=== PATIENT | male | born 1955 | race Caucasian/White ===

== ENCOUNTER 2020-10-24 11:14 | Inpatient (IN) | payer MEDICARE, SELFPAY ==
[2020-10-24] VITALS (8 sets, daily range): BP systolic 104–134; BP diastolic 47–85; PULSE 62–84; RESP 18–22; TEMP 36.2–36.9; O2SAT 88–94; BMI 31.7; BMI 42.0
--- NOTE | 2020-10-24 11:31 | EKG12_ITS ---
Test Reason : WEAKNESS Blood Pressure : / mmHG Vent. Rate : 084 BPM Atrial Rate : 084 BPM P-R Int : 182 ms QRS Dur : 156 ms QT Int : 392 ms P-R-T Axes : 052 -44 036 degrees QTc Int : 463 ms Normal sinus rhythm Left axis deviation Right bundle branch block Abnormal ECG Confirmed by LIMA MILAN, ANDRZEJ ([id number]), material expeditor GADIEL PITTMAN ([id number]) on 10/26/2020 8:38:58 AM Referred By: SKYE Confirmed By:ANDRZEJ AMATO MD
--- NOTE | 2020-10-24 11:33 | NURSING ---
NO OLD EKGS
--- NOTE | 2020-10-24 11:36 | ED.DCSUM_ITS ---
History of Present Illness Chief Complaint: Weakness Informant: Patient Narrative: Patient is a 65-year-old male with a past medical history of hypertension, CAD, gout who presents to the ED for generalized weakness. Has been going on for the past week. He says that he has had some black, runny stools over the past 2 weeks. Denies ever having this happen before. He is not on any blood thinning medications. He denies any significant abdominal pain or fever/chills. He has had a mild cough over the past couple of weeks with production of a white sputum. No known sick contacts. He denies any bright red blood in the stool. No vomiting but he has not been eating over the past week because he has not been hungry and been mildly nauseous. He denies any chest pain or shortness of breath. He does have chronic back pain. He denies a drinking history. Past Medical History - Allergies and Home Meds Allergies/Adverse Reactions: Allergies Penicillins Allergy (Verified 10/24/20 11:19) Angioedema Primary Care Physician: Arnoldo Menjivar MD [Primary Care Provider] - Prior records reviewed: Yes Past Medical History: - - Per HPI Surgical History: - - Cardiac stent placed. Smoking Status: Never smoker Alcohol: Rare - Family History Maternal Family History: Reports: - - no heart dz Review of Systems All systems negative except as indicated General: Reports: Malaise. Denies: Chills, Fever, Sweats Eyes: Denies: Visual changes - bilaterally, Diplopia ENT: Denies: Rhinorrhea, Sore throat Cardiovascular: Denies: Chest pain, Palpitations Respiratory: Reports: Cough. Denies: Dyspnea, Dyspnea on exertion Gastrointestinal: Reports: Nausea, Diarrhea, Melena. Denies: Abdominal pain, Vomiting, Hematochezia Genitourinary: Denies: Dysuria, Hematuria, Frequency Musculoskeletal: Denies: Back pain, Extremity Pain Skin: Denies: Rash, Wounds Neurological: Reports: Weakness - Generalized. Denies: Headache, Numbness Physical Exam Vital Signs/Narrative: Vital Signs Temp Pulse Resp BP Pulse Ox 10/24/20 11:16 97.9 F 84 18 122/58 H 91 Inital Vital Signs reviewed: Yes General: Well nourished, Well developed, No Acute Distress Head: Normocephalic, Atraumatic Eyes: Perrl, EOMI ENT: Moist mucous membranes, No rhinorrhea Neck: Supple, Nontender Cardiovascular: Regular rate, Regular rhythm, No murmurs Respiratory: No distress, CTA bilaterally, Chest nontender, - - Mildly tachypneic after moving from chair to bed Abdomen: Soft, Nondistended, Normal bowel sounds, Tender - Diffuse, mild to deep palpation Back: Nontender, Normal Inspection Extremities: Nontender, No edema Skin: Normal color, No rash Neurological: Alert, Oriented x3, Cranial nerves II-XII grossly intact, Normal Strength, Normal Sensation Psychological: Normal affect, Normal Mood Diagnostic/Tx/Re-eval Chest X-Ray - ED: 1 View, - - Single view portable x-ray interpreted by myself. He does have bilateral patchy infiltrates worse on the right side. Normal cardiac silhouette. Normal mediastinum. Agree with radiologist interpretation. - EKG Initial EKG Interpretation: - - Rate of 84 bpm normal sinus rhythm. Prolonged QRS of 156 with right bundle branch block. Left axis deviation. Has some T wave inversions in the anterior leads. No significant ST elevations or depressions. - Medical Decision Making Patient presents to the emergency department for generalized weakness. He has been having black stools. Upon arrival to the ED he does seem very weak as it takes him a long time to get from the wheelchair to the bed with assistance. Otherwise stable exam is benign except for some mild abdominal tenderness with deep palpation. Will check basic lab work and obtain a type and screen as I do have high concern for upper GI bleed. He is started on IV fluids as he is not been eating or drinking over the past week. Patient's lab work-up did not reveal him to be significantly anemic. He does have mild elevation of BUN and creatinine although I do not have anything to compare this to to know if it is chronic. His x-ray did show bilateral patchy infiltrates and his coronavirus test did come back positive. Ambulating he desaturated to 88% and remained there even while sitting. He does have increased work of breathing after exerting himself. He is given a dose of Decadron. He is given a dose of Protonix for the potential GI bleed. He otherwise has no active bleeding here in the emergency department. He will require hospitalization given the hypoxia. He is agreeable with this plan. He otherwise has been stable throughout ED stay. ED Disposition - Plan for ED Patient: Disposition: Acute Care Hospital [facility] Diagnosis: Pneumonia due to Coronavirus disease 2019, Hypoxia, Generalized weakness, Jose G na Referrals: Arnoldo Menjivar MD [Primary Care Provider] -
[2020-10-24 12:25] LABS: ALB/GLOB Ratio 0.7 RATIO (0.9-2.4); AST(SGOT) 64 U/L (15-37); Alanine Aminotransfer ALT/SGPT 40 U/L (16-61); Alkaline Phosphatase 66 U/L (45-117); Anion Gap 8 (5-15); BUN 52 mg/dL (7-18); Calcium,Total 9.2 mg/dL (8.5-10.1); Chloride 102 mmol/L (98-107); Creatinine, Serum 1.86 mg/dL (0.70-1.30); EST Glomerular Filtration Rate 39 mL/min (>60); Est Glom Filt Rate - Afr Amer 47 mL/min (>60); Estimated Creatinine Clearance 39.07 ml/min; Globulin 4.3 g/dL (2.2-4.2); Glucose 110 mg/dL (74-106); Lipase 204 U/L (73-393); Potassium 3.7 mmol/L (3.5-5.1); Protein, Total 7.3 g/dL (6.4-8.2); Sodium Level 136 mmol/L (136-145)
[2020-10-24 12:46] LABS: Absolute Lymphocyte Count 0.94 X10^3/uL (0.83-4.51); Absolute Neutrophil Count 4.4 X10^3/uL (2.0-7.7); Basophil# 0.01 X10^3/uL; Basophil% 0.2 % (0-1); Hematocrit 38.2 % (40-54); Hemoglobin 12.3 g/dL (13.0-16.5); Lymphocyte # 0.94 X10^3/ul (4.0); Lymphocyte % 15.7 % (19-41); Mean Corp Hgb Conc 32.2 g/dL (32-36); Mean Corpuscular Hgb 27.2 pg (27.0-32.0); Mean Corpuscular Volume 84.3 fL (80-94); Mean Platelet Vol. 10.9 fl (6.2-12.0); Monocyte# 0.61 X10^3/uL; Monocyte% 10.2 % (0-10); NRBC Flagged by Analyzer 0 % (0-5); Neutrophil % 73.4 % (47-70); Platelet Count 206 K/mm3 (150-450); RBC Distribution Width CV 16.4 % (11.6-14.6); RBC Distribution Width SD 50.2 fl (35.1-43.9); Red Blood Count 4.53 M/mm3 (4.6-6.2)
--- NOTE | 2020-10-24 12:49 | ED.RN ---
PT REPORTS NO MEDICAL HISTORY OTHER THAN A STENT, ASKED IF HE TAKES ANY MEDICATIONS PT STATES YOU GUYS SURE ASK A HELL OF A LOT OF QUESTIONS. PT UNABLE TO PROVIDE A FULL MEDICATION LIST.
[2020-10-24] MEDS: 0.9% Normal Saline 1,000 ML 1000 ML IV (13:02)
[2020-10-24 13:35] LABS: Bacteria 0 SEEN /hpf (None Seen); Mucous, Urine 0 SEEN /hpf (<or=2+); Red Blood Cells-Urine 0 SEEN /hpf (0-5)
[2020-10-24 13:39] LABS: Color, Urine Yellow (Yellow); Glucose, Dipstick Normal (Normal); Ketone-Dipstick 5 mg/dl (Negative); Leukocyte Esterase-Dipstick Negative /ul (Negative); Nitrite-Dipstick Negative (Negative); Occult Blood-Urine 10 /ul (Negative); Protein-Dipstick 30 mg/dl (Negative); Urine Bilirubin Dipstick Negative (Negative); Urine Clarity Sl. Cloudy (Clear); Urine Urobilinogen Normal (Normal)
--- NOTE | 2020-10-24 14:10 | RAD_ITS ---
STUDY: X-RAY CHEST REASON FOR EXAM: Male, 65 years old. COUGH, HYPOXIA, WEAKNESS AND RECTAL BLEEDING AND COUGHED UP BLOOD WELL. HAS NOT EATEN IN A WEEK. TECHNIQUE: Single AP portable view of the chest. COMPARISON: None. FINDINGS: There is evidence of infiltrate in the right perihilar region as well as in the right lower lobe. Patchy infiltrates also seen at the left lung base. Radiographic follow-up is recommended. There is no demonstrated pleural abnormality. Normal size heart. Normal mediastinum and gaby. Normal visualized pulmonary arteries. There is atherosclerotic calcification of the aortic arch with tortuosity. Normal visualized thoracic spine. Normal visualized ribs, clavicles, and shoulders. There is no demonstrated abnormality of the visualized soft tissue structures of the upper abdomen. RAD/Chest 1 View (Portable) IMPRESSION: Bilateral pulmonary infiltrates worse in the right hemithorax. Electronically Signed: Jr Moya, at 14:27 EST , Service support ,
[2020-10-24 14:31] LABS: Squamous Epithelial Cells - UA 0-5 SEEN /hpf (0-5); White Blood Cells 0-5 SEEN /hpf (0-5)
--- NOTE | 2020-10-24 15:02 | NURSING ---
MS2 COVID HYPOXIA, COVID JOPPERI
--- NOTE | 2020-10-24 15:18 | HP.PCM_ITS ---
Problem List (1) COVID-19 Status: Acute History of Present Illness Date of Admission: 10/24/20 Chief Complaint: fatigue The patient is a 65 year old M who over the past couple weeks has been feeling ill. He is just fatigued and been having diarrhea. Stool has been noted to be black. He denies seeing any blood in his stool. He presented to the emergency room and initial concern was for GI bleed but he did test positive for COVID-19. His hemoglobin was noted to be 12.3. He is unaware of how he may have contracted COVID-19 as he has been sheltering in place at home. He denies any sick contacts. States that the only contact he has had is with his daughter today who took him to the hospital. In the emergency room, patient received IV pantoprazole and 10 mg of IV dexamethasone. He was noted by the ER physician to have a pulse ox of 88% on room air. However when I saw him, his pulse ox was around 91% on room air. [] Past Medical History Medical History: Medical History (Last Updated 10/24/20 @ 15:[address] Nish Dee, DO) CAD (coronary artery disease) I25.10 h/o coronary stent Allergies Penicillins Allergy (Verified 10/24/20 11:19) Angioedema Home Medications: Ambulatory Orders Medication Instructions Recorded Allopurinol 300 mg PO DAILY 10/24/20 Hydrochlorothiazide [Hctz] 25 mg PO DAILY 10/24/20 Losartan Potassium 50 mg PO DAILY 10/24/20 Metoprolol Tartrate 12.5 mg PO BID 10/24/20 Simvastatin 40 mg PO DAILY 10/24/20 Sodium Bicarbonate 650 mg PO 4X/DAY 10/24/20 Surgical History: - - Cardiac stent placed. Smoking Status: Never smoker Tobacco Use: Non-smoker Alcohol: Rare Drugs: None - *Family History Maternal History Items: - - no heart dz Review of Systems Constitutional: Reports: Malaise, Weakness. Denies: Anorexia, Chills, Fever Eyes: Denies: Blurred vision, Double vision HEENT: Denies: Head Aches, Sinus Congestion, Sinus Drainage Cardiovascular: Denies: Chest Pain, Palpitations Respiratory: Denies: Cough, Shortness of breath at rest, Sputum production Gastrointestinal: Denies: Abdominal Pain, Nausea, Vomiting Genitourinary: Denies: Dysuria Musculoskeletal: Denies: Joint Pain, Joint Tenderness Skin: Denies: Rash, Wounds Neurological: Denies: Numbness, Tingling, Focal weakness Psychiatric: Denies: Anxiety, Depression Hematologic/ Lymphatic: Denies: Easy Bruising, Easy Bleeding, Hx of blood clot Comment: All review of systems were negative except as mentioned above in the history of present illness and the other review of systems. VTE Information - Inpt Only VTE Present on Admission: No VTE Mechan Device Prophylaxis: SCD's VTE Pharm Prophylaxis ordered?: No Reason prophylaxis not ordered:: Medical Contraindication - Physical Exam Vitals/I&O's: Vital Signs Temp Pulse Resp BP Pulse Ox 36.6 C 78 19 H 104/85 H 94 10/24/20 12:56 10/24/20 12:56 10/24/20 12:56 10/24/20 12:56 10/24/20 12:56 Oxygen Delivery Method Room Air Weight: 97.522 kg Body Mass Index (BMI) 31.7 Intake and Output for Last 24 Hours 10/22/20 10/23/20 10/24/20 23:59 23:59 23:59 Intake Total 110 / 110 Balance 110 / 110 General: Alert, Cooperative, No apparent distress HEENT: Atraumatic, Normocephalic Oral: Moist Mucosa, No Gingival or Mucosal Lesions/ Ulcerations Neck: No Nodes, Thyroid Normal Size and Texture Lungs: Normal air movement, - - Bibasilar crackles Cardiovascular: Regular rate, Regular Rhythm, Normal S1, Normal S2, No murmurs Abdomen: Bowel Sounds Present, Soft, Non Tender, Non-Distended, No Hepato- splenomegaly Extremities: No edema, No Calf Tenderness Skin: No rashes, No breakdown Musculoskeletal: No Tenderness to Palpation of Joints or Extremities, No Muscle Wasting Psych/Mental Status: Normal Affect, Appropriate Microbiology Past 72 Hours 10/24/20 13:55 Mucosa - Nose SARS-CoV-2 Antigen (Rapid) - Final SARS-CoV-2 (COVID 19) Laboratory Results 10/24/20 11:55: WBC 6.0, RBC 4.53 L, Hgb 12.3 L, Hct 38.2 L, MCV 84.3, MCH 27.2, MCHC 32.2, RDW Std Deviation 50.2 H, RDW Coeff of Abhilash 16.4 H, Plt Count 206, MPV 10.9, Immature Gran % (Auto) 0.500, Neut % (Auto) 73.4 H, Lymph % (Auto) 15.7 L, [place] % (Auto) 10.2 H, Eos % (Auto) 0.0, Baso % (Auto) 0.2, Absolute Neuts (auto) 4.4, Absolute Lymphs (auto) 0.94, Nucleated RBC % 0 10/24/20 11:55: Sodium 136, Potassium 3.7, Chloride 102, Carbon Dioxide 26.0, Anion Gap 8, BUN 52 H, Creatinine 1.86 H, Estim Creat Clear Calc 39.07, Est GFR (MDRD) Af Amer 47 L, Est GFR (MDRD) Non-Af 39 L, BUN/Creatinine Ratio 28.0 H, Glucose 110 H, Calcium 9.2, Total Bilirubin 0.60, AST 64 H, ALT 40, Alkaline Phosphatase 66, Troponin I < 0.015, Total Protein 7.3, Albumin 3.0 L, Globulin 4.3 H, Albumin/Globulin Ratio 0.7 L, Lipase 204 10/24/20 11:55: Blood Type A POSITIVE, Antibody Screen NEGATIVE 10/24/20 13:30: Urine Color Yellow, Urine Clarity Sl. Cloudy, Urine pH 5.0, Ur Specific [place] 1.020, Urine Protein 30 H, Urine Glucose (UA) Normal, Urine Ketones 5 H, Urine Occult Blood 10 H, Urine Nitrite Negative, Urine Bilirubin Negative, Urine Urobilinogen Normal, Ur Leukocyte Esterase Negative, Urine RBC 0 SEEN, Urine WBC 0-5 SEEN, Ur Squamous Epith Cells 0-5 SEEN, Urine Bacteria 0 SEEN, Urine Mucus 0 SEEN EKG reviewed and showed right bundle branch block. No prior EKGs to compare to. Chest x-ray reviewed and showed pulmonary infiltrate bilaterally. Assessment/Plan All Active Problems COVID-19 (Acute) 1. Acute COVID-19 pneumonia: Patient received a dexamethasone in the emergency room and will continue for a total of 10days. Start patient on remdesivir and treat for a total of 5 days. Will check additional lab work such as D-dimer, procalcitonin. If D-dimer is significantly elevated, patient would not be a candidate for a CT angiogram because of his creatinine and would not be a candidate for VQ scan because of the pneumonia. May consider doing a duplex of the lower extremities. Given the black stools, holding off on any kind of chemical prophylaxis until that can be further elucidated. 2. Black stools: Concern is for melena. Will check Hemoccult but also cycle his hemoglobin. Patient received IV pantoprazole in the emergency room. We will continue with oral. As long as patient is hemodynamically stable, will hold off on consultation to general surgery. 3. Chronic kidney disease stage III: Presumed. Hold off on IV fluids given the patient's COVID-19 at this time. Hold HCTZ. Patient is on sodium bicarbonate is baseline. 4. Coronary artery disease: Patient has had a history of a stent before. No active issues at this time. Continue with losartan, metoprolol tartrate and simvastatin. 5. VTE prophylaxis: At this time patient will be on SCDs. It is noted that the patient is more likely to have coagulopathy having COVID-19 but will need to further elucidate the etiology of his black stools and if this is indeed active melena. If Hemoccult is negative and hemoglobin is stable, then would recommend chemical prophylaxis with enoxaparin. 6. Advanced care planning: Discussed with the patient. Patient state that he would not want to go on the ventilator but on further clarification stated that he did not need to go onto a ventilator. I told him this is a hypothetical question in case if he were to get worse. He is unsure at this time. I told him that we would leave him at full CODE STATUS at this time until he tells us otherwise. Inpatient E&M: 78286 Init Hosp L3
[2020-10-24] MEDS: dexAMETHasone 10 MG/ML Vial IV (16:02)
--- NOTE | 2020-10-24 16:20 | PCS.PANDOC ---
PANDEMIC DOCUMENTATION INITIATED: Date:10-24-2020 Time: 8534
[2020-10-24 18:06] LABS: Hemoglobin 11.6 g/dL (13.0-16.5)
[2020-10-24 18:14] LABS: Prothrombin Time (Protime)PT. 12.9 SECONDS (11.7-14.9)
[2020-10-24 18:15] LABS: Fibrinogen 739 mg/dl (203-444)
[2020-10-24 18:21] LABS: D-Dimer Quantitative (DVT/PE) 1.29 FEU/ug/m (0.27-0.49)
[2020-10-24 18:54] LABS: Alkaline Phosphatase 63 U/L (45-117)
[2020-10-24 18:59] LABS: Procalcitonin 0.46 ng/mL (0.00-0.09)
[2020-10-24] MEDS: 0.9% Saline Lock 10 ML Syringe IV (19:21)
[2020-10-24] MEDS: Metoprolol Tartrate 25 MG Tablet 12.5 MG PO (20:34)
[2020-10-24] MEDS: Sodium Bicarbonate 650 MG Tablet PO (20:34)
[2020-10-24] MEDS: Pantoprazole Sodium 40 MG Tablet PO (20:34)
[2020-10-24 23:38] LABS: Hematocrit 37.6 % (40-54); Hemoglobin 12.1 g/dL (13.0-16.5)
[2020-10-25] VITALS (7 sets, daily range): BP systolic 121–145; BP diastolic 64–72; PULSE 72–82; RESP 18; TEMP 36.2–36.3; O2SAT 92–94
--- NOTE | 2020-10-25 01:10 | PCM.PN.BLA ---
Progress Note Called about patient's elevated D-dimer. Noted that patient has elevated Cr; unclear if this is CELIA or CKD. Hb remained stable at 11-12. Patient is just on 2L oxygen with no tachypnea Will start on therapeutic lovenox pending evaluation for possible PE; can be stopped in am if primary physician feels Lovenox is not warranted STROKE Vital Signs/Narrative: Vital Signs Temp Pulse Resp BP Pulse Ox 10/24/20 23:10 97.8 F 62 18 118/61 94
[2020-10-25] MEDS: Sodium Bicarbonate 650 MG Tablet PO ×4 (04:33→22:28)
[2020-10-25] MEDS: Enoxaparin 150 MG/ML Syringe 130 MG SC (04:34)
[2020-10-25 07:24] LABS: Absolute Lymphocyte Count 0.82 X10^3/uL (0.83-4.51); Absolute Neutrophil Count 3.3 X10^3/uL (2.0-7.7); Basophil# 0.01 X10^3/uL; Basophil% 0.2 % (0-1); Hematocrit 40.3 % (40-54); Lymphocyte # 0.82 X10^3/ul (4.0); Lymphocyte % 17.7 % (19-41); Mean Corp Hgb Conc 32.3 g/dL (32-36); Mean Corpuscular Hgb 27.3 pg (27.0-32.0); Mean Corpuscular Volume 84.5 fL (80-94); Mean Platelet Vol. 10.1 fl (6.2-12.0); Monocyte# 0.51 X10^3/uL; NRBC Flagged by Analyzer 0 % (0-5); Neutrophil # 3.28 X10^3/uL (2.7-7.7); Neutrophil % 70.9 % (47-70); Platelet Count 204 K/mm3 (150-450); RBC Distribution Width CV 16.2 % (11.6-14.6); RBC Distribution Width SD 50.3 fl (35.1-43.9); Red Blood Count 4.77 M/mm3 (4.6-6.2); White Blood Count 4.6 K/mm3 (4.4-11.0)
[2020-10-25 07:48] LABS: ALB/GLOB Ratio 0.8 RATIO (0.9-2.4); AST(SGOT) 63 U/L (15-37); Alanine Aminotransfer ALT/SGPT 40 U/L (16-61); Albumin, Serum 2.9 g/dL (3.2-5.0); Alkaline Phosphatase 67 U/L (45-117); Anion Gap 8 (5-15); BUN 43 mg/dL (7-18); BUN/Creat Ratio 32.8 RATIO (10-20); Chloride 106 mmol/L (98-107); Creatinine, Serum 1.31 mg/dL (0.70-1.30); EST Glomerular Filtration Rate 58 mL/min (>60); Est Glom Filt Rate - Afr Amer 70 mL/min (>60); Estimated Creatinine Clearance 55.47 ml/min; Globulin 3.6 g/dL (2.2-4.2); Glucose 140 mg/dL (74-106); Potassium 3.9 mmol/L (3.5-5.1); Protein, Total 6.5 g/dL (6.4-8.2); Sodium Level 140 mmol/L (136-145)
--- NOTE | 2020-10-25 09:44 | PCM.PROGNOTE ---
Patient Problems: Active and Suspected Problems (Last Updated 10/24/20 @ 15:[address] Nish Dee, DO) Pneumonia due to Coronavirus disease 2019 (Acute) Hypoxia (Acute) Melena (Acute) Subjective: Chief complaint: Follow-up after admission for acute bilateral COVID-19 pneumonia, hypoxia, renal insufficiency and melena. Patient seen and examined. No acute events overnight. He is still complaining of shortness of breath with activity, no improvement compared to yesterday. Reported cough without sputum production. He is afebrile, blood pressure and heart rate are maintained, pulse ox is 94% on 2 L. - Physical Exam Vitals/I&O's: Vital Signs Temp Pulse Resp BP Pulse Ox 97.1 F L 82 18 121/72 H 94 10/25/20 04:16 10/25/20 04:16 10/25/20 04:16 10/25/20 04:16 10/25/20 07:36 Oxygen Flow Rate (L/min) 2 Oxygen Delivery Method Nasal Cannula Weight: 285 lb Body Mass Index (BMI) 42.0 Intake and Output for Last 24 Hours 10/23/20 10/24/20 10/25/20 23:59 23:59 23:59 Intake Total 1800 / 1800 Output Total 400 / 400 Balance 1400 / 1400 General: Alert, Oriented x3, Cooperative, No apparent distress HEENT: Atraumatic, PERRLA, EOMI, Normocephalic Oral: Moist Mucosa, No Gingival or Mucosal Lesions/ Ulcerations Neck: Supple, No JVD, Negative Carotid Bruits, Trachea Midline, Thyroid Normal Size and Texture Lungs: No rhonchi, No wheeze, No rales, Diminished, Short of Breath, - - Decreased breath sounds bilateral, otherwise clear. Cardiovascular: Regular rate, Regular Rhythm, Normal S1, Normal S2, PMI Normal Abdomen: Bowel Sounds Present, Soft, Non Tender, Non-Distended, No Hepato-splenomegaly, Obese Extremities: No clubbing, No cyanosis, No edema Skin: No rashes, No breakdown Lymphatic: No Cervical, Supraclavicular, or Inguinal Adenopathy Neurological: Cranial nerves II-XII grossly intact, Motor Exam 5/5 strength throughout Psych/Mental Status: Normal Affect, Appropriate, Alert and oriented to time, place, person, mood and affect Microbiology Past 72 Hours 10/24/20 13:55 Mucosa - Nose SARS-CoV-2 Antigen (Rapid) - Final SARS-CoV-2 (COVID 19) Laboratory Results 10/24/20 11:55: WBC 6.0, RBC 4.53 L, Hgb 12.3 L, Hct 38.2 L, MCV 84.3, MCH 27.2, MCHC 32.2, RDW Std Deviation 50.2 H, RDW Coeff of Abhilash 16.4 H, Plt Count 206, MPV 10.9, Immature Gran % (Auto) 0.500, Neut % (Auto) 73.4 H, Lymph % (Auto) 15.7 L, [place] % (Auto) 10.2 H, Eos % (Auto) 0.0, Baso % (Auto) 0.2, Absolute Neuts (auto) 4.4, Absolute Lymphs (auto) 0.94, Nucleated RBC % 0 10/24/20 11:55: Sodium 136, Potassium 3.7, Chloride 102, Carbon Dioxide 26.0, Anion Gap 8, BUN 52 H, Creatinine 1.86 H, Estim Creat Clear Calc 39.07, Est GFR (MDRD) Af Amer 47 L, Est GFR (MDRD) Non-Af 39 L, BUN/Creatinine Ratio 28.0 H, Glucose 110 H, Calcium 9.2, Total Bilirubin 0.60, AST 64 H, ALT 40, Alkaline Phosphatase 66, Troponin I < 0.015, Total Protein 7.3, Albumin 3.0 L, Globulin 4.3 H, Albumin/Globulin Ratio 0.7 L, Lipase 204 10/24/20 11:55: Blood Type A POSITIVE, Antibody Screen NEGATIVE 10/24/20 13:30: Urine Color Yellow, Urine Clarity Sl. Cloudy, Urine pH 5.0, Ur Specific [place] 1.020, Urine Protein 30 H, Urine Glucose (UA) Normal, Urine Ketones 5 H, Urine Occult Blood 10 H, Urine Nitrite Negative, Urine Bilirubin Negative, Urine Urobilinogen Normal, Ur Leukocyte Esterase Negative, Urine RBC 0 SEEN, Urine WBC 0-5 SEEN, Ur Squamous Epith Cells 0-5 SEEN, Urine Bacteria 0 SEEN, Urine Mucus 0 SEEN 10/24/20 17:50: PT 12.9, INR 1.0, Fibrinogen 739 H, D-Dimer Quant (PE/DVT) 1.29 H* 10/24/20 17:50: Alkaline Phosphatase 63, Troponin I < 0.015 10/24/20 17:50: Procalcitonin 0.46 H 10/24/20 17:50: Hgb 11.6 L, Hct 36.0 L 10/24/20 23:29: Hgb 12.1 L, Hct 37.6 L 10/25/20 06:45: WBC 4.6, RBC 4.77, Hgb 13.0, Hct 40.3, MCV 84.5, MCH 27.3, MCHC 32.3, RDW Std Deviation 50.3 H, RDW Coeff of Abhilash 16.2 H, Plt Count 204, MPV 10.1, Immature Gran % (Auto) 0.200, Neut % (Auto) 70.9 H, Lymph % (Auto) 17.7 L, [place] % (Auto) 11.0 H, Eos % (Auto) 0.0, Baso % (Auto) 0.2, Absolute Neuts (auto) 3.3, Absolute Lymphs (auto) 0.82 L, Nucleated RBC % 0 10/25/20 06:45: Sodium 140, Potassium 3.9, Chloride 106, Carbon Dioxide 26.0, Anion Gap 8, BUN 43 H, Creatinine 1.31 H, Estim Creat Clear Calc 55.47, Est GFR (MDRD) Af Amer 70, Est GFR (MDRD) Non-Af 58 L, BUN/Creatinine Ratio 32.8 H, Glucose 140 H, Calcium 9.0, Total Bilirubin 0.60, AST 63 H, ALT 40, Alkaline Phosphatase 67, Total Protein 6.5, Albumin 2.9 L, Globulin 3.6, Albumin/Globulin Ratio 0.8 L Current Medications Acetaminophen (Acetaminophen 325 Mg Tablet) 650 mg PO Q6H PRN PRN PRN Reason: Pain Score 1-10/Temp > 100.7 F Allopurinol (Allopurinol 300 Mg Tablet) 300 mg PO DAILY [facility] Atorvastatin Calcium (Atorvastatin Calcium 20 Mg Tablet) 20 mg PO DAILY [facility] Dexamethasone (Dexamethasone 4 Mg Tablet) 6 mg PO DAILY [facility] Enoxaparin Sodium (Enoxaparin 150 Mg/Ml Syringe) 130 mg SC DAILY VERONICA Last Admin: 10/25/20 04:34 Dose: 130 mg Documented by: Remdesivir 100 mg/ Sodium (Chloride) 250 mls @ 125 mls/hr IV DAILY [facility] Stop: 10/28/20 11:59 Losartan Potassium (Losartan Potassium 50 Mg Tablet) 50 mg PO DAILY [facility] Metoprolol Tartrate (Metoprolol Tartrate 25 Mg Tablet) 12.5 mg PO BID [facility] Last Admin: 10/24/20 20:34 Dose: 12.5 mg Documented by: Ondansetron HCl (Ondansetron 4 Mg/2 Ml Vial) 4 mg IV Q8H PRN PRN PRN Reason: NAUSEA/VOMITING Pantoprazole Sodium (Pantoprazole Sodium 40 Mg Tablet) 40 mg PO BID [facility] Last Admin: 10/24/20 20:34 Dose: 40 mg Documented by: Sodium Bicarbonate (Sodium Bicarbonate 650 Mg Tablet) 650 mg PO 0400,1000,1600,2200 [facility] Last Admin: 10/25/20 04:33 Dose: 650 mg Documented by: Sodium Chloride (0.9% Saline Lock 10 Ml Syringe) 10 - 40 ml IV UD PRN PRN Reason: SALINE FLUSH Last Admin: 10/24/20 19:21 Dose: 10 ml Documented by: Medical Necessity - Tobacco Use Smoking Status: Never smoker Tobacco Use: Non-smoker Assessment/Plan All Active Problems (Last Updated 10/24/20 @ 15:[address] Nish Dee, DO) Pneumonia due to Coronavirus disease 2019 (Acute) Hypoxia (Acute) Melena (Acute) This is a 65 years old male patient presented to the emergency room because of weakness, fatigue and diarrhea, found to have bilateral pulmonary infiltrate and tested positive for COVID-19 and he was found to have acute bilateral COVID-19 pneumonia, renal insufficiency and hypoxia. #1 acute bilateral COVID-19 pneumonia/hypoxia: He is on p.o. dexamethasone and IV remdesivir. Chest x-ray reviewed. Currently, he is on 2 L of oxygen, other vital signs are stable. D-dimer was elevated. Troponin was negative. Plan: Infectious disease consult, CTA chest, IV fluids, albuterol inhaler as needed, repeat CBC and CMP tomorrow morning. #2 renal insufficiency: Unknown if it is acute or chronic. Admission creatinine was 1.86, received IV fluids and creatinine came down to 1.31 today, improving. Plan to continue gentle IV fluids for hydration, Mucomyst for kidney protection as patient went for CTA chest, repeat CMP tomorrow morning. #3 melena: Stool for occult blood tested positive. Today's hemoglobin is 13 g/dL. Currently, no active bleeding, no tachycardia, blood pressure stable. Pro time and INR were normal, platelet count is normal. Plan to start PPI. May need to go for work-up as outpatient. #4 CAD status post stents: Stable, no acute issues. Continue statins, losartan metoprolol. #5 hypertension: Blood pressure stable, continue losartan and metoprolol. #6 hyperlipidemia: Continue statins. #7 DVT prophylaxis: Subcu Lovenox. This note was generated with [email or web address] dictation software. It may contain incorrect words, spelling, and punctuation that were not noted in checking the note before signing. Inpatient E&M: 86722 Subs Hosp L2
--- NOTE | 2020-10-25 09:50 | CASEMGMT ---
Addendum entered by Rani Hardy 10/25/20 10:22: Pt states one of his daughters can get groceries/medications/supplies for him if needed. Original Note: SCARLETT VARGAS ASSESSMENT COVID-19 + SCARLETT VARGAS placed call to pt's room for initial transition planning/care coordination assessment. SCARLETT VARGAS introduced self and role at [facility]. Pt voices understanding and consents to assessment at this time. Pt is A/O at this time and answers all questions appropriately. Care providers, pharmacy, and demographics verified/updated at this time. PCP: Dr Menjivar Specialists: Dr Gutierrez--cardiology @ [facility] Preferred Pharmacy: [facility] Retail Insurance: [employer] Prescription Benefit: Yes Living Will/HPOA: Has both LW and Healthcare POA, which is his daughter, Martina Mclaughlin LNOK: 3 daughters. Dtr, Martina, is POA Living Arrangements: Lives alone in one-story home. 2 steps to enter thru the garage. Independent w/ADL's and IADL's Transportation: Pt states drives self and states no transportation concerns at this time. DME: Denies using any DME and denies needs. No Home O2. If qualifies for O2 @ d/c, states no preference of DME company HHC/SNF: No history of either Pt wishes to return home and states has no concerns with going home at time of discharge. CM to follow for home oxygen needs and any further discharge planning/needs. Pt voices no further concerns/needs at this time. Advised pt to ask for CM if any further questions/concerns/needs arise. Voices understanding. PLAN: Home. CM to follow for any Home O2 needs @ discharge Kristen MILES RN, CM
--- NOTE | 2020-10-25 10:17 | NURSING ---
stool for occult blood sent to lab
[2020-10-25] MEDS: dexAMETHasone 4 MG Tablet 6 MG PO (10:19)
[2020-10-25] MEDS: Allopurinol 300 MG Tablet PO (10:20)
[2020-10-25] MEDS: Metoprolol Tartrate 25 MG Tablet 12.5 MG PO ×2 (10:20→22:28)
[2020-10-25] MEDS: Atorvastatin Calcium 20 MG Tablet PO (10:20)
[2020-10-25] MEDS: Pantoprazole Sodium 40 MG Tablet PO ×2 (10:20→22:28)
[2020-10-25] MEDS: Losartan Potassium 50 MG Tablet PO (10:20)
--- NOTE | 2020-10-25 10:45 | CT_ITS ---
STUDY: CTA CHEST REASON FOR EXAM: Male, 65 years old. 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 WEAKNESS + COVID. RADIATION DOSAGE (If Supplied By Facility): CTDIvol = ( 13.85 ) mGy, DLP = ( 1211.89 ) mGycm TECHNIQUE: The examination was performed with the intravenous administration of IV 100mL Isovue-370. Post-processing of the angiographic images was performed, with multiplanar reformation and 3D reconstruction. Individualized dose optimization techniques were used for this CT. COMPARISON: None. FINDINGS: Limited examination due to poor opacification of the pulmonary arteries despite 2 attempts. Small intraluminal filling defects are seen in branches of the upper lobe pulmonary arteries bilaterally. Normal thoracic aorta and visualized great vessels. There is no demonstrated aortic dissection. There are calcifications of the coronary arteries. There are visualized mediastinal lymph nodes, which are within normal size limits, and with normal morphology. Normal hilar regions. Normal visualized trachea and bronchi. The lungs are well expanded. Multiple areas of groundglass appearance are seen in both upper lobes as well as in the lower lobes worse in the right hemithorax. Findings are in keeping with Covid pneumonitis. Normal pleura. Normal chest wall structures. There are degenerative changes of thoracic spine. Fatty infiltration of the liver. Hepatomegaly. CT/CTA Chest W/WO Contrast IMPRESSION: Limited evaluation of the pulmonary arteries due to poor contrast-enhancement although I suspect multiple small pulmonary emboli in the upper lobe pulmonary arterial branches. Multiple areas of bilateral groundglass appearance was in the right hemithorax suggestive of a pneumonitis associated with Covid 19. Electronically Signed: Jr Moya, at 11:20 EST , Service support ,
[2020-10-25] MEDS: 0.9% Normal Saline 1,000 ML 75 ML IV (11:38)
[2020-10-25] MEDS: Acetylcysteine (Mucomyst Oral) 20% SOLN 1200 MG PO ×2 (12:08→22:29)
[2020-10-25] MEDS: Enoxaparin 40 MG/0.4 ML Syringe SC (22:29)
[2020-10-26] VITALS (8 sets, daily range): BP systolic 124–131; BP diastolic 56–71; PULSE 67–75; RESP 18; TEMP 36.1–36.6; O2SAT 92–93
[2020-10-26] MEDS: Sodium Bicarbonate 650 MG Tablet PO ×4 (05:14→20:43)
[2020-10-26 05:24] LABS: Absolute Lymphocyte Count 1.12 X10^3/uL (0.83-4.51); Absolute Neutrophil Count 5.6 X10^3/uL (2.0-7.7); Basophil# 0.02 X10^3/uL; Basophil% 0.3 % (0-1); Hematocrit 42.2 % (40-54); Hemoglobin 13.2 g/dL (13.0-16.5); Lymphocyte # 1.12 X10^3/ul (4.0); Lymphocyte % 14.2 % (19-41); Mean Corp Hgb Conc 31.3 g/dL (32-36); Mean Corpuscular Hgb 26.8 pg (27.0-32.0); Mean Corpuscular Volume 85.8 fL (80-94); Mean Platelet Vol. 9.8 fl (6.2-12.0); Monocyte# 1.03 X10^3/uL; Monocyte% 13.1 % (0-10); NRBC Flagged by Analyzer 0 % (0-5); Neutrophil # 5.64 X10^3/uL (2.7-7.7); Neutrophil % 71.6 % (47-70); Platelet Count 241 K/mm3 (150-450); RBC Distribution Width CV 16.2 % (11.6-14.6); RBC Distribution Width SD 50.9 fl (35.1-43.9); Red Blood Count 4.92 M/mm3 (4.6-6.2); White Blood Count 7.9 K/mm3 (4.4-11.0)
[2020-10-26 05:49] LABS: ALB/GLOB Ratio 0.8 RATIO (0.9-2.4); AST(SGOT) 55 U/L (15-37); Alanine Aminotransfer ALT/SGPT 39 U/L (16-61); Albumin, Serum 2.9 g/dL (3.2-5.0); Alkaline Phosphatase 67 U/L (45-117); Anion Gap 7 (5-15); BUN 33 mg/dL (7-18); BUN/Creat Ratio 26.6 RATIO (10-20); Chloride 113 mmol/L (98-107); Creatinine, Serum 1.24 mg/dL (0.70-1.30); EST Glomerular Filtration Rate 62 mL/min (>60); Est Glom Filt Rate - Afr Amer 75 mL/min (>60); Globulin 3.5 g/dL (2.2-4.2); Glucose 130 mg/dL (74-106); Potassium 3.8 mmol/L (3.5-5.1); Protein, Total 6.4 g/dL (6.4-8.2); Sodium Level 144 mmol/L (136-145)
[2020-10-26] MEDS: dexAMETHasone 4 MG Tablet 6 MG PO (10:14)
[2020-10-26] MEDS: Metoprolol Tartrate 25 MG Tablet 12.5 MG PO ×2 (10:15→20:42)
[2020-10-26] MEDS: Atorvastatin Calcium 20 MG Tablet PO (10:16)
[2020-10-26] MEDS: Losartan Potassium 50 MG Tablet PO (10:16)
[2020-10-26] MEDS: Pantoprazole Sodium 40 MG Tablet PO ×2 (10:16→20:43)
[2020-10-26] MEDS: Allopurinol 300 MG Tablet PO (10:16)
[2020-10-26] MEDS: APIXABAN 5 MG TABLET PO (10:16)
[2020-10-26] MEDS: Acetylcysteine (Mucomyst Oral) 20% SOLN 1200 MG PO ×2 (10:26→20:43)
--- NOTE | 2020-10-26 10:47 | PCM.PROGNOTE ---
Patient Problems: Active and Suspected Problems (Last Updated 10/24/20 @ 15:[address] Nish Dee, DO) Pneumonia due to Coronavirus disease 2019 (Acute) Hypoxia (Acute) Melena (Acute) Subjective: Chief complaint: Follow-up after admission for acute bilateral COVID-19 pneumonia, hypoxia, renal insufficiency and melena. Patient seen and examined. No acute events overnight. Today, he is feeling better, shortness of breath with minimal improvement. He still having melena. Denied epigastric pain, abdominal pain, nausea or vomiting. He is afebrile, blood pressure and heart rate are stable, pulse ox is 92% on 2 L. - Physical Exam Vitals/I&O's: Vital Signs Temp Pulse Resp BP Pulse Ox 97.6 F L 75 18 124/56 H 92 10/26/20 10:00 10/26/20 10:15 10/26/20 10:00 10/26/20 10:15 10/26/20 10:00 Oxygen Flow Rate (L/min) 2 Oxygen Delivery Method Nasal Cannula Weight: 285 lb 0.006 oz Body Mass Index (BMI) 42.0 Intake and Output for Last 24 Hours 10/24/20 10/25/20 10/26/20 23:59 23:59 23:59 Intake Total 1800 / 1800 610 / 610 1240 / 1240 Output Total 400 / 400 1250 / 1250 300 / 300 Balance 1400 / 1400 -640 / -640 940 / 940 General: Alert, Oriented x3, Cooperative, - - Minimally short of breath. HEENT: Atraumatic, PERRLA, EOMI, Normocephalic Oral: Moist Mucosa, No Gingival or Mucosal Lesions/ Ulcerations Neck: Supple, No JVD, Negative Carotid Bruits, Trachea Midline, Thyroid Normal Size and Texture Lungs: Clear to auscultation, No rhonchi, No wheeze, No rales, Diminished Cardiovascular: Regular rate, Regular Rhythm, Normal S1, Normal S2, PMI Normal Abdomen: Bowel Sounds Present, Soft, Non Tender, Non-Distended, No Hepato-splenomegaly, Obese Extremities: No clubbing, No cyanosis, No edema Skin: No rashes, No breakdown Lymphatic: No Cervical, Supraclavicular, or Inguinal Adenopathy Neurological: Cranial nerves II-XII grossly intact, Motor Exam 5/5 strength throughout Psych/Mental Status: Normal Affect, Appropriate, Alert and oriented to time, place, person, mood and affect Microbiology Past 72 Hours 10/25/20 10:12 Stool Stool Occult Blood (ALFIE) - Final Occult Blood Positive 10/24/20 13:55 Mucosa - Nose SARS-CoV-2 Antigen (Rapid) - Final SARS-CoV-2 (COVID 19) Laboratory Results 10/26/20 05:16: WBC 7.9, RBC 4.92, Hgb 13.2, Hct 42.2, MCV 85.8, MCH 26.8 L, MCHC 31.3 L, RDW Std Deviation 50.9 H, RDW Coeff of Abhilash 16.2 H, Plt Count 241, MPV 9.8, Immature Gran % (Auto) 0.800, Neut % (Auto) 71.6 H, Lymph % (Auto) 14.2 L, [place] % (Auto) 13.1 H, Eos % (Auto) 0.0, Baso % (Auto) 0.3, Absolute Neuts (auto) 5.6, Absolute Lymphs (auto) 1.12, Nucleated RBC % 0 10/26/20 05:16: Sodium 144, Potassium 3.8, Chloride 113 H, Carbon Dioxide 24.0, Anion Gap 7, BUN 33 H, Creatinine 1.24, Estim Creat Clear Calc 58.60, Est GFR (MDRD) Af Amer 75, Est GFR (MDRD) Non-Af 62, BUN/Creatinine Ratio 26.6 H, Glucose 130 H, Calcium 9.0, Total Bilirubin 0.50, AST 55 H, ALT 39, Alkaline Phosphatase 67, Total Protein 6.4, Albumin 2.9 L, Globulin 3.5, Albumin/Globulin Ratio 0.8 L Current Medications Acetaminophen (Acetaminophen 325 Mg Tablet) 650 mg PO Q6H PRN PRN PRN Reason: Pain Score 1-10/Temp > 100.7 F Acetylcysteine (Acetylcysteine (Mucomyst Oral) 20% Soln) 1,200 mg PO BID [facility] Stop: 10/27/20 22:01 Last Admin: 10/26/20 10:26 Dose: 1,200 mg Documented by: Allopurinol (Allopurinol 300 Mg Tablet) 300 mg PO DAILY [facility] Last Admin: 10/26/20 10:16 Dose: 300 mg Documented by: Apixaban (Apixaban 5 Mg Tablet) 5 mg PO BID [facility] Last Admin: 10/26/20 10:16 Dose: 5 mg Documented by: Atorvastatin Calcium (Atorvastatin Calcium 20 Mg Tablet) 20 mg PO DAILY [facility] Last Admin: 10/26/20 10:16 Dose: 20 mg Documented by: Dexamethasone (Dexamethasone 4 Mg Tablet) 6 mg PO DAILY [facility] Last Admin: 10/26/20 10:14 Dose: 6 mg Documented by: Remdesivir 100 mg/ Sodium (Chloride) 250 mls @ 125 mls/hr IV DAILY [facility] Stop: 10/28/20 11:59 Last Admin: 10/26/20 10:16 Dose: 125 mls/hr Documented by: Losartan Potassium (Losartan Potassium 50 Mg Tablet) 50 mg PO DAILY [facility] Last Admin: 10/26/20 10:16 Dose: 50 mg Documented by: Metoprolol Tartrate (Metoprolol Tartrate 25 Mg Tablet) 12.5 mg PO BID [facility] Last Admin: 10/26/20 10:15 Dose: 12.5 mg Documented by: Ondansetron HCl (Ondansetron 4 Mg/2 Ml Vial) 4 mg IV Q8H PRN PRN PRN Reason: NAUSEA/VOMITING Pantoprazole Sodium (Pantoprazole Sodium 40 Mg Tablet) 40 mg PO BID [facility] Last Admin: 10/26/20 10:16 Dose: 40 mg Documented by: Sodium Bicarbonate (Sodium Bicarbonate 650 Mg Tablet) 650 mg PO 0400,1000,1600,2200 [facility] Last Admin: 10/26/20 10:16 Dose: 650 mg Documented by: Sodium Chloride (0.9% Saline Lock 10 Ml Syringe) 10 - 40 ml IV UD PRN PRN Reason: SALINE FLUSH Last Admin: 10/24/20 19:21 Dose: 10 ml Documented by: Medical Necessity - Tobacco Use Smoking Status: Never smoker Tobacco Use: Non-smoker Assessment/Plan All Active Problems (Last Updated 10/24/20 @ 15:[address] Nish Dee, DO) Pneumonia due to Coronavirus disease 2019 (Acute) Hypoxia (Acute) Melena (Acute) This is a 65 years old male patient presented to the emergency room because of weakness, fatigue and diarrhea, found to have bilateral pulmonary infiltrate and tested positive for COVID-19 and he was found to have acute bilateral COVID-19 pneumonia, renal insufficiency and hypoxia. #1 acute bilateral COVID-19 pneumonia/hypoxia: Currently on p.o. dexamethasone and IV remdesivir. Chest x-ray reviewed. He remains on 2 L of oxygen, other vital signs are stable. D-dimer was elevated. Troponin was negative. CTA chest showed suspicious multiple small PEs on upper lobes. Infectious disease on the case. Plan to continue same treatment. #2 suspected acute bilateral upper small pulmonary emboli: CTA chest reviewed, revealed suspicious multiple small pulmonary emboli in the upper lobe arterial branches. Plan to start patient on Eliquis 5 mg p.o. twice daily. #2 renal insufficiency: Unknown if it is acute or chronic. Admission creatinine was 1.86, received IV fluids and creatinine came down to 1.24 today, improving. Plan to monitor. #3 melena/probable GI bleed: Stool for occult blood tested positive. He is on PPI. Today's hemoglobin is 13.2 g/dL. Currently, no active bleeding, no tachycardia, blood pressure stable. Pro time and INR were normal, platelet count is normal. Hemoglobin and hematocrit are stable. If hemoglobin start to drop, will consult surgery as patient may need to go for upper endoscopy or colonoscopy. For now, will monitor. #4 CAD status post stents: Stable, no acute issues. Continue statins, losartan metoprolol. #5 hypertension: Blood pressure stable, continue losartan and metoprolol. #6 hyperlipidemia: Continue statins. #7 DVT prophylaxis: Start Eliquis twice daily. This note was generated with [employer] dictation software. It may contain incorrect words, spelling, and punctuation that were not noted in checking the note before signing. Inpatient E&M: [id number] [facility] Hosp L2
--- NOTE | 2020-10-26 12:15 | CASEMGMT ---
Addendum entered by Cong Todd 10/26/20 12:15: [facility] providers for [place] [employer] preferred HMO are: [employer], [facility], [place]. Pt did not have a preference of [facility] providers. Original Note: RN CM Note: Green sheet on front of chart for [facility] if home oxygen is needed. Larisa WILLN RN ACM
--- NOTE | 2020-10-26 14:59 | CON.PCM_ITS ---
Problem List (1) Pneumonia due to Coronavirus disease 2019 Status: Acute Reason for Consult: covid Consulted by: Dr. La History of Present Illness: The patient is a 65 year old M presented with 2 weeks of fatigue, not feeling well, black stool. No fever, no change in taste/smell, no cough or SOB, no chest pain, no n/v, no aches. Lives alone with his dog, no known covid exposure. Came to ED, CT showed PEs, covid (+), admitted on dex, remdesivir, feeling ok. Full ROS performed and neg except as noted above. - Medical History Past Medical History (Chronic Problems): Chronic Problems (Last Updated 10/24/20 @ 15:[address] Nish Dee, DO) CAD (coronary artery disease) (Chronic) Status post stents Hyperlipidemia (Chronic) Hypertension (Chronic) Allergies/Adverse Reactions: Allergies Penicillins Allergy (Verified 10/24/20 11:19) Angioedema Home Medications: Ambulatory Orders Medication Instructions Recorded Allopurinol 300 mg PO DAILY 10/24/20 Hydrochlorothiazide [Hctz] 25 mg PO DAILY 10/24/20 Losartan Potassium 50 mg PO DAILY 10/24/20 Metoprolol Tartrate 12.5 mg PO BID 10/24/20 Simvastatin 40 mg PO DAILY 10/24/20 Sodium Bicarbonate 650 mg PO 4X/DAY 10/24/20 - Social History Tobacco Use: non-smoker Vital Signs Temp Pulse Resp BP Pulse Ox 97.6 F L 75 18 124/56 H 92 10/26/20 10:00 10/26/20 10:15 10/26/20 10:00 10/26/20 10:15 10/26/20 10:00 Oxygen Flow Rate (L/min) 2 Oxygen Delivery Method Nasal Cannula Weight: 129.274 kg Body Mass Index (BMI) 42.0 Microbiology Past 72 Hours 10/25/20 10:12 Stool Occult Blood (ALFIE) - Final Stool Occult Blood Positive 10/24/20 13:55 SARS-CoV-2 Antigen (Rapid) - Final Mucosa - Nose SARS-CoV-2 (COVID 19) Laboratory Tests Past 24 Hrs 10/26/20 10/26/20 05:16 05:16 WBC 7.9 RBC 4.92 Hgb 13.2 Hct 42.2 MCV 85.8 MCH 26.8 L MCHC 31.3 L RDW Std Deviation 50.9 H RDW Coeff of Abhilash 16.2 H Plt Count 241 MPV 9.8 Immature Gran % (Auto) 0.800 Neut % (Auto) 71.6 H Lymph % (Auto) 14.2 L [place] % (Auto) 13.1 H Eos % (Auto) 0.0 Baso % (Auto) 0.3 Absolute Neuts (auto) 5.6 Absolute Lymphs (auto) 1.12 Nucleated RBC % 0 Sodium 144 Potassium 3.8 Chloride 113 H Carbon Dioxide 24.0 Anion Gap 7 BUN 33 H Creatinine 1.24 Estim Creat Clear Calc 58.60 Est GFR (MDRD) Af Amer 75 Est GFR (MDRD) Non-Af 62 BUN/Creatinine Ratio 26.6 H Glucose 130 H Calcium 9.0 Total Bilirubin 0.50 AST 55 H ALT 39 Alkaline Phosphatase 67 Total Protein 6.4 Albumin 2.9 L Globulin 3.5 Albumin/Globulin Ratio 0.8 L - Other Studies Radiology: [] reviewed Other Studies: [] Route of nutrition/ use of supplements: [] Nutritional Intake: [] IV Site: [] [place]ess Catheter: [] - Physical Exam General: Alert, Oriented x3, Cooperative, No apparent distress HEENT: Atraumatic, PERRLA, EOMI Neck: Supple, No Nodes Lungs: Clear to auscultation, Diminished Cardiovascular: Regular rate, Regular Rhythm Abdomen: Soft, Non Tender, Non-Distended Extremities: No edema Skin: No rashes IV Site: Peripheral, without redness Musculoskeletal: No Tenderness to Palpation of Joints or Extremities Neurological: Cranial nerves II-XII grossly intact - Assessment/Plan Antibiotics: [] Assessment/Plan: [] Active and Suspected Problems (Last Updated 10/24/20 @ 15:[address] Nish Dee, DO) Pneumonia due to Coronavirus disease 2019 (Acute) Hypoxia (Acute) Melena (Acute) covid with hypoxia and PE - sx started about 2 weeks prior to admit. On dex and remdesivir. Will order monitoring labs. On therapeutic lovenox. Plan will be 10 days total of dex and 5 more days of quarantine at discharge. Will follow, thank you.
[2020-10-26] MEDS: Enoxaparin 120 MG/0.8 ML Syringe SC (16:29)
[2020-10-27] VITALS (8 sets, daily range): BP systolic 127–134; BP diastolic 54–86; PULSE 64–79; RESP 16–18; TEMP 36.4–36.9; O2SAT 88–92
[2020-10-27 05:06] LABS: Hematocrit 39.9 % (40-54); Hemoglobin 12.7 g/dL (13.0-16.5); Mean Corp Hgb Conc 31.8 g/dL (32-36); Mean Corpuscular Volume 84.7 fL (80-94); Mean Platelet Vol. 9.8 fl (6.2-12.0); Platelet Count 242 K/mm3 (150-450); RBC Distribution Width CV 16.2 % (11.6-14.6); RBC Distribution Width SD 50.7 fl (35.1-43.9); Red Blood Count 4.71 M/mm3 (4.6-6.2); White Blood Count 7.9 K/mm3 (4.4-11.0)
[2020-10-27 05:27] LABS: ALB/GLOB Ratio 0.7 RATIO (0.9-2.4); AST(SGOT) 41 U/L (15-37); Alanine Aminotransfer ALT/SGPT 36 U/L (16-61); Albumin, Serum 2.6 g/dL (3.2-5.0); Alkaline Phosphatase 62 U/L (45-117); Anion Gap 7 (5-15); BUN 31 mg/dL (7-18); BUN/Creat Ratio 25.8 RATIO (10-20); Calcium,Total 9.3 mg/dL (8.5-10.1); Chloride 111 mmol/L (98-107); EST Glomerular Filtration Rate 64 mL/min (>60); Est Glom Filt Rate - Afr Amer 78 mL/min (>60); Estimated Creatinine Clearance 60.55 ml/min; Globulin 3.8 g/dL (2.2-4.2); Glucose 140 mg/dL (74-106); Potassium 3.5 mmol/L (3.5-5.1); Protein, Total 6.4 g/dL (6.4-8.2); Sodium Level 142 mmol/L (136-145)
[2020-10-27] MEDS: Enoxaparin 120 MG/0.8 ML Syringe SC ×2 (05:29→16:55)
[2020-10-27] MEDS: Sodium Bicarbonate 650 MG Tablet PO ×4 (05:29→23:30)
--- NOTE | 2020-10-27 10:07 | PCM.PROGNOTE ---
Patient Problems: Active and Suspected Problems (Last Updated 10/24/20 @ 15:[address] Nish Dee, DO) Pneumonia due to Coronavirus disease 2019 (Acute) Hypoxia (Acute) Melena (Acute) Subjective: Chief complaint: Follow-up after admission for acute bilateral COVID-19 pneumonia, hypoxia, renal insufficiency and melena. Patient seen and examined. No acute events overnight. He still gets short of breath upon ambulation. Today, he has bowel movement with brown stool, normal dark stool. Denied abdominal pain, nausea or vomiting. He remained afebrile, pulse ox is 92% on 2 L, other vital signs are stable. - Physical Exam Vitals/I&O's: Vital Signs Temp Pulse Resp BP Pulse Ox 98.5 F 64 18 134/72 H 92 10/27/20 03:07 10/27/20 03:07 10/27/20 03:07 10/27/20 03:07 10/27/20 03:07 Oxygen Flow Rate (L/min) 2 Oxygen Delivery Method Nasal Cannula Weight: 285 lb 0.006 oz Body Mass Index (BMI) 42.0 Intake and Output for Last 24 Hours 10/25/20 10/26/20 10/27/20 23:59 23:59 23:59 Intake Total 610 / 610 1490 / 1490 Output Total 1250 / 1250 500 / 500 Balance -640 / -640 990 / 990 General: Alert, Oriented x3, Cooperative, No apparent distress HEENT: Atraumatic, PERRLA, EOMI, Normocephalic Oral: Moist Mucosa, No Gingival or Mucosal Lesions/ Ulcerations Neck: Supple, No JVD, Negative Carotid Bruits, Trachea Midline, Thyroid Normal Size and Texture Lungs: Clear to auscultation, No rhonchi, No wheeze, No rales, Diminished, Short of Breath Cardiovascular: Regular rate, Regular Rhythm, Normal S1, Normal S2, PMI Normal Abdomen: Bowel Sounds Present, Soft, Non Tender, Non-Distended, No Hepato-splenomegaly, Obese Extremities: No clubbing, No cyanosis, No edema Skin: No rashes, No breakdown Lymphatic: No Cervical, Supraclavicular, or Inguinal Adenopathy Neurological: Cranial nerves II-XII grossly intact, Neuro grossly intact Psych/Mental Status: Normal Affect, Appropriate, Alert and oriented to time, place, person, mood and affect Microbiology Past 72 Hours 10/25/20 10:12 Stool Stool Occult Blood (ALFIE) - Final Occult Blood Positive 10/24/20 13:55 Mucosa - Nose SARS-CoV-2 Antigen (Rapid) - Final SARS-CoV-2 (COVID 19) Laboratory Results 10/27/20 04:45: WBC 7.9, RBC 4.71, Hgb 12.7 L, Hct 39.9 L, MCV 84.7, MCH 27.0, MCHC 31.8 L, RDW Std Deviation 50.7 H, RDW Coeff of Abhilash 16.2 H, Plt Count 242, MPV 9.8 10/27/20 04:45: Sodium 142, Potassium 3.5, Chloride 111 H, Carbon Dioxide 24.0, Anion Gap 7, BUN 31 H, Creatinine 1.20, Estim Creat Clear Calc 60.55, Est GFR (MDRD) Af Amer 78, Est GFR (MDRD) Non-Af 64, BUN/Creatinine Ratio 25.8 H, Glucose 140 H, Calcium 9.3, Total Bilirubin 0.40, AST 41 H, ALT 36, Alkaline Phosphatase 62, Total Protein 6.4, Albumin 2.6 L, Globulin 3.8, Albumin/Globulin Ratio 0.7 L Current Medications Acetaminophen (Acetaminophen 325 Mg Tablet) 650 mg PO Q6H PRN PRN PRN Reason: Pain Score 1-10/Temp > 100.7 F Acetylcysteine (Acetylcysteine (Mucomyst Oral) 20% Soln) 1,200 mg PO BID [facility] Stop: 10/27/20 22:01 Last Admin: 10/26/20 20:43 Dose: 1,200 mg Documented by: Allopurinol (Allopurinol 300 Mg Tablet) 300 mg PO DAILY [facility] Last Admin: 10/26/20 10:16 Dose: 300 mg Documented by: Atorvastatin Calcium (Atorvastatin Calcium 20 Mg Tablet) 20 mg PO DAILY [facility] Last Admin: 10/26/20 10:16 Dose: 20 mg Documented by: Dexamethasone (Dexamethasone 4 Mg Tablet) 6 mg PO DAILY [facility] Stop: 11/02/20 10:01 Last Admin: 10/26/20 10:14 Dose: 6 mg Documented by: Enoxaparin Sodium (Enoxaparin 120 Mg/0.8 Ml Syringe) 120 mg SC Q12@0600,1800 [facility] Last Admin: 10/27/20 05:29 Dose: 120 mg Documented by: Remdesivir 100 mg/ Sodium (Chloride) 250 mls @ 125 mls/hr IV DAILY [facility] Stop: 10/28/20 11:59 Last Infusion: 10/26/20 12:56 Dose: Infused Documented by: Losartan Potassium (Losartan Potassium 50 Mg Tablet) 50 mg PO DAILY [facility] Last Admin: 10/26/20 10:16 Dose: 50 mg Documented by: Metoprolol Tartrate (Metoprolol Tartrate 25 Mg Tablet) 12.5 mg PO BID [facility] Last Admin: 10/26/20 20:42 Dose: 12.5 mg Documented by: Ondansetron HCl (Ondansetron 4 Mg/2 Ml Vial) 4 mg IV Q8H PRN PRN PRN Reason: NAUSEA/VOMITING Pantoprazole Sodium (Pantoprazole Sodium 40 Mg Tablet) 40 mg PO BID [facility] Last Admin: 10/26/20 20:43 Dose: 40 mg Documented by: Sodium Bicarbonate (Sodium Bicarbonate 650 Mg Tablet) 650 mg PO 0400,1000,1600,2200 [facility] Last Admin: 10/27/20 05:29 Dose: 650 mg Documented by: Sodium Chloride (0.9% Saline Lock 10 Ml Syringe) 10 - 40 ml IV UD PRN PRN Reason: SALINE FLUSH Last Admin: 10/24/20 19:21 Dose: 10 ml Documented by: Medical Necessity - Tobacco Use Smoking Status: Never smoker Tobacco Use: Non-smoker Assessment/Plan All Active Problems (Last Updated 10/24/20 @ 15:[address] Nish Dee, DO) Pneumonia due to Coronavirus disease 2019 (Acute) Hypoxia (Acute) Melena (Acute) This is a 65 years old male patient presented to the emergency room because of weakness, fatigue and diarrhea, found to have bilateral pulmonary infiltrate and tested positive for COVID-19 and he was found to have acute bilateral COVID-19 pneumonia, renal insufficiency and hypoxia. #1 acute bilateral COVID-19 pneumonia/hypoxia: on p.o. dexamethasone and IV remdesivir. Still gets short of breath upon ambulation, remains on 2 L of oxygen. Other vital signs are stable. Troponin was negative. CTA chest showed suspicious multiple small PEs on upper lobes. Infectious disease on the case. Plan to continue same treatment. #2 acute bilateral upper small pulmonary emboli: CTA chest reviewed, revealed suspicious multiple small pulmonary emboli in the upper lobe arterial branches. Currently, he is on Eliquis. #2 renal insufficiency: Unknown if it is acute or chronic. Admission creatinine was 1.86, received IV fluids and creatinine came down to 1.20 today, improving. Plan to monitor. #3 melena/probable GI bleed: Stool for occult blood tested positive. He is on PPI. Today's hemoglobin is 12.7 g/dL. He was started on Eliquis. He reported brown stool, normal black stool. Vital signs are stable. Plan to monitor for now. #4 CAD status post stents: Stable, no acute issues. Continue statins, losartan metoprolol. #5 hypertension: Blood pressure stable, continue losartan and metoprolol. #6 hyperlipidemia: Continue statins. #7 DVT prophylaxis: Continue Eliquis. This note was generated with [employer] dictation software. It may contain incorrect words, spelling, and punctuation that were not noted in checking the note before signing. Inpatient E&M: [id number] Subs Hosp L2
[2020-10-27] MEDS: Acetylcysteine (Mucomyst Oral) 20% SOLN 1200 MG PO ×2 (10:21→23:54)
[2020-10-27] MEDS: dexAMETHasone 4 MG Tablet 6 MG PO (10:25)
[2020-10-27] MEDS: Losartan Potassium 50 MG Tablet PO (10:25)
[2020-10-27] MEDS: Metoprolol Tartrate 25 MG Tablet 12.5 MG PO ×2 (10:26→23:31)
[2020-10-27] MEDS: Atorvastatin Calcium 20 MG Tablet PO (10:26)
[2020-10-27] MEDS: Pantoprazole Sodium 40 MG Tablet PO ×2 (10:27→23:30)
[2020-10-27] MEDS: Allopurinol 300 MG Tablet PO (10:28)
[2020-10-28] VITALS (9 sets, daily range): BP systolic 130–150; BP diastolic 65–80; PULSE 62–81; RESP 18–24; TEMP 36.3–36.6; O2SAT 90–93
--- NOTE | 2020-10-28 00:56 | NURSING ---
pt only wanted to be woken up at 5am, was very gupta about how we better not wake him up for anything.
[2020-10-28] MEDS: Sodium Bicarbonate 650 MG Tablet PO ×4 (06:11→20:29)
[2020-10-28] MEDS: Enoxaparin 120 MG/0.8 ML Syringe SC ×2 (06:11→17:19)
[2020-10-28 06:48] LABS: Hematocrit 39.3 % (40-54); Hemoglobin 12.6 g/dL (13.0-16.5); Mean Corp Hgb Conc 32.1 g/dL (32-36); Mean Corpuscular Hgb 27.1 pg (27.0-32.0); Mean Corpuscular Volume 84.5 fL (80-94); Mean Platelet Vol. 10.1 fl (6.2-12.0); Platelet Count 259 K/mm3 (150-450); RBC Distribution Width SD 49.7 fl (35.1-43.9); Red Blood Count 4.65 M/mm3 (4.6-6.2); White Blood Count 8.5 K/mm3 (4.4-11.0)
[2020-10-28 07:17] LABS: ALB/GLOB Ratio 0.7 RATIO (0.9-2.4); AST(SGOT) 36 U/L (15-37); Alanine Aminotransfer ALT/SGPT 41 U/L (16-61); Albumin, Serum 2.5 g/dL (3.2-5.0); Alkaline Phosphatase 63 U/L (45-117); Anion Gap 4 (5-15); BUN 29 mg/dL (7-18); BUN/Creat Ratio 28.4 RATIO (10-20); Calcium,Total 9.4 mg/dL (8.5-10.1); Chloride 115 mmol/L (98-107); Creatinine, Serum 1.02 mg/dL (0.70-1.30); EST Glomerular Filtration Rate 78 mL/min (>60); Est Glom Filt Rate - Afr Amer 94 mL/min (>60); Estimated Creatinine Clearance 71.24 ml/min; Globulin 3.7 g/dL (2.2-4.2); Glucose 115 mg/dL (74-106); Potassium 3.9 mmol/L (3.5-5.1); Protein, Total 6.2 g/dL (6.4-8.2); Sodium Level 145 mmol/L (136-145)
--- NOTE | 2020-10-28 10:07 | PCM.PROGNOTE ---
Patient Problems: Active and Suspected Problems (Last Updated 10/24/20 @ 15:[address] Nish Dee, DO) Pneumonia due to Coronavirus disease 2019 (Acute) Hypoxia (Acute) Melena (Acute) Subjective: Chief complaint: Follow-up after admission for acute bilateral COVID-19 pneumonia, hypoxia, renal insufficiency and melena. Patient seen and examined. No acute events overnight. Although he mentioned that he is feeling better but he is requiring more oxygen. He still having bowel movements, brown stool, no more black stools or hematochezia. He is afebrile, blood pressure stable, pulse ox is 93% on 5 L. - Physical Exam Vitals/I&O's: Vital Signs Temp Pulse Resp BP Pulse Ox 97.4 F L 62 22 H 136/74 H 93 10/28/20 06:00 10/28/20 06:00 10/28/20 06:00 10/28/20 06:00 10/28/20 06:00 Oxygen Flow Rate (L/min) 5 Oxygen Delivery Method Nasal Cannula Weight: 285 lb 0.006 oz Body Mass Index (BMI) 42.0 Intake and Output for Last 24 Hours 10/26/20 10/27/20 10/28/20 23:59 23:59 23:59 Intake Total 1490 / 1490 250 / 472 444 / 444 Output Total 500 / 500 200 / 200 Balance 990 / 990 250 / 472 244 / 244 General: Alert, Oriented x3, Cooperative, - - Mildly short of breath. HEENT: Atraumatic, PERRLA, EOMI, Normocephalic Oral: Moist Mucosa, No Gingival or Mucosal Lesions/ Ulcerations Neck: Supple, No JVD, Negative Carotid Bruits, Trachea Midline, Thyroid Normal Size and Texture Lungs: Clear to auscultation, No rhonchi, No wheeze, No rales, Diminished Cardiovascular: Regular rate, Regular Rhythm, Normal S1, Normal S2, PMI Normal Abdomen: Bowel Sounds Present, Soft, Non Tender, Non-Distended, No Hepato-splenomegaly, Obese Extremities: No clubbing, No cyanosis, Edema Skin: No rashes, No breakdown Lymphatic: No Cervical, Supraclavicular, or Inguinal Adenopathy Neurological: Cranial nerves II-XII grossly intact, Neuro grossly intact Psych/Mental Status: Normal Affect, Appropriate, Alert and oriented to time, place, person, mood and affect Microbiology Past 72 Hours 10/25/20 10:12 Stool Stool Occult Blood (ALFIE) - Final Occult Blood Positive Laboratory Results 10/28/20 06:10: WBC 8.5, RBC 4.65, Hgb 12.6 L, Hct 39.3 L, MCV 84.5, MCH 27.1, MCHC 32.1, RDW Std Deviation 49.7 H, RDW Coeff of Abhilash 16.0 H, Plt Count 259, MPV 10.1 10/28/20 06:10: Sodium 145, Potassium 3.9, Chloride 115 H, Carbon Dioxide 26.0, Anion Gap 4 L, BUN 29 H, Creatinine 1.02, Estim Creat Clear Calc 71.24, Est GFR (MDRD) Af Amer 94, Est GFR (MDRD) Non-Af 78, BUN/Creatinine Ratio 28.4 H, Glucose 115 H, Calcium 9.4, Total Bilirubin 0.50, AST 36, ALT 41, Alkaline Phosphatase 63, Total Protein 6.2 L, Albumin 2.5 L, Globulin 3.7, Albumin/Globulin Ratio 0.7 L Current Medications Acetaminophen (Acetaminophen 325 Mg Tablet) 650 mg PO Q6H PRN PRN PRN Reason: Pain Score 1-10/Temp > 100.7 F Allopurinol (Allopurinol 300 Mg Tablet) 300 mg PO DAILY [facility] [place] Last Admin: 10/27/20 10:28 Dose: 300 mg Documented by: Atorvastatin Calcium (Atorvastatin Calcium 20 Mg Tablet) 20 mg PO DAILY [facility] [place] Last Admin: 10/27/20 10:26 Dose: 20 mg Documented by: Dexamethasone (Dexamethasone 4 Mg Tablet) 6 mg PO DAILY [facility] Stop: 11/02/20 10:01 Last Admin: 10/27/20 10:25 Dose: 6 mg Documented by: Enoxaparin Sodium (Enoxaparin 120 Mg/0.8 Ml Syringe) 120 mg SC Q12@0600,1800 [facility] [place] Last Admin: 10/28/20 06:11 Dose: 120 mg Documented by: Remdesivir 100 mg/ Sodium (Chloride) 250 mls @ 125 mls/hr IV DAILY [facility] [place] Stop: 10/28/20 11:59 Last Infusion: 10/27/20 12:27 Dose: Infused Documented by: Losartan Potassium (Losartan Potassium 50 Mg Tablet) 50 mg PO DAILY [facility] [place] Last Admin: 10/27/20 10:25 Dose: 50 mg Documented by: Metoprolol Tartrate (Metoprolol Tartrate 25 Mg Tablet) 12.5 mg PO BID [facility] [place] Last Admin: 10/27/20 23:31 Dose: 12.5 mg Documented by: Ondansetron HCl (Ondansetron 4 Mg/2 Ml Vial) 4 mg IV Q8H PRN PRN PRN Reason: NAUSEA/VOMITING Pantoprazole Sodium (Pantoprazole Sodium 40 Mg Tablet) 40 mg PO BID [facility] [place] Last Admin: 10/27/20 23:30 Dose: 40 mg Documented by: Sodium Bicarbonate (Sodium Bicarbonate 650 Mg Tablet) 650 mg PO 0400,1000,1600,2200 [facility] [place] Last Admin: 10/28/20 06:11 Dose: 650 mg Documented by: Sodium Chloride (0.9% Saline Lock 10 Ml Syringe) 10 - 40 ml IV UD PRN PRN Reason: SALINE FLUSH Last Admin: 10/24/20 19:21 Dose: 10 ml Documented by: Medical Necessity - Tobacco Use Smoking Status: Never smoker Tobacco Use: Non-smoker Assessment/Plan All Active Problems (Last Updated 10/24/20 @ 15:[address] Nish Dee, DO) Pneumonia due to Coronavirus disease 2019 (Acute) Hypoxia (Acute) Melena (Acute) This is a 65 years old male patient presented to the emergency room because of weakness, fatigue and diarrhea, found to have bilateral pulmonary infiltrate and tested positive for COVID-19 and he was found to have acute bilateral COVID-19 pneumonia, renal insufficiency and hypoxia. #1 acute bilateral COVID-19 pneumonia/hypoxia: Currently, he is on p.o. dexamethasone and IV remdesivir. Today, he is requiring more oxygen although he mentioned that he is feeling better. He is up to 5 L of oxygen. He is afebrile, other vital signs are stable. Plan to continue same treatment, repeat CBC and CMP tomorrow morning. #2 acute bilateral upper small pulmonary emboli: CTA chest reviewed, revealed suspicious multiple small pulmonary emboli in the upper lobe arterial branches. Currently, he is on Eliquis. #2 renal insufficiency: Unknown if it is acute or chronic. Admission creatinine was 1.86, received IV fluids and creatinine came down to 1.02 mg/dL today, improving. Plan to monitor. #3 melena/probable GI bleed: Patient has been having brown stool, no more melena. Stool for occult blood tested positive. He is on PPI. Today's hemoglobin is 12.6 g/dL. He is on Eliquis. Hemoglobin and hematocrit are stable. Vital signs are stable. Plan to monitor for now. #4 CAD status post stents: Stable, no acute issues. Continue statins, losartan metoprolol. #5 hypertension: Blood pressure stable, continue losartan and metoprolol. #6 hyperlipidemia: Continue statins. #7 DVT prophylaxis: Continue Eliquis. This note was generated with [employer] dictation software. It may contain incorrect words, spelling, and punctuation that were not noted in checking the note before signing. Inpatient E&M: 21935 Subs Hosp L2
[2020-10-28] MEDS: dexAMETHasone 4 MG Tablet 6 MG PO (10:16)
[2020-10-28] MEDS: Losartan Potassium 50 MG Tablet PO (10:16)
[2020-10-28] MEDS: Atorvastatin Calcium 20 MG Tablet PO (10:17)
[2020-10-28] MEDS: Metoprolol Tartrate 25 MG Tablet 12.5 MG PO ×2 (10:17→20:37)
[2020-10-28] MEDS: Pantoprazole Sodium 40 MG Tablet PO ×2 (10:19→20:29)
[2020-10-28] MEDS: Allopurinol 300 MG Tablet PO (10:19)
[2020-10-28] MEDS: Acetaminophen 325 MG Tablet 650 MG PO (20:48)
[2020-10-28] MEDS: Sodium Chloride 0.65% 1 SPRAY SPRAY.BTL 2 SPRAY NASAL (22:53)
[2020-10-29] VITALS (9 sets, daily range): BP systolic 124–144; BP diastolic 67–85; PULSE 60–80; RESP 18–24; TEMP 36–36.6; O2SAT 91–96
[2020-10-29] MEDS: Sodium Bicarbonate 650 MG Tablet PO ×4 (05:26→20:56)
[2020-10-29] MEDS: Acetaminophen 325 MG Tablet 650 MG PO ×4 (05:26→22:17)
[2020-10-29] MEDS: Enoxaparin 120 MG/0.8 ML Syringe SC ×2 (06:04→16:42)
--- NOTE | 2020-10-29 07:36 | PCM.PN.HOSP ---
Patient Problems: Active and Suspected Problems (Last Updated 10/24/20 @ 15:[address] Nish Dee, DO) Pneumonia due to Coronavirus disease 2019 (Acute) Hypoxia (Acute) Melena (Acute) Reason for Visit: Follow-up for acute hypoxic respiratory failure secondary to COVID-19 pneumonia Objective: Patient did not have fever. Tachypneic respiratory 24/min. Patient oxygen requirement is increasing, currently 7 L/min. It was 6 L in the morning. Patient is frustrated to go home. Physical exam General: Alert, Oriented x3, Cooperative HEENT: Bilateral hard of hearing atraumatic, PERRLA, EOMI, Normocephalic Oral: No Gingival or Mucosal Lesions/ Ulcerations Neck: Supple, No JVD, Negative Carotid Bruits Lungs: Air entry diminished in bilateral lung bases. Bilateral fine rales present. Cardiovascular: Regular rate, Regular Rhythm, Normal S1, Normal S2, No murmurs Abdomen: Bowel Sounds Present, Soft, Non Tender, Non-Distended : No renal angle tenderness. No suprapubic tenderness. Extremities: Bilateral lower leg edema, Capillary Refill Less than 3 Seconds Skin: No rashes, No breakdown Musculoskeletal: No Tenderness to Palpation of Joints or Extremities Neurological: Cranial nerves II-XII grossly intact, Deep Tendon Reflexes 2+/4 and Symmetrical, Neuro grossly intact Psych/Mental Status: Frustrated. Irritable Vitals/I&O's: Vital Signs Temp Pulse Resp BP Pulse Ox 97.8 F 60 24 H 138/79 H 92 10/29/20 05:27 10/29/20 05:27 10/29/20 05:27 10/29/20 05:27 10/29/20 07:33 Oxygen Flow Rate (L/min) 6 Oxygen Delivery Method Nasal Cannula Weight: 285 lb 0.006 oz Body Mass Index (BMI) 42.0 Intake and Output for Last 24 Hours 10/27/20 10/28/20 10/29/20 23:59 23:59 23:59 Intake Total 250 / 472 694 / 694 222 / 222 Output Total 300 / 300 Balance 250 / 472 394 / 394 222 / 222 Current Medications Acetaminophen (Acetaminophen 325 Mg Tablet) 650 mg PO Q6H PRN PRN PRN Reason: Pain Score 1-10/Temp > 100.7 F Last Admin: 10/29/20 05:26 Dose: 650 mg Documented by: Allopurinol (Allopurinol 300 Mg Tablet) 300 mg PO DAILY [facility] Last Admin: 10/28/20 10:19 Dose: 300 mg Documented by: Atorvastatin Calcium (Atorvastatin Calcium 20 Mg Tablet) 20 mg PO DAILY [facility] Last Admin: 10/28/20 10:17 Dose: 20 mg Documented by: Dexamethasone (Dexamethasone 4 Mg Tablet) 6 mg PO DAILY [facility] Stop: 11/02/20 10:01 Last Admin: 10/28/20 10:16 Dose: 6 mg Documented by: Enoxaparin Sodium (Enoxaparin 120 Mg/0.8 Ml Syringe) 120 mg SC Q12@0600,1800 [facility] Last Admin: 10/29/20 06:04 Dose: 120 mg Documented by: Losartan Potassium (Losartan Potassium 50 Mg Tablet) 50 mg PO DAILY [facility] Last Admin: 10/28/20 10:16 Dose: 50 mg Documented by: Metoprolol Tartrate (Metoprolol Tartrate 25 Mg Tablet) 12.5 mg PO BID [facility] Last Admin: 10/28/20 20:37 Dose: 12.5 mg Documented by: Ondansetron HCl (Ondansetron 4 Mg/2 Ml Vial) 4 mg IV Q8H PRN PRN PRN Reason: NAUSEA/VOMITING Pantoprazole Sodium (Pantoprazole Sodium 40 Mg Tablet) 40 mg PO BID [facility] Last Admin: 10/28/20 20:29 Dose: 40 mg Documented by: Sodium Bicarbonate (Sodium Bicarbonate 650 Mg Tablet) 650 mg PO 0400,1000,1600,2200 [facility] Last Admin: 10/29/20 05:26 Dose: 650 mg Documented by: Sodium Chloride (0.9% Saline Lock 10 Ml Syringe) 10 - 40 ml IV UD PRN PRN Reason: SALINE FLUSH Last Admin: 10/24/20 19:21 Dose: 10 ml Documented by: Sodium Chloride (Sodium Chloride 0.65% 1 [place] Ripon.Btl) 2 spray NASAL BID PRN PRN PRN Reason: NASAL DRYNESS Last Admin: 10/28/20 22:53 Dose: 2 sprays Documented by: STROKE Vital Signs/Narrative: Vital Signs Temp Pulse Resp BP Pulse Ox 10/29/20 07:33 92 10/29/20 05:27 97.8 F 60 24 H 138/79 H 93 Medical Necessity - Tobacco Use Smoking Status: Never smoker Tobacco Use: Non-smoker Assessment/Plan All Active Problems (Last Updated 10/24/20 @ 15:[address] Nish Dee, DO) Pneumonia due to Coronavirus disease 2019 (Acute) Hypoxia (Acute) Melena (Acute) This is a 65 years old male patient presented to the emergency room because of weakness, fatigue and diarrhea, found to have bilateral pulmonary infiltrate and tested positive for COVID-19 and he was found to have acute bilateral COVID-19 pneumonia, renal insufficiency and hypoxia. #1 Acute hypoxic respiratory failure secondary to acute bilateral COVID-19 pneumonia and bilateral PE: Patient completed remdesivir. On Decadron. Discussed with ID. Patient has bilateral leg edema and was on HCTZ, losartan at home which are discontinued. Started on Lasix 40 mg IV daily. BNP, pro calcitonin and troponin ordered by ID. Repeat chest x-ray tomorrow a.m. #2 acute bilateral upper small pulmonary emboli: CTA chest reviewed, revealed suspicious multiple small pulmonary emboli in the upper lobe arterial branches. Continue Eliquis. #2 Acute renal insufficiency:Admission creatinine was 1.86, received IV fluids and creatinine came down to 1.02 mg/dL but patient has bilateral leg edema and hypoxia worsened. Started on Lasix as mentioned above. #3 melena/probable GI bleed: Patient has been having brown stool, no more melena. Stool for occult blood tested positive. He is on PPI. Today's hemoglobin is 12.6 g/dL. He is on Eliquis. Hemoglobin and hematocrit are stable. Vital signs are stable. H&H is stable. #4 CAD status post stents: Stable, no acute issues. Continue statins, losartan metoprolol. #5 hypertension: Blood pressure stable, continue losartan and metoprolol. #6 hyperlipidemia: Continue statins. Inpatient E&M: 42393 Subs Hosp L2
[2020-10-29] MEDS: Pantoprazole Sodium 40 MG Tablet PO ×2 (09:10→20:55)
[2020-10-29] MEDS: Atorvastatin Calcium 20 MG Tablet PO (09:10)
[2020-10-29] MEDS: dexAMETHasone 4 MG Tablet 6 MG PO (09:10)
[2020-10-29] MEDS: Losartan Potassium 50 MG Tablet PO (09:10)
[2020-10-29] MEDS: Allopurinol 300 MG Tablet PO (09:11)
[2020-10-29] MEDS: Metoprolol Tartrate 25 MG Tablet 12.5 MG PO ×2 (09:11→20:56)
--- NOTE | 2020-10-29 11:30 | NURSING ---
went in room to medicate pt. Pt. had tissue with blood on it and clot wanted to make sure nurse saw it. States came out of nose make note of it that blood.
--- NOTE | 2020-10-29 15:23 | PN.ID_ITS ---
Patient Problems: Active and Suspected Problems (Last Updated 10/24/20 @ 15:[address] Nish Dee, DO) Pneumonia due to Coronavirus disease 2019 (Acute) Hypoxia (Acute) Melena (Acute) Subjective: Feeling ok, no fever - Physical Exam Vitals/I&O's: Vital Signs Temp Pulse Resp BP Pulse Ox 97.9 F 66 24 H 136/77 H 96 10/29/20 11:03 10/29/20 11:03 10/29/20 11:03 10/29/20 11:03 10/29/20 11:03 Oxygen Flow Rate (L/min) 7 Oxygen Delivery Method Nasal Cannula Weight: 129.274 kg Body Mass Index (BMI) 42.0 Intake and Output for Last 24 Hours 10/27/20 10/28/20 10/29/20 23:59 23:59 23:59 Intake Total 250 / 472 694 / 694 222 / 222 Output Total 300 / 300 Balance 250 / 472 394 / 394 222 / 222 General: Alert, Cooperative, No apparent distress Lungs: Diminished Cardiovascular: Regular rate, Regular Rhythm Abdomen: Soft, Non Tender, Non-Distended Skin: No rashes Current Medications Acetaminophen (Acetaminophen 325 Mg Tablet) 650 mg PO Q6H PRN PRN PRN Reason: Pain Score 1-10/Temp > 100.7 F Last Admin: 10/29/20 11:31 Dose: 650 mg Documented by: Allopurinol (Allopurinol 300 Mg Tablet) 300 mg PO DAILY [facility] Last Admin: 10/29/20 09:11 Dose: 300 mg Documented by: Atorvastatin Calcium (Atorvastatin Calcium 20 Mg Tablet) 20 mg PO DAILY [facility] Last Admin: 10/29/20 09:10 Dose: 20 mg Documented by: Dexamethasone (Dexamethasone 4 Mg Tablet) 6 mg PO DAILY [facility] Stop: 11/02/20 10:01 Last Admin: 10/29/20 09:10 Dose: 6 mg Documented by: Enoxaparin Sodium (Enoxaparin 120 Mg/0.8 Ml Syringe) 120 mg SC Q12@0600,1800 [facility] Last Admin: 10/29/20 06:04 Dose: 120 mg Documented by: Losartan Potassium (Losartan Potassium 50 Mg Tablet) 50 mg PO DAILY [facility] Last Admin: 10/29/20 09:10 Dose: 50 mg Documented by: Metoprolol Tartrate (Metoprolol Tartrate 25 Mg Tablet) 12.5 mg PO BID [facility] Last Admin: 10/29/20 09:11 Dose: 12.5 mg Documented by: Ondansetron HCl (Ondansetron 4 Mg/2 Ml Vial) 4 mg IV Q8H PRN PRN PRN Reason: NAUSEA/VOMITING Pantoprazole Sodium (Pantoprazole Sodium 40 Mg Tablet) 40 mg PO BID [facility] Last Admin: 10/29/20 09:10 Dose: 40 mg Documented by: Sodium Bicarbonate (Sodium Bicarbonate 650 Mg Tablet) 650 mg PO 0400,1000,1600,2200 [facility] Last Admin: 10/29/20 09:48 Dose: 650 mg Documented by: Sodium Chloride (0.9% Saline Lock 10 Ml Syringe) 10 - 40 ml IV UD PRN PRN Reason: SALINE FLUSH Last Admin: 10/24/20 19:21 Dose: 10 ml Documented by: Sodium Chloride (Sodium Chloride 0.65% 1 [place] Trinity.Btl) 2 spray NASAL BID PRN PRN PRN Reason: NASAL DRYNESS Last Admin: 10/28/20 22:53 Dose: 2 sprays Documented by: Medical Necessity - Tobacco Use Smoking Status: Never smoker Tobacco Use: Non-smoker Route of nutrition/ use of supplements: [] Nutritional Intake: [] IV Site: [] Burgess Catheter: [] - Assessment/Plan Antibiotics: [] Assessment/Plan: [] Active and Suspected Problems (Last Updated 10/24/20 @ 15:[address] Nish Dee, DO) Pneumonia due to Coronavirus disease 2019 (Acute) Hypoxia (Acute) Melena (Acute) covid with hypoxia and PE - sx started about 2 weeks prior to admit. On dex and completed remdesivir. On therapeutic lovenox. Plan will be 10 days total of dex. O2 worsening. CELIA resolved, home hctz has been held since admit. Checking bnp, PCT, trop. Recommend trial of diuresis. Will follow, d/w Dr. Christian
[2020-10-29 16:03] LABS: BNP,B-Type NATRIURETIC PEPTIDE 25.1 pg/mL (0-100)
[2020-10-29 16:11] LABS: Procalcitonin 0.09 ng/mL (0.00-0.09)
[2020-10-29] MEDS: Furosemide 40 MG/4 ML Vial IV (16:44)
[2020-10-29] MEDS: 0.9% Saline Lock 10 ML Syringe IV (16:44)
[2020-10-30] VITALS (9 sets, daily range): BP systolic 102–135; BP diastolic 53–71; PULSE 65–87; RESP 18–202; TEMP 35.6–36.6; O2SAT 89–91
--- NOTE | 2020-10-30 01:14 | NURSING ---
Pt refuses nurse to perform VSA during hours of 1am to 5am. Pt is stable and independent in room on 7L NC.
[2020-10-30 05:09] LABS: Absolute Lymphocyte Count 1.44 X10^3/uL (0.83-4.51); Basophil# 0.02 X10^3/uL; Basophil% 0.2 % (0-1); Eosinophil# 0.01 X10^3/uL; Eosinophils% 0.1 % (0-5); Hematocrit 40.4 % (40-54); Hemoglobin 12.7 g/dL (13.0-16.5); Lymphocyte # 1.44 X10^3/ul (4.0); Lymphocyte % 12.1 % (19-41); Mean Corp Hgb Conc 31.4 g/dL (32-36); Mean Corpuscular Hgb 26.6 pg (27.0-32.0); Mean Corpuscular Volume 84.5 fL (80-94); Mean Platelet Vol. 9.9 fl (6.2-12.0); Monocyte# 0.93 X10^3/uL; Monocyte% 7.8 % (0-10); NRBC Flagged by Analyzer 0.2 % (0-5); Neutrophil # 9.01 X10^3/uL (2.7-7.7); Neutrophil % 75.9 % (47-70); Platelet Count 335 K/mm3 (150-450); RBC Distribution Width CV 16.1 % (11.6-14.6); RBC Distribution Width SD 49.6 fl (35.1-43.9); Red Blood Count 4.78 M/mm3 (4.6-6.2); White Blood Count 11.9 K/mm3 (4.4-11.0)
[2020-10-30 05:24] LABS: Anion Gap 7 (5-15); BUN 30 mg/dL (7-18); BUN/Creat Ratio 25.4 RATIO (10-20); Chloride 110 mmol/L (98-107); Creatinine, Serum 1.18 mg/dL (0.70-1.30); EST Glomerular Filtration Rate 66 mL/min (>60); Est Glom Filt Rate - Afr Amer 79 mL/min (>60); Estimated Creatinine Clearance 61.58 ml/min; Glucose 124 mg/dL (74-106); Magnesium 1.8 mg/dL (1.6-2.6); Potassium 3.5 mmol/L (3.5-5.1); Sodium Level 143 mmol/L (136-145)
[2020-10-30] MEDS: Sodium Bicarbonate 650 MG Tablet PO ×4 (05:45→20:46)
[2020-10-30] MEDS: Enoxaparin 120 MG/0.8 ML Syringe SC ×2 (05:45→20:46)
[2020-10-30] MEDS: dexAMETHasone 4 MG Tablet 6 MG PO (09:33)
[2020-10-30] MEDS: Acetaminophen 325 MG Tablet 650 MG PO ×3 (09:33→20:47)
[2020-10-30] MEDS: Furosemide 40 MG/4 ML Vial IV (09:34)
[2020-10-30] MEDS: Metoprolol Tartrate 25 MG Tablet 12.5 MG PO ×2 (09:35→20:50)
[2020-10-30] MEDS: Losartan Potassium 25 MG Tablet PO (09:35)
[2020-10-30] MEDS: Allopurinol 300 MG Tablet PO (09:35)
[2020-10-30] MEDS: 0.9% Saline Lock 10 ML Syringe IV (09:39)
[2020-10-30] MEDS: Pantoprazole Sodium 40 MG Tablet PO ×2 (09:47→20:46)
[2020-10-30] MEDS: Atorvastatin Calcium 20 MG Tablet PO (10:26)
--- NOTE | 2020-10-30 10:27 | NURSING ---
notified repository to assess pt. ox was increased from 7 to 10 and contiunes to sat at 87 to 88 %, states he can be increased up tp 15 if needed. increased to 15 L and pox is 89 now.
--- NOTE | 2020-10-30 10:37 | NURSING ---
Instructed pt to use urinal instead of ambulating to bathroom since pox is only 89%, to conserve energy and prevent o2 from to dropping down. Informed him it continues to drop he may need to go on Airvo or Bipap. Yells he can't use the urinal and is very upset and ambulated to bathroom.
--- NOTE | 2020-10-30 11:29 | PN_ITS ---
Patient Problems: Active and Suspected Problems (Last Updated 10/24/20 @ 15:[address] Nish Dee, DO) Pneumonia due to Coronavirus disease 2019 (Acute) Hypoxia (Acute) Melena (Acute) Reason for Visit: Follow-up for acute hypoxic respiratory failure secondary to COVID-19 pneumonia. Objective: Patient looks more short of breath and hypoxia increased, currently on 10 L of oxygen. Patient states he is not better and he feels sinus congestion and plugging. Afebrile. Heart rate and blood pressure controlled. Patient little irritable and grumpy as he has to go bathroom frequently on Lasix. Physical exam General: Alert, Oriented x3, Cooperative HEENT: Atraumatic, PERRLA, EOMI, Normocephalic Oral: No Gingival or Mucosal Lesions/ Ulcerations Neck: Supple, No JVD, Negative Carotid Bruits Lungs: Air entry diminished in bilateral lung bases. Bilateral coarse crepitations and wheezing present. Cardiovascular: Regular rate, Regular Rhythm, Normal S1, Normal S2, No murmurs Abdomen: Bowel Sounds Present, Soft, Non Tender, Non-Distended : No renal angle tenderness. No suprapubic tenderness. Extremities: No significant leg edema, Capillary Refill Less than 3 Seconds Skin: No rashes, No breakdown Musculoskeletal: No Tenderness to Palpation of Joints or Extremities Neurological: Cranial nerves II-XII grossly intact, Deep Tendon Reflexes 2+/4 and Symmetrical, Neuro grossly intact Psych/Mental Status: Normal Affect, Appropriate. Vitals/I&O's: Vital Signs Temp Pulse Resp BP Pulse Ox 97.3 F L 86 202 H 135/59 H 89 10/30/20 09:18 10/30/20 09:35 10/30/20 09:18 10/30/20 09:18 10/30/20 09:18 Oxygen Flow Rate (L/min) 10 Oxygen Delivery Method Nasal Cannula Weight: 285 lb 0.006 oz Body Mass Index (BMI) 42.0 Intake and Output for Last 24 Hours 10/28/20 10/29/20 10/30/20 23:59 23:59 23:59 Intake Total 694 / 694 222 / 222 Output Total 300 / 300 500 / 500 Balance 394 / 394 -278 / -278 Laboratory Results 10/29/20 15:23: Troponin I < 0.015 10/29/20 15:23: B-Natriuretic Peptide 25.1 10/29/20 15:23: Procalcitonin 0.09 10/30/20 05:04: WBC 11.9 H, RBC 4.78, Hgb 12.7 L, Hct 40.4, MCV 84.5, MCH 26.6 L , MCHC 31.4 L, RDW Std Deviation 49.6 H, RDW Coeff of Abhilash 16.1 H, Plt Count 335, MPV 9.9, Immature Gran % (Auto) 3.900 H, Neut % (Auto) 75.9 H, Lymph % (Auto) 12.1 L, [place] % (Auto) 7.8, Eos % (Auto) 0.1, Baso % (Auto) 0.2, Absolute Neuts (auto) 9.0 H, Absolute Lymphs (auto) 1.44, Nucleated RBC % 0.2 10/30/20 05:04: Sodium 143, Potassium 3.5, Chloride 110 H, Carbon Dioxide 26.0, Anion Gap 7, BUN 30 H, Creatinine 1.18, Estim Creat Clear Calc 61.58, Est GFR (MDRD) Af Amer 79, Est GFR (MDRD) Non-Af 66, BUN/Creatinine Ratio 25.4 H, Glucose 124 H, Calcium 9.0, Magnesium 1.8 Current Medications Acetaminophen (Acetaminophen 325 Mg Tablet) 650 mg PO Q6H PRN PRN PRN Reason: Pain Score 1-10/Temp > 100.7 F Last Admin: 10/30/20 09:33 Dose: 650 mg Documented by: Allopurinol (Allopurinol 300 Mg Tablet) 300 mg PO DAILY [facility] Last Admin: 10/30/20 09:35 Dose: 300 mg Documented by: Atorvastatin Calcium (Atorvastatin Calcium 20 Mg Tablet) 20 mg PO DAILY [facility] Last Admin: 10/30/20 10:26 Dose: 20 mg Documented by: Dexamethasone (Dexamethasone 4 Mg Tablet) 6 mg PO DAILY [facility] Stop: 11/02/20 10:01 Last Admin: 10/30/20 09:33 Dose: 6 mg Documented by: Enoxaparin Sodium (Enoxaparin 120 Mg/0.8 Ml Syringe) 120 mg SC BID [facility] Furosemide (Furosemide 40 Mg/4 Ml Vial) 40 mg IV DAILY [facility] Last Admin: 10/30/20 09:34 Dose: 40 mg Documented by: Losartan Potassium (Losartan Potassium 25 Mg Tablet) 25 mg PO DAILY [facility] Last Admin: 10/30/20 09:35 Dose: 25 mg Documented by: Metoprolol Tartrate (Metoprolol Tartrate 25 Mg Tablet) 12.5 mg PO BID [facility] Last Admin: 10/30/20 09:35 Dose: 12.5 mg Documented by: Ondansetron HCl (Ondansetron 4 Mg/2 Ml Vial) 4 mg IV Q8H PRN PRN PRN Reason: NAUSEA/VOMITING Pantoprazole Sodium (Pantoprazole Sodium 40 Mg Tablet) 40 mg PO BID [facility] Last Admin: 10/30/20 09:47 Dose: 40 mg Documented by: Potassium Chloride (Potassium Chloride 20 Meq Tablet) 40 meq PO DAILYCM [facility] Stop: 11/01/20 08:01 Last Admin: 10/30/20 09:47 Dose: 40 meq Documented by: Sodium Bicarbonate (Sodium Bicarbonate 650 Mg Tablet) 650 mg PO 0400,1000,1600,2200 [facility] Last Admin: 10/30/20 09:37 Dose: 650 mg Documented by: Sodium Chloride (0.9% Saline Lock 10 Ml Syringe) 10 - 40 ml IV UD PRN PRN Reason: SALINE FLUSH Last Admin: 10/30/20 09:39 Dose: 10 ml Documented by: Sodium Chloride (Sodium Chloride 0.65% 1 [place].Btl) 2 spray NASAL BID PRN PRN PRN Reason: NASAL DRYNESS Last Admin: 10/28/20 22:53 Dose: 2 sprays Documented by: STROKE Vital Signs/Narrative: Vital Signs Temp Pulse Resp BP Pulse Ox 10/30/20 09:35 86 10/30/20 09:18 97.3 F L 70 202 H 135/59 H 89 Medical Necessity - Tobacco Use Smoking Status: Never smoker Tobacco Use: Non-smoker Assessment/Plan All Active Problems (Last Updated 10/24/20 @ 15:[address] Nish Dee, DO) Pneumonia due to Coronavirus disease 2019 (Acute) Hypoxia (Acute) Melena (Acute) This is a 65 years old male patient presented to the emergency room because of weakness, fatigue and diarrhea, found to have bilateral pulmonary infiltrate and tested positive for COVID-19 and he was found to have acute bilateral COVID-19 pneumonia, renal insufficiency and hypoxia. #1 Acute hypoxic respiratory failure secondary to acute bilateral COVID-19 pneu monia and bilateral PE: Patient completed remdesivir. On Decadron. Discussed with ID. Patient has bilateral leg edema and was on HCTZ, losartan at home which are discontinued. Started on Lasix 40 mg IV daily. BNP, pro calcitonin and troponin ordered by ID. 10/30: Patient is more hypoxic on 10 L of oxygen. Repeat chest x-ray ordered. Troponin, BNP and procalcitonin normal. Mild leukocytosis 12,000 with lymphocyte 12%. Defensive [employer] Control Systems Operator has been consulted. Discussed with ID. #2 acute bilateral upper small pulmonary emboli: CTA chest reviewed, revealed suspicious multiple small pulmonary emboli in the upper lobe arterial branches. Continue Eliquis. #2 Acute renal insufficiency:Admission creatinine was 1.86, received IV fluids and creatinine came down to 1.02 mg/dL but patient has bilateral leg edema and hypoxia worsened. Started on Lasix as mentioned above. #3 melena/probable GI bleed: Patient has been having brown stool, no more melena. Stool for occult blood tested positive. He is on PPI. Today's hemoglobin is 12.6 g/dL. He is on Eliquis. Hemoglobin and hematocrit are stable. Vital signs are stable. H&H is stable. #4 CAD status post stents: Stable, no acute issues. Continue statins, losartan metoprolol. #5 hypertension: Blood pressure stable, continue losartan and metoprolol. #6 hyperlipidemia: Continue statins. Inpatient E&M: 92421 [facility] Hosp L2
--- NOTE | 2020-10-30 12:54 | RAD_ITS ---
STUDY: X-RAY CHEST REASON FOR EXAM: Male, 65 years old. tachypnea and hypoxia, covid 19 TECHNIQUE: Single AP portable view of the chest. COMPARISON: 10/24/2020 FINDINGS: Lungs are expanded with slight progression of previously noted airspace and interstitial opacifications in both lung vann, more advanced in the right lung than the left. There is no demonstrated pleural abnormality. Normal size heart. Normal mediastinum and gaby. Normal visualized pulmonary arteries. Normal visualized aortic arch and descending thoracic aorta. Normal visualized thoracic spine. Normal visualized ribs, clavicles, and shoulders. There is no demonstrated abnormality of the visualized soft tissue structures of the upper abdomen. RAD/Chest 1 View (Portable) IMPRESSION: Worsening interstitial and airspace opacifications in both lung vann compared to the previous study. Follow-up recommended to ensure resolution Electronically Signed: Marcus Vides MD at 14:43 EST , Service support ,
[2020-10-31] VITALS (16 sets, daily range): BP systolic 113–149; BP diastolic 55–85; PULSE 61–90; RESP 16–24; TEMP 36.2–37.2; O2SAT 83–97
[2020-10-31] MEDS: Sodium Bicarbonate 650 MG Tablet PO ×4 (04:47→21:00)
[2020-10-31] MEDS: Acetaminophen 325 MG Tablet 650 MG PO ×3 (04:52→21:00)
[2020-10-31 06:45] LABS: Absolute Lymphocyte Count 1.45 X10^3/uL (0.83-4.51); Absolute Neutrophil Count 10.9 X10^3/uL (2.0-7.7); Basophil# 0.05 X10^3/uL; Basophil% 0.4 % (0-1); Eosinophil# 0.05 X10^3/uL; Eosinophils% 0.4 % (0-5); Hematocrit 41.4 % (40-54); Lymphocyte # 1.45 X10^3/ul (4.0); Lymphocyte % 10.3 % (19-41); Mean Corp Hgb Conc 31.4 g/dL (32-36); Mean Corpuscular Hgb 26.7 pg (27.0-32.0); Mean Corpuscular Volume 85.2 fL (80-94); Mean Platelet Vol. 10.1 fl (6.2-12.0); Monocyte# 1.02 X10^3/uL; Monocyte% 7.3 % (0-10); NRBC Flagged by Analyzer 0 % (0-5); Neutrophil # 10.89 X10^3/uL (2.7-7.7); Neutrophil % 77.4 % (47-70); Platelet Count 380 K/mm3 (150-450); RBC Distribution Width CV 16.3 % (11.6-14.6); RBC Distribution Width SD 49.9 fl (35.1-43.9); Red Blood Count 4.86 M/mm3 (4.6-6.2); White Blood Count 14.1 K/mm3 (4.4-11.0)
--- NOTE | 2020-10-31 06:58 | PCM.CONS.PUL ---
Reason for Consult Date of Consultation: 10/31/20 Reason for Consultation: Acute hypoxemic respiratory failure secondary to COVID-19 pneumonia History of Present Illness: The patient is a 65-year-old male, with a history as outlined below, who presented to the emergency department on October 24 with generalized malaise, fatigue and diarrhea. The patient denied any sick contact exposure. When questioned, the patient did report that he does have access to supplemental oxygen in his home environment but only utilizes it periodically. 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 On presentation to the emergency department, the patient was noted to be afebrile and hemodynamically stable. Laboratory evaluation revealed no evidence of a leukocytosis. D-dimer was elevated at 1.29. Chemistry profile was notable for a creatinine of 1.86. Rapid coronavirus antigen testing was positive. CTA chest completed on October 25 revealed small intraluminal filling defects in the upper lobe pulmonary arteries bilaterally. Multifocal groundglass changes were also noted. The patient was subsequently admitted to the coronavirus cohort unit. The patient's hospital course has been complicated by ever increasing demand for supplemental oxygen. The patient has been followed longitudinally by infectious diseases and has completed a treatment course of remdesivir. He remains on Decadron daily along with scheduled IV Lasix and therapeutic Lovenox. The patient's creatinine has improved over the course of his hospitalization. The patient has apparently been refusing to utilize supplemental oxygen and has therefore been quite hypoxemic overnight. After speaking with the patient this morning and offering reassurance, the patient is agreeable to utilizing Airvo heated high flow. Past Medical History Past Medical History (Chronic Problems): Chronic Problems (Last Updated 10/24/20 @ 15:[address] Nish Dee DO) CAD (coronary artery disease) (Chronic) Status post stents Hyperlipidemia (Chronic) Hypertension (Chronic) Medical History: Medical History (Last Updated 10/24/20 @ 15:[address] Nish Dee DO) CAD (coronary artery disease) I25.10 h/o coronary stent Allergies Penicillins Allergy (Verified 10/24/20 11:19) Angioedema Home Medications: Ambulatory Orders Medication Instructions Recorded Allopurinol 300 mg PO DAILY 10/24/20 Hydrochlorothiazide [Hctz] 25 mg PO DAILY 10/24/20 Losartan Potassium 50 mg PO DAILY 10/24/20 Metoprolol Tartrate 12.5 mg PO BID 10/24/20 Simvastatin 40 mg PO DAILY 10/24/20 Sodium Bicarbonate 650 mg PO 4X/DAY 10/24/20 Surgical History: - - Cardiac stent placed. Smoking Status: Never smoker Tobacco Use: Non-smoker Alcohol: Rare Drugs: None - *Family History Maternal History Items: - - no heart dz Review of Systems Constitutional: Reports: Malaise, Weakness, Fatigue Eyes: Denies: Blurred vision, Double vision HEENT: Denies: Head Aches, Sinus Congestion, Sinus Drainage Cardiovascular: Denies: Chest Pain, Palpitations Respiratory: Reports: Shortness of Breath Gastrointestinal: Reports: Melena Genitourinary: Denies: Dysuria Musculoskeletal: Denies: Joint Pain, Joint Tenderness Skin: Denies: Rash, Wounds Neurological: Denies: Numbness, Tingling, Focal weakness Psychiatric: Denies: Anxiety, Depression, Homicidal Ideations, Suicidal Ideations Hematologic/ Lymphatic: Denies: Easy Bruising, Easy Bleeding Patient Problems: Active and Suspected Problems (Last Updated 10/24/20 @ 15:[address] Nish Dee, DO) Pneumonia due to Coronavirus disease 2019 (Acute) Hypoxia (Acute) Melena (Acute) Objective: The patient's most recent lab work, culture data and imaging studies have all been personally reviewed. Rapid coronavirus antigen testing was positive on October 24. Stool for occult blood was positive on October 25. - Physical Exam Vitals/I&O's: Vital Signs Temp Pulse Resp BP Pulse Ox 97.8 F 75 18 125/70 H 85 10/31/20 04:49 10/31/20 04:49 10/31/20 04:49 10/31/20 04:49 10/31/20 04:49 Oxygen Flow Rate (L/min) 15 Oxygen Delivery Method Nasal Cannula Weight: 285 lb 0.006 oz Body Mass Index (BMI) 42.0 Intake and Output for Last 24 Hours 10/29/20 10/30/20 10/31/20 23:59 23:59 23:59 Intake Total 222 / 222 Output Total 500 / 500 Balance -278 / -278 General: Alert, Cooperative, No apparent distress HEENT: Atraumatic, Normocephalic Oral: No Gingival or Mucosal Lesions/ Ulcerations Neck: Supple, No Nodes, Trachea Midline Lungs: No rhonchi, No wheeze, No rales, Diminished Cardiovascular: Regular rate, Regular Rhythm Abdomen: Bowel Sounds Present, Soft, Non Tender, Obese Extremities: No clubbing, No cyanosis Skin: No breakdown Musculoskeletal: No Tenderness to Palpation of Joints or Extremities Lymphatic: No Cervical, Supraclavicular, or Inguinal Adenopathy Neurological: Neuro grossly intact Psych/Mental Status: Normal Affect, Appropriate Labs (Last 48 Hours) 10/29/20 10/29/20 10/29/20 15:23 15:23 15:23 WBC RBC Hgb Hct MCV MCH MCHC RDW Std Deviation RDW Coeff of Abhilash Plt Count MPV Immature Gran % (Auto) Neut % (Auto) Lymph % (Auto) [place] % (Auto) Eos % (Auto) Baso % (Auto) Absolute Neuts (auto) Absolute Lymphs (auto) Nucleated RBC % Sodium Potassium Chloride Carbon Dioxide Anion Gap BUN Creatinine Estim Creat Clear Calc Est GFR (MDRD) Af Amer Est GFR (MDRD) Non-Af BUN/Creatinine Ratio Glucose Calcium Magnesium Total Bilirubin Direct Bilirubin AST ALT Alkaline Phosphatase Troponin I < 0.015 B-Natriuretic Peptide 25.1 Total Protein Albumin Procalcitonin 0.09 10/30/20 10/30/20 10/31/20 05:04 05:04 06:20 WBC 11.9 H 14.1 H RBC 4.78 4.86 Hgb 12.7 L 13.0 Hct 40.4 41.4 MCV 84.5 85.2 MCH 26.6 L 26.7 L MCHC 31.4 L 31.4 L RDW Std Deviation 49.6 H 49.9 H RDW Coeff of Abhilash 16.1 H 16.3 H Plt Count 335 380 MPV 9.9 10.1 Immature Gran % (Auto) 3.900 H 4.200 H Neut % (Auto) 75.9 H 77.4 H Lymph % (Auto) 12.1 L 10.3 L [place] % (Auto) 7.8 7.3 Eos % (Auto) 0.1 0.4 Baso % (Auto) 0.2 0.4 Absolute Neuts (auto) 9.0 H 10.9 H Absolute Lymphs (auto) 1.44 1.45 Nucleated RBC % 0.2 0 Sodium 143 Potassium 3.5 Chloride 110 H Carbon Dioxide 26.0 Anion Gap 7 BUN 30 H Creatinine 1.18 Estim Creat Clear Calc 61.58 Est GFR (MDRD) Af Amer 79 Est GFR (MDRD) Non-Af 66 BUN/Creatinine Ratio 25.4 H Glucose 124 H Calcium 9.0 Magnesium 1.8 Total Bilirubin Direct Bilirubin AST ALT Alkaline Phosphatase Troponin I B-Natriuretic Peptide Total Protein Albumin Procalcitonin 10/31/20 06:20 WBC RBC Hgb Hct MCV MCH MCHC RDW Std Deviation RDW Coeff of Abhilash Plt Count MPV Immature Gran % (Auto) Neut % (Auto) Lymph % (Auto) [place] % (Auto) Eos % (Auto) Baso % (Auto) Absolute Neuts (auto) Absolute Lymphs (auto) Nucleated RBC % Sodium Pending Potassium Pending Chloride Pending Carbon Dioxide Pending Anion Gap Pending BUN Pending Creatinine Pending Estim Creat Clear Calc Est GFR (MDRD) Af Amer Pending Est GFR (MDRD) Non-Af Pending BUN/Creatinine Ratio Pending Glucose Pending Calcium Pending Magnesium Total Bilirubin Pending Direct Bilirubin Pending AST Pending ALT Pending Alkaline Phosphatase Pending Troponin I B-Natriuretic Peptide Total Protein Pending Albumin Pending Procalcitonin Clinical Impression(s) from Imaging Studies Chest X-Ray 10/24/20 14:10 IMPRESSION: Bilateral pulmonary infiltrates worse in the right hemithorax. Electronically Signed: Jr Moya, at 14:27 EST , Service support , Chest CTA 10/25/20 10:45 IMPRESSION: Limited evaluation of the pulmonary arteries due to poor contrast-enhancement although I suspect multiple small pulmonary emboli in the upper lobe pulmonary arterial branches. Multiple areas of bilateral groundglass appearance was in the right hemithorax suggestive of a pneumonitis associated with Covid 19. Electronically Signed: Jr Moya, at 11:20 EST , Service support , Chest X-Ray 10/30/20 12:54 IMPRESSION: Worsening interstitial and airspace opacifications in both lung vann compared to the previous study. Follow-up recommended to ensure resolution Electronically Signed: Marcus Vides MD at 14:43 EST , Service support , Current Medications Acetaminophen (Acetaminophen 325 Mg Tablet) 650 mg PO Q6H PRN PRN PRN Reason: Pain Score 1-10/Temp > 100.7 F Last Admin: 10/31/20 04:52 Dose: 650 mg Documented by: Allopurinol (Allopurinol 300 Mg Tablet) 300 mg PO DAILY [facility] Last Admin: 10/30/20 09:35 Dose: 300 mg Documented by: Atorvastatin Calcium (Atorvastatin Calcium 20 Mg Tablet) 20 mg PO DAILY [facility] Last Admin: 10/30/20 10:26 Dose: 20 mg Documented by: Dexamethasone (Dexamethasone 4 Mg Tablet) 6 mg PO DAILY [facility] Stop: 11/02/20 10:01 Last Admin: 10/30/20 09:33 Dose: 6 mg Documented by: Enoxaparin Sodium (Enoxaparin 120 Mg/0.8 Ml Syringe) 120 mg SC BID [facility] Last Admin: 10/30/20 20:46 Dose: 120 mg Documented by: Furosemide (Furosemide 40 Mg/4 Ml Vial) 40 mg IV DAILY [facility] Last Admin: 10/30/20 09:34 Dose: 40 mg Documented by: Losartan Potassium (Losartan Potassium 25 Mg Tablet) 25 mg PO DAILY [facility] Last Admin: 10/30/20 09:35 Dose: 25 mg Documented by: Metoprolol Tartrate (Metoprolol Tartrate 25 Mg Tablet) 12.5 mg PO BID [facility] Last Admin: 10/30/20 20:50 Dose: 12.5 mg Documented by: Ondansetron HCl (Ondansetron 4 Mg/2 Ml Vial) 4 mg IV Q8H PRN PRN PRN Reason: NAUSEA/VOMITING Pantoprazole Sodium (Pantoprazole Sodium 40 Mg Tablet) 40 mg PO BID [facility] Last Admin: 10/30/20 20:46 Dose: 40 mg Documented by: Potassium Chloride (Potassium Chloride 20 Meq Tablet) [facility] Stop: 11/01/20 08:01 Last Admin: 10/30/20 09:47 Dose: 40 meq Documented by: Sodium Bicarbonate (Sodium Bicarbonate 650 Mg Tablet) 650 mg PO 0400,1000,1600,2200 [facility] Last Admin: 10/31/20 04:47 Dose: 650 mg Documented by: Sodium Chloride (0.9% Saline Lock 10 Ml Syringe) 10 - 40 ml IV UD PRN PRN Reason: SALINE FLUSH Last Admin: 10/30/20 09:39 Dose: 10 ml Documented by: Sodium Chloride (Sodium Chloride 0.65% 1 [place].Btl) 2 spray NASAL BID PRN PRN PRN Reason: NASAL DRYNESS Last Admin: 10/28/20 22:53 Dose: 2 sprays Documented by: Assessment/Plan All Active Problems (Last Updated 10/24/20 @ 15:[address] Nish Dee, DO) Pneumonia due to Coronavirus disease 2019 (Acute) Hypoxia (Acute) Melena (Acute) RECOMMENDATIONS: 1. Start patient on Airvo heated high flow and wean FiO2 to maintain oxygen saturations at or above 90%. 2. Continue Decadron to complete treatment course. 3. Continue therapeutic Lovenox and scheduled IV Lasix as some renal function. 4. Encourage incentive spirometer use while in bed and mobilize patient as tolerated. 5. Continue PPI therapy. No indication for transfusion of blood products. IMPRESSIONS: 1. Acute hypoxemic respiratory failure Multifactorial in etiology with COVID-19 pneumonia and bilateral pulmonary emboli contributing. Plan to continue current supportive measures with high flow supplemental oxygen to maintain saturations at or above 90%. The patient has already completed a treatment course of remdesivir and remains on Decadron. Continue therapeutic Lovenox as ordered. Continue attempts at gentle diuresis as tolerated by hemodynamics and renal function. Encourage incentive spirometer use and mobilize patient as tolerated. 2. Possible GI bleed No overt signs of GI blood loss at this time. Agree with continuing twice daily PPI therapy as ordered. Monitor H&H and transfuse if hemoglobin drops below 7 g/dL. 3. History of coronary artery disease/hypertension/hyperlipidemia/obesity Complicates care, management, recovery and prognosis. Continue home medications as indicated. This note was generated with [employer] dictation software. It may contain incorrect words, spelling, and punctuation that were not noted in checking the note before signing. Inpatient E&M: 81453 Init Hosp L3
[2020-10-31 07:11] LABS: AST(SGOT) 26 U/L (15-37); Alanine Aminotransfer ALT/SGPT 31 U/L (16-61); Albumin, Serum 2.5 g/dL (3.2-5.0); Alkaline Phosphatase 66 U/L (45-117); Anion Gap 7 (5-15); BUN 29 mg/dL (7-18); BUN/Creat Ratio 24.8 RATIO (10-20); Bilirubin, Direct 0.25 mg/dL (0.00-0.30); Chloride 108 mmol/L (98-107); Creatinine, Serum 1.17 mg/dL (0.70-1.30); EST Glomerular Filtration Rate 66 mL/min (>60); Est Glom Filt Rate - Afr Amer 80 mL/min (>60); Estimated Creatinine Clearance 62.11 ml/min; Globulin 3.2 g/dL (2.2-4.2); Glucose 121 mg/dL (74-106); Potassium 4.1 mmol/L (3.5-5.1); Protein, Total 5.7 g/dL (6.4-8.2); Sodium Level 143 mmol/L (136-145)
--- NOTE | 2020-10-31 07:53 | NURSING ---
Dr. Salmeron requesting Airvo for pt, his spo2 85% on high flow 15L. Hope CPS aware
[2020-10-31] MEDS: Allopurinol 300 MG Tablet PO (08:04)
[2020-10-31] MEDS: Enoxaparin 120 MG/0.8 ML Syringe SC ×2 (08:04→20:59)
[2020-10-31] MEDS: Pantoprazole Sodium 40 MG Tablet PO ×2 (08:04→21:00)
[2020-10-31] MEDS: dexAMETHasone 4 MG Tablet 6 MG PO (08:04)
[2020-10-31] MEDS: Atorvastatin Calcium 20 MG Tablet PO (08:05)
[2020-10-31] MEDS: Metoprolol Tartrate 25 MG Tablet 12.5 MG PO ×2 (08:05→20:58)
[2020-10-31] MEDS: Furosemide 40 MG/4 ML Vial IV (08:06)
[2020-10-31] MEDS: Losartan Potassium 25 MG Tablet PO (08:12)
--- NOTE | 2020-10-31 11:48 | PN_ITS ---
Patient Problems: Active and Suspected Problems (Last Updated 10/24/20 @ 15:[address] Nish Dee, DO) Pneumonia due to Coronavirus disease 2019 (Acute) Hypoxia (Acute) Melena (Acute) Reason for Visit: Follow-up for acute hypoxic respiratory failure secondary to COVID-19 pneumonia Objective: Patient oxygenation is worsening. Patient was put on high oxygen airflow yesterday after he was still hypoxic on nonrebreather. Patient seen by our circular distributor. No fever or chills. Currently pulse ox 97% on 93% FiO2 AIRVO Afebrile. Patient has mild cough. He feels tired and could not help sleep. Physical exam General: Alert, Oriented x3, Cooperative HEENT: Atraumatic, PERRLA, EOMI, Normocephalic Oral: No Gingival or Mucosal Lesions/ Ulcerations Neck: Supple, No JVD, Negative Carotid Bruits Lungs: Air entry diminished in bilateral lung bases. Bilateral expiratory rhonchi and crepitations. Hypoxic. Cardiovascular: Regular rate, Regular Rhythm, Normal S1, Normal S2, No murmurs Abdomen: Bowel Sounds Present, Soft, Non Tender, Non-Distended : No renal angle tenderness. No suprapubic tenderness. Extremities: No edema, Capillary Refill Less than 3 Seconds Skin: No rashes, No breakdown. Mild spider varicose vein in both legs. Since admission Musculoskeletal: No Tenderness to Palpation of Joints or Extremities Neurological: Cranial nerves II-XII grossly intact, Deep Tendon Reflexes 2+/4 and Symmetrical, Neuro grossly intact Psych/Mental Status: Normal Affect, Appropriate. Vitals/I&O's: Vital Signs Temp Pulse Resp BP Pulse Ox 98.3 F 77 18 126/59 H 97 10/31/20 09:16 10/31/20 09:16 10/31/20 09:16 10/31/20 09:16 10/31/20 09:16 Oxygen Flow Rate (L/min) 50 Oxygen Delivery Method Airvo Weight: 285 lb 0.006 oz Body Mass Index (BMI) 42.0 Intake and Output for Last 24 Hours 10/29/20 10/30/20 10/31/20 23:59 23:59 23:59 Intake Total 222 / 222 Output Total 500 / 500 Balance -278 / -278 Laboratory Results 10/31/20 06:20: WBC 14.1 H, RBC 4.86, Hgb 13.0, Hct 41.4, MCV 85.2, MCH 26.7 L, MCHC 31.4 L, RDW Std Deviation 49.9 H, RDW Coeff of Abhilash 16.3 H, Plt Count 380, MPV 10.1, Immature Gran % (Auto) 4.200 H, Neut % (Auto) 77.4 H, Lymph % (Auto) 10.3 L, [place] % (Auto) 7.3, Eos % (Auto) 0.4, Baso % (Auto) 0.4, Absolute Neuts (auto) 10.9 H, Absolute Lymphs (auto) 1.45, Nucleated RBC % 0 10/31/20 06:20: Sodium 143, Potassium 4.1, Chloride 108 H, Carbon Dioxide 28.0, Anion Gap 7, BUN 29 H, Creatinine 1.17, Estim Creat Clear Calc 62.11, Est GFR (MDRD) Af Amer 80, Est GFR (MDRD) Non-Af 66, BUN/Creatinine Ratio 24.8 H, Glucose 121 H, Calcium 9.0, Total Bilirubin 0.70, Direct Bilirubin 0.25, AST 26, ALT 31, Alkaline Phosphatase 66, Total Protein 5.7 L, Albumin 2.5 L, Globulin 3.2 Current Medications Acetaminophen (Acetaminophen 325 Mg Tablet) 650 mg PO Q6H PRN PRN PRN Reason: Pain Score 1-10/Temp > 100.7 F Last Admin: 10/31/20 04:52 Dose: 650 mg Documented by: Allopurinol (Allopurinol 300 Mg Tablet) 300 mg PO DAILY [facility] Last Admin: 10/31/20 08:04 Dose: 300 mg Documented by: Atorvastatin Calcium (Atorvastatin Calcium 20 Mg Tablet) 20 mg PO DAILY [facility] Last Admin: 10/31/20 08:05 Dose: 20 mg Documented by: Dexamethasone (Dexamethasone 4 Mg Tablet) 6 mg PO DAILY [facility] Stop: 11/02/20 10:01 Last Admin: 10/31/20 08:04 Dose: 6 mg Documented by: Enoxaparin Sodium (Enoxaparin 120 Mg/0.8 Ml Syringe) 120 mg SC BID [facility] Last Admin: 10/31/20 08:04 Dose: 120 mg Documented by: Furosemide (Furosemide 40 Mg/4 Ml Vial) 40 mg IV DAILY [facility] Last Admin: 10/31/20 08:06 Dose: 40 mg Documented by: Losartan Potassium (Losartan Potassium 25 Mg Tablet) 25 mg PO DAILY [facility] Last Admin: 10/31/20 08:12 Dose: 25 mg Documented by: Metoprolol Tartrate (Metoprolol Tartrate 25 Mg Tablet) 12.5 mg PO BID [facility] Last Admin: 10/31/20 08:05 Dose: 12.5 mg Documented by: Ondansetron HCl (Ondansetron 4 Mg/2 Ml Vial) 4 mg IV Q8H PRN PRN PRN Reason: NAUSEA/VOMITING Pantoprazole Sodium (Pantoprazole Sodium 40 Mg Tablet) 40 mg PO BID [facility] Last Admin: 10/31/20 08:04 Dose: 40 mg Documented by: Potassium Chloride (Potassium Chloride 20 Meq Tablet) [facility] Stop: 11/01/20 08:01 Last Admin: 10/31/20 08:05 Dose: 40 meq Documented by: Sodium Bicarbonate (Sodium Bicarbonate 650 Mg Tablet) 650 mg PO 0400,1000,1600,2200 [facility] Last Admin: 10/31/20 08:06 Dose: 650 mg Documented by: Sodium Chloride (0.9% Saline Lock 10 Ml Syringe) 10 - 40 ml IV UD PRN PRN Reason: SALINE FLUSH Last Admin: 10/30/20 09:39 Dose: 10 ml Documented by: Sodium Chloride (Sodium Chloride 0.65% 1 [place].Btl) 2 spray NASAL BID PRN PRN PRN Reason: NASAL DRYNESS Last Admin: 10/28/20 22:53 Dose: 2 sprays Documented by: STROKE Vital Signs/Narrative: Vital Signs Temp Pulse Resp BP Pulse Ox 10/31/20 09:16 98.3 F 77 18 126/59 H 97 10/31/20 08:30 90 89 10/31/20 08:05 75 10/31/20 07:57 97.2 F L 75 20 H 133/63 H 83 Medical Necessity - Tobacco Use Smoking Status: Never smoker Tobacco Use: Non-smoker Assessment/Plan All Active Problems (Last Updated 10/24/20 @ 15:[address] Nish Dee, DO) Pneumonia due to Coronavirus disease 2019 (Acute) Hypoxia (Acute) Melena (Acute) This is a 65 years old male patient presented to the emergency room because of weakness, fatigue and diarrhea, found to have bilateral pulmonary infiltrate and tested positive for COVID-19 and he was found to have acute bilateral COVID-19 pneumonia, renal insufficiency and hypoxia. #1 Acute hypoxic respiratory failure secondary to acute bilateral COVID-19 pneumonia and bilateral PE: Patient completed remdesivir. On Decadron. Discussed with ID. Patient has bilateral leg edema and was on HCTZ, losartan at home which are discontinued. Started on Lasix 40 mg IV daily. BNP, pro calcitonin and troponin ordered by ID. 10/30: Patient is more hypoxic on 10 L of oxygen. Repeat chest x-ray ordered. Troponin, BNP and procalcitonin normal. Mild leukocytosis 12,000 with lymphocyte 12%. [facility] has been consulted. Discussed with ID. 10/31: Hypoxia worsening. On high flow oxygen. Leukocytosis 14,000 with relative lymphopenia. Patient seen by circular distributor. Looks mildly depressed, started on trazodone 50 mg daily. #2 acute bilateral upper small pulmonary emboli: CTA chest reviewed, revealed suspicious multiple small pulmonary emboli in the upper lobe arterial branches. Continue Eliquis. Patient completed remdesivir on 28 October.. #2 Acute renal insufficiency:Admission creatinine was 1.86, received IV fluids and creatinine came down to 1.02 mg/dL but patient has bilateral leg edema and hypoxia worsened. Started on Lasix as mentioned above. 10/31: On Lasix. Patient voiding 4 times daily spontaneously. #3 melena/probable GI bleed: Patient has been having brown stool, no more melena. Stool for occult blood tested positive. He is on PPI. Today's hemoglobin is 12.6 g/dL. He is on Eliquis. Hemoglobin and hematocrit are stable. Vital signs are stable. H&H is stable. #4 CAD status post stents: Stable, no acute issues. Continue statins, losartan metoprolol. #5 hypertension: Blood pressure stable, continue losartan and metoprolol. #6 hyperlipidemia: Continue statins. Laboratory Results 10/31/20 06:20: WBC 14.1 H, RBC 4.86, Hgb 13.0, Hct 41.4, MCV 85.2, MCH 26.7 L, MCHC 31.4 L, RDW Std Deviation 49.9 H, RDW Coeff of Abhilash 16.3 H, Plt Count 380, MPV 10.1, Immature Gran % (Auto) 4.200 H, Neut % (Auto) 77.4 H, Lymph % (Auto) 10.3 L, [place] % (Auto) 7.3, Eos % (Auto) 0.4, Baso % (Auto) 0.4, Absolute Neuts (auto) 10.9 H, Absolute Lymphs (auto) 1.45, Nucleated RBC % 0 10/31/20 06:20: Sodium 143, Potassium 4.1, Chloride 108 H, Carbon Dioxide 28.0, Anion Gap 7, BUN 29 H, Creatinine 1.17, Estim Creat Clear Calc 62.11, Est GFR (MDRD) Af Amer 80, Est GFR (MDRD) Non-Af 66, BUN/Creatinine Ratio 24.8 H, Glucose 121 H, Calcium 9.0, Total Bilirubin 0.70, Direct Bilirubin 0.25, AST 26, ALT 31, Alkaline Phosphatase 66, Total Protein 5.7 L, Albumin 2.5 L, Globulin 3.2 Inpatient E&M: 15016 Subs Hosp L2
[2020-10-31] MEDS: traZODone 50 MG Tablet PO ×2 (12:42→21:01)
--- NOTE | 2020-10-31 15:28 | PCM.PN.ID ---
Patient Problems: Active and Suspected Problems (Last Updated 10/24/20 @ 15:[address] Nish Dee, DO) Pneumonia due to Coronavirus disease 2019 (Acute) Hypoxia (Acute) Melena (Acute) Subjective: Feeling better, less SOB, no n/v/d. - Physical Exam Vitals/I&O's: Vital Signs Temp Pulse Resp BP Pulse Ox 97.6 F L 78 18 149/59 H 94 10/31/20 12:44 10/31/20 12:44 10/31/20 12:44 10/31/20 12:44 10/31/20 12:44 Oxygen Flow Rate (L/min) 50 Oxygen Delivery Method Airvo Weight: 129.274 kg Body Mass Index (BMI) 42.0 Intake and Output for Last 24 Hours 10/29/20 10/30/20 10/31/20 23:59 23:59 23:59 Intake Total 222 / 222 850 / 850 Output Total 500 / 500 Balance -278 / -278 850 / 850 General: Alert, Cooperative, No apparent distress Lungs: Clear to auscultation, Diminished Cardiovascular: Regular rate, Regular Rhythm Abdomen: Soft, Non Tender, Non-Distended Skin: No rashes Laboratory Results 10/31/20 06:20: WBC 14.1 H, RBC 4.86, Hgb 13.0, Hct 41.4, MCV 85.2, MCH 26.7 L, MCHC 31.4 L, RDW Std Deviation 49.9 H, RDW Coeff of Abhilash 16.3 H, Plt Count 380, MPV 10.1, Immature Gran % (Auto) 4.200 H, Neut % (Auto) 77.4 H, Lymph % (Auto) 10.3 L, [place] % (Auto) 7.3, Eos % (Auto) 0.4, Baso % (Auto) 0.4, Absolute Neuts (auto) 10.9 H, Absolute Lymphs (auto) 1.45, Nucleated RBC % 0 10/31/20 06:20: Sodium 143, Potassium 4.1, Chloride 108 H, Carbon Dioxide 28.0, Anion Gap 7, BUN 29 H, Creatinine 1.17, Estim Creat Clear Calc 62.11, Est GFR (MDRD) Af Amer 80, Est GFR (MDRD) Non-Af 66, BUN/Creatinine Ratio 24.8 H, Glucose 121 H, Calcium 9.0, Total Bilirubin 0.70, Direct Bilirubin 0.25, AST 26, ALT 31, Alkaline Phosphatase 66, Total Protein 5.7 L, Albumin 2.5 L, Globulin 3.2 Current Medications Acetaminophen (Acetaminophen 325 Mg Tablet) 650 mg PO Q6H PRN PRN PRN Reason: Pain Score 1-10/Temp > 100.7 F Last Admin: 10/31/20 12:42 Dose: 650 mg Documented by: Allopurinol (Allopurinol 300 Mg Tablet) 300 mg PO DAILY [facility] Last Admin: 10/31/20 08:04 Dose: 300 mg Documented by: Atorvastatin Calcium (Atorvastatin Calcium 20 Mg Tablet) 20 mg PO DAILY [facility] Last Admin: 10/31/20 08:05 Dose: 20 mg Documented by: Dexamethasone (Dexamethasone 4 Mg Tablet) 6 mg PO DAILY [facility] Stop: 11/02/20 10:01 Last Admin: 10/31/20 08:04 Dose: 6 mg Documented by: Enoxaparin Sodium (Enoxaparin 120 Mg/0.8 Ml Syringe) 120 mg SC BID [facility] Last Admin: 10/31/20 08:04 Dose: 120 mg Documented by: Furosemide (Furosemide 40 Mg/4 Ml Vial) 40 mg IV DAILY [facility] Last Admin: 10/31/20 08:06 Dose: 40 mg Documented by: Losartan Potassium (Losartan Potassium 25 Mg Tablet) 25 mg PO DAILY [facility] Last Admin: 10/31/20 08:12 Dose: 25 mg Documented by: Metoprolol Tartrate (Metoprolol Tartrate 25 Mg Tablet) 12.5 mg PO BID [facility] Last Admin: 10/31/20 08:05 Dose: 12.5 mg Documented by: Nystatin (Nystatin 500,000 Unit/5 Ml Udc) 500,000 unit PO 4X/DAY [facility] Ondansetron HCl (Ondansetron 4 Mg/2 Ml Vial) 4 mg IV Q8H PRN PRN PRN Reason: NAUSEA/VOMITING Pantoprazole Sodium (Pantoprazole Sodium 40 Mg Tablet) 40 mg PO BID [facility] Last Admin: 10/31/20 08:04 Dose: 40 mg Documented by: Potassium Chloride (Potassium Chlor[facility] 20 Meq Tablet) [facility]: 11/01/20 08:01 Last Admin: 10/31/20 08:05 Dose: 40 meq Documented by: Sodium Bicarbonate (Sodium Bicarbonate 650 Mg Tablet) 650 mg PO 0400,1000,1600,2200 [facility]ONICA Last Admin: 10/31/20 08:06 Dose: 650 mg Documented by: Sodium Chloride (0.9% Saline Lock 10 Ml Syringe) 10 - 40 ml IV UD PRN PRN Reason: SALINE FLUSH Last Admin: 10/30/20 09:39 Dose: 10 ml Documented by: Sodium Chloride (Sodium Chloride 0.65% 1 [place].Btl) 2 spray NASAL BID PRN PRN PRN Reason: NASAL DRYNESS Last Admin: 10/28/20 22:53 Dose: 2 sprays Documented by: Trazodone HCl (Trazodone 50 Mg Tablet) 50 mg PO QHS PRN PRN Reason: insomnia Medical Necessity - Tobacco Use Smoking Status: Never smoker Tobacco Use: Non-smoker Route of nutrition/ use of supplements: [] Nutritional Intake: [] IV Site: [] [place]ess Catheter: [] - Assessment/Plan Antibiotics: [] Assessment/Plan: [] Active and Suspected Problems (Last Updated 10/24/20 @ 15:[address] Nish Dee, DO) Pneumonia due to Coronavirus disease 2019 (Acute) Hypoxia (Acute) Melena (Acute) covid with hypoxia and PE - sx started about 2 weeks prior to admit. On dex and completed remdesivir. On therapeutic lovenox. Plan will be 10 days total of dex. Consulted pulm yesterday. Will follow
[2020-10-31] MEDS: NYSTATIN 500,000 UNIT/5 ML UDC 500000 UNIT PO (17:06)
[2020-11-01] VITALS (41 sets, daily range): BP systolic 69–171; BP diastolic 43–131; PULSE 63–123; RESP 13–30; TEMP 36.1–37.3; O2SAT 59–95
[2020-11-01] MEDS: Sodium Bicarbonate 650 MG Tablet PO (05:12)
[2020-11-01] MEDS: Acetaminophen 325 MG Tablet 650 MG PO (05:13)
[2020-11-01 06:00] LABS: AST(SGOT) 24 U/L (15-37); Alanine Aminotransfer ALT/SGPT 30 U/L (16-61); Albumin, Serum 2.4 g/dL (3.2-5.0); Alkaline Phosphatase 64 U/L (45-117); Bilirubin, Direct 0.18 mg/dL (0.00-0.30); Globulin 4.1 g/dL (2.2-4.2); Protein, Total 6.5 g/dL (6.4-8.2)
--- NOTE | 2020-11-01 06:47 | PCM.PN.PUL ---
Patient Problems: Active and Suspected Problems (Last Updated 10/24/20 @ 15:[address] Nish Dee, DO) Pneumonia due to Coronavirus disease 2019 (Acute) Hypoxia (Acute) Melena (Acute) Subjective: The patient was seen and examined at the bedside this morning. Events from the last 24 hours have been reviewed. The patient is currently afebrile, hemodynamically stable and maintaining appropriate oxygen saturations on Airvo heated high flow oxygen with an FiO2 requirement of 91% and flow rate of 50 L/min. The patient has completed a treatment course of remdesivir and remains on Decadron daily. In addition, the patient remains systemically anticoagulated on Lovenox and is on scheduled IV Lasix 40 mg daily. The patient is currently documented to be overall net positive 3+ liters for the hospital admission. The patient does continue to have periodic oxygen desaturations despite heated high flow oxygen, but refuses to utilize BiPAP. Over the course of the morning, the patient continued to decompensate from a respiratory perspective. He was eventually transitioned to BiPAP but had difficulty tolerating noninvasive positive pressure ventilatory support. In addition, his FiO2 requirement had to be increased to 100% and his oxygen saturations were marginal at best. I did confirm with the patient that he in fact wanted to remain a full code. Following this, the patient was transferred to the medical intensive care unit, where he was intubated. Intubation Indication: Respiratory failure Consent was obtained from: Patient The patient was placed in the appropriate sniffing position. Preoxygenated sedation via [id number] was provided for a minimum of 3 minutes. The patient had continuous cardiac as well as pulse oximetry monitoring during the procedure. Procedure sedation was provided by the administration of 4 mg of Versed and 20 mg of etomidate. Direct laryngoscopy was then performed using a number 4 MAC blade, which revealed a grade 1 view. A 7.5 mm endotracheal tube was visualized advancing between the cords to the level of 23 cm at the lip. The stylette was then removed and discarded. Tube placement was confirmed by fogging in the tube along with equal and bilateral breath sounds. Colorimetric change was visualized on the CO2 meter. The cuff was then inflated and the tube secured using a commercially available device. A good pulse oximetry waveform was seen on the monitor throughout the procedure. A portable chest x-ray has been ordered to confirm appropriate placement. The patient tolerated the procedure well. Objective: The patient's most recent lab work, culture data and imaging studies have all been personally reviewed. Rapid coronavirus antigen testing was positive on October 24. Stool for occult blood was positive on October 25. - Physical Exam Vitals/I&O's: Vital Signs Temp Pulse Resp BP Pulse Ox 99.0 F 84 20 H 123/56 H 91 11/01/20 05:10 11/01/20 05:10 11/01/20 05:14 11/01/20 05:10 11/01/20 05:14 Oxygen Flow Rate (L/min) 50 Oxygen Delivery Method Airvo Weight: 285 lb 0.006 oz Body Mass Index (BMI) 42.0 Intake and Output for Last 24 Hours 10/30/20 10/31/20 11/01/20 23:59 23:59 23:59 Intake Total 1650 / 1770 340 / 340 Output Total 350 / 350 Balance 1300 / 1420 340 / 340 General: Alert, No apparent distress HEENT: Atraumatic, PERRLA, Normocephalic Oral: No Gingival or Mucosal Lesions/ Ulcerations Neck: Supple, No Nodes, Trachea Midline Lungs: No rhonchi, No wheeze, No rales, Diminished, Short of Breath, Tachypneic Cardiovascular: Regular rate, Regular Rhythm, Normal S1, Normal S2, No murmurs Abdomen: Bowel Sounds Present, Soft, Non Tender, Obese Extremities: No clubbing, No cyanosis, No edema Skin: No breakdown Musculoskeletal: No Tenderness to Palpation of Joints or Extremities, No Muscle Wasting Lymphatic: No Cervical, Supraclavicular, or Inguinal Adenopathy Neurological: Cranial nerves II-XII grossly intact, Neuro grossly intact Psych/Mental Status: Normal Affect Labs (Last 48 Hours) 10/31/20 10/31/20 11/01/20 06:20 06:20 05:16 WBC 14.1 H RBC 4.86 Hgb 13.0 Hct 41.4 MCV 85.2 MCH 26.7 L MCHC 31.4 L RDW Std Deviation 49.9 H RDW Coeff of Abhilash 16.3 H Plt Count 380 MPV 10.1 Immature Gran % (Auto) 4.200 H Neut % (Auto) 77.4 H Lymph % (Auto) 10.3 L [place] % (Auto) 7.3 Eos % (Auto) 0.4 Baso % (Auto) 0.4 Absolute Neuts (auto) 10.9 H Absolute Lymphs (auto) 1.45 Nucleated RBC % 0 Sodium 143 Potassium 4.1 Chloride 108 H Carbon Dioxide 28.0 Anion Gap 7 BUN 29 H Creatinine 1.17 Estim Creat Clear Calc 62.11 Est GFR (MDRD) Af Amer 80 Est GFR (MDRD) Non-Af 66 BUN/Creatinine Ratio 24.8 H Glucose 121 H Calcium 9.0 Total Bilirubin 0.70 0.60 Direct Bilirubin 0.25 0.18 AST 26 24 ALT 31 30 Alkaline Phosphatase 66 64 Total Protein 5.7 L 6.5 Albumin 2.5 L 2.4 L Globulin 3.2 4.1 Clinical Impression(s) from Imaging Studies Chest X-Ray 10/24/20 14:10 IMPRESSION: Bilateral pulmonary infiltrates worse in the right hemithorax. Electronically Signed: Jr Moya, at 14:27 EST , Service support , Chest CTA 10/25/20 10:45 IMPRESSION: Limited evaluation of the pulmonary arteries due to poor contrast-enhancement although I suspect multiple small pulmonary emboli in the upper lobe pulmonary arterial branches. Multiple areas of bilateral groundglass appearance was in the right hemithorax suggestive of a pneumonitis associated with Covid 19. Electronically Signed: Jr Moya, at 11:20 EST , Service support , Chest X-Ray 10/30/20 12:54 IMPRESSION: Worsening interstitial and airspace opacifications in both lung vann compared to the previous study. Follow-up recommended to ensure resolution Electronically Signed: Marcus Vides MD at 14:43 EST , Service support , Current Medications Acetaminophen (Acetaminophen 325 Mg Tablet) 650 mg PO Q6H PRN PRN PRN Reason: Pain Score 1-10/Temp > 100.7 F Last Admin: 11/01/20 05:13 Dose: 650 mg Documented by: Allopurinol (Allopurinol 300 Mg Tablet) 300 mg PO DAILY [facility] 234 BEDS AT [facility] Last Admin: 10/31/20 08:04 Dose: 300 mg Documented by: Atorvastatin Calcium (Atorvastatin Calcium 20 Mg Tablet) 20 mg PO DAILY [facility]CLUDE 234 BEDS AT THE [facility] Last Admin: 10/31/20 08:05 Dose: 20 mg Documented by: Dexamethasone (Dexamethasone 4 Mg Tablet) 6 mg PO DAILY [facility]CLUDE 234 BEDS AT THE [facility] Stop: 11/02/20 10:01 Last Admin: 10/31/20 08:04 Dose: 6 mg Documented by: Enoxaparin Sodium (Enoxaparin 120 Mg/0.8 Ml Syringe) 120 mg SC BID [facility]CLUDE 234 BEDS AT THE [facility] Last Admin: 10/31/20 20:59 Dose: 120 mg Documented by: Furosemide (Furosemide 40 Mg/4 Ml Vial) 40 mg IV DAILY [facility]CLUDE 234 BEDS AT THE [facility] Last Admin: 10/31/20 08:06 Dose: 40 mg Documented by: Losartan Potassium (Losartan Potassium 25 Mg Tablet) 25 mg PO DAILY [facility]CLUDE 234 BEDS AT THE [facility] Last Admin: 10/31/20 08:12 Dose: 25 mg Documented by: Metoprolol Tartrate (Metoprolol Tartrate 25 Mg Tablet) 12.5 mg PO BID [facility]S [facility]CLUDE 234 BEDS AT THE [facility] Last Admin: 10/31/20 20:58 Dose: 12.5 mg Documented by: Nystatin (Nystatin 500,000 Unit/5 Ml Udc) 500,000 unit PO 4X/DAY COUNTS INCLUDE 234 BEDS AT THE [facility] Last Admin: 10/31/20 23:55 Dose: Not Given Documented by: Ondansetron HCl (Ondansetron 4 Mg/2 Ml Vial) 4 mg IV Q8H PRN PRN PRN Reason: NAUSEA/VOMITING Pantoprazole Sodium (Pantoprazole Sodium 40 Mg Tablet) 40 mg PO BID [facility]CLUDE 234 BEDS AT THE [facility] Last Admin: 10/31/20 21:00 Dose: 40 mg Documented by: Potassium Chloride (Potassium Chloride 20 Meq Tablet) [facility]: 11/01/20 08:01 Last Admin: 10/31/20 08:05 Dose: 40 meq Documented by: Sodium Bicarbonate (Sodium Bicarbonate 650 Mg Tablet) 650 mg PO 0400,1000,1600,2200 COUNTS INCLUDE 234 BEDS AT THE [facility] Last Admin: 11/01/20 05:12 Dose: 650 mg Documented by: Sodium Chloride (0.9% Saline Lock 10 Ml Syringe) 10 - 40 ml IV UD PRN PRN Reason: SALINE FLUSH Last Admin: 10/30/20 09:39 Dose: 10 ml Documented by: Sodium Chloride (Sodium Chloride 0.65% 1 [place].Btl) 2 spray NASAL BID PRN PRN PRN Reason: NASAL DRYNESS Last Admin: 10/28/20 22:53 Dose: 2 sprays Documented by: Trazodone HCl (Trazodone 50 Mg Tablet) 50 mg PO QHS PRN PRN Reason: insomnia Last Admin: 10/31/20 21:01 Dose: 50 mg Documented by: Medical Necessity - Tobacco Use Smoking Status: Never smoker Tobacco Use: Non-smoker Assessment/Plan All Active Problems (Last Updated 10/24/20 @ 15:[address] Nish Dee, DO) Pneumonia due to Coronavirus disease 2019 (Acute) Hypoxia (Acute) Melena (Acute) RECOMMENDATIONS: 1. Proceed with intubation. 2. Once intubated, obtain arterial blood gas in 1 hour. 3. Start propofol and fentanyl for sedation. 4. Start cis atracurium. 5. Obtain nutrition consult for tube feed recommendations. 6. Obtain sputum culture. 7. Start scheduled bronchodilators. 8. Start Levophed to maintain a mean arterial pressure at or above 65 mmHg. 9. Continue therapeutic Lovenox and appropriate GI prophylaxis. IMPRESSIONS: 1. Acute hypoxemic respiratory failure Multifactorial in etiology with COVID-19 pneumonia and bilateral pulmonary emboli contributing. Although attempts were made to utilize heated high flow oxygen and later BiPAP, the patient continued to decompensate from a respiratory perspective, requiring intubation on November 01. For now, the patient will be continued on assist control mode of mechanical ventilation, with plans to wean FiO2 and PEEP to maintain saturations at or above 90%. He will remain sedated on propofol and fentanyl, with plans to initiate cis atracurium. Diuretics will be placed on hold due to hemodynamic instability. 2. Distributive shock The patient developed hemodynamic instability as a consequence of the sedative medications being employed. Accordingly, Levophed was initiated to maintain hemodynamic stability. Sputum culture will also be collected. Plan to wean vasopressor support to maintain a mean arterial pressure at or above 65 mmHg. 3. Possible GI bleed No overt signs of GI blood loss at this time. Agree with continuing twice daily PPI therapy as ordered. Monitor H&H and transfuse if hemoglobin drops below 7 g/dL. 4. History of coronary artery disease/hypertension/hyperlipidemia/obesity Complicates care, management, recovery and prognosis. Continue home medications as indicated. TIME: 82 minutes of critical care time, inclusive of procedures, was spent addressing the patient's acute hypoxemic respiratory failure, COVID-19 pneumonia, bilateral pulmonary emboli, distributive shock, review of all data and collaboration with the care team. ([id number], [id number]) Procedures: 46598 Critial Care Addl 30 Min 9xxxx: [id number] Critical care first hour
--- NOTE | 2020-11-01 07:48 | PN_ITS ---
Patient Problems: Active and Suspected Problems (Last Updated 10/24/20 @ 15:[address] Nish Dee, DO) Pneumonia due to Coronavirus disease 2019 (Acute) Hypoxia (Acute) Melena (Acute) Reason for Visit: Follow-up for acute hypoxic respiratory failure secondary to COVID-19 pneumonia. Objective: Afebrile. Patient on high flow oxygen, FiO2 91%. The heart rate and blood pressure heart rate and blood pressure are in normal range in the morning but it dropped around 11 AM to 69/43, patient got tachycardic heart rate 112 and required 100% FiO2 on BiPAP. Thereafter immediately patient moved to the ICU and was intubated by electro mechanical solar technician. Right femoral CVC catheter was inserted and patient started on Levophed drip. Currently sedated on propofol and fentanyl drip. Patient completed remdesivir. On Decadron. Being seen by ID. I called patient's daughter, Martina, Arnoldo [phone] and left voicemail to call back. Physical General: Was in respiratory distress prior to intubation. Sedated on propofol and fentanyl. HEENT: Atraumatic, PERRLA, EOMI, Normocephalic Oral: ET and OG tube. Neck: Supple, No JVD, Negative Carotid Bruits Lungs: On vent support. Severely hypoxic. Bilateral coarse crepitation Cardiovascular: Regular rate, Regular Rhythm, Normal S1, Normal S2, No murmurs Abdomen: Bowel Sounds Present, Soft, Non Tender, Non-Distended : No renal angle tenderness. No suprapubic tenderness. Extremities: No edema, Capillary Refill Less than 3 Seconds Skin: No rashes, No breakdown Musculoskeletal: No Tenderness to Palpation of Joints or Extremities Neurological: Cranial nerves II-XII grossly intact, Deep Tendon Reflexes 2+/4 and Symmetrical, Neuro grossly intact Psych/Mental Status: Sedated. Vitals/I&O's: Vital Signs Temp Pulse Resp BP Pulse Ox 99.0 F 84 20 H 123/56 H 91 11/01/20 05:10 11/01/20 05:10 11/01/20 05:14 11/01/20 05:10 11/01/20 05:14 Oxygen Flow Rate (L/min) 50 Oxygen Delivery Method Airvo Weight: 285 lb 0.006 oz Body Mass Index (BMI) 42.0 Intake and Output for Last 24 Hours 10/30/20 10/31/20 11/01/20 23:59 23:59 23:59 Intake Total 1650 / 1770 340 / 340 Output Total 350 / 350 Balance 1300 / 1420 340 / 340 Laboratory Results 11/01/20 05:16: Total Bilirubin 0.60, Direct Bilirubin 0.18, AST 24, ALT 30, Alkaline Phosphatase 64, Total Protein 6.5, Albumin 2.4 L, Globulin 4.1 Current Medications Acetaminophen (Acetaminophen 325 Mg Tablet) 650 mg PO Q6H PRN PRN PRN Reason: Pain Score 1-10/Temp > 100.7 F Last Admin: 11/01/20 05:13 Dose: 650 mg Documented by: Allopurinol (Allopurinol 300 Mg Tablet) 300 mg PO DAILY [facility] Last Admin: 10/31/20 08:04 Dose: 300 mg Documented by: Atorvastatin Calcium (Atorvastatin Calcium 20 Mg Tablet) 20 mg PO DAILY [facility] Last Admin: 10/31/20 08:05 Dose: 20 mg Documented by: Dexamethasone (Dexamethasone 4 Mg Tablet) 6 mg PO DAILY [facility] Stop: 11/02/20 10:01 Last Admin: 10/31/20 08:04 Dose: 6 mg Documented by: Enoxaparin Sodium (Enoxaparin 120 Mg/0.8 Ml Syringe) 120 mg SC BID [facility] Last Admin: 10/31/20 20:59 Dose: 120 mg Documented by: Furosemide (Furosemide 40 Mg/4 Ml Vial) 40 mg IV DAILY [facility] Last Admin: 10/31/20 08:06 Dose: 40 mg Documented by: Losartan Potassium (Losartan Potassium 25 Mg Tablet) 25 mg PO DAILY [facility] Last Admin: 10/31/20 08:12 Dose: 25 mg Documented by: Metoprolol Tartrate (Metoprolol Tartrate 25 Mg Tablet) 12.5 mg PO BID [facility] Last Admin: 10/31/20 20:58 Dose: 12.5 mg Documented by: Nystatin (Nystatin 500,000 Unit/5 Ml Udc) 500,000 unit PO 4X/DAY [facility] Last Admin: 10/31/20 23:55 Dose: Not Given Documented by: Ondansetron HCl (Ondansetron 4 Mg/2 Ml Vial) 4 mg IV Q8H PRN PRN PRN Reason: NAUSEA/VOMITING Pantoprazole Sodium (Pantoprazole Sodium 40 Mg Tablet) 40 mg PO BID [facility] Last Admin: 10/31/20 21:00 Dose: 40 mg Documented by: Potassium Chloride (Potassium Chloride 20 Meq Tablet) 40 meq PO DAILYCM [facility] Stop: 11/01/20 08:01 Last Admin: 10/31/20 08:05 Dose: 40 meq Documented by: Sodium Bicarbonate (Sodium Bicarbonate 650 Mg Tablet) 650 mg PO 0400,1000,1600,2200 [facility] Last Admin: 11/01/20 05:12 Dose: 650 mg Documented by: Sodium Chloride (0.9% Saline Lock 10 Ml Syringe) 10 - 40 ml IV UD PRN PRN Reason: SALINE FLUSH Last Admin: 10/30/20 09:39 Dose: 10 ml Documented by: Sodium Chloride (Sodium Chloride 0.65% 1 Kiana Kiana.Btl) 2 spray NASAL BID PRN PRN PRN Reason: NASAL DRYNESS Last Admin: 10/28/20 22:53 Dose: 2 sprays Documented by: Trazodone HCl (Trazodone 50 Mg Tablet) 50 mg PO QHS PRN PRN Reason: insomnia Last Admin: 10/31/20 21:01 Dose: 50 mg Documented by: STROKE Vital Signs/Narrative: Vital Signs Temp Pulse Resp BP Pulse Ox 11/01/20 05:14 20 H 91 11/01/20 05:10 99.0 F 84 20 H 123/56 H 94 Medical Necessity - Tobacco Use Smoking Status: Never smoker Tobacco Use: Non-smoker Assessment/Plan All Active Problems (Last Updated 10/24/20 @ 15:[address] Nish Dee, DO) Pneumonia due to Coronavirus disease 2019 (Acute) Hypoxia (Acute) Melena (Acute) This is a 65 years old male patient presented to the emergency room because of weakness, fatigue and diarrhea, found to have bilateral pulmonary infiltrate and tested positive for COVID-19 and he was found to have acute bilateral COVID-19 pneumonia, renal insufficiency and hypoxia. #1 Acute hypoxic respiratory failure secondary to acute bilateral COVID-19 pneumonia and bilateral PE possible septic or distributive shock: Patient completed remdesivir. On Decadron. Discussed with ID. Patient has bilateral leg edema and was on HCTZ, losartan at home which are discontinued. Started on Lasix 40 mg IV daily. BNP, pro calcitonin and troponin ordered by ID. 10/30: Patient is more hypoxic on 10 L of oxygen. Repeat chest x-ray ordered. Troponin, BNP and procalcitonin normal. Mild leukocytosis 12,000 with lymphocyte 12%. Consolidator has been consulted. Discussed with ID. 10/31: Hypoxia worsening. On high flow oxygen. Leukocytosis 14,000 with relative lymphopenia. Patient seen by sap pi developer. Looks mildly depressed, started on trazodone 50 mg daily. 11/01: Patient required 100% FiO2 on BiPAP and was intubated. Blood pressure dropped after intubation and sedation probably distributive shock/septic shock. Patient chest x-ray shows worsening of bilateral infiltrates. ET and OG tube positions adequate. Sputum culture ordered. Leukocytosis with lymphopenia. Procalcitonin, CRP and LDH ordered. Patient's daughter Charla was called and recent change in clinical status was given including intubation, ventilator, vasopressor therapy. She wants to continue full code including CPR. #2 acute bilateral upper small pulmonary emboli: CTA chest reviewed, revealed suspicious multiple small pulmonary emboli in the upper lobe arterial branches. Continue Eliquis. Patient completed remdesivir on 28 October.. #2 Acute renal insufficiency:Admission creatinine was 1.86, received IV fluids and creatinine came down to 1.02 mg/dL but patient has bilateral leg edema and hypoxia worsened. Started on Lasix as mentioned above. 10/31: On Lasix. Patient voiding 4 times daily spontaneously. 11/01: Electrolytes are in normal range. BUN/creatinine 29/1.11. #3 melena/probable GI bleed: Patient has been having brown stool, no more melena. Stool for occult blood tested positive. He is on PPI. Today's hemoglobin is 12.6 g/dL. Hemoglobin and hematocrit are stable. Vital signs are stable. H&H is stable. 11/01: On anticoagulant Lovenox 120 mg twice daily. Monitor CBC daily. Patient holding H&H. #4 CAD status post stents: Stable, no acute issues. Continue statins, losartan metoprolol. #5 hypertension: Blood pressure stable, continue losartan and metoprolol. #6 hyperlipidemia: Continue statins. Total time of the visit including total time spent in counseling or coordination of care, (more than 50% of the total time, spent in obtaining medical information from nurses and other ancillary care providers,explaining to the patient about labs, imaging, diagnosis and management), discussion with consultants, exchange of information to the family, his daughter, review of labs and imaging is 30 minutes. Laboratory Results 11/01/20 05:16: Total Bilirubin 0.60, Direct Bilirubin 0.18, AST 24, ALT 30, Alkaline Phosphatase 64, Total Protein 6.5, Albumin 2.4 L, Globulin 4.1 11/01/20 05:16: WBC 16.3 H, RBC 4.73, Hgb 13.2, Hct 41.5, MCV 87.7, MCH 27.9, MCHC 31.8 L, RDW Std Deviation 51.9 H, RDW Coeff of Abhilash 16.6 H, Plt Count 379, MPV 10.8, Immature Gran % (Auto) 2.800 H, Neut % (Auto) 79.3 H, Lymph % (Auto) 8.8 L, Crockett % (Auto) 8.0, Eos % (Auto) 0.9, Baso % (Auto) 0.2, Absolute Neuts (auto) 13.0 H, Absolute Lymphs (auto) 1.43, Nucleated RBC % 0 11/01/20 05:16: Sodium 138, Potassium 4.2, Chloride 106, Carbon Dioxide 26.0, Anion Gap 6, BUN 29 H, Creatinine 1.11, Estim Creat Clear Calc 65.46, Est GFR (MDRD) Af Amer 85, Est GFR (MDRD) Non-Af 70, BUN/Creatinine Ratio 26.1 H, Glucose 107 H, Calcium 9.2 11/01/20 11:26: Specimen Type ART, Sample Site L Radial, pH 7.44, Bicarbonate Actual 28.1 H, Total CO2 29, Base Excess 4 H, O2 Saturation 71 L, O2 % 100, ABG pCO2 41.9, ABG pO2 36 L*, Lonnie Test Positive, Respiration Rate 14, O2 Delivery Device Adult Vent, Vent Mode AC, Tidal Volume 500, POC PEEP 14 Clinical Impression(s) from Imaging Studies Chest CTA 10/25/20 10:45 IMPRESSION: Limited evaluation of the pulmonary arteries due to poor contrast-enhancement although I suspect multiple small pulmonary emboli in the upper lobe pulmonary arterial branches. Multiple areas of bilateral groundglass appearance was in the right hemithorax suggestive of a pneumonitis associated with Covid 19. Chest X-Ray 11/01/20 10:43 IMPRESSION: Progressive bilateral pulmonary infiltrates more prominent in the right hemithorax. The tip of the endotracheal tube is at 4.7 cm proximal to the javier. Inpatient E&M: 75464 Subs Hosp L3
[2020-11-01 07:57] LABS: Absolute Lymphocyte Count 1.43 X10^3/uL (0.83-4.51); Basophil# 0.04 X10^3/uL; Basophil% 0.2 % (0-1); Eosinophil# 0.14 X10^3/uL; Eosinophils% 0.9 % (0-5); Hematocrit 41.5 % (40-54); Hemoglobin 13.2 g/dL (13.0-16.5); Lymphocyte # 1.43 X10^3/ul (4.0); Lymphocyte % 8.8 % (19-41); Mean Corp Hgb Conc 31.8 g/dL (32-36); Mean Corpuscular Hgb 27.9 pg (27.0-32.0); Mean Corpuscular Volume 87.7 fL (80-94); Mean Platelet Vol. 10.8 fl (6.2-12.0); Monocyte# 1.31 X10^3/uL; NRBC Flagged by Analyzer 0 % (0-5); Neutrophil # 12.97 X10^3/uL (2.7-7.7); Neutrophil % 79.3 % (47-70); Platelet Count 379 K/mm3 (150-450); RBC Distribution Width CV 16.6 % (11.6-14.6); RBC Distribution Width SD 51.9 fl (35.1-43.9); Red Blood Count 4.73 M/mm3 (4.6-6.2); White Blood Count 16.3 K/mm3 (4.4-11.0)
[2020-11-01 08:09] LABS: Anion Gap 6 (5-15); BUN 29 mg/dL (7-18); BUN/Creat Ratio 26.1 RATIO (10-20); Calcium,Total 9.2 mg/dL (8.5-10.1); Chloride 106 mmol/L (98-107); Creatinine, Serum 1.11 mg/dL (0.70-1.30); EST Glomerular Filtration Rate 70 mL/min (>60); Est Glom Filt Rate - Afr Amer 85 mL/min (>60); Estimated Creatinine Clearance 65.46 ml/min; Glucose 107 mg/dL (74-106); Potassium 4.2 mmol/L (3.5-5.1); Sodium Level 138 mmol/L (136-145)
[2020-11-01] MEDS: Enoxaparin 120 MG/0.8 ML Syringe SC ×2 (09:03→21:09)
[2020-11-01] MEDS: Metoprolol Tartrate 25 MG Tablet 12.5 MG PO (09:04)
[2020-11-01] MEDS: Allopurinol 300 MG Tablet PO (09:04)
[2020-11-01] MEDS: Pantoprazole Sodium 40 MG Tablet PO ×2 (09:04→21:09)
[2020-11-01] MEDS: dexAMETHasone 4 MG Tablet 6 MG PO (09:05)
[2020-11-01] MEDS: Atorvastatin Calcium 20 MG Tablet PO (09:05)
[2020-11-01] MEDS: Losartan Potassium 25 MG Tablet PO (09:06)
[2020-11-01] MEDS: Furosemide 40 MG/4 ML Vial IV (09:08)
[2020-11-01] MEDS: Midazolam 5 MG/ML Syringe IV (10:34)
[2020-11-01] MEDS: Etomidate 20 MG/10 ML Vial IV (10:36)
[2020-11-01] MEDS: Succinylcholine Chloride 200 MG/10 ML Vial 100 MG IV ×2 (10:40→10:50)
[2020-11-01] MEDS: Propofol 10MG/Ml 1,000 MG/100 ML Bottle 7.8 MG CONT INF (10:40)
--- NOTE | 2020-11-01 10:43 | RAD_ITS ---
STUDY: X-RAY CHEST REASON FOR EXAM: Male, 65 years old. ETT AND OG TUBE PLACEMENT COVID + TECHNIQUE: Single AP portable view of the chest. COMPARISON: Comparison is made with prior study dated 10/30/2020. FINDINGS: An endotracheal tube has been inserted. The tip is at 4.7 cm proximal to the javier. An orogastric tube is seen with the tip below the left hemidiaphragm. Since prior study, there has been progressive pulmonary infiltrates worse in the right hemithorax. There is no demonstrated pleural abnormality. Normal size heart. Normal mediastinum and gaby. Normal visualized pulmonary arteries. Normal visualized aortic arch and descending thoracic aorta. Normal visualized thoracic spine. Normal visualized ribs, clavicles, and shoulders. There is no demonstrated abnormality of the visualized soft tissue structures of the upper abdomen. RAD/Chest 1 View (Portable) IMPRESSION: Progressive bilateral pulmonary infiltrates more prominent in the right hemithorax. The tip of the endotracheal tube is at 4.7 cm proximal to the javier. Electronically Signed: Jr Moya, at 11:21 EST , Service support ,
--- NOTE | 2020-11-01 10:52 | NURSING ---
Pt continues to be in distress oxygen status not rising above 87 %. He is fussing and irritated with instructions. He was notified that his heart rate is elevated and his stats are not maintaining. He is agreeable to be transferred to the unit. Pt states it is ok to let his daughters know what is going on. This nurse spoke to his daughter Charla and she is notified of his transfer to ICU and being intubated.
--- NOTE | 2020-11-01 11:16 | PN.ID_ITS ---
Patient Problems: Active and Suspected Problems (Last Updated 10/24/20 @ 15:[address] Nish Dee, DO) Pneumonia due to Coronavirus disease 2019 (Acute) Hypoxia (Acute) Melena (Acute) Subjective: Intubated this AM, no fever - Physical Exam Vitals/I&O's: Vital Signs Temp Pulse Resp BP Pulse Ox 99.2 F H 106 H 27 H 116/52 L 80 11/01/20 09:12 11/01/20 10:38 11/01/20 10:38 11/01/20 09:12 11/01/20 10:38 Oxygen Flow Rate (L/min) 50 Oxygen Delivery Method Airvo Weight: 129.274 kg Body Mass Index (BMI) 42.0 Intake and Output for Last 24 Hours 10/30/20 10/31/20 11/01/20 23:59 23:59 23:59 Intake Total 1650 / 1770 340 / 340 Output Total 350 / 350 Balance 1300 / 1420 340 / 340 General: Non-Cooperative Lungs: Diminished Cardiovascular: Regular rate, Regular Rhythm Abdomen: Soft, Non Tender, Non-Distended Skin: No rashes Laboratory Results 11/01/20 05:16: Total Bilirubin 0.60, Direct Bilirubin 0.18, AST 24, ALT 30, Alkaline Phosphatase 64, Total Protein 6.5, Albumin 2.4 L, Globulin 4.1 11/01/20 05:16: WBC 16.3 H, RBC 4.73, Hgb 13.2, Hct 41.5, MCV 87.7, MCH 27.9, MCHC 31.8 L, RDW Std Deviation 51.9 H, RDW Coeff of Abhilash 16.6 H, Plt Count 379, MPV 10.8, Immature Gran % (Auto) 2.800 H, Neut % (Auto) 79.3 H, Lymph % (Auto) 8.8 L, Frederick % (Auto) 8.0, Eos % (Auto) 0.9, Baso % (Auto) 0.2, Absolute Neuts (auto) 13.0 H, Absolute Lymphs (auto) 1.43, Nucleated RBC % 0 11/01/20 05:16: Sodium 138, Potassium 4.2, Chloride 106, Carbon Dioxide 26.0, Anion Gap 6, BUN 29 H, Creatinine 1.11, Estim Creat Clear Calc 65.46, Est GFR (MDRD) Af Amer 85, Est GFR (MDRD) Non-Af 70, BUN/Creatinine Ratio 26.1 H, Glucose 107 H, Calcium 9.2 Current Medications Acetaminophen (Acetaminophen 325 Mg Tablet) 650 mg PO Q6H PRN PRN PRN Reason: Pain Score 1-10/Temp > 100.7 F Last Admin: 11/01/20 05:13 Dose: 650 mg Documented by: Allopurinol (Allopurinol 300 Mg Tablet) 300 mg PO DAILY [facility] Last Admin: 11/01/20 09:04 Dose: 300 mg Documented by: Atorvastatin Calcium (Atorvastatin Calcium 20 Mg Tablet) 20 mg PO DAILY [facility] Last Admin: 11/01/20 09:05 Dose: 20 mg Documented by: Dexamethasone (Dexamethasone 4 Mg Tablet) 6 mg PO DAILY [facility] Stop: 11/02/20 10:01 Last Admin: 11/01/20 09:05 Dose: 6 mg Documented by: Enoxaparin Sodium (Enoxaparin 120 Mg/0.8 Ml Syringe) 120 mg SC BID [facility] Last Admin: 11/01/20 09:03 Dose: 120 mg Documented by: Furosemide (Furosemide 40 Mg/4 Ml Vial) 40 mg IV DAILY [facility] Last Admin: 11/01/20 09:08 Dose: 40 mg Documented by: Losartan Potassium (Losartan Potassium 25 Mg Tablet) 25 mg PO DAILY [facility] Last Admin: 11/01/20 09:06 Dose: 25 mg Documented by: Metoprolol Tartrate (Metoprolol Tartrate 25 Mg Tablet) 12.5 mg PO BID [facility] Last Admin: 11/01/20 09:04 Dose: 12.5 mg Documented by: Nystatin (Nystatin 500,000 Unit/5 Ml Udc) 500,000 unit PO 4X/DAY [facility] Last Admin: 10/31/20 23:55 Dose: Not Given Documented by: Ondansetron HCl (Ondansetron 4 Mg/2 Ml Vial) 4 mg IV Q8H PRN PRN PRN Reason: NAUSEA/VOMITING Pantoprazole Sodium (Pantoprazole Sodium 40 Mg Tablet) 40 mg PO BID [facility] Last Admin: 11/01/20 09:04 Dose: 40 mg Documented by: Sodium Bicarbonate (Sodium Bicarbonate 650 Mg Tablet) 650 mg PO 0400,1000,1600,2200 [facility] Last Admin: 11/01/20 05:12 Dose: 650 mg Documented by: Sodium Chloride (0.9% Saline Lock 10 Ml Syringe) 10 - 40 ml IV UD PRN PRN Reason: SALINE FLUSH Last Admin: 10/30/20 09:39 Dose: 10 ml Documented by: Sodium Chloride (Sodium Chloride 0.65% 1 Sandy Sandy.Btl) 2 spray NASAL BID PRN PRN PRN Reason: NASAL DRYNESS Last Admin: 10/28/20 22:53 Dose: 2 sprays Documented by: Trazodone HCl (Trazodone 50 Mg Tablet) 50 mg PO QHS PRN PRN Reason: insomnia Last Admin: 10/31/20 21:01 Dose: 50 mg Documented by: Medical Necessity - Tobacco Use Smoking Status: Never smoker Tobacco Use: Non-smoker Route of nutrition/ use of supplements: [] Nutritional Intake: [] IV Site: [] Burgess Catheter: [] - Assessment/Plan Antibiotics: [] Assessment/Plan: [] Active and Suspected Problems (Last Updated 10/24/20 @ 15:[address] Nish Dee, DO) Pneumonia due to Coronavirus disease 2019 (Acute) Hypoxia (Acute) Melena (Acute) covid with hypoxia and PE - sx started about 2 weeks prior to admit. On dex and completed remdesivir. On therapeutic lovenox. Now on vent. Will order sputum cx. Will follow, d/w Dr. Salmeron
[2020-11-01 11:35] LABS: Allen Test Positive; Base Excess 4 mmol/L (-2 to +2); Bicarbonate 28.1 mmol/L (22-26); Blood Gas Specimen Type ART; FI02 100; Mode AC; O2 Delivery Device Adult Vent; PEEP 14; PO2 36 mmHG (75-100); RR 14; SITE L Radial; SO2 71 % (95-99); Total Carbon Dioxide 29 mmol/L; Vt 500; pCO2 41.9 mmHg (35-45); pH 7.44 (7.35-7.45)
--- NOTE | 2020-11-01 12:02 | NURSING ---
Pt emergently transferred from med/surg on BIPAP- refused to wear it, and emergently intubated. 1034: 4mg versed IVP 1036: 20mg etomidate IVP 1038:7.5 ETT inserted 23 ROSALIA, +color change 1040: 100 succs IVP, propofol gtt started @10mcg/kg/min 1041: fentanyl gtt started 50 mcg/hr 1047: fentanyl gtt increased 75, propofol gtt increased to 15 1050: 100 succs IVP, propofol gtt increased to 40, fentanyl gtt increased to 150-per Dr. Salmeron 1100: propofol gtt increased to 50
[2020-11-01] MEDS: Ipratropium/Albuterol Sulfate 3 ML AMPUL.NEB INHALATION ×2 (12:10→19:30)
[2020-11-01] MEDS: Chlorhexidine 15 ML PO ×2 (13:00→21:10)
[2020-11-01 13:57] LABS: LDH 457 U/L (87-241)
[2020-11-01 14:51] LABS: Base Excess 3 mmol/L (-2 to +2); Bicarbonate 30.2 mmol/L (22-26); Blood Gas Specimen Type ART; FI02 100; Mode AC; O2 Delivery Device Adult Vent; PEEP 18; PO2 61 mmHG (75-100); RR 14; SITE R Radial; SO2 86 % (95-99); Total Carbon Dioxide 32 mmol/L; Vt 500; pCO2 67.7 mmHg (35-45); pH 7.26 (7.35-7.45)
[2020-11-01] MEDS: Propofol 10MG/Ml 1,000 MG/100 ML Bottle 31 MG CONT INF (14:58)
--- NOTE | 2020-11-01 16:01 | PCM.HOSP.N ---
Hospitalist Note CENTRAL VENOUS CATHETER PLACEMENT-FEMORAL A timeout was performed and the patient was identified as Arnoldo Olmstead date of 1955. Proceduralists was an appropriate sterile attire after washing hands. The right groin was prepped sterilely and draped. The right femoral vein was identified utilizing ultrasound with a sterile protective sheath. 1 attempt was made in the right femoral vein was punctured and cannulated with a wire. A small incision was made into the skin at the base of the wire and a dilator was advanced without issue. The dilator was then removed and using Seldinger technique a 20 cm triple-lumen central venous catheter was placed. A cap was placed over the brown port after wire withdrawal and all 3 ports were flushed with ease. The central venous catheter was sutured in place and a sterile dressing covering the line was placed. Multi Select Codes - Hospitalists' Procedures Procedures: 85136 US Guide Vascular Access
[2020-11-01] MEDS: NYSTATIN 500,000 UNIT/5 ML UDC 500000 UNIT PO ×2 (16:22→21:09)
--- NOTE | 2020-11-01 18:43 | NURSING ---
Called pt's daughter Martina and gave update on current tx-- advised to expect another day of paralytics and weaning of support measures as tolerated. She is aware that pt is on maximum ventilator settings currently and on low amount of BP support medication. She verbalizes understanding. I informed pt that I would be able to call and involve her in rounds tomorrow morning approx [phone].
[2020-11-01] MEDS: Propofol 10MG/Ml 1,000 MG/100 ML Bottle 19.4 MG CONT INF (19:15)
[2020-11-02] VITALS (54 sets, daily range): BP systolic 43–163; BP diastolic 33–93; PULSE 93–133; RESP 12–17; TEMP 35.7–36.9; O2SAT 89–97; BMI 40.2
[2020-11-02] MEDS: Propofol 10MG/Ml 1,000 MG/100 ML Bottle 19.4 MG CONT INF (00:50)
[2020-11-02] MEDS: Ipratropium/Albuterol Sulfate 3 ML AMPUL.NEB INHALATION ×3 (01:50→13:36)
[2020-11-02] MEDS: Propofol 10MG/Ml 1,000 MG/100 ML Bottle 15.5 MG CONT INF ×3 (04:15→19:00)
--- NOTE | 2020-11-02 06:27 | PN_ITS ---
Subjective: The patient was seen and examined at the bedside this morning. Events from the last 24 hours have been reviewed. The patient is currently afebrile and was able to be weaned off of Levophed overnight. The patient remains hemodynamically stable. He remains on assist control mode of mechanical ventilation with an FiO2 requirement of 90% and PEEP of 20. Urine output has been decreasing. The patient is currently documented to be overall net +4 L for the hospital admission. He remains heavily sedated on propofol and fentanyl and is pharmacologically paralyzed on cis atracurium. The patient also remains systemically anticoagulated on Lovenox. Objective: The patient's most recent lab work, culture data and imaging studies have all been personally reviewed. Rapid coronavirus antigen testing was positive on October 24. Stool for occult blood was positive on October 25. General: - - Intubated, sedated and mechanically ventilated. The patient remains pharmacologically paralyzed. BIS value noted to be 45 HEENT: Atraumatic, Normocephalic Oral: Moist Mucosa, - - Stable endotracheal and OG tubes. Neck: Supple, No Nodes, Trachea Midline Lungs: No rhonchi, No wheeze, No rales, Diminished Cardiovascular: Normal S1, Normal S2, Tachycardic Abdomen: Bowel Sounds Present, Soft, Non Tender, Obese Extremities: No clubbing, No cyanosis, No edema Skin: - - No significant change from previous Musculoskeletal: No Muscle Wasting Lymphatic: No Cervical, Supraclavicular, or Inguinal Adenopathy Neurological: - - Unable to assess neurological status given need for pharmacologic paralysis. Vital Signs Temp Pulse Resp BP Pulse Ox 97.8 F 100 16 93/66 95 11/02/20 00:00 11/02/20 04:52 11/02/20 04:52 11/02/20 02:00 11/02/20 04:52 Oxygen Flow Rate (L/min) 50 Oxygen Delivery Method Mechanical Ventilator Weight: 272 lb 7.861 oz Body Mass Index (BMI) 42.0 Intake and Output for Last 24 Hours 10/31/20 11/01/20 11/02/20 23:59 23:59 23:59 Intake Total 1650 / 1770 1374.88 / 1549.38 330.53 / 330.53 Output Total 350 / 350 700 / 900 375 / 375 Balance 1300 / 1420 674.88 / 649.38 -44.47 / -44.47 Labs (Last 48 Hours) 10/31/20 10/31/20 11/01/20 06:20 06:20 05:16 WBC 14.1 H RBC 4.86 Hgb 13.0 Hct 41.4 MCV 85.2 MCH 26.7 L MCHC 31.4 L RDW Std Deviation 49.9 H RDW Coeff of Abhilash 16.3 H Plt Count 380 MPV 10.1 Immature Gran % (Auto) 4.200 H Neut % (Auto) 77.4 H Lymph % (Auto) 10.3 L Sibley % (Auto) 7.3 Eos % (Auto) 0.4 Baso % (Auto) 0.4 Absolute Neuts (auto) 10.9 H Absolute Lymphs (auto) 1.45 Nucleated RBC % 0 Specimen Type Sample Site pH Bicarbonate Actual Total CO2 Base Excess O2 Saturation O2 % ABG pCO2 ABG pO2 Lonnie Test Respiration Rate O2 Delivery Device Vent Mode Tidal Volume POC PEEP Sodium 143 Potassium 4.1 Chloride 108 H Carbon Dioxide 28.0 Anion Gap 7 BUN 29 H Creatinine 1.17 Estim Creat Clear Calc 62.11 Est GFR (MDRD) Af Amer 80 Est GFR (MDRD) Non-Af 66 BUN/Creatinine Ratio 24.8 H Glucose 121 H Calcium 9.0 Total Bilirubin 0.70 0.60 Direct Bilirubin 0.25 0.18 AST 26 24 ALT 31 30 Alkaline Phosphatase 66 64 Lactate Dehydrogenase C-React Prot Ext Range Total Protein 5.7 L 6.5 Albumin 2.5 L 2.4 L Globulin 3.2 4.1 11/01/20 11/01/20 11/01/20 05:16 05:16 05:16 WBC 16.3 H RBC 4.73 Hgb 13.2 Hct 41.5 MCV 87.7 MCH 27.9 MCHC 31.8 L RDW Std Deviation 51.9 H RDW Coeff of Abhilash 16.6 H Plt Count 379 MPV 10.8 Immature Gran % (Auto) 2.800 H Neut % (Auto) 79.3 H Lymph % (Auto) 8.8 L Sibley % (Auto) 8.0 Eos % (Auto) 0.9 Baso % (Auto) 0.2 Absolute Neuts (auto) 13.0 H Absolute Lymphs (auto) 1.43 Nucleated RBC % 0 Specimen Type Sample Site pH Bicarbonate Actual Total CO2 Base Excess O2 Saturation O2 % ABG pCO2 ABG pO2 Lonnie Test Respiration Rate O2 Delivery Device Vent Mode Tidal Volume POC PEEP Sodium 138 Potassium 4.2 Chloride 106 Carbon Dioxide 26.0 Anion Gap 6 BUN 29 H Creatinine 1.11 Estim Creat Clear Calc 65.46 Est GFR (MDRD) Af Amer 85 Est GFR (MDRD) Non-Af 70 BUN/Creatinine Ratio 26.1 H Glucose 107 H Calcium 9.2 Total Bilirubin Direct Bilirubin AST ALT Alkaline Phosphatase Lactate Dehydrogenase 457 H C-React Prot Ext Range 64.00 H Total Protein Albumin Globulin 11/01/20 11/01/20 11:26 14:45 WBC RBC Hgb Hct MCV MCH MCHC RDW Std Deviation RDW Coeff of Abhilash Plt Count MPV Immature Gran % (Auto) Neut % (Auto) Lymph % (Auto) Sibley % (Auto) Eos % (Auto) Baso % (Auto) Absolute Neuts (auto) Absolute Lymphs (auto) Nucleated RBC % Specimen Type ART ART Sample Site L Radial R Radial pH 7.44 7.26 L Bicarbonate Actual 28.1 H 30.2 H Total CO2 29 32 Base Excess 4 H 3 H O2 Saturation 71 L 86 L O2 % 100 100 ABG pCO2 41.9 67.7 H* ABG pO2 36 L* 61 L Lonnie Test Positive Respiration Rate 14 14 O2 Delivery Device Adult Vent Adult Vent Vent Mode AC AC Tidal Volume 500 500 POC PEEP 14 18 Sodium Potassium Chloride Carbon Dioxide Anion Gap BUN Creatinine Estim Creat Clear Calc Est GFR (MDRD) Af Amer Est GFR (MDRD) Non-Af BUN/Creatinine Ratio Glucose Calcium Total Bilirubin Direct Bilirubin AST ALT Alkaline Phosphatase Lactate Dehydrogenase C-React Prot Ext Range Total Protein Albumin Globulin Microbiology 11/01/20 12:25 Sputum, Induced/Lukens Gram Stain - Final Clinical Impression(s) from Imaging Studies Chest X-Ray 10/24/20 14:10 IMPRESSION: Bilateral pulmonary infiltrates worse in the right hemithorax. Electronically Signed: Jr Moya, at 14:27 EST , Service support , Chest CTA 10/25/20 10:45 IMPRESSION: Limited evaluation of the pulmonary arteries due to poor contrast-enhancement although I suspect multiple small pulmonary emboli in the upper lobe pulmonary arterial branches. Multiple areas of bilateral groundglass appearance was in the right hemithorax suggestive of a pneumonitis associated with Covid 19. Electronically Signed: Jr Griffin, at 11:20 EST , Service support , Chest X-Ray 10/30/20 12:54 IMPRESSION: Worsening interstitial and airspace opacifications in both lung vann compared to the previous study. Follow-up recommended to ensure resolution Electronically Signed: Marcus Vides MD at 14:43 EST , Service support , Chest X-Ray 11/01/20 10:43 IMPRESSION: Progressive bilateral pulmonary infiltrates more prominent in the right hemithorax. The tip of the endotracheal tube is at 4.7 cm proximal to the javier. Electronically Signed: Jr Griffin, at 11:21 EST , Service support , Medical Necessity - Tobacco Use Smoking Status: Never smoker Tobacco Use: Non-smoker Assessment/Plan All Active Problems (Last Updated 10/24/20 @ 15:[address] Nish Dee, DO) Pneumonia due to Coronavirus disease 2019 (Acute) Hypoxia (Acute) Melena (Acute) RECOMMENDATIONS: 1. Place IJ triple-lumen catheter along with temporary hemodialysis line. Remove femoral central venous catheter. 2. Continue patient on assist control mode of mechanical ventilation and wean FiO2 and PEEP to maintain oxygen saturations at or above 90%. 3. Attempt diuresis with Lasix. 4. Obtain nephrology consultation, re: need for dialysis. 5. Okay to start tube feeds today. 6. Continue therapeutic Lovenox. 7. Continue PPI therapy. 8. Obtain repeat arterial blood gas. IMPRESSIONS: 1. Acute hypoxemic respiratory failure Multifactorial in etiology with COVID-19 pneumonia and bilateral pulmonary emboli contributing. Although attempts were made to utilize heated high flow oxygen and later BiPAP, the patient continued to decompensate from a respiratory perspective, requiring intubation on November 01. For now, the patient will be continued on assist control mode of mechanical ventilation, with plans to wean FiO2 and PEEP to maintain saturations at or above 90%. He will remain sedated on propofol and fentanyl, with plans to continue pharmacologic paralysis. Diuretics will be resumed with plans to obtain nephrology consultation over concerns for worsening renal insufficiency and possible need for dialysis. 2. Acute kidney injury/hyperkalemia The patient's creatinine increased to 3.7 this morning, which is likely prerenal in etiology and related to the patient's transient hypotension yesterday. Will obtain nephrology consultation over concerns for need for hemodialysis. In the interim, will reattempt diuresis with IV Lasix. 3. Possible GI bleed No overt signs of GI blood loss at this time. Continue twice daily PPI therapy as ordered. Monitor H&H and transfuse if hemoglobin drops below 7 g/dL. 4. History of coronary artery disease/hypertension/hyperlipidemia/obesity Complicates care, management, recovery and prognosis. Continue home medications as indicated. TIME: 38 minutes of critical care time, inclusive of procedures, was spent addressing the patient's acute hypoxemic respiratory failure, COVID-19 pneumonia, bilateral pulmonary emboli, acute kidney injury, review of all data and collaboration with the care team. ([id number]) [id number]: [id number] Critical care first hour
[2020-11-02 07:12] LABS: Absolute Lymphocyte Count 1.29 X10^3/uL (0.83-4.51); Absolute Neutrophil Count 16.1 X10^3/uL (2.0-7.7); Basophil# 0.08 X10^3/uL; Basophil% 0.4 % (0-1); Eosinophil# 0.02 X10^3/uL; Eosinophils% 0.1 % (0-5); Hematocrit 42.2 % (40-54); Hemoglobin 12.5 g/dL (13.0-16.5); Lymphocyte # 1.29 X10^3/ul (4.0); Lymphocyte % 6.4 % (19-41); Mean Corp Hgb Conc 29.6 g/dL (32-36); Mean Corpuscular Hgb 27.3 pg (27.0-32.0); Mean Corpuscular Volume 92.1 fL (80-94); Monocyte% 11.3 % (0-10); NRBC Flagged by Analyzer 0 % (0-5); Neutrophil # 16.06 X10^3/uL (2.7-7.7); Neutrophil % 79.2 % (47-70); POSITIVE DIFFERENTIAL YES; Platelet Count 418 K/mm3 (150-450); RBC Distribution Width CV 17.2 % (11.6-14.6); RBC Distribution Width SD 58.8 fl (35.1-43.9); Red Blood Count 4.58 M/mm3 (4.6-6.2); White Blood Count 20.3 K/mm3 (4.4-11.0)
[2020-11-02 07:35] LABS: Differential Indicated SCAN CRITERIA MET
[2020-11-02 07:38] LABS: ALB/GLOB Ratio 0.5 RATIO (0.9-2.4); AST(SGOT) 103 U/L (15-37); Alanine Aminotransfer ALT/SGPT 65 U/L (16-61); Albumin, Serum 2.4 g/dL (3.2-5.0); Alkaline Phosphatase 80 U/L (45-117); Anion Gap 6 (5-15); BUN 47 mg/dL (7-18); BUN/Creat Ratio 12.7 RATIO (10-20); Calcium,Total 8.7 mg/dL (8.5-10.1); Chloride 106 mmol/L (98-107); Creatinine, Serum 3.71 mg/dL (0.70-1.30); EST Glomerular Filtration Rate 18 mL/min (>60); Est Glom Filt Rate - Afr Amer 21 mL/min (>60); Estimated Creatinine Clearance 19.59 ml/min; Globulin 4.9 g/dL (2.2-4.2); Glucose 127 mg/dL (74-106); Magnesium 2.3 mg/dL (1.6-2.6); Phosphorus 7.1 mg/dL (2.5-4.9); Potassium 6.1 mmol/L (3.5-5.1); Protein, Total 7.3 g/dL (6.4-8.2); Sodium Level 140 mmol/L (136-145)
[2020-11-02 08:05] LABS: Base Excess 0 mmol/L (-2 to +2); Bicarbonate 27.9 mmol/L (22-26); Blood Gas Specimen Type ART; FI02 80; Mode AC; O2 Delivery Device Adult Vent; PEEP 20; PO2 84 mmHG (75-100); RR 20; SITE L Brach; SO2 94 % (95-99); Total Carbon Dioxide 30 mmol/L; Vt 500; pCO2 67.3 mmHg (35-45); pH 7.23 (7.35-7.45)
--- NOTE | 2020-11-02 08:05 | PN_ITS ---
Patient Problems: Active and Suspected Problems (Last Updated 10/24/20 @ 15:[address] Nish Dee, DO) Pneumonia due to Coronavirus disease 2019 (Acute) Hypoxia (Acute) Melena (Acute) Reason for Visit: Follow-up for acute hypoxic respiratory failure on the ventilator. Hypotension, septic shock and/or distributive shock on vasopressin. Objective: Patient remains intubated on ventilator. Was on 90% FiO2 currently 80% FiO2, PEEP 20. Potassium 6.1. BUN/creatinine went up. Leukocytosis left shift, neutrophilia. On sedatives and neuromuscular paralytic agent Physical exam General: Unconscious, sedated. HEENT: Atraumatic, Normocephalic. Pupils reactive but sluggish. Oral: ET and OG tube. Neck: Supple, No JVD, Negative Carotid Bruits Lungs: On vent support. Bilateral coarse crepitations present. Air entry bilateral equal. Cardiovascular: Regular rate, Regular Rhythm, Normal S1, Normal S2, PVCs. Hypotension on vasopressor support no murmurs Abdomen: Bowel Sounds Present, Soft, Non Tender, Non-Distended : Anuria. Temporary hemodialysis catheter in right IJ. Burgess catheter. Dark yellow urine. No renal angle tenderness. Extremities: Mild bilateral ankle edema, Capillary Refill Less than 3 Seconds Skin: No rashes, No breakdown. Right femoral CVC catheter. Musculoskeletal: No Tenderness to Palpation of Joints or Extremities Neurological: No focal neurological deficit. Sedated Psych/Mental Status: Sedated. Vitals/I&O's: Vital Signs Temp Pulse Resp BP Pulse Ox 96.9 F L 107 H 16 86/68 L 96 11/02/20 04:00 11/02/20 07:22 11/02/20 07:22 11/02/20 06:00 11/02/20 07:18 Oxygen Flow Rate (L/min) 50 Oxygen Delivery Method Mechanical Ventilator Weight: 272 lb 7.861 oz Body Mass Index (BMI) 42.0 Intake and Output for Last 24 Hours 10/31/20 11/01/20 11/02/20 23:59 23:59 23:59 Intake Total 1650 / 1770 1374.88 / 1549.38 640.82 / 640.82 Output Total 350 / 350 700 / 900 375 / 375 Balance 1300 / 1420 674.88 / 649.38 265.82 / 265.82 Microbiology Past 72 Hours 11/01/20 12:25 Sputum, Induced/Lukens Gram Stain - Final Laboratory Results 11/01/20 05:16: Sodium 138, Potassium 4.2, Chloride 106, Carbon Dioxide 26.0, Anion Gap 6, BUN 29 H, Creatinine 1.11, Estim Creat Clear Calc 65.46, Est GFR (MDRD) Af Amer 85, Est GFR (MDRD) Non-Af 70, BUN/Creatinine Ratio 26.1 H, Gluco se 107 H, Calcium 9.2 11/01/20 05:16: Lactate Dehydrogenase 457 H, C-React Prot Ext Range 64.00 H 11/01/20 11:26: Specimen Type ART, Sample Site L Radial, pH 7.44, Bicarbonate Actual 28.1 H, Total CO2 29, Base Excess 4 H, O2 Saturation 71 L, O2 % 100, ABG pCO2 41.9, ABG pO2 36 L*, Lonnie Test Positive, Respiration Rate 14, O2 Delivery Device Adult Vent, Vent Mode AC, Tidal Volume 500, POC PEEP 14 11/01/20 14:45: Specimen Type ART, Sample Site R Radial, pH 7.26 L, Bicarbonate Actual 30.2 H, Total CO2 32, Base Excess 3 H, O2 Saturation 86 L, O2 % 100, ABG pCO2 67.7 H*, ABG pO2 61 L, Respiration Rate 14, O2 Delivery Device Adult Vent, Vent Mode AC, Tidal Volume 500, POC PEEP 18 11/02/20 05:40: WBC Cancelled, Corrected WBC Cancelled, RBC Cancelled, Hgb Cancelled, Hct Cancelled, MCV Cancelled, MCH Cancelled, MCHC Cancelled, RDW Std Deviation Cancelled, RDW Coeff of Abhilash Cancelled, Plt Count Cancelled, MPV Cancelled, Immature Gran % (Auto) Cancelled, Neut % (Auto) Cancelled, Lymph % (Auto) Cancelled, Gregory % (Auto) Cancelled, Eos % (Auto) Cancelled, Baso % (Auto) Cancelled, Absolute Neuts (auto) Cancelled, Absolute Lymphs (auto) Cancelled, Total Counted Cancelled, Neutrophils % (Manual) Cancelled, Band Neutrophils % Cancelled, Lymphocytes % (Manual) Cancelled, Monocytes % (Manual) Cancelled, Eosinophils % (Manual) Cancelled, Basophils % (Manual) Cancelled, Metamyelocytes % Cancelled, Myelocytes % Cancelled, Promyelocytes % Cancelled, Blast Cells % Cancelled, Plasma Cell % (Manual) Cancelled, Other Cells % Cancelled, Nucleated RBC % Cancelled, Nucleated RBCs/100 WBC Cancelled, Differential Comment Cancelled, Diff Path Review Cancelled, Hypersegmented Neuts Cancelled, Atypical Lymphocytes Cancelled, Reactive Lymphocytes Cancelled, Smudge Cells Cancelled, Toxic Granulation Cancelled, Toxic Vacuolation Cancelled, Dohle Bodies Cancelled, Abe Rods Cancelled, Platelet Estimate Cancelled, Plt Morphology Comment Cancelled, RBC Morphology Cancelled, Polychromasia Cancelled, Hypochromasia Cancelled, Poikilocytosis Cancelled, Basophilic Stippling Cancelled, Anisocytosis Cancelled, Microcytosis Cancelled, Macrocytosis Cancelled, Spherocytes Cancelled, Sickle Cells Cancelled, Target Cells Cancelled, Tear Drop Cells Cancelled, Ovalocytes Cancelled, Stomatocytes Cancelled, Griffin-Firthcliffe Bodies Cancelled, Abraham Cells Cancelled, Bite Cells Cancelled, Crenated Cell Cancelled, Acanthocytes (Spur) Cancelled, Rouleaux Cancelled, Schistocytes Cancelled 11/02/20 05:40: Sodium Cancelled, Potassium Cancelled, Chloride Cancelled, Carbon Dioxide Cancelled, Anion Gap Cancelled, BUN Cancelled, Creatinine C ancelled, Estim Creat Clear Calc Cancelled, Est GFR (MDRD) Af Amer Cancelled, Est GFR (MDRD) Non-Af Cancelled, BUN/Creatinine Ratio Cancelled, Glucose Cancelled, Calcium Cancelled, Magnesium Cancelled, Total Bilirubin Cancelled, AST Cancelled, ALT Cancelled, Alkaline Phosphatase Cancelled, Total Protein Cancelled, Albumin Cancelled, Globulin Cancelled, Albumin/Globulin Ratio Cancelled 11/02/20 05:40: Phosphorus Cancelled 11/02/20 07:02: Sodium 140, Potassium 6.1 H*, Chloride 106, Carbon Dioxide 28.0, Anion Gap 6, BUN 47 H, Creatinine 3.71 H, Estim Creat Clear Calc 19.59, Est GFR (MDRD) Af Amer 21 L, Est GFR (MDRD) Non-Af 18 L, BUN/Creatinine Ratio 12.7, Glucose 127 H, Calcium 8.7, Phosphorus 7.1 H, Magnesium 2.3, Total Bilirubin 0.80, AST 103 H, ALT 65 H, Alkaline Phosphatase 80, Total Protein 7.3, Albumin 2.4 L, Globulin 4.9 H, Albumin/Globulin Ratio 0.5 L 11/02/20 07:02: WBC 20.3 H, RBC 4.58 L, Hgb 12.5 L, Hct 42.2, MCV 92.1 D, MCH 27.3, MCHC 29.6 L D, RDW Std Deviation 58.8 H, RDW Coeff of Abhilash 17.2 H, Plt Count 418, MPV 10.0, Immature Gran % (Auto) 2.600 H, Neut % (Auto) 79.2 H, Lymph % (Auto) 6.4 L, Gregory % (Auto) 11.3 H, Eos % (Auto) 0.1, Baso % (Auto) 0.4, Absolute Neuts (auto) 16.1 H, Absolute Lymphs (auto) 1.29, Nucleated RBC % 0, Diff Path Review February11/02/20 07:59: pH Pending, Bicarbonate Actual Pending, Total CO2 Pending, Base Excess Pending, O2 Saturation Pending, ABG pCO2 Pending, ABG pO2 Pending Current Medications Acetaminophen (Acetaminophen 325 Mg Tablet) 650 mg PO Q6H PRN PRN PRN Reason: Pain Score 1-10/Temp > 100.7 F Last Admin: 11/01/20 05:13 Dose: 650 mg Documented by: Albuterol/Ipratropium (Ipratropium/Albuterol Sulfate 3 Ml Ampul.Neb) 3 ml INHALATION Q6H.RT [facility] Last Admin: 11/02/20 07:17 Dose: 3 ml Documented by: Allopurinol (Allopurinol 300 Mg Tablet) 300 mg PO DAILY [facility] Last Admin: 11/01/20 09:04 Dose: 300 mg Documented by: Atorvastatin Calcium (Atorvastatin Calcium 20 Mg Tablet) 20 mg PO DAILY [facility] Last Admin: 11/01/20 09:05 Dose: 20 mg Documented by: Chlorhexidine Gluconate (Chlorhexidine 15 Ml) 15 ml PO BID [facility] Last Admin: 11/01/20 21:10 Dose: 15 ml Documented by: Dexamethasone (Dexamethasone 4 Mg Tablet) 6 mg PO DAILY [facility] Stop: 11/02/20 10:01 Last Admin: 11/01/20 09:05 Dose: 6 mg Documented by: Enoxaparin Sodium (Enoxaparin 120 Mg/0.8 Ml Syringe) 120 mg SC BID [facility] Last Admin: 11/01/20 21:09 Dose: 120 mg Documented by: Furosemide (Furosemide 40 Mg/4 Ml Vial) 40 mg IV Q8 [facility] Cisatracurium Besylate 100 mg/ (Sodium Chloride) 250 mls @ 38.782 mls/hr CONT INF .Q6H27M [facility]; Protocol Last Titration: 11/02/20 07:00 Dose: 2 mcg/kg/min, 38.8 mls/hr Documented by: Propofol (Diprivan) 1,000 mg in 100 mls @ 7.756 mls/hr CONT INF .Q12H [facility]; Protocol Last Titration: 11/02/20 07:00 Dose: 10 mcg/kg/min, 7.8 mls/hr Documented by: Fentanyl Citrate 1,000 mcg/ (Sodium Chloride) 100 mls @ 5 mls/hr CONT INF .Q20H [facility]; Protocol Last Titration: 11/02/20 07:00 Dose: 100 mcg/hr, 10 mls/hr Documented by: Nystatin (Nystatin 500,000 Unit/5 Ml Udc) 500,000 unit PO 4X/DAY [facility] Last Admin: 11/01/20 21:09 Dose: 500,000 unit Documented by: Pantoprazole Sodium (Pantoprazole Sodium 40 Mg Tablet) 40 mg PO BID [facility] Last Admin: 11/01/20 21:09 Dose: 40 mg Documented by: Sodium Chloride (0.9% Saline Lock 10 Ml Syringe) 10 - 40 ml IV UD PRN PRN Reason: SALINE FLUSH Last Admin: 10/30/20 09:39 Dose: 10 ml Documented by: Sodium Chloride (Sodium Chloride 0.65% 1 [place].Btl) 2 spray NASAL BID PRN PRN PRN Reason: NASAL DRYNESS Last Admin: 10/28/20 22:53 Dose: 2 sprays Documented by: STROKE Vital Signs/Narrative: Vital Signs Pulse Resp BP Pulse Ox 11/02/20 07:22 107 H 16 11/02/20 07:18 110 H 16 96 11/02/20 06:00 100 16 86/68 L 94 11/02/20 05:00 100 16 90/66 94 11/02/20 04:52 100 16 95 Medical Necessity - Tobacco Use Smoking Status: Never smoker Tobacco Use: Non-smoker Assessment/Plan All Active Problems (Last Updated 10/24/20 @ 15:[address] Nish Dee, DO) Pneumonia due to Coronavirus disease 2019 (Acute) Hypoxia (Acute) Melena (Acute) This is a 65 years old male patient presented to the emergency room because of weakness, fatigue and diarrhea, found to have bilateral pulmonary infiltrate and tested positive for COVID-19 and he was found to have acute bilateral COVID-19 pneumonia, renal insufficiency and hypoxia. #1 Acute hypoxic respiratory failure secondary to acute bilateral COVID-19 pneumonia and bilateral PE possible septic or distributive shock: Patient completed remdesivir. On Decadron. Discussed with ID. Patient has bilateral leg edema and was on HCTZ, losartan at home which are discontinued. Started on Lasix 40 mg IV daily. BNP, pro calcitonin and troponin ordered by ID. 10/30: Patient is more hypoxic on 10 L of oxygen. Repeat chest x-ray ordered. Troponin, BNP and procalcitonin normal. Mild leukocytosis 12,000 with lymphocyte 12%. Banana Carrier has been consulted. Discussed with ID. 10/31: Hypoxia worsening. On high flow oxygen. Leukocytosis 14,000 with relative lymphopenia. Patient seen by production planner scheduler. Looks mildly depressed, started on trazodone 50 mg daily. 11/01: Patient required 100% FiO2 on BiPAP and was intubated. Blood pressure dropped after intubation and sedation probably distributive shock/septic shock. Patient chest x-ray shows worsening of bilateral infiltrates. ET and OG tube positions adequate. Sputum culture ordered. Leukocytosis with lymphopenia. Procalcitonin, CRP and LDH ordered. Patient's daughter Charla was called and recent change in clinical status was given including intubation, ventilator, vasopressor therapy. She wants to continue full code including CPR. 11/02: On 80% FiO2. PEEP 20. ABG 7.2 //28 on 80% FiO2/500/20/20. Muscular paralytic agent cisatracurium #2 acute bilateral upper small pulmonary emboli: CTA chest reviewed, revealed suspicious multiple small pulmonary emboli in the upper lobe arterial branches. Continue Eliquis. Patient completed remdesivir on 28 October.. #2 Acute kidney injury due to ATN:Admission creatinine was 1.86, received IV fl uids and creatinine came down to 1.02 mg/dL but patient has bilateral leg edema and hypoxia worsened. Started on Lasix as mentioned above. 10/31: On Lasix. Patient voiding 4 times daily spontaneously. 11/01: Electrolytes are in normal range. BUN/creatinine 29/1.11. 11/02: Anuria. Demetrio gis mapping technician consulted. Right IJ temporary dialysis catheter inserted. Plan for hemodialysis today. #3 melena/probable GI bleed: Patient has been having brown stool, no more melena. Stool for occult blood tested positive. He is on PPI. Today's hemoglobin is 12.6 g/dL. Hemoglobin and hematocrit are stable. Vital signs are stable. H&H is stable. 11/01: On anticoagulant Lovenox 120 mg twice daily. Monitor CBC daily. Patient holding H&H. 11/02: H&H .5/. platelet count 118.On enoxaparin #4 CAD status post stents: Stable, no acute issues. Continue statins, losartan metoprolol. 11/02: Metoprolol and losartan has been discontinued as patient had hypotension. #5 hypertension: Blood pressure stable, continue losartan and metoprolol. #6 hyperlipidemia: Continue statins. Total time of the visit including total time spent in counseling or coordination of care, (more than 50% of the total time, spent in obtaining medical information from nurses and other ancillary care providers,explaining to the patient about labs, imaging, diagnosis and management), discussion with consultants, exchange of information to the family, his daughter, review of labs and imaging is 30 minutes. Microbiology Past 72 Hours 11/01/20 12:25 Sputum, Induced/Lukens Gram Stain - Final 11/01/20 12:25 Sputum, Induced/Lukens Respiratory Culture - Preliminary Beta streptococcus Laboratory Results 11/01/20 05:16: Lactate Dehydrogenase 457 H, C-React Prot Ext Range 64.00 H 11/01/20 14:45: Specimen Type ART, Sample Site R Radial, pH 7.26 L, Bicarbonate Actual 30.2 H, Total CO2 32, Base Excess 3 H, O2 Saturation 86 L, O2 % 100, ABG pCO2 67.7 H*, ABG pO2 61 L, Respiration Rate 14, O2 Delivery Device Adult Vent, Vent Mode AC, Tidal Volume 500, POC PEEP 18 11/02/20 07:02: Sodium 140, Potassium 6.1 H*, Chloride 106, Carbon Dioxide 28.0, Anion Gap 6, BUN 47 H, Creatinine 3.71 H, Estim Creat Clear Calc 19.59, Est GFR (MDRD) Af Amer 21 L, Est GFR (MDRD) Non-Af 18 L, BUN/Creatinine Ratio 12.7, Glucose 127 H, Calcium 8.7, Phosphorus 7.1 H, Magnesium 2.3, Total Bilirubin 0.80, AST 103 H, ALT 65 H, Alkaline Phosphatase 80, Total Protein 7.3, Albumin 2.4 L, Globulin 4.9 H, Albumin/Globulin Ratio 0.5 L 11/02/20 07:02: WBC 20.3 H, RBC 4.58 L, Hgb 12.5 L, Hct 42.2, MCV 92.1 D, MCH 27.3, MCHC 29.6 L D, RDW Std Deviation 58.8 H, RDW Coeff of Abhilash 17.2 H, Plt Count 418, MPV 10.0, Immature Gran % (Auto) 2.600 H, Neut % (Auto) 79.2 H, Lymph % (Auto) 6.4 L, Gregory % (Auto) 11.3 H, Eos % (Auto) 0.1, Baso % (Auto) 0.4, Absolute Neuts (auto) 16.1 H, Absolute Lymphs (auto) 1.29, Nucleated RBC % 0, Diff Path Review February11/02/20 07:59: Specimen Type ART, Sample Site L Brach, pH 7.23 L, Bicarbonate Actual 27.9 H, Total CO2 30, Base Excess 0, O2 Saturation 94 L, O2 % 80, ABG pCO2 67.3 H*, ABG pO2 84, Respiration Rate 20, O2 Delivery Device Adult Vent, Vent Mode AC, Tidal Volume 500, POC PEEP 20 Clinical Impression(s) from Imaging Studies Chest CTA 10/25/20 10:45 IMPRESSION: Limited evaluation of the pulmonary arteries due to poor contrast-enhancement although I suspect multiple small pulmonary emboli in the upper lobe pulmonary arterial branches. Multiple areas of bilateral groundglass appearance was in the right hemithorax suggestive of a pneumonitis associated with Covid 19. Chest X-Ray 11/01/20 10:43 IMPRESSION: Progressive bilateral pulmonary infiltrates more prominent in the right hemithorax. The tip of the endotracheal tube is at 4.7 cm proximal to the javier. Inpatient E&M: 83523 Subs Hosp L3
--- NOTE | 2020-11-02 08:32 | CPS ---
Critical ABG results given to Dr. Salmeron.
--- NOTE | 2020-11-02 08:33 | CPS ---
Addendum entered and electronically signed by Brianna Mao, CHEN 11/02/20 10:13: THIS BLOOD GAS WAS DRAWN ON 11/01/20 AT 1445 Original Note: A BLOOD GAS DRAWN AT 1445 WAS ABNORMAL REPORTED TO HIS DOCTOR
--- NOTE | 2020-11-02 08:36 | CPS ---
Addendum entered and electronically signed by Brianna Mao, TRUCKER 11/02/20 10:11: tHIS BLOOD GAS WAS DRAWN 11/01/20 AY 1126 Original Note: BLOOD GAS AT [address] LUNA BY JASON WHALEY AND BRIANNA MAO
--- NOTE | 2020-11-02 09:32 | NURSING ---
Daughter Martina called during rounds.
--- NOTE | 2020-11-02 10:01 | PCM.NTREPORT ---
Nutrition Therapy Report - History Nutrition Services has been consulted to:: Manage enteral nutrition Current diet / nutrition support order:: NPO - Anthropometric Measurements Height:: 5 ft 9 in Weight:: 123.6 kg Body Mass Index (BMI):: 40.2 - Relevant Labs Relevant Labs:: WBC 20.3 K/mm3 (4.4-11.0) H 11/02/20 07:02 RBC 4.58 M/mm3 (4.6-6.2) L 11/02/20 07:02 Hgb 12.5 g/dL (13.0-16.5) L 11/02/20 07:02 Hct 39.3 % (40-54) L 10/28/20 06:10 MCH 26.7 pg (27.0-32.0) L 10/31/20 06:20 MCHC 29.6 g/dL (32-36) L D 11/02/20 07:02 RDW Std Deviation 58.8 fl (35.1-43.9) H 11/02/20 07:02 RDW Coeff of Abhilash 17.2 % (11.6-14.6) H 11/02/20 07:02 Immature Gran % (Auto) 2.600 % (0.0-0.9) H 11/02/20 07:02 Neut % (Auto) 79.2 % (47-70) H 11/02/20 07:02 Lymph % (Auto) 6.4 % (19-41) L 11/02/20 07:02 [place] % (Auto) 11.3 % (0-10) H 11/02/20 07:02 Absolute Neuts (auto) 16.1 X10^3/uL (2.0-7.7) H 11/02/20 07:02 Absolute Lymphs (auto) 0.82 X10^3/uL (0.83-4.51) L 10/25/20 06:45 Fibrinogen 739 mg/dl (203-444) H 10/24/20 17:50 D-Dimer Quant (PE/DVT) 1.29 FEU/ug/m (0.27-0.49) H* 10/24/20 17:50 Potassium 6.1 mmol/L (3.5-5.1) H* 11/02/20 07:02 Chloride 108 mmol/L (98-107) H 10/31/20 06:20 Anion Gap 4 (5-15) L 10/28/20 06:10 BUN 47 mg/dL (7-18) H 11/02/20 07:02 Creatinine 3.71 mg/dL (0.70-1.30) H 11/02/20 07:02 Est GFR (MDRD) Af Amer 21 mL/min (>60) L 11/02/20 07:02 Est GFR (MDRD) Non-Af 18 mL/min (>60) L 11/02/20 07:02 BUN/Creatinine Ratio 26.1 RATIO (10-20) H 11/01/20 05:16 Glucose 127 mg/dL (74-106) H 11/02/20 07:02 Phosphorus 7.1 mg/dL (2.5-4.9) H 11/02/20 07:02 AST 103 U/L (15-37) H 11/02/20 07:02 ALT 65 U/L (16-61) H 11/02/20 07:02 Lactate Dehydrogenase 457 U/L (87-241) H 11/01/20 05:16 C-React Prot Ext Range 64.00 mg/L (0.0-3.0) H 11/01/20 05:16 Total Protein 5.7 g/dL (6.4-8.2) L 10/31/20 06:20 Albumin 2.4 g/dL (3.2-5.0) L 11/02/20 07:02 Globulin 4.9 g/dL (2.2-4.2) H 11/02/20 07:02 Albumin/Globulin Ratio 0.5 RATIO (0.9-2.4) L 11/02/20 07:02 Procalcitonin 0.46 ng/mL (0.00-0.09) H 10/24/20 17:50 - Assessment Food / Nutrition-Related History:: Pt NPO - sedated and on vent - has OG in place w/ low intermittent wall suction and green output. Pt failed SAT this am. Per rounds, to start tf today. Wt decreased 6.1% since adm (adm wt 131.542 kg) - noted pt has been on diuretic tx. Will monitor wt trends. Has PI (reddened) coccyx/ cleft. Last BM 10/31/20. [ End ] - Nutrition Diagnosis Problem / Etiology / Signs & Symptoms (PES):: Pt w/ inadequate oral intake related to inadequate energy intake during acute COVID-19 illness as evidenced by reported PO intake meeting <75% of estimated needs x 1 week, current NPO status d/t mechanical intubation. Evidence of Malnutrition Exists:: No - Nutrition Intervention Nutrition Prescription:: Re-estimated nutritional needs using ASPEN guidelines for critically ill, morbidly obese pts- 5955-0924 calories (22-25 calories/kg IBW (72kg) and 144-180 g protein (2-2.5 g/kg IBW (72kg). [ End ] - Food / Nutrient Delivery Interventions Summary of nutrition intervention:: Will continue NPO while intubated. Consult RDN for management of enteral nutrition as indicated. If pt to remain intubated, recommend enteral nutrition support via OGT- Vital HP at goal rate of 70mL/hour w/ 50mL H2O flush every 4 hours to provide 1680 savi / 146.6 gm pro / 1704 ml free water / day. Start at 20 ml/hr and increase by 20 ml every 8 hours as pt tolerates until goal rate achieved. [ End ] Nutrition support ordered as / adjusted to:: Vital HP at goal rate of 70mL/hour w/ 50mL H2O flush every 4 hours to provide 1680 savi / 146.6 gm pro / 1704 ml free water / day. Start at 20 ml/hr and increase by 20 ml every 8 hours as pt tolerates until goal rate achieved. [ End ] Nutrition education provided?: No - MNT Monitoring Further MNT monitoring and evaluation required?: Yes MNT Follow-up in:: 3-5 days - please call RD/LD if questions/concerns at [phone]
[2020-11-02] MEDS: Heparin 10,000 UNITS/10 ML Vial 7 UNITS IV (10:20)
--- NOTE | 2020-11-02 10:50 | RAD_ITS ---
STUDY: X-RAY CHEST REASON FOR EXAM: Male, 65 years old. HEMODIALYSIS CATH PLACEMENT TECHNIQUE: Single AP portable view of the chest. COMPARISON: Comparison is made with prior examination dated 09/01/2021. FINDINGS: An endotracheal tube is in situ. The tip is at 9 cm proximal to the javier. An oral gastric tube is seen with the tip below the left hemidiaphragm. A right-sided dialysis catheter has been placed. The tip is in the right atrium. EKG electrodes are seen. Persistent bilateral pulmonary infiltrates although there has been improved aeration of both lungs as compared to prior study. There is no demonstrated pleural abnormality. Normal size heart. Normal mediastinum and gaby. Normal visualized pulmonary arteries. There is atherosclerotic calcification of the aortic arch with tortuosity. Normal visualized thoracic spine. Normal visualized ribs, clavicles, and shoulders. There is no demonstrated abnormality of the visualized soft tissue structures of the upper abdomen. RAD/CXR for Line Placement IMPRESSION: The tip of the right sided hemodialysis catheter is in the right atrium. The tip of the endotracheal tube is at 9 cm proximal to the javier. Persistent bilateral pulmonary infiltrates although there has been improved aeration as compared to prior study. Electronically Signed: Jr Moya, at 11:07 EST , Service support ,
--- NOTE | 2020-11-02 10:58 | PCM.OPRPT ---
Report of Operation Date of Procedure: 11/02/20 Surgery/Procedure Performed:: Dialysis catheter insertion Description of Surgical Findings:: Dialysis catheter placement procedure note Indication: Hemodialysis Procedure: A time-out was completed to verify correct patient, indication, medication allergies, procedure, coagulation studies, informed consent signed, and equipment needed. The patient was placed in the supine position for a central line placement to the rt IJ vein. The patients rt neck was prepped using chlorhexidine and a full body sterile drape was applied. 1% lidocaine was used to anesthetize the surrounding skin. A 12fr 20 cm Temporary hemodialysis catheter introduced into the internal jugular vein using the modified Seldinger technique with the assistance of ultrasound. The site was dilated up twice in a stepwise fashion. The catheter was threaded smoothly over the guidewire, the guidewire was removed easily, nonpulsatile blood returned. All ports were aspirated of air and flushed with sterile saline. The catheter was sutured in place and covered with an occlusive dressing impregnated with chlorhexidine. Post-procedure: The patient tolerated the procedure well. Vital signs remained stable. EBL 8cc. No complications. Chest X Ray ordered to confirm tip placement and the absence of pneumothorax. Procedures: [id number] Insert Non-tunnel CV Cath
[2020-11-02] MEDS: Chlorhexidine 15 ML PO ×2 (12:57→22:04)
[2020-11-02] MEDS: Atorvastatin Calcium 20 MG Tablet PO (12:59)
[2020-11-02] MEDS: dexAMETHasone 4 MG Tablet 6 MG PO (12:59)
[2020-11-02] MEDS: Furosemide 40 MG/4 ML Vial IV ×2 (12:59→22:02)
[2020-11-02] MEDS: Allopurinol 300 MG Tablet PO (13:00)
[2020-11-02] MEDS: NYSTATIN 500,000 UNIT/5 ML UDC 500000 UNIT PO ×4 (13:00→22:02)
--- NOTE | 2020-11-02 13:39 | PCM.CONS.R ---
Consultation - Renal 11/02/20 PCP/ Referring MD: Requesting physician: [] Primary care physician: Dr. Arnoldo Menjivar MD - History of Present Illness History of Present Illness: The patient is a 65 year old M with past medical history as below who presented with a chief complaint of fatigue diarrhea black stools but no hematochezia. He was found to be COVID-19 positive. He denies any sick contacts for COVID-19. Patient respiratory status deteriorated and on November 06 was intubated for COVID-19 pneumonia and bilateral pulmonary emboli. Helped CELIA which prompted renal consult. The patient is intubated so review of systems cannot be obtained. He is not on pressors currently. His Levophed was just stopped earlier this morning. Creatinine was 3.7 which prompted renal consult. Serum creatinine 1.02 lowest value since admission. Urine output yesterday was 300 mL. Patient developed hyperkalemia with a potassium of 6.1. - Allergies Allergies: Allergies Penicillins Allergy (Verified 10/24/20 11:19) Angioedema - Current Medications Current Medications: Current Medications Acetaminophen (Acetaminophen 325 Mg Tablet) 650 mg PO Q6H PRN PRN PRN Reason: Pain Score 1-10/Temp > 100.7 F Last Admin: 11/01/20 05:13 Dose: 650 mg Documented by: Albuterol/Ipratropium (Ipratropium/Albuterol Sulfate 3 Ml Ampul.Neb) 3 ml INHALATION Q6H.RT [facility] Last Admin: 11/02/20 13:36 Dose: 3 ml Documented by: Allopurinol (Allopurinol 300 Mg Tablet) 300 mg PO DAILY [facility] Last Admin: 11/02/20 13:00 Dose: 300 mg Documented by: Atorvastatin Calcium (Atorvastatin Calcium 20 Mg Tablet) 20 mg PO DAILY [facility] Last Admin: 11/02/20 12:59 Dose: 20 mg Documented by: Chlorhexidine Gluconate (Chlorhexidine 15 Ml) 15 ml PO BID [facility] Last Admin: 11/02/20 12:57 Dose: 15 ml Documented by: Dexamethasone (Dexamethasone 4 Mg Tablet) 6 mg PO DAILY [facility] Stop: 11/11/20 10:01 Enoxaparin Sodium (Enoxaparin 120 Mg/0.8 Ml Syringe) 120 mg SC DAILY [facility] Furosemide (Furosemide 40 Mg/4 Ml Vial) 40 mg IV Q8 [facility] Last Admin: 11/02/20 12:59 Dose: 40 mg Documented by: Cisatracurium Besylate 100 mg/ (Sodium Chloride) 250 mls @ 38.782 mls/hr CONT INF .Q6H27M [facility]; Protocol Last Titration: 11/02/20 11:00 Dose: 2 mcg/kg/min, 38.8 mls/hr Documented by: Propofol (Diprivan) 1,000 mg in 100 mls @ 7.756 mls/hr CONT INF .Q12H [facility]; Protocol Last Admin: 11/02/20 13:00 Dose: 20 mcg/kg/min, 15.5 mls/hr Documented by: Fentanyl Citrate 1,000 mcg/ (Sodium Chloride) 100 mls @ 5 mls/hr CONT INF .Q20H [facility]; Protocol Last Admin: 11/02/20 11:00 Dose: 100 mcg/hr, 10 mls/hr Documented by: Enteral Nutritional Formula (Vital High Protein) 1,000 mls @ 70 mls/hr GT .[id number] [facility] Pantoprazole Sodium 40 mg/ (Sodium Chloride) 110 mls @ 330 mls/hr IV Q12 [facility] Last Admin: 11/02/20 13:00 Dose: 330 mls/hr Documented by: Ceftriaxone Sodium 2 gm/ (Sodium Chloride) 50 mls @ 100 mls/hr IV Q24 [facility] Nystatin (Nystatin 500,000 Unit/5 Ml Udc) 500,000 unit PO 4X/DAY [facility] Last Admin: 11/02/20 13:00 Dose: 500,000 unit Documented by: Sodium Chloride (0.9% Saline Lock 10 Ml Syringe) 10 - 40 ml IV UD PRN PRN Reason: SALINE FLUSH Last Admin: 10/30/20 09:39 Dose: 10 ml Documented by: Sodium Chloride (Sodium Chloride 0.65% 1 Conception Conception.Btl) 2 spray NASAL BID PRN PRN PRN Reason: NASAL DRYNESS Last Admin: 10/28/20 22:53 Dose: 2 sprays Documented by: - Past Medical History Past Medical History (Chronic Problems): Chronic Problems (Last Updated 10/24/20 @ 15:[address] Nish Dee DO) CAD (coronary artery disease) (Chronic) Status post stents Hyperlipidemia (Chronic) Hypertension (Chronic) - Past Surgical History Surgical History: - - Cardiac stent placed. - Social History Smoking Status: Never smoker Alcohol: Rare Drugs: None - Family History Maternal History Items: - - no heart dz Patient Problems: Active and Suspected Problems (Last Updated 10/24/20 @ 15:[address] Nish Dee, DO) Pneumonia due to Coronavirus disease 2019 (Acute) Hypoxia (Acute) Melena (Acute) Subjective: Physical examination deferred to preserve PPE and prevent further transmission of COVID-19. - Physical Exam Vitals/I&O's: Vital Signs Temp Pulse Resp BP Pulse Ox 96.9 F L 110 H 16 84/62 L 95 11/02/20 12:56 11/02/20 12:56 11/02/20 12:56 11/02/20 12:56 11/02/20 12:56 Oxygen Flow Rate (L/min) 50 Oxygen Delivery Method Mechanical Ventilator Weight: 123.6 kg Body Mass Index (BMI) 40.2 Intake and Output for Last 24 Hours 10/31/20 11/01/20 11/02/20 23:59 23:59 23:59 Intake Total 1650 / 1770 1374.88 / 1549.38 893.01 / 893.01 Output Total 350 / 350 700 / 900 375 / 375 Balance 1300 / 1420 674.88 / 649.38 518.01 / 518.01 Microbiology Past 72 Hours 11/01/20 12:25 Sputum, Induced/Lukens Gram Stain - Final 11/01/20 12:25 Sputum, Induced/Lukens Respiratory Culture - Preliminary Beta streptococcus Laboratory Results 11/01/20 05:16: Lactate Dehydrogenase 457 H, C-React Prot Ext Range 64.00 H 11/01/20 14:45: Specimen Type ART, Sample Site R Radial, pH 7.26 L, Bicarbonate Actual 30.2 H, Total CO2 32, Base Excess 3 H, O2 Saturation 86 L, O2 % 100, ABG pCO2 67.7 H*, ABG pO2 61 L, Respiration Rate 14, O2 Delivery Device Adult Vent, Vent Mode AC, Tidal Volume 500, POC PEEP 18 11/02/20 05:40: WBC Cancelled, Corrected WBC Cancelled, RBC Cancelled, Hgb Cancelled, Hct Cancelled, MCV Cancelled, MCH Cancelled, MCHC Cancelled, RDW Std Deviation Cancelled, RDW Coeff of Abhilash Cancelled, Plt Count Cancelled, MPV Cancelled, Immature Gran % (Auto) Cancelled, Neut % (Auto) Cancelled, Lymph % (Auto) Cancelled, [place] % (Auto) Cancelled, Eos % (Auto) Cancelled, Baso % (Auto) Cancelled, Absolute Neuts (auto) Cancelled, Absolute Lymphs (auto) Cancelled, Total Counted Cancelled, Neutrophils % (Manual) Cancelled, Band Neutrophils % Cancelled, Lymphocytes % (Manual) Cancelled, Monocytes % (Manual) Cancelled, Eosinophils % (Manual) Cancelled, Basophils % (Manual) Cancelled, Metamyelocytes % Cancelled, Myelocytes % Cancelled, Promyelocytes % Cancelled, Blast Cells % Cancelled, Plasma Cell % (Manual) Cancelled, Other Cells % Cancelled, Nucleated RBC % Cancelled, Nucleated RBCs/100 WBC Cancelled, Differential Comment Cancelled, Diff Path Review Cancelled, Hypersegmented Neuts Cancelled, Atypical Lymphocytes Cancelled, Reactive Lymphocytes Cancelled, Smudge Cells Cancelled, Toxic Granulation Cancelled, Toxic Vacuolation Cancelled, Dohle Bodies Cancelled, Abe Rods Cancelled, Platelet Estimate Cancelled, Plt Morphology Comment Cancelled, RBC Morphology Cancelled, Polychromasia Cancelled, Hypochromasia Cancelled, Poikilocytosis Cancelled, Basophilic Stippling Cancelled, Anisocytosis Cancelled, Microcytosis Cancelled, Macrocytosis Cancelled, Spherocytes Cancelled, Sickle Cells Cancelled, Target Cells Cancelled, Tear Drop Cells Cancelled, Ovalocytes Cancelled, Stomatocytes Cancelled, [place] Bodies Cancelled, [place] Cells Cancelled, Bite Cells Cancelled, Crenated Cell Cancelled, Acanthocytes (Spur) Cancelled, Rouleaux Cancelled, Schistocytes Cancelled 11/02/20 05:40: Sodium Cancelled, Potassium Cancelled, Chloride Cancelled, Carbon Dioxide Cancelled, Anion Gap Cancelled, BUN Cancelled, Creatinine Cancelled, Estim Creat Clear Calc Cancelled, Est GFR (MDRD) Af Amer Cancelled, Est GFR (MDRD) Non-Af Cancelled, BUN/Creatinine Ratio Cancelled, Glucose Cancelled, Calcium Cancelled, Magnesium Cancelled, Total Bilirubin Cancelled, AST Cancelled, ALT Cancelled, Alkaline Phosphatase Cancelled, Total Protein Cancelled, Albumin Cancelled, Globulin Cancelled, Albumin/Globulin Ratio Cancelled 11/02/20 05:40: Phosphorus Cancelled 11/02/20 07:02: Sodium 140, Potassium 6.1 H*, Chloride 106, Carbon Dioxide 28.0, Anion Gap 6, BUN 47 H, Creatinine 3.71 H, Estim Creat Clear Calc 19.59, Est GFR (MDRD) Af Amer 21 L, Est GFR (MDRD) Non-Af 18 L, BUN/Creatinine Ratio 12.7, Glucose 127 H, Calcium 8.7, Phosphorus 7.1 H, Magnesium 2.3, Total Bilirubin 0.80, AST 103 H, ALT 65 H, Alkaline Phosphatase 80, Total Protein 7.3, Albumin 2.4 L, Globulin 4.9 H, Albumin/Globulin Ratio 0.5 L 11/02/20 07:02: WBC 20.3 H, RBC 4.58 L, Hgb 12.5 L, Hct 42.2, MCV 92.1 D, MCH 27.3, MCHC 29.6 L D, RDW Std Deviation 58.8 H, RDW Coeff of Abhilash 17.2 H, Plt Count 418, MPV 10.0, Immature Gran % (Auto) 2.600 H, Neut % (Auto) 79.2 H, Lymph % (Auto) 6.4 L, [place] % (Auto) 11.3 H, Eos % (Auto) 0.1, Baso % (Auto) 0.4, Absolute Neuts (auto) 16.1 H, Absolute Lymphs (auto) 1.29, Nucleated RBC % 0, Diff Path Review February11/02/20 07:59: Specimen Type ART, Sample Site L Brach, pH 7.23 L, Bicarbonate Actual 27.9 H, Total CO2 30, Base Excess 0, O2 Saturation 94 L, O2 % 80, ABG pCO2 67.3 H*, ABG pO2 84, Respiration Rate 20, O2 Delivery Device Adult Vent, Vent Mode AC, Tidal Volume 500, POC PEEP 20 Current Medications Acetaminophen (Acetaminophen 325 Mg Tablet) 650 mg PO Q6H PRN PRN PRN Reason: Pain Score 1-10/Temp > 100.7 F Last Admin: 11/01/20 05:13 Dose: 650 mg Documented by: Albuterol/Ipratropium (Ipratropium/Albuterol Sulfate 3 Ml Ampul.Neb) 3 ml INHALATION Q6H.RT [facility] Last Admin: 11/02/20 13:36 Dose: 3 ml Documented by: Allopurinol (Allopurinol 300 Mg Tablet) 300 mg PO DAILY [facility] Last Admin: 11/02/20 13:00 Dose: 300 mg Documented by: Atorvastatin Calcium (Atorvastatin Calcium 20 Mg Tablet) 20 mg PO DAILY [facility] Last Admin: 11/02/20 12:59 Dose: 20 mg Documented by: Chlorhexidine Gluconate (Chlorhexidine 15 Ml) 15 ml PO BID [facility] Last Admin: 11/02/20 12:57 Dose: 15 ml Documented by: Dexamethasone (Dexamethasone 4 Mg Tablet) 6 mg PO DAILY [facility] Stop: 11/11/20 10:01 Enoxaparin Sodium (Enoxaparin 120 Mg/0.8 Ml Syringe) 120 mg SC DAILY [facility] Furosemide (Furosemide 40 Mg/4 Ml Vial) 40 mg IV Q8 [facility] Last Admin: 11/02/20 12:59 Dose: 40 mg Documented by: Cisatracurium Besylate 100 mg/ (Sodium Chloride) 250 mls @ 38.782 mls/hr CONT INF .Q6H27M [facility]; Protocol Last Titration: 11/02/20 11:00 Dose: 2 mcg/kg/min, 38.8 mls/hr Documented by: Propofol (Diprivan) 1,000 mg in 100 mls @ 7.756 mls/hr CONT INF .Q12H [facility]; Protocol Last Admin: 11/02/20 13:00 Dose: 20 mcg/kg/min, 15.5 mls/hr Documented by: Fentanyl Citrate 1,000 mcg/ (Sodium Chloride) 100 mls @ 5 mls/hr CONT INF .Q20H [facility]; Protocol Last Admin: 11/02/20 11:00 Dose: 100 mcg/hr, 10 mls/hr Documented by: Enteral Nutritional Formula (Vital High Protein) 1,000 mls @ 70 mls/hr GT .[id number] [facility] Pantoprazole Sodium 40 mg/ (Sodium Chloride) 110 mls @ 330 mls/hr IV Q12 [facility] Last Admin: 11/02/20 13:00 Dose: 330 mls/hr Documented by: Ceftriaxone Sodium 2 gm/ (Sodium Chloride) 50 mls @ 100 mls/hr IV Q24 [facility] Nystatin (Nystatin 500,000 Unit/5 Ml Udc) 500,000 unit PO 4X/DAY [facility] Last Admin: 11/02/20 13:00 Dose: 500,000 unit Documented by: Sodium Chloride (0.9% Saline Lock 10 Ml Syringe) 10 - 40 ml IV UD PRN PRN Reason: SALINE FLUSH Last Admin: 10/30/20 09:39 Dose: 10 ml Documented by: Sodium Chloride (Sodium Chloride 0.65% 1 Conception Conception.Btl) 2 spray NASAL BID PRN PRN PRN Reason: NASAL DRYNESS Last Admin: 10/28/20 22:53 Dose: 2 sprays Documented by: Assessment/Plan All Active Problems (Last Updated 10/24/20 @ 15:[address] Nish Dee, DO) Pneumonia due to Coronavirus disease 2019 (Acute) Hypoxia (Acute) Melena (Acute) CELIA?ATN with shock creatinine 1.02 Hyperkalemia Hyperphosphatemia Respiratory failure s/p intubation COVID-19 pneumonia and bilateral pulmonary emboli Patient blood pressure is borderline low in the 70s 80s just taken off Levophed?dialysis initiated with no UF today. Will reevaluate dialysis needs tomorrow. If continues to be oliguric will likely need dialysis again tomorrow. keep MAP more than 65 check UA FENA renal US Avoid nephrotoxins
--- NOTE | 2020-11-02 13:50 | RAD_ITS ---
STUDY: X-RAY CHEST REASON FOR EXAM: Male, 65 years old. Line placement, LIJ TLC placement TECHNIQUE: Single AP portable view of the chest. COMPARISON: Comparison is made with prior study done earlier today. FINDINGS: An endotracheal tube is in situ. The tip is at 6.3 cm proximal to the javier. A left-sided subclavian line has been placed with the tip at the junction of the superior vena cava and right atrium. A right-sided hemodialysis catheter is seen with the tip in the right atrium. EKG electrodes are seen. Stable appearance of the bilateral patchy infiltrates. There is no demonstrated pleural abnormality. Normal size heart. Normal mediastinum and gaby. Normal visualized pulmonary arteries. There is atherosclerotic calcification of the aortic arch with tortuosity. Normal visualized thoracic spine. Normal visualized ribs, clavicles, and shoulders. There is no demonstrated abnormality of the visualized soft tissue structures of the upper abdomen. RAD/CXR for Line Placement IMPRESSION: Interval placement of a left subclavian catheter with the tip at the junction of superior vena cava and right atrium. The tip of the endotracheal tube is at 6.3 cm proximal to the javier. Stable bilateral pulmonary infiltrates. Electronically Signed: Jr Moya, at 14:17 EST , Service support ,
--- NOTE | 2020-11-02 14:26 | PN.ID_ITS ---
Patient Problems: Active and Suspected Problems (Last Updated 10/24/20 @ 15:[address] Nish Dee, DO) Pneumonia due to Coronavirus disease 2019 (Acute) Hypoxia (Acute) Melena (Acute) Subjective: On vent, paralysis - Physical Exam Vitals/I&O's: Vital Signs Temp Pulse Resp BP Pulse Ox 96.9 F L 110 H 16 84/62 L 93 11/02/20 12:56 11/02/20 13:45 11/02/20 13:45 11/02/20 12:56 11/02/20 13:45 Oxygen Flow Rate (L/min) 50 Oxygen Delivery Method Mechanical Ventilator Weight: 123.6 kg Body Mass Index (BMI) 40.2 Intake and Output for Last 24 Hours 10/31/20 11/01/20 11/02/20 23:59 23:59 23:59 Intake Total 1650 / 1770 1374.88 / 1549.38 893.01 / 893.01 Output Total 350 / 350 700 / 900 375 / 375 Balance 1300 / 1420 674.88 / 649.38 518.01 / 518.01 General: Non-Cooperative Lungs: Clear to auscultation, Diminished Cardiovascular: Regular rate, Regular Rhythm Abdomen: Soft, Non Tender, Non-Distended Skin: No rashes Microbiology Past 72 Hours 11/01/20 12:25 Sputum, Induced/Lukens Gram Stain - Final 11/01/20 12:25 Sputum, Induced/Lukens Respiratory Culture - Preliminary Beta streptococcus Laboratory Results 11/01/20 14:45: Specimen Type ART, Sample Site R Radial, pH 7.26 L, Bicarbonate Actual 30.2 H, Total CO2 32, Base Excess 3 H, O2 Saturation 86 L, O2 % 100, ABG pCO2 67.7 H*, ABG pO2 61 L, Respiration Rate 14, O2 Delivery Device Adult Vent, Vent Mode AC, Tidal Volume 500, POC PEEP 18 11/02/20 05:40: WBC Cancelled, Corrected WBC Cancelled, RBC Cancelled, Hgb Cancelled, Hct Cancelled, MCV Cancelled, MCH Cancelled, MCHC Cancelled, RDW Std Deviation Cancelled, RDW Coeff of Abhilash Cancelled, Plt Count Cancelled, MPV Cancelled, Immature Gran % (Auto) Cancelled, Neut % (Auto) Cancelled, Lymph % (Auto) Cancelled, [place] % (Auto) Cancelled, Eos % (Auto) Cancelled, Baso % (Auto) Cancelled, Absolute Neuts (auto) Cancelled, Absolute Lymphs (auto) Cancelled, Total Counted Cancelled, Neutrophils % (Manual) Cancelled, Band Neutrophils % Cancelled, Lymphocytes % (Manual) Cancelled, Monocytes % (Manual) Cancelled, Eosinophils % (Manual) Cancelled, Basophils % (Manual) Cancelled, Metamyelocytes % Cancelled, Myelocytes % Cancelled, Promyelocytes % Cancelled, Blast Cells % Cancelled, Plasma Cell % (Manual) Cancelled, Other Cells % Cancelled, Nucleated RBC % Cancelled, Nucleated RBCs/100 WBC Cancelled, Differential Comment Cancelled, Diff Path Review Cancelled, Hypersegmented Neuts Cancelled, Atypical Lymphocytes Cancelled, Reactive Lymphocytes Cancelled, Smudge Cells Cancelled, Toxic Granulation Cancelled, Toxic Vacuolation Cancelled, Dohle Bodies Cancelled, Abe Rods Cancelled, Platelet Estimate Cancelled, Plt Morphology Comment Cancelled, RBC Morphology Cancelled, Polychromasia Cancelled, Hypochromasia Cancelled, Poikilocytosis Cancelled, Basophilic Stippling Cancelled, Anisocytosis Cancelled, Microcytosis Cancelled, Macrocytosis Canc elled, Spherocytes Cancelled, Sickle Cells Cancelled, Target Cells Cancelled, Tear Drop Cells Cancelled, Ovalocytes Cancelled, Stomatocytes Cancelled, [place]- [place] Bodies Cancelled, [place] Cells Cancelled, Bite Cells Cancelled, Crenated Cell Cancelled, Acanthocytes (Spur) Cancelled, Rouleaux Cancelled, Schistocytes Cancelled 11/02/20 05:40: Sodium Cancelled, Potassium Cancelled, Chloride Cancelled, Carbon Dioxide Cancelled, Anion Gap Cancelled, BUN Cancelled, Creatinine Cancelled, Estim Creat Clear Calc Cancelled, Est GFR (MDRD) Af Amer Cancelled, Est GFR (MDRD) Non-Af Cancelled, BUN/Creatinine Ratio Cancelled, Glucose Cancelled, Calcium Cancelled, Magnesium Cancelled, Total Bilirubin Cancelled, AST Cancelled, ALT Cancelled, Alkaline Phosphatase Cancelled, Total Protein Cancelled, Albumin Cancelled, Globulin Cancelled, Albumin/Globulin Ratio Cancelled 11/02/20 05:40: Phosphorus Cancelled 11/02/20 07:02: Sodium 140, Potassium 6.1 H*, Chloride 106, Carbon Dioxide 28.0, Anion Gap 6, BUN 47 H, Creatinine 3.71 H, Estim Creat Clear Calc 19.59, Est GFR (MDRD) Af Amer 21 L, Est GFR (MDRD) Non-Af 18 L, BUN/Creatinine Ratio 12.7, Glucose 127 H, Calcium 8.7, Phosphorus 7.1 H, Magnesium 2.3, Total Bilirubin 0.80, AST 103 H, ALT 65 H, Alkaline Phosphatase 80, Total Protein 7.3, Albumin 2.4 L, Globulin 4.9 H, Albumin/Globulin Ratio 0.5 L 11/02/20 07:02: WBC 20.3 H, RBC 4.58 L, Hgb 12.5 L, Hct 42.2, MCV 92.1 D, MCH 27.3, MCHC 29.6 L D, RDW Std Deviation 58.8 H, RDW Coeff of Abhilash 17.2 H, Plt Count 418, MPV 10.0, Immature Gran % (Auto) 2.600 H, Neut % (Auto) 79.2 H, Lymph % (Auto) 6.4 L, [place] % (Auto) 11.3 H, Eos % (Auto) 0.1, Baso % (Auto) 0.4, Absolute Neuts (auto) 16.1 H, Absolute Lymphs (auto) 1.29, Nucleated RBC % 0, Diff Path Review February11/02/20 07:59: Specimen Type ART, Sample Site L Brach, pH 7.23 L, Bicarbonate Actual 27.9 H, Total CO2 30, Base Excess 0, O2 Saturation 94 L, O2 % 80, ABG pCO2 67.3 H*, ABG pO2 84, Respiration Rate 20, O2 Delivery Device Adult Vent, Vent Mode AC, Tidal Volume 500, POC PEEP 20 Current Medications Acetaminophen (Acetaminophen 325 Mg Tablet) 650 mg PO Q6H PRN PRN PRN Reason: Pain Score 1-10/Temp > 100.7 F Last Admin: 11/01/20 05:13 Dose: 650 mg Documented by: Albuterol/Ipratropium (Ipratropium/Albuterol Sulfate 3 Ml Ampul.Neb) 3 ml INHALATION Q6H.RT [facility] Last Admin: 11/02/20 13:36 Dose: 3 ml Documented by: Allopurinol (Allopurinol 300 Mg Tablet) 300 mg PO DAILY [facility] Last Admin: 11/02/20 13:00 Dose: 300 mg Documented by: Atorvastatin Calcium (Atorvastatin Calcium 20 Mg Tablet) 20 mg PO DAILY [facility] Last Admin: 11/02/20 12:59 Dose: 20 mg Documented by: Chlorhexidine Gluconate (Chlorhexidine 15 Ml) 15 ml PO BID [facility] Last Admin: 11/02/20 12:57 Dose: 15 ml Documented by: Dexamethasone (Dexamethasone 4 Mg Tablet) 6 mg PO DAILY [facility] Stop: 11/11/20 10:01 Enoxaparin Sodium (Enoxaparin 120 Mg/0.8 Ml Syringe) 120 mg SC DAILY [facility] Furosemide (Furosemide 40 Mg/4 Ml Vial) 40 mg IV Q8 [facility] Last Admin: 11/02/20 12:59 Dose: 40 mg Documented by: Cisatracurium Besylate 100 mg/ (Sodium Chloride) 250 mls @ 38.782 mls/hr CONT INF .Q6H27M [facility]; Protocol Last Titration: 11/02/20 11:00 Dose: 2 mcg/kg/min, 38.8 mls/hr Documented by: Propofol (Diprivan) 1,000 mg in 100 mls @ 7.756 mls/hr CONT INF .Q12H [facility]; Protocol Last Admin: 11/02/20 13:00 Dose: 20 mcg/kg/min, 15.5 mls/hr Documented by: Fentanyl Citrate 1,000 mcg/ (Sodium Chloride) 100 mls @ 5 mls/hr CONT INF .Q20H [facility]; Protocol Last Admin: 11/02/20 11:00 Dose: 100 mcg/hr, 10 mls/hr Documented by: Enteral Nutritional Formula (Vital High Protein) 1,000 mls @ 70 mls/hr GT .[id number] [facility] Pantoprazole Sodium 40 mg/ (Sodium Chloride) 110 mls @ 330 mls/hr IV Q12 [facility] Last Admin: 11/02/20 13:00 Dose: 330 mls/hr Documented by: Ceftriaxone Sodium 2 gm/ (Sodium Chloride) 50 mls @ 100 mls/hr IV Q24 [facility] Nystatin (Nystatin 500,000 Unit/5 Ml Udc) 500,000 unit PO 4X/DAY [facility] Last Admin: 11/02/20 13:00 Dose: 500,000 unit Documented by: Sodium Chloride (0.9% Saline Lock 10 Ml Syringe) 10 - 40 ml IV UD PRN PRN Reason: SALINE FLUSH Last Admin: 10/30/20 09:39 Dose: 10 ml Documented by: Sodium Chloride (Sodium Chloride 0.65% 1 [place].Btl) 2 spray NASAL BID PRN PRN PRN Reason: NASAL DRYNESS Last Admin: 10/28/20 22:53 Dose: 2 sprays Documented by: Medical Necessity - Tobacco Use Smoking Status: Never smoker Tobacco Use: Non-smoker Route of nutrition/ use of supplements: [] Nutritional Intake: [] IV Site: [] [place] Catheter: [] - Assessment/Plan Antibiotics: [] Assessment/Plan: [] Active and Suspected Problems (Last Updated 10/24/20 @ 15:[address] Nish Dee, DO) Pneumonia due to Coronavirus disease 2019 (Acute) Hypoxia (Acute) Melena (Acute) covid with hypoxia and PE - sx started about 2 weeks prior to admit. On dex and completed remdesivir. On therapeutic lovenox. Now on vent and paralytics. Sputum cx with strep, rising wbc, so will start ceftriaxone. Will follow
[2020-11-02] MEDS: Enoxaparin 120 MG/0.8 ML Syringe SC (14:30)
--- NOTE | 2020-11-02 14:44 | PCM.OPRPT ---
Report of Operation Date of Procedure: 11/02/20 Surgery/Procedure Performed:: Triple-lumen catheter insertion Description of Surgical Findings:: Central line placement procedure note Indication: IV access/hemodynamic instability/vasoactive medications Procedure: A time-out was completed to verify correct patient, indication, medication allergies, procedure, coagulation studies, informed consent signed, and equipment needed. The patient was placed in the supine position for a central line placement to the left IJ vein. The patients left neck was prepped using chlorhexidine and a full body sterile drape was applied. 1% lidocaine was used to anesthetize the surrounding skin. A 7fr 20 cm blue guard triple lumen catheter introduced into the internal jugular vein using the modified Seldinger technique with the assistance of ultrasound. The catheter was threaded smoothly over the guidewire, the guidewire was removed easily, nonpulsatile blood returned. All ports were aspirated of air and flushed with sterile saline. The catheter was sutured in place and covered with an occlusive dressing impregnated with chlorhexidine. Post-procedure: The patient tolerated the procedure well. Vital signs remained stable. EBL 3cc. No complications. Chest X Ray ordered to confirm tip placement and the absence of pneumothorax. Procedures: [id number] Insert Non-tunnel CV Cath
[2020-11-02 16:55] LABS: Mucous, Urine 0 SEEN /hpf (<or=2+); Squamous Epithelial Cells - UA 0 SEEN /hpf (0-5)
[2020-11-02 17:10] LABS: Color, Urine Brown (Yellow); Glucose, Dipstick 50 mg/dl (Normal); Ketone-Dipstick 5 mg/dl (Negative); Leukocyte Esterase-Dipstick 500 /ul (Negative); Nitrite-Dipstick Positive (Negative); Occult Blood-Urine 250 /ul (Negative); Protein-Dipstick 100 mg/dl (Negative); Specific Gravity, Urine 1.025 (1.002-1.030); Urine Clarity Cloudy (Clear); Urine Urobilinogen 1 mg/dl (Normal)
[2020-11-02 17:11] LABS: Urine Bilirubin Dipstick 1 mg/dL (Negative)
[2020-11-02 17:19] LABS: Urine Sodium 24 mmol/L (Not Establ.)
[2020-11-02 17:48] LABS: Amorphous Sediment 2+; Bacteria 4+ /hpf (None Seen); Calcium Oxalate Crystals Ur RARE /hpf (<or=2+); Red Blood Cells-Urine 10-25 SEEN /hpf (0-5); White Blood Cells 5-10 SEEN /hpf (0-5)
--- NOTE | 2020-11-02 17:58 | NURSING ---
Daughter Martina called to come in for end of life decisions. Relayed to Martina that the pt did not tolerate dialysis and is to be started on a second pressor. She will be in within the hour. Dr. Salmeron made aware.
--- NOTE | 2020-11-02 19:11 | DIALYSIS ---
HD ordered for 3 hours, pt ran for approx 45 mins on a 2K bath, was attempting to run even, pt had a gain of 1350mL, hypotensive even with fluid bolus' and Levo, accessed via right neck temporary dialysis catheter, worked poorly, venous has good push/pull, arterial positional, would have ok push/pull pre-tx and after taken off tx before restarting with new set-up but during tx arterial port would alarm and have poor push/pull again, no longer tachy post dialysis, statistics professor would like line changed out, dialysis planned again for tomorrow
--- NOTE | 2020-11-02 20:00 | NURSING ---
patient's daughter, son in law and sister present at bedside. Discussed patient's condition, current medications, and vent settings. DaughterCharla stated that her other sister is on her way and will arrive around 10:30pm and that they will discuss end of life care at that time. She did state that if the patients' heart would stop before her sister arrives that they do not wish to have cpr and other life saving measures done. Given emotional support and answered all questions.
[2020-11-02] MEDS: Vital High Protein 1,000 ML 70 ML GT (23:45)
[2020-11-03] VITALS (60 sets, daily range): BP systolic 81–160; BP diastolic 42–87; PULSE 90–129; RESP 16–21; TEMP 36.1–36.9; O2SAT 88–98
--- NOTE | 2020-11-03 | NURSING ---
Patients' daughter, Soo arrived with her boyfriend Juanito. Updated on patient overall condition, vent settings, and current drips. Also informed that her sister had stated not to perform CPR if patients' heart stops. answered all questions and spoke in length to both sisters at the bedside and a third sister who was on speaker phone regarding patients' current condition including vitals, drips, and vent settings. The 3 of them decided that patient will remain a full code until they can talk to the doctor more in length tomorrow.
[2020-11-03] MEDS: Propofol 10MG/Ml 1,000 MG/100 ML Bottle 15.5 MG CONT INF ×2 (01:10→04:17)
[2020-11-03] MEDS: Furosemide 40 MG/4 ML Vial IV (05:01)
[2020-11-03 05:25] LABS: Absolute Lymphocyte Count 1.29 X10^3/uL (0.83-4.51); Absolute Neutrophil Count 17.2 X10^3/uL (2.0-7.7); Basophil# 0.04 X10^3/uL; Basophil% 0.2 % (0-1); Hematocrit 37.4 % (40-54); Hemoglobin 10.9 g/dL (13.0-16.5); Lymphocyte # 1.29 X10^3/ul (4.0); Mean Corp Hgb Conc 29.1 g/dL (32-36); Mean Corpuscular Hgb 26.8 pg (27.0-32.0); Mean Corpuscular Volume 92.1 fL (80-94); Monocyte# 2.12 X10^3/uL; Monocyte% 9.9 % (0-10); NRBC Flagged by Analyzer 0 % (0-5); Neutrophil # 17.22 X10^3/uL (2.7-7.7); Neutrophil % 80.8 % (47-70); POSITIVE DIFFERENTIAL YES; Platelet Count 361 K/mm3 (150-450); RBC Distribution Width CV 17.2 % (11.6-14.6); RBC Distribution Width SD 59.4 fl (35.1-43.9); Red Blood Count 4.06 M/mm3 (4.6-6.2); White Blood Count 21.3 K/mm3 (4.4-11.0)
[2020-11-03 05:26] LABS: Differential Indicated SCAN CRITERIA MET
[2020-11-03] MEDS: TITRATION PARAMETER CHANGE 1 EACH IV ×3 (05:38→19:53)
--- NOTE | 2020-11-03 05:42 | PCM.PN.INT ---
Subjective: The patient was seen and examined at the bedside this morning. Events from the last 24 hours have been reviewed. The patient is currently afebrile but remains on Levophed at 5 mcg/min to maintain hemodynamic stability. The patient only tolerated approximately 45 minutes of dialysis yesterday, largely due to hypotension and poorly functioning IJ temporary dialysis catheter, most likely secondary to the patient's high PEEP requirements. The patient is currently documented to be overall net +7.6 L for the hospital admission. The patient remains on assist control mode of mechanical ventilation with an FiO2 requirement of 60% and PEEP of 14. Both FiO2 and PEEP have improved since yesterday. Objective: The patient's most recent lab work, culture data and imaging studies have all been personally reviewed. Rapid coronavirus antigen testing was positive on October 24. Stool for occult blood was positive on October 25. General: - - Remains intubated, sedated and mechanically ventilated. HEENT: Atraumatic, PERRLA, Normocephalic Oral: No Gingival or Mucosal Lesions/ Ulcerations, - - Stable endotracheal and OG tubes. Neck: Supple, No Nodes, Trachea Midline, - - Right IJ temporary hemodialysis catheter in place Lungs: No rhonchi, No wheeze, No rales, Diminished Cardiovascular: Normal S1, Normal S2, No murmurs, Tachycardic Abdomen: Bowel Sounds Present, Soft, Non Tender, Obese Extremities: No clubbing, No cyanosis Skin: - - No significant change from previous Musculoskeletal: No Muscle Wasting Lymphatic: No Cervical, Supraclavicular, or Inguinal Adenopathy Neurological: - - Unable to assess neurological status given need for pharmacologic paralysis. Vital Signs Temp Pulse Resp BP Pulse Ox 97.6 F L 121 H 16 84/59 L 94 11/03/20 00:00 11/03/20 04:00 11/03/20 03:00 11/03/20 03:00 11/03/20 03:00 Oxygen Flow Rate (L/min) 50 Oxygen Delivery Method Mechanical Ventilator Weight: 277 lb 8.992 oz Body Mass Index (BMI) 40.2 Intake and Output for Last 24 Hours 11/01/20 11/02/20 11/03/20 23:59 23:59 23:59 Intake Total 1374.88 / 1549.38 3563.06 / 3682.06 489.32 / 489.32 Output Total 700 / 900 390 / 490 135 / 135 Balance 674.88 / 649.38 3173.06 / 3192.06 354.32 / 354.32 Labs (Last 48 Hours) 11/01/20 11/01/20 11/01/20 05:16 05:16 05:16 WBC 16.3 H Corrected WBC RBC 4.73 Hgb 13.2 Hct 41.5 MCV 87.7 MCH 27.9 MCHC 31.8 L RDW Std Deviation 51.9 H RDW Coeff of Abhilash 16.6 H Plt Count 379 MPV 10.8 Immature Gran % (Auto) 2.800 H Neut % (Auto) 79.3 H Lymph % (Auto) 8.8 L [place] % (Auto) 8.0 Eos % (Auto) 0.9 Baso % (Auto) 0.2 Absolute Neuts (auto) 13.0 H Absolute Lymphs (auto) 1.43 Total Counted Neutrophils % (Manual) Band Neutrophils % Lymphocytes % (Manual) Monocytes % (Manual) Eosinophils % (Manual) Basophils % (Manual) Metamyelocytes % Myelocytes % Promyelocytes % Blast Cells % Plasma Cell % (Manual) Other Cells % Nucleated RBC % 0 Nucleated RBCs/100 WBC Differential Comment Diff Path Review Hypersegmented Neuts Atypical Lymphocytes Reactive Lymphocytes Smudge Cells Toxic Granulation Toxic Vacuolation Dohle Bodies Abe Rods Platelet Estimate Plt Morphology Comment RBC Morphology Polychromasia Hypochromasia Poikilocytosis Basophilic Stippling Anisocytosis Microcytosis Macrocytosis Spherocytes Sickle Cells Target Cells Tear Drop Cells Ovalocytes Stomatocytes [place] Bodies Remlap Cells Bite Cells Crenated Cell Acanthocytes (Spur) Rouleaux Schistocytes Specimen Type Sample Site pH Bicarbonate Actual Total CO2 Base Excess O2 Saturation O2 % ABG pCO2 ABG pO2 Lonnie Test Respiration Rate O2 Delivery Device Vent Mode Tidal Volume POC PEEP Sodium 138 Potassium 4.2 Chloride 106 Carbon Dioxide 26.0 Anion Gap 6 BUN 29 H Creatinine 1.11 Estim Creat Clear Calc 65.46 Est GFR (MDRD) Af Amer 85 Est GFR (MDRD) Non-Af 70 BUN/Creatinine Ratio 26.1 H Glucose 107 H Calcium 9.2 Phosphorus Magnesium Total Bilirubin 0.60 Direct Bilirubin 0.18 AST 24 ALT 30 Alkaline Phosphatase 64 Lactate Dehydrogenase C-React Prot Ext Range Total Protein 6.5 Albumin 2.4 L Globulin 4.1 Albumin/Globulin Ratio Urine Color Urine Clarity Urine pH Ur Specific [place] Urine Protein Urine Glucose (UA) Urine Ketones Urine Occult Blood Urine Nitrite Urine Bilirubin Urine Urobilinogen Ur Leukocyte Esterase Urine RBC Urine WBC Ur Squamous Epith Cells Calcium Oxalate Crystal Amorphous Sediment Urine Bacteria Urine Mucus Ur Random Sodium Urine Creatinine Hep Bs Antigen 11/01/20 11/01/20 11/01/20 05:16 11:26 14:45 WBC Corrected WBC RBC Hgb Hct MCV MCH MCHC RDW Std Deviation RDW Coeff of Abhilash Plt Count MPV Immature Gran % (Auto) Neut % (Auto) Lymph % (Auto) [place] % (Auto) Eos % (Auto) Baso % (Auto) Absolute Neuts (auto) Absolute Lymphs (auto) Total Counted Neutrophils % (Manual) Band Neutrophils % Lymphocytes % (Manual) Monocytes % (Manual) Eosinophils % (Manual) Basophils % (Manual) Metamyelocytes % Myelocytes % Promyelocytes % Blast Cells % Plasma Cell % (Manual) Other Cells % Nucleated RBC % Nucleated RBCs/100 WBC Differential Comment Diff Path Review Hypersegmented Neuts Atypical Lymphocytes Reactive Lymphocytes Smudge Cells Toxic Granulation Toxic Vacuolation Dohle Bodies Abe Rods Platelet Estimate Plt Morphology Comment RBC Morphology Polychromasia Hypochromasia Poikilocytosis Basophilic Stippling Anisocytosis Microcytosis Macrocytosis Spherocytes Sickle Cells Target Cells Tear Drop Cells Ovalocytes Stomatocytes [place] Bodies Remlap Cells Bite Cells Crenated Cell Acanthocytes (Spur) Rouleaux Schistocytes Specimen Type ART ART Sample Site L Radial R Radial pH 7.44 7.26 L Bicarbonate Actual 28.1 H 30.2 H Total CO2 29 32 Base Excess 4 H 3 H O2 Saturation 71 L 86 L O2 % 100 100 ABG pCO2 41.9 67.7 H* ABG pO2 36 L* 61 L Lonnie Test Positive Respiration Rate 14 14 O2 Delivery Device Adult Vent Adult Vent Vent Mode AC AC Tidal Volume 500 500 POC PEEP 14 18 Sodium Potassium Chloride Carbon Dioxide Anion Gap BUN Creatinine Estim Creat Clear Calc Est GFR (MDRD) Af Amer Est GFR (MDRD) Non-Af BUN/Creatinine Ratio Glucose Calcium Phosphorus Magnesium Total Bilirubin Direct Bilirubin AST ALT Alkaline Phosphatase Lactate Dehydrogenase 457 H C-React Prot Ext Range 64.00 H Total Protein Albumin Globulin Albumin/Globulin Ratio Urine Color Urine Clarity Urine pH Ur Specific [place] Urine Protein Urine Glucose (UA) Urine Ketones Urine Occult Blood Urine Nitrite Urine Bilirubin Urine Urobilinogen Ur Leukocyte Esterase Urine RBC Urine WBC Ur Squamous Epith Cells Calcium Oxalate Crystal Amorphous Sediment Urine Bacteria Urine Mucus Ur Random Sodium Urine Creatinine Hep Bs Antigen 11/02/20 11/02/20 11/02/20 05:40 05:40 05:40 WBC Cancelled Corrected WBC Cancelled RBC Cancelled Hgb Cancelled Hct Cancelled MCV Cancelled MCH Cancelled MCHC Cancelled RDW Std Deviation Cancelled RDW Coeff of Abhilash Cancelled Plt Count Cancelled MPV Cancelled Immature Gran % (Auto) Cancelled Neut % (Auto) Cancelled Lymph % (Auto) Cancelled [place] % (Auto) Cancelled Eos % (Auto) Cancelled Baso % (Auto) Cancelled Absolute Neuts (auto) Cancelled Absolute Lymphs (auto) Cancelled Total Counted Cancelled Neutrophils % (Manual) Cancelled Band Neutrophils % Cancelled Lymphocytes % (Manual) Cancelled Monocytes % (Manual) Cancelled Eosinophils % (Manual) Cancelled Basophils % (Manual) Cancelled Metamyelocytes % Cancelled Myelocytes % Cancelled Promyelocytes % Cancelled Blast Cells % Cancelled Plasma Cell % (Manual) Cancelled Other Cells % Cancelled Nucleated RBC % Cancelled Nucleated RBCs/100 WBC Cancelled Differential Comment Cancelled Diff Path Review Cancelled Hypersegmented Neuts Cancelled Atypical Lymphocytes Cancelled Reactive Lymphocytes Cancelled Smudge Cells Cancelled Toxic Granulation Cancelled Toxic Vacuolation Cancelled Dohle Bodies Cancelled Abe Rods Cancelled Platelet Estimate Cancelled Plt Morphology Comment Cancelled RBC Morphology Cancelled Polychromasia Cancelled Hypochromasia Cancelled Poikilocytosis Cancelled Basophilic Stippling Cancelled Anisocytosis Cancelled Microcytosis Cancelled Macrocytosis Cancelled Spherocytes Cancelled Sickle Cells Cancelled Target Cells Cancelled Tear Drop Cells Cancelled Ovalocytes Cancelled Stomatocytes Cancelled [place] Bodies Cancelled Abraham Cells Cancelled Bite Cells Cancelled Crenated Cell Cancelled Acanthocytes (Spur) Cancelled Rouleaux Cancelled Schistocytes Cancelled Specimen Type Sample Site pH Bicarbonate Actual Total CO2 Base Excess O2 Saturation O2 % ABG pCO2 ABG pO2 Lonnie Test Respiration Rate O2 Delivery Device Vent Mode Tidal Volume POC PEEP Sodium Cancelled Potassium Cancelled Chloride Cancelled Carbon Dioxide Cancelled Anion Gap Cancelled BUN Cancelled Creatinine Cancelled Estim Creat Clear Calc Cancelled Est GFR (MDRD) Af Amer Cancelled Est GFR (MDRD) Non-Af Cancelled BUN/Creatinine Ratio Cancelled Glucose Cancelled Calcium Cancelled Phosphorus Cancelled Magnesium Cancelled Total Bilirubin Cancelled Direct Bilirubin AST Cancelled ALT Cancelled Alkaline Phosphatase Cancelled Lactate Dehydrogenase C-React Prot Ext Range Total Protein Cancelled Albumin Cancelled Globulin Cancelled Albumin/Globulin Ratio Cancelled Urine Color Urine Clarity Urine pH Ur Specific [place] Urine Protein Urine Glucose (UA) Urine Ketones Urine Occult Blood Urine Nitrite Urine Bilirubin Urine Urobilinogen Ur Leukocyte Esterase Urine RBC Urine WBC Ur Squamous Epith Cells Calcium Oxalate Crystal Amorphous Sediment Urine Bacteria Urine Mucus Ur Random Sodium Urine Creatinine Hep Bs Antigen 11/02/20 11/02/20 11/02/20 07:02 07:02 07:59 WBC 20.3 H Corrected WBC RBC 4.58 L Hgb 12.5 L Hct 42.2 MCV 92.1 D MCH 27.3 MCHC 29.6 L D RDW Std Deviation 58.8 H RDW Coeff of Abhilash 17.2 H Plt Count 418 MPV 10.0 Immature Gran % (Auto) 2.600 H Neut % (Auto) 79.2 H Lymph % (Auto) 6.4 L [place] % (Auto) 11.3 H Eos % (Auto) 0.1 Baso % (Auto) 0.4 Absolute Neuts (auto) 16.1 H Absolute Lymphs (auto) 1.29 Total Counted Neutrophils % (Manual) Band Neutrophils % Lymphocytes % (Manual) Monocytes % (Manual) Eosinophils % (Manual) Basophils % (Manual) Metamyelocytes % Myelocytes % Promyelocytes % Blast Cells % Plasma Cell % (Manual) Other Cells % Nucleated RBC % 0 Nucleated RBCs/100 WBC Differential Comment Diff Path Review May foll Hypersegmented Neuts Atypical Lymphocytes Reactive Lymphocytes Smudge Cells Toxic Granulation Toxic Vacuolation Dohle Bodies Abe Rods Platelet Estimate Plt Morphology Comment RBC Morphology Polychromasia Hypochromasia Poikilocytosis Basophilic Stippling Anisocytosis Microcytosis Macrocytosis Spherocytes Sickle Cells Target Cells Tear Drop Cells Ovalocytes Stomatocytes [place] Bodies Abraham Cells Bite Cells Crenated Cell Acanthocytes (Spur) Rouleaux Schistocytes Specimen Type ART Sample Site L Brach pH 7.23 L Bicarbonate Actual 27.9 H Total CO2 30 Base Excess 0 O2 Saturation 94 L O2 % 80 ABG pCO2 67.3 H* ABG pO2 84 Lonnie Test Respiration Rate 20 O2 Delivery Device Adult Vent Vent Mode AC Tidal Volume 500 POC PEEP 20 Sodium 140 Potassium 6.1 H* Chloride 106 Carbon Dioxide 28.0 Anion Gap 6 BUN 47 H Creatinine 3.71 H Estim Creat Clear Calc 19.59 Est GFR (MDRD) Af Amer 21 L Est GFR (MDRD) Non-Af 18 L BUN/Creatinine Ratio 12.7 Glucose 127 H Calcium 8.7 Phosphorus 7.1 H Magnesium 2.3 Total Bilirubin 0.80 Direct Bilirubin AST 103 H ALT 65 H Alkaline Phosphatase 80 Lactate Dehydrogenase C-React Prot Ext Range Total Protein 7.3 Albumin 2.4 L Globulin 4.9 H Albumin/Globulin Ratio 0.5 L Urine Color Urine Clarity Urine pH Ur Specific [place] Urine Protein Urine Glucose (UA) Urine Ketones Urine Occult Blood Urine Nitrite Urine Bilirubin Urine Urobilinogen Ur Leukocyte Esterase Urine RBC Urine WBC Ur Squamous Epith Cells Calcium Oxalate Crystal Amorphous Sediment Urine Bacteria Urine Mucus Ur Random Sodium Urine Creatinine Hep Bs Antigen 11/02/20 11/02/20 11/02/20 16:15 16:45 16:45 WBC Corrected WBC RBC Hgb Hct MCV MCH MCHC RDW Std Deviation RDW Coeff of Abhilash Plt Count MPV Immature Gran % (Auto) Neut % (Auto) Lymph % (Auto) [place] % (Auto) Eos % (Auto) Baso % (Auto) Absolute Neuts (auto) Absolute Lymphs (auto) Total Counted Neutrophils % (Manual) Band Neutrophils % Lymphocytes % (Manual) Monocytes % (Manual) Eosinophils % (Manual) Basophils % (Manual) Metamyelocytes % Myelocytes % Promyelocytes % Blast Cells % Plasma Cell % (Manual) Other Cells % Nucleated RBC % Nucleated RBCs/100 WBC Differential Comment Diff Path Review Hypersegmented Neuts Atypical Lymphocytes Reactive Lymphocytes Smudge Cells Toxic Granulation Toxic Vacuolation Dohle Bodies Abe Rods Platelet Estimate Plt Morphology Comment RBC Morphology Polychromasia Hypochromasia Poikilocytosis Basophilic Stippling Anisocytosis Microcytosis Macrocytosis Spherocytes Sickle Cells Target Cells Tear Drop Cells Ovalocytes Stomatocytes [place] Bodies Remlap Cells Bite Cells Crenated Cell Acanthocytes (Spur) Rouleaux Schistocytes Specimen Type Sample Site pH Bicarbonate Actual Total CO2 Base Excess O2 Saturation O2 % ABG pCO2 ABG pO2 Lonnie Test Respiration Rate O2 Delivery Device Vent Mode Tidal Volume POC PEEP Sodium Potassium Chloride Carbon Dioxide Anion Gap BUN Creatinine Estim Creat Clear Calc Est GFR (MDRD) Af Amer Est GFR (MDRD) Non-Af BUN/Creatinine Ratio Glucose Calcium Phosphorus Magnesium Total Bilirubin Direct Bilirubin AST ALT Alkaline Phosphatase Lactate Dehydrogenase C-React Prot Ext Range Total Protein Albumin Globulin Albumin/Globulin Ratio Urine Color Brown Urine Clarity Cloudy Urine pH 5.0 Ur Specific [place] 1.025 Urine Protein 100 H Urine Glucose (UA) 50 H Urine Ketones 5 H Urine Occult Blood 250 H Urine Nitrite Positive H Urine Bilirubin 1 H Urine Urobilinogen 1 H Ur Leukocyte Esterase 500 H Urine RBC 10-25 SEEN Urine WBC 5-10 SEEN Ur Squamous Epith Cells 0 SEEN Calcium Oxalate Crystal RARE Amorphous Sediment 2+ Urine Bacteria 4+ Urine Mucus 0 SEEN Ur Random Sodium 24 Urine Creatinine 205.00 Hep Bs Antigen Pending 11/03/20 11/03/20 05:00 05:00 WBC 21.3 H Corrected WBC RBC 4.06 L Hgb 10.9 L Hct 37.4 L MCV 92.1 MCH 26.8 L MCHC 29.1 L RDW Std Deviation 59.4 H RDW Coeff of Abhilash 17.2 H Plt Count 361 MPV 10.0 Immature Gran % (Auto) 3.100 H Neut % (Auto) 80.8 H Lymph % (Auto) 6.0 L [place] % (Auto) 9.9 Eos % (Auto) 0.0 Baso % (Auto) 0.2 Absolute Neuts (auto) 17.2 H Absolute Lymphs (auto) 1.29 Total Counted Neutrophils % (Manual) Band Neutrophils % Lymphocytes % (Manual) Monocytes % (Manual) Eosinophils % (Manual) Basophils % (Manual) Metamyelocytes % Myelocytes % Promyelocytes % Blast Cells % Plasma Cell % (Manual) Other Cells % Nucleated RBC % 0 Nucleated RBCs/100 WBC Differential Comment Diff Path Review Hypersegmented Neuts Atypical Lymphocytes Reactive Lymphocytes Smudge Cells Toxic Granulation Toxic Vacuolation Dohle Bodies Abe Rods Platelet Estimate Plt Morphology Comment RBC Morphology Polychromasia Hypochromasia Poikilocytosis Basophilic Stippling Anisocytosis Microcytosis Macrocytosis Spherocytes Sickle Cells Target Cells Tear Drop Cells Ovalocytes Stomatocytes [place] Bodies Remlap Cells Bite Cells Crenated Cell Acanthocytes (Spur) Rouleaux Schistocytes Specimen Type Sample Site pH Bicarbonate Actual Total CO2 Base Excess O2 Saturation O2 % ABG pCO2 ABG pO2 Lonnie Test Respiration Rate O2 Delivery Device Vent Mode Tidal Volume POC PEEP Sodium Pending Potassium Pending Chloride Pending Carbon Dioxide Pending Anion Gap Pending BUN Pending Creatinine Pending Estim Creat Clear Calc Est GFR (MDRD) Af Amer Pending Est GFR (MDRD) Non-Af Pending BUN/Creatinine Ratio Pending Glucose Pending Calcium Pending Phosphorus Magnesium Total Bilirubin Pending Direct Bilirubin AST Pending ALT Pending Alkaline Phosphatase Pending Lactate Dehydrogenase C-React Prot Ext Range Total Protein Pending Albumin Pending Globulin Albumin/Globulin Ratio Urine Color Urine Clarity Urine pH Ur Specific [place] Urine Protein Urine Glucose (UA) Urine Ketones Urine Occult Blood Urine Nitrite Urine Bilirubin Urine Urobilinogen Ur Leukocyte Esterase Urine RBC Urine WBC Ur Squamous Epith Cells Calcium Oxalate Crystal Amorphous Sediment Urine Bacteria Urine Mucus Ur Random Sodium Urine Creatinine Hep Bs Antigen Microbiology 11/01/20 12:25 Sputum, Induced/Lukens Gram Stain - Final 11/01/20 12:25 Sputum, Induced/Lukens Respiratory Culture - Preliminary Beta streptococcus Clinical Impression(s) from Imaging Studies Chest X-Ray 10/24/20 14:10 IMPRESSION: Bilateral pulmonary infiltrates worse in the right hemithorax. Electronically Signed: Jr Moya, at 14:27 EST , Service support , Chest CTA 10/25/20 10:45 IMPRESSION: Limited evaluation of the pulmonary arteries due to poor contrast-enhancement although I suspect multiple small pulmonary emboli in the upper lobe pulmonary arterial branches. Multiple areas of bilateral groundglass appearance was in the right hemithorax suggestive of a pneumonitis associated with Covid 19. Electronically Signed: Jr Moya, at 11:20 EST , Service support , Chest X-Ray 10/30/20 12:54 IMPRESSION: Worsening interstitial and airspace opacifications in both lung vann compared to the previous study. Follow-up recommended to ensure resolution Electronically Signed: Marcus Vides MD at 14:43 EST , Service support , Chest X-Ray 11/01/20 10:43 IMPRESSION: Progressive bilateral pulmonary infiltrates more prominent in the right hemithorax. The tip of the endotracheal tube is at 4.7 cm proximal to the javier. Electronically Signed: Jr Moya, at 11:21 EST , Service support , Chest X-Ray 11/02/20 10:50 IMPRESSION: The tip of the right sided hemodialysis catheter is in the right atrium. The tip of the endotracheal tube is at 9 cm proximal to the javier. Persistent bilateral pulmonary infiltrates although there has been improved aeration as compared to prior study. Electronically Signed: Jr Moya, at 11:07 EST , Service support , Chest X-Ray 11/02/20 13:50 IMPRESSION: Interval placement of a left subclavian catheter with the tip at the junction of superior vena cava and right atrium. The tip of the endotracheal tube is at 6.3 cm proximal to the javier. Stable bilateral pulmonary infiltrates. Electronically Signed: Jr Moya, at 14:17 EST , Service support , Medical Necessity - Tobacco Use Smoking Status: Never smoker Tobacco Use: Non-smoker Assessment/Plan All Active Problems (Last Updated 10/24/20 @ 15:[address] Nish Dee, DO) Pneumonia due to Coronavirus disease 2019 (Acute) Hypoxia (Acute) Melena (Acute) RECOMMENDATIONS: 1. Given improvement in FiO2, PEEP will be decreased to help improve the functional status of the patient's dialysis catheter. 2. Continue patient on assist control mode of mechanical ventilation and wean FiO2 and PEEP to maintain oxygen saturations at or above 90%. 3. Reattempt dialysis today with volume removal per nephrology recommendations. 4. Continue tube feeds as tolerated. 5. Continue therapeutic Lovenox. 6. Continue PPI therapy. 7. Continue scheduled bronchodilators. 8. Continue antimicrobials per ID recommendations. IMPRESSIONS: 1. Acute hypoxemic respiratory failure Multifactorial in etiology with COVID-19 pneumonia and bilateral pulmonary emboli contributing. Although attempts were made to utilize heated high flow oxygen and later BiPAP, the patient continued to decompensate from a respiratory perspective, requiring intubation on November 01. For now, the patient will be continued on assist control mode of mechanical ventilation, with plans to wean FiO2 and PEEP to maintain saturations at or above 90%. He will remain sedated on propofol and fentanyl, with plans to continue pharmacologic paralysis. Nephrology is currently following to assist with hemodialysis needs. My hope is that his dialysis catheter will be more functional today as we decrease his PEEP. Continue tube feeds as tolerated. 2. Acute kidney injury/hyperkalemia Likely prerenal in etiology with component of ischemic ATN. Nephrology is currently following to assist with hemodialysis needs. 3. Possible GI bleed No overt signs of GI blood loss at this time. Continue twice daily PPI therapy as ordered. Monitor H&H and transfuse if hemoglobin drops below 7 g/dL. 4. History of coronary artery disease/hypertension/hyperlipidemia/obesity Complicates care, management, recovery and prognosis. Continue home medications as indicated. TIME: 35 minutes of critical care time, inclusive of procedures, was spent addressing the patient's acute hypoxemic respiratory failure, COVID-19 pneumonia, bilateral pulmonary emboli, acute kidney injury, review of all data and collaboration with the care team. ([id number]) [id number] Critical care first hour
[2020-11-03 05:46] LABS: ALB/GLOB Ratio 0.4 RATIO (0.9-2.4); AST(SGOT) 153 U/L (15-37); Alanine Aminotransfer ALT/SGPT 80 U/L (16-61); Alkaline Phosphatase 74 U/L (45-117); Anion Gap 10 (5-15); BUN 61 mg/dL (7-18); BUN/Creat Ratio 11.5 RATIO (10-20); Calcium,Total 7.6 mg/dL (8.5-10.1); Chloride 105 mmol/L (98-107); Creatinine, Serum 5.29 mg/dL (0.70-1.30); EST Glomerular Filtration Rate 12 mL/min (>60); Est Glom Filt Rate - Afr Amer 14 mL/min (>60); Estimated Creatinine Clearance 13.74 ml/min; Globulin 4.5 g/dL (2.2-4.2); Glucose 142 mg/dL (74-106); Potassium 5.4 mmol/L (3.5-5.1); Protein, Total 6.5 g/dL (6.4-8.2); Sodium Level 139 mmol/L (136-145)
[2020-11-03 06:19] LABS: Differential Comment SCANNED
[2020-11-03] MEDS: Ipratropium/Albuterol Sulfate 3 ML AMPUL.NEB INHALATION (06:56)
--- NOTE | 2020-11-03 07:41 | PCM.PN.HOSP ---
Patient Problems: Active and Suspected Problems (Last Updated 10/24/20 @ 15:[address] Nish Dee, DO) Pneumonia due to Coronavirus disease 2019 (Acute) Hypoxia (Acute) Melena (Acute) Reason for Visit: Follow-up for acute hypoxic respiratory failure and septic shock. Objective: Afebrile. Systolic blood pressure in 90s. Pulse ox 97% on 70% FiO2, PEEP 20. Patient currently off vasopressin drip. Heart rate in 100s. Patient had only 45 minutes of dialysis due to poor flow of IJ temporary dialysis catheter and hypotension from high PEEP +8 L fluid balance. Patient has left IJ triple-lumen catheter. The sputum culture from 11/01 is growing beta Streptococcus. Patient on IV meropenem and IV ceftriaxone. Physical exam General: Unconscious, sedated. HEENT: Atraumatic, Normocephalic. Pupils reactive but sluggish. Oral: ET and OG tube. Neck: Supple, No JVD, Negative Carotid Bruits Lungs: On vent support. Bilateral coarse crepitations present. Air entry bilateral equal. Cardiovascular: Regular rate, Regular Rhythm, Normal S1, Normal S2, PVCs. Hypotension on vasopressor support no murmurs Abdomen: Bowel Sounds Present, Soft, Non Tender, Non-Distended : Anuria. Temporary hemodialysis catheter in right IJ. Burgess catheter. Dark yellow urine. No renal angle tenderness. Extremities: Mild bilateral ankle edema, Capillary Refill Less than 3 Seconds Skin: No rashes, No breakdown. Right femoral CVC catheter. Musculoskeletal: No Tenderness to Palpation of Joints or Extremities Neurological: No focal neurological deficit. Sedated Psych/Mental Status: Sedated. Vitals/I&O's: Vital Signs Temp Pulse Resp BP Pulse Ox 96.9 F L 106 H 16 91/59 L 97 11/03/20 04:00 11/03/20 06:57 11/03/20 06:57 11/03/20 06:00 11/03/20 06:57 Oxygen Flow Rate (L/min) 50 Oxygen Delivery Method Mechanical Ventilator Weight: 277 lb 8.992 oz Body Mass Index (BMI) 40.2 Intake and Output for Last 24 Hours 11/01/20 11/02/20 11/03/20 23:59 23:59 23:59 Intake Total 1374.88 / 1549.38 3563.06 / 3682.06 809.32 / 809.32 Output Total 700 / 900 390 / 490 135 / 135 Balance 674.88 / 649.38 3173.06 / 3192.06 674.32 / 674.32 Microbiology Past 72 Hours 11/01/20 12:25 Sputum, Induced/Lukens Gram Stain - Final 11/01/20 12:25 Sputum, Induced/Lukens Respiratory Culture - Preliminary Beta streptococcus Laboratory Results 11/02/20 07:59: Specimen Type ART, Sample Site L Brach, pH 7.23 L, Bicarbonate Actual 27.9 H, Total CO2 30, Base Excess 0, O2 Saturation 94 L, O2 % 80, ABG pCO2 67.3 H*, ABG pO2 84, Respiration Rate 20, O2 Delivery Device Adult Vent, Vent Mode AC, Tidal Volume 500, POC PEEP 20 11/02/20 16:15: Hep Bs Antigen Pending 11/02/20 16:45: Urine Color Brown, Urine Clarity Cloudy, Urine pH 5.0, Ur Specific [place] 1.025, Urine Protein 100 H, Urine Glucose (UA) 50 H, Urine Ketones 5 H, Urine Occult Blood 250 H, Urine Nitrite Positive H, Urine Bilirubin 1 H, Urine Urobilinogen 1 H, Ur Leukocyte Esterase 500 H, Urine RBC 10-25 SEEN, Urine WBC 5-10 SEEN, Ur Squamous Epith Cells 0 SEEN, Calcium Oxalate Crystal RARE, Amorphous Sediment 2+, Urine Bacteria 4+, Urine Mucus 0 SEEN 11/02/20 16:45: Ur Random Sodium 24, Urine Creatinine 205.00 11/03/20 05:00: WBC 21.3 H, RBC 4.06 L, Hgb 10.9 L, Hct 37.4 L, MCV 92.1, MCH 26.8 L, MCHC 29.1 L, RDW Std Deviation 59.4 H, RDW Coeff of Abhilash 17.2 H, Plt Count 361, MPV 10.0, Immature Gran % (Auto) 3.100 H, Neut % (Auto) 80.8 H, Lymph % (Auto) 6.0 L, Randall % (Auto) 9.9, Eos % (Auto) 0.0, Baso % (Auto) 0.2, Absolute Neuts (auto) 17.2 H, Absolute Lymphs (auto) 1.29, Nucleated RBC % 0, Differential Comment SCANNED, Diff Path Review May foll 11/03/20 05:00: Sodium 139, Potassium 5.4 H, Chloride 105, Carbon Dioxide 24.0, Anion Gap 10, BUN 61 H, Creatinine 5.29 H, Estim Creat Clear Calc 13.74, Est GFR (MDRD) Af Amer 14 L, Est GFR (MDRD) Non-Af 12 L, BUN/Creatinine Ratio 11.5, Glucose 142 H, Calcium 7.6 L, Total Bilirubin 0.50, AST 153 H, ALT 80 H, Alkaline Phosphatase 74, Total Protein 6.5, Albumin 2.0 L, Globulin 4.5 H, Albumin/Globulin Ratio 0.4 L 11/03/20 06:50: MRSA (PCR) Pending Current Medications Acetaminophen (Acetaminophen 325 Mg Tablet) 650 mg PO Q6H PRN PRN PRN Reason: Pain Score 1-10/Temp > 100.7 F Last Admin: 11/01/20 05:13 Dose: 650 mg Documented by: Albuterol/Ipratropium (Ipratropium/Albuterol Sulfate 3 Ml Ampul.Neb) 3 ml INHALATION Q6H.RT [facility] Last Admin: 11/03/20 06:56 Dose: 3 ml Documented by: Allopurinol (Allopurinol 300 Mg Tablet) 300 mg PO DAILY [facility] Last Admin: 11/02/20 13:00 Dose: 300 mg Documented by: Atorvastatin Calcium (Atorvastatin Calcium 20 Mg Tablet) 20 mg PO DAILY [facility] Last Admin: 11/02/20 12:59 Dose: 20 mg Documented by: Chlorhexidine Gluconate (Chlorhexidine 15 Ml) 15 ml PO BID [facility] Last Admin: 11/02/20 22:04 Dose: 15 ml Documented by: Dexamethasone (Dexamethasone 4 Mg Tablet) 6 mg PO DAILY [facility] Stop: 11/11/20 10:01 Last Admin: 11/02/20 14:29 Dose: Not Given Documented by: Enoxaparin Sodium (Enoxaparin 120 Mg/0.8 Ml Syringe) 120 mg SC DAILY [facility] Last Admin: 11/02/20 14:30 Dose: 120 mg Documented by: Furosemide (Furosemide 40 Mg/4 Ml Vial) 40 mg IV Q8 [facility] Last Admin: 11/03/20 05:01 Dose: 40 mg Documented by: Cisatracurium Besylate 100 mg/ (Sodium Chloride) 250 mls @ 38.782 mls/hr CONT INF .Q6H27M [facility]; Protocol Last Titration: 11/03/20 06:00 Dose: 2 mcg/kg/min, 38.8 mls/hr Documented by: Propofol (Diprivan) 1,000 mg in 100 mls @ 7.554 mls/hr CONT INF .Q12H [facility]; Protocol Last Titration: 11/03/20 06:00 Dose: 20 mcg/kg/min, 15.1 mls/hr Documented by: Fentanyl Citrate 1,000 mcg/ (Sodium Chloride) 100 mls @ 5 mls/hr CONT INF .Q20H [facility]; Protocol Last Titration: 11/03/20 06:00 Dose: 100 mcg/hr, 10 mls/hr Documented by: Enteral Nutritional Formula (Vital High Protein) 1,000 mls @ 70 mls/hr GT .[id number] [facility] Last Admin: 11/03/20 00:45 Dose: Not Given Documented by: Pantoprazole Sodium 40 mg/ (Sodium Chloride) 110 mls @ 330 mls/hr IV Q12 [facility] Last Infusion: 11/02/20 22:22 Dose: Infused Documented by: Ceftriaxone Sodium 2 gm/ (Sodium Chloride) 50 mls @ 100 mls/hr IV Q24 [facility] Last Infusion: 11/02/20 14:59 Dose: Infused Documented by: Norepinephrine Bitartrate 8 mg (/ Sodium Chloride) 250 mls @ 9.375 mls/hr CONT INF .[id number] [facility]; Protocol Last Titration: 11/03/20 06:00 Dose: 0 mcg/min, 0 mls/hr Documented by: Vasopressin 20 units/ Sodium (Chloride) 25 mls @ 3 mls/hr IV .Q8H20M [facility] Last Infusion: 11/03/20 01:15 Dose: 0 units/min, 0 mls/hr Documented by: Meropenem 1 gm/ Sodium (Chloride) 120 mls @ 33 mls/hr IV Q12 [facility] Last Admin: 11/03/20 06:50 Dose: 33 mls/hr Documented by: Nystatin (Nystatin 500,000 Unit/5 Ml Udc) 500,000 unit PO 4X/DAY [facility] Last Admin: 11/02/20 22:02 Dose: 500,000 unit Documented by: Sodium Chloride (0.9% Saline Lock 10 Ml Syringe) 10 - 40 ml IV UD PRN PRN Reason: SALINE FLUSH Last Admin: 10/30/20 09:39 Dose: 10 ml Documented by: Sodium Chloride (Sodium Chloride 0.65% 1 Media Media.Btl) 2 spray NASAL BID PRN PRN PRN Reason: NASAL DRYNESS Last Admin: 10/28/20 22:53 Dose: 2 sprays Documented by: STROKE Vital Signs/Narrative: Vital Signs Temp Pulse Resp BP Pulse Ox 11/03/20 06:57 106 H 16 97 11/03/20 06:00 107 H 16 91/59 L 98 11/03/20 05:00 115 H 16 92/58 L 98 11/03/20 04:30 120 H 16 107/63 98 11/03/20 04:15 122 H 16 108/66 98 11/03/20 04:00 96.9 F L 121 H 16 115/72 98 11/03/20 03:45 119 H 16 125/66 H 97 Medical Necessity - Tobacco Use Smoking Status: Never smoker Tobacco Use: Non-smoker Assessment/Plan All Active Problems (Last Updated 10/24/20 @ 15:[address] Nish Dee, DO) Pneumonia due to Coronavirus disease 2019 (Acute) Hypoxia (Acute) Melena (Acute) This is a 65 years old male patient presented to the emergency room because of weakness, fatigue and diarrhea, found to have bilateral pulmonary infiltrate and tested positive for COVID-19 and he was found to have acute bilateral COVID-19 pneumonia, renal insufficiency and hypoxia. #1 Acute hypoxic respiratory failure secondary to acute bilateral COVID-19 pneumonia and bilateral PE possible septic or distributive shock: Patient completed remdesivir. On Decadron. Discussed with ID. Patient has bilateral leg edema and was on HCTZ, losartan at home which are discontinued. Started on Lasix 40 mg IV daily. BNP, pro calcitonin and troponin ordered by ID. 10/30: Patient is more hypoxic on 10 L of oxygen. Repeat chest x-ray ordered. Troponin, BNP and procalcitonin normal. Mild leukocytosis 12,000 with lymphocyte 12%. Brush Painter has been consulted. Discussed with ID. 10/31: Hypoxia worsening. On high flow oxygen. Leukocytosis 14,000 with relative lymphopenia. Patient seen by commodity merchant. Looks mildly depressed, started on trazodone 50 mg daily. 11/01: Patient required 100% FiO2 on BiPAP and was intubated. Blood pressure dropped after intubation and sedation probably distributive shock/septic shock. Patient chest x-ray shows worsening of bilateral infiltrates. ET and OG tube positions adequate. Sputum culture ordered. Leukocytosis with lymphopenia. Procalcitonin, CRP and LDH ordered. Patient's daughter Charla was called and recent change in clinical status was given including intubation, ventilator, vasopressor therapy. She wants to continue full code including CPR. 11/02: On 80% FiO2. PEEP 20. ABG 7.2 /84/28 on 80% FiO2/500/20/20. Muscular paralytic agent cisatracurium 11/03: FiO2 improved to 60% and PEEP 14, which enable good flow in dialysis catheter. Sputum culture growing Streptococcus group B. Started on ceftriaxone by ID yesterday. Meropenem started today. #2 acute bilateral upper small pulmonary emboli: CTA chest reviewed, revealed suspicious multiple small pulmonary emboli in the upper lobe arterial branches. Continue Eliquis. Patient completed remdesivir on 28 October.. #2 Acute kidney injury due to ATN:Admission creatinine was 1.86, received IV fluids and creatinine came down to 1.02 mg/dL but patient has bilateral leg edema and hypoxia worsened. Started on Lasix as mentioned above. 10/31: On Lasix. Patient voiding 4 times daily spontaneously. 11/01: Electrolytes are in normal range. BUN/creatinine 29/1.11. 11/02: Anuria. [place] hydraulic assembler consulted. Right IJ temporary dialysis catheter inserted. Plan for hemodialysis today. 11/03: Plan for hemodialysis. #3 melena/probable GI bleed: Patient has been having brown stool, no more melena. Stool for occult blood tested positive. He is on PPI. Today's hemoglobin is 12.6 g/dL. Hemoglobin and hematocrit are stable. Vital signs are stable. H&H is stable. 11/01: On anticoagulant Lovenox 120 mg twice daily. Monitor CBC daily. Patient holding H&H. 11/02: H&H 12.5/432. platelet count 118.On enoxaparin 11/03: H&H is stable on the decreased to 10.9/37. #4 CAD status post stents: Stable, no acute issues. Continue statins, losartan metoprolol. 11/02: Metoprolol and losartan has been discontinued as patient had hypotension. #5 hypertension: Blood pressure stable, continue losartan and metoprolol. #6 hyperlipidemia: Continue statins. Total time of the visit including total time spent in counseling or coordination of care, (more than 50% of the total time, spent in obtaining medical information from nurses and other ancillary care providers,explaining to the patient about labs, imaging, diagnosis and management), discussion with consultants, exchange of information to the family, his daughter, review of labs and imaging is 30 minutes. Microbiology Past 72 Hours 11/01/20 12:25 Sputum, Induced/Lukens Gram Stain - Final 11/01/20 12:25 Sputum, Induced/Lukens Respiratory Culture - Preliminary Beta streptococcus Laboratory Results 11/01/20 05:16: Lactate Dehydrogenase 457 H, C-React Prot Ext Range 64.00 H 11/01/20 14:45: Specimen Type ART, Sample Site R Radial, pH 7.26 L, Bicarbonate Actual 30.2 H, Total CO2 32, Base Excess 3 H, O2 Saturation 86 L, O2 % 100, ABG pCO2 67.7 H*, ABG pO2 61 L, Respiration Rate 14, O2 Delivery Device Adult Vent, Vent Mode AC, Tidal Volume 500, POC PEEP 18 11/02/20 07:02: Sodium 140, Potassium 6.1 H*, Chloride 106, Carbon Dioxide 28.0, Anion Gap 6, BUN 47 H, Creatinine 3.71 H, Estim Creat Clear Calc 19.59, Est GFR (MDRD) Af Amer 21 L, Est GFR (MDRD) Non-Af 18 L, BUN/Creatinine Ratio 12.7, Glucose 127 H, Calcium 8.7, Phosphorus 7.1 H, Magnesium 2.3, Total Bilirubin 0.80, AST 103 H, ALT 65 H, Alkaline Phosphatase 80, Total Protein 7.3, Albumin 2.4 L, Globulin 4.9 H, Albumin/Globulin Ratio 0.5 L 11/02/20 07:02: WBC 20.3 H, RBC 4.58 L, Hgb 12.5 L, Hct 42.2, MCV 92.1 D, MCH 27.3, MCHC 29.6 L D, RDW Std Deviation 58.8 H, RDW Coeff of Abhilash 17.2 H, Plt Count 418, MPV 10.0, Immature Gran % (Auto) 2.600 H, Neut % (Auto) 79.2 H, Lymph % (Auto) 6.4 L, Randall % (Auto) 11.3 H, Eos % (Auto) 0.1, Baso % (Auto) 0.4, Absolute Neuts (auto) 16.1 H, Absolute Lymphs (auto) 1.29, Nucleated RBC % 0, Diff Path Review May foll 11/02/20 07:59: Specimen Type ART, Sample Site L Brach, pH 7.23 L, Bicarbonate Actual 27.9 H, Total CO2 30, Base Excess 0, O2 Saturation 94 L, O2 % 80, ABG pCO2 67.3 H*, ABG pO2 84, Respiration Rate 20, O2 Delivery Device Adult Vent, Vent Mode AC, Tidal Volume 500, POC PEEP 20 Clinical Impression(s) from Imaging Studies Chest CTA 10/25/20 10:45 IMPRESSION: Limited evaluation of the pulmonary arteries due to poor contrast-enhancement although I suspect multiple small pulmonary emboli in the upper lobe pulmonary arterial branches. Multiple areas of bilateral groundglass appearance was in the right hemithorax suggestive of a pneumonitis associated with Covid 19. Chest X-Ray 11/01/20 10:43 IMPRESSION: Progressive bilateral pulmonary infiltrates more prominent in the right hemithorax. The tip of the endotracheal tube is at 4.7 cm proximal to the javier. Inpatient E&M: [id number] [facility] Hosp L3
[2020-11-03 08:46] LABS: M R Staph aureus DNA By PCR Negative (Negative); Probe Check PASS; Specimen Processing Control PASS
[2020-11-03] MEDS: Propofol 10MG/Ml 1,000 MG/100 ML Bottle 15.1 MG CONT INF (10:00)
[2020-11-03] MEDS: 0.9% Saline Lock 10 ML Syringe IV (12:14)
[2020-11-03] MEDS: Enoxaparin 120 MG/0.8 ML Syringe SC (12:15)
[2020-11-03] MEDS: NYSTATIN 500,000 UNIT/5 ML UDC 500000 UNIT PO ×4 (12:15→20:52)
[2020-11-03] MEDS: Allopurinol 300 MG Tablet PO (12:16)
[2020-11-03] MEDS: Atorvastatin Calcium 20 MG Tablet PO (12:16)
[2020-11-03] MEDS: dexAMETHasone 4 MG Tablet 6 MG PO (12:16)
[2020-11-03] MEDS: Chlorhexidine 15 ML PO ×2 (12:16→20:54)
[2020-11-03 12:56] LABS: Bedside Glucose 131 mg/dL (70-110)
[2020-11-03] MEDS: Propofol 10MG/Ml 1,000 MG/100 ML Bottle 37.8 MG CONT INF ×5 (15:00→23:25)
--- NOTE | 2020-11-03 18:44 | PCM.PN.REN ---
Patient Problems: Active and Suspected Problems (Last Updated 10/24/20 @ 15:[address] Nish Dee, DO) Pneumonia due to Coronavirus disease 2019 (Acute) Hypoxia (Acute) Melena (Acute) Subjective: Following for acute kidney injury. The patient is dialysis dependent. The patient was seen during dialysis today. Review of system cannot be done as patient is sedated and is on ventilator. - Physical Exam Vitals/I&O's: Vital Signs Temp Pulse Resp BP Pulse Ox 97.4 F L 101 H 16 104/54 L 94 11/03/20 08:00 11/03/20 17:52 11/03/20 17:52 11/03/20 10:30 11/03/20 17:52 Oxygen Flow Rate (L/min) 50 Oxygen Delivery Method Mechanical Ventilator Weight: 125.9 kg Body Mass Index (BMI) 40.2 Intake and Output for Last 24 Hours 11/01/20 11/02/20 11/03/20 23:59 23:59 23:59 Intake Total 1374.88 / 1549.38 3563.06 / 3682.06 2366.33 / 2366.33 Output Total 700 / 900 390 / 490 158 / 158 Balance 674.88 / 649.38 3173.06 / 3192.06 2208.33 / 2208.33 General: - - Sedated HEENT: Atraumatic, Normocephalic Oral: - - Intubated Neck: Supple Lungs: Rhonchi Cardiovascular: Normal S1, Normal S2 Abdomen: Non Tender, Non-Distended Extremities: Edema - 1+ Microbiology Past 72 Hours 11/01/20 12:25 Sputum, Induced/Lukens Gram Stain - Final 11/01/20 12:25 Sputum, Induced/Lukens Respiratory Culture - Preliminary Streptococcus group B Presumptive C albicans Laboratory Results 11/03/20 05:00: WBC 21.3 H, RBC 4.06 L, Hgb 10.9 L, Hct 37.4 L, MCV 92.1, MCH 26.8 L, MCHC 29.1 L, RDW Std Deviation 59.4 H, RDW Coeff of Abhilash 17.2 H, Plt Count 361, MPV 10.0, Immature Gran % (Auto) 3.100 H, Neut % (Auto) 80.8 H, Lymph % (Auto) 6.0 L, [place] % (Auto) 9.9, Eos % (Auto) 0.0, Baso % (Auto) 0.2, Absolute Neuts (auto) 17.2 H, Absolute Lymphs (auto) 1.29, Nucleated RBC % 0, Differential Comment SCANNED, Diff Path Review February11/03/20 05:00: Sodium 139, Potassium 5.4 H, Chloride 105, Carbon Dioxide 24.0, Anion Gap 10, BUN 61 H, Creatinine 5.29 H, Estim Creat Clear Calc 13.74, Est GFR (MDRD) Af Amer 14 L, Est GFR (MDRD) Non-Af 12 L, BUN/Creatinine Ratio 11.5, Glucose 142 H, Calcium 7.6 L, Total Bilirubin 0.50, AST 153 H, ALT 80 H, Alkaline Phosphatase 74, Total Protein 6.5, Albumin 2.0 L, Globulin 4.5 H, Albumin/Globulin Ratio 0.4 L 11/03/20 06:50: MRSA (PCR) Negative 11/03/20 12:01: POC Glucose 131 H Current Medications Acetaminophen (Acetaminophen 325 Mg Tablet) 650 mg PO Q6H PRN PRN PRN Reason: Pain Score 1-10/Temp > 100.7 F Last Admin: 11/01/20 05:13 Dose: 650 mg Documented by: Albuterol/Ipratropium (Ipratropium/Albuterol Sulfate 3 Ml Ampul.Neb) 3 ml INHALATION Q6H.RT [facility] Last Admin: 11/03/20 06:56 Dose: 3 ml Documented by: Allopurinol (Allopurinol 300 Mg Tablet) 300 mg PO DAILY [facility] Last Admin: 11/03/20 12:16 Dose: 300 mg Documented by: Atorvastatin Calcium (Atorvastatin Calcium 20 Mg Tablet) 20 mg PO DAILY [facility] Last Admin: 11/03/20 12:16 Dose: 20 mg Documented by: Chlorhexidine Gluconate (Chlorhexidine 15 Ml) 15 ml PO BID [facility] Last Admin: 11/03/20 12:16 Dose: 15 ml Documented by: Dexamethasone (Dexamethasone 4 Mg Tablet) 6 mg PO DAILY [facility] Stop: 11/11/20 10:01 Last Admin: 11/03/20 12:16 Dose: 6 mg Documented by: Enoxaparin Sodium (Enoxaparin 120 Mg/0.8 Ml Syringe) 120 mg SC DAILY [facility] Last Admin: 11/03/20 12:15 Dose: 120 mg Documented by: Furosemide (Furosemide 40 Mg/4 Ml Vial) 40 mg IV Q8 [facility] Last Admin: 11/03/20 18:19 Dose: Not Given Documented by: Cisatracurium Besylate 100 mg/ (Sodium Chloride) 250 mls @ 38.782 mls/hr CONT INF .Q6H27M [facility]; Protocol Last Titration: 11/03/20 18:00 Dose: 3 mcg/kg/min, 58.2 mls/hr Documented by: Propofol (Diprivan) 1,000 mg in 100 mls @ 7.554 mls/hr CONT INF .Q12H [facility]; Protocol Last Titration: 11/03/20 18:00 Dose: 50 mcg/kg/min, 37.8 mls/hr Documented by: Fentanyl Citrate 1,000 mcg/ (Sodium Chloride) 100 mls @ 20 mls/hr CONT INF .Q5H [facility]; Protocol Last Titration: 11/03/20 18:15 Dose: 200 mcg/hr, 20 mls/hr Documented by: Enteral Nutritional Formula (Vital High Protein) 1,000 mls @ 70 mls/hr GT .[id number] [facility] Last Admin: 11/03/20 16:15 Dose: Not Given Documented by: Pantoprazole Sodium 40 mg/ (Sodium Chloride) 110 mls @ 330 mls/hr IV Q12 [facility] Last Infusion: 11/03/20 12:23 Dose: Infused Documented by: Ceftriaxone Sodium 2 gm/ (Sodium Chloride) 50 mls @ 100 mls/hr IV Q24 [facility] Last Infusion: 11/03/20 12:44 Dose: Infused Documented by: Norepinephrine Bitartrate 8 mg (/ Sodium Chloride) 250 mls @ 9.375 mls/hr CONT INF .[id number] [facility]; Protocol Last Titration: 11/03/20 10:30 Dose: 5 mcg/min, 9.4 mls/hr Documented by: Vasopressin 20 units/ Sodium (Chloride) 25 mls @ 3 mls/hr IV .Q8H20M [facility] Last Infusion: 11/03/20 18:09 Dose: 0 units/min, 0 mls/hr Documented by: Nystatin (Nystatin 500,000 Unit/5 Ml Udc) 500,000 unit PO 4X/DAY [facility] Last Admin: 11/03/20 18:19 Dose: 500,000 unit Documented by: Sodium Chloride (0.9% Saline Lock 10 Ml Syringe) 10 - 40 ml IV UD PRN PRN Reason: SALINE FLUSH Last Admin: 11/03/20 12:14 Dose: 10 ml Documented by: Sodium Chloride (Sodium Chloride 0.65% 1 [place].Btl) 2 spray NASAL BID PRN PRN PRN Reason: NASAL DRYNESS Last Admin: 10/28/20 22:53 Dose: 2 sprays Documented by: Medical Necessity - Tobacco Use Smoking Status: Never smoker Tobacco Use: Non-smoker Assessment/Plan All Active Problems (Last Updated 10/24/20 @ 15:[address] Nish Dee, DO) Pneumonia due to Coronavirus disease 2019 (Acute) Hypoxia (Acute) Melena (Acute) Assessment: CELIA?ATN with shock. Baseline creatinine is 1.02 Hyperkalemia Hyperphosphatemia Respiratory failure s/p intubation COVID-19 pneumonia and bilateral pulmonary emboli Plan: The patient only made 215 cc of urine over the last 24 hours. I am dialyzing him again today. The patient was seen during dialysis today. We will see how much volume can get off given his hypotension. I will discussed further volume removal and/or dialysis again with Dr. Salmeron tomorrow.
--- NOTE | 2020-11-03 18:52 | DIALYSIS ---
HEMODIALYSIS COMPLETE X 3 HOURS. 1500 ML NET FLUID REMOVED. REPORT GIVEN TO FLOOR NURSE. DR. RAMIRES WAS IN TO SEE PATIENT DURING TREATMENT. POST VS--118/52, 100, 16, T-98.2.
[2020-11-04] VITALS (72 sets, daily range): BP systolic 88–151; BP diastolic 39–68; PULSE 60–95; RESP 15–22; TEMP 36.3–37.2; O2SAT 92–96
[2020-11-04] MEDS: Ipratropium/Albuterol Sulfate 3 ML AMPUL.NEB INHALATION ×4 (00:04→19:17)
[2020-11-04 00:06] LABS: Bedside Glucose 151 mg/dL (70-110)
--- NOTE | 2020-11-04 02:00 | NURSING ---
MAR showing Nimbex infused at 0200. Bag is not empty. Still infusing at this time. MAR showing Fentanyl infused at 0103. Bag is not empty. Still infusing at this time until drip was changed at 0150.
[2020-11-04] MEDS: Propofol 10MG/Ml 1,000 MG/100 ML Bottle 37.8 MG CONT INF ×3 (02:04→05:53)
[2020-11-04 05:04] LABS: ALB/GLOB Ratio 0.5 RATIO (0.9-2.4); AST(SGOT) 167 U/L (15-37); Alanine Aminotransfer ALT/SGPT 78 U/L (16-61); Albumin, Serum 1.9 g/dL (3.2-5.0); Alkaline Phosphatase 61 U/L (45-117); Anion Gap 10 (5-15); BUN 54 mg/dL (7-18); BUN/Creat Ratio 10.1 RATIO (10-20); Calcium,Total 7.1 mg/dL (8.5-10.1); Chloride 102 mmol/L (98-107); Creatinine, Serum 5.36 mg/dL (0.70-1.30); EST Glomerular Filtration Rate 11 mL/min (>60); Est Glom Filt Rate - Afr Amer 14 mL/min (>60); Estimated Creatinine Clearance 13.56 ml/min; Globulin 4.1 g/dL (2.2-4.2); Glucose 124 mg/dL (74-106); Potassium 4.6 mmol/L (3.5-5.1); Sodium Level 137 mmol/L (136-145)
[2020-11-04 05:21] LABS: Bedside Glucose 131 mg/dL (70-110)
--- NOTE | 2020-11-04 05:43 | PCM.PN.INT ---
Subjective: The patient was seen and examined at the bedside this morning. Events from the last 24 hours have been reviewed. The patient is currently afebrile and hemodynamically stable on Levophed at 10 mcg/min. The patient underwent 3 hours of dialysis yesterday with 1.5 L of fluid removed. The patient is currently documented to be overall net +11.5 L for the hospital admission. The patient remains on assist control mode of mechanical ventilation with an FiO2 requirement of 60% and PEEP of 12. The patient remains sedated on both propofol and fentanyl. Orders to discontinue his cis atracurium were given this morning. Nursing staff reports issues overnight with high tube feed residuals. I did call and personally speak with the patient's daughter this morning, Charla, and updated her on the patient's overall clinical status. Questions were answered accordingly. Objective: The patient's most recent lab work, culture data and imaging studies have all been personally reviewed. Rapid coronavirus antigen testing was positive on October 24. Stool for occult blood was positive on October 25. Sputum culture was positive for group B streptococcus. General: - - Intubated, sedated and mechanically ventilated. No ventilator to synchrony noted. HEENT: Atraumatic, Normocephalic Oral: No Gingival or Mucosal Lesions/ Ulcerations, - - Stable endotracheal and OG tubes. Neck: Supple, No Nodes, Trachea Midline, - - Stable central venous catheter is in place Lungs: No rhonchi, No wheeze, No rales, Diminished Cardiovascular: Regular rate, Regular Rhythm Abdomen: Bowel Sounds Present, Soft, Non Tender, Obese Extremities: No clubbing, No cyanosis, No edema Skin: - - No significant change from previous Musculoskeletal: No Tenderness to Palpation of Joints or Extremities Lymphatic: No Cervical, Supraclavicular, or Inguinal Adenopathy Neurological: - - No focal neurological deficits. Paralytic has been discontinued. BIS monitor value of 48 noted. Vital Signs Temp Pulse Resp BP Pulse Ox 98.9 F 79 16 110/47 L 94 11/04/20 04:00 11/04/20 05:00 11/04/20 05:00 11/04/20 05:00 11/04/20 05:00 Oxygen Flow Rate (L/min) 50 Oxygen Delivery Method Mechanical Ventilator Weight: 278 lb 10.629 oz Body Mass Index (BMI) 40.2 Intake and Output for Last 24 Hours 11/02/20 11/03/20 11/04/20 23:59 23:59 23:59 Intake Total 3563.06 / 3682.06 3702.79 / 3927.67 819.72 / 819.72 Output Total 390 / 490 188 / 208 Balance 3173.06 / 3192.06 3514.79 / 3719.67 794.72 / 794.72 Labs (Last 48 Hours) 11/02/20 11/02/20 11/02/20 05:40 05:40 05:40 WBC Cancelled Corrected WBC Cancelled RBC Cancelled Hgb Cancelled Hct Cancelled MCV Cancelled MCH Cancelled MCHC Cancelled RDW Std Deviation Cancelled RDW Coeff of Abhilash Cancelled Plt Count Cancelled MPV Cancelled Immature Gran % (Auto) Cancelled Neut % (Auto) Cancelled Lymph % (Auto) Cancelled [place] % (Auto) Cancelled Eos % (Auto) Cancelled Baso % (Auto) Cancelled Absolute Neuts (auto) Cancelled Absolute Lymphs (auto) Cancelled Total Counted Cancelled Neutrophils % (Manual) Cancelled Band Neutrophils % Cancelled Lymphocytes % (Manual) Cancelled Monocytes % (Manual) Cancelled Eosinophils % (Manual) Cancelled Basophils % (Manual) Cancelled Metamyelocytes % Cancelled Myelocytes % Cancelled Promyelocytes % Cancelled Blast Cells % Cancelled Plasma Cell % (Manual) Cancelled Other Cells % Cancelled Nucleated RBC % Cancelled Nucleated RBCs/100 WBC Cancelled Differential Comment Cancelled Diff Path Review Cancelled Hypersegmented Neuts Cancelled Atypical Lymphocytes Cancelled Reactive Lymphocytes Cancelled Smudge Cells Cancelled Toxic Granulation Cancelled Toxic Vacuolation Cancelled Dohle Bodies Cancelled Abe Rods Cancelled Platelet Estimate Cancelled Plt Morphology Comment Cancelled RBC Morphology Cancelled Polychromasia Cancelled Hypochromasia Cancelled Poikilocytosis Cancelled Basophilic Stippling Cancelled Anisocytosis Cancelled Microcytosis Cancelled Macrocytosis Cancelled Spherocytes Cancelled Sickle Cells Cancelled Target Cells Cancelled Tear Drop Cells Cancelled Ovalocytes Cancelled Stomatocytes Cancelled Griffin-Ventana Bodies Cancelled Abraham Cells Cancelled Bite Cells Cancelled Crenated Cell Cancelled Acanthocytes (Spur) Cancelled Rouleaux Cancelled Schistocytes Cancelled Specimen Type Sample Site pH Bicarbonate Actual Total CO2 Base Excess O2 Saturation O2 % ABG pCO2 ABG pO2 Respiration Rate O2 Delivery Device Vent Mode Tidal Volume POC PEEP Sodium Cancelled Potassium Cancelled Chloride Cancelled Carbon Dioxide Cancelled Anion Gap Cancelled BUN Cancelled Creatinine Cancelled Estim Creat Clear Calc Cancelled Est GFR (MDRD) Af Amer Cancelled Est GFR (MDRD) Non-Af Cancelled BUN/Creatinine Ratio Cancelled Glucose Cancelled Calcium Cancelled Phosphorus Cancelled Magnesium Cancelled Total Bilirubin Cancelled AST Cancelled ALT Cancelled Alkaline Phosphatase Cancelled Total Protein Cancelled Albumin Cancelled Globulin Cancelled Albumin/Globulin Ratio Cancelled Urine Color Urine Clarity Urine pH Ur Specific [place] Urine Protein Urine Glucose (UA) Urine Ketones Urine Occult Blood Urine Nitrite Urine Bilirubin Urine Urobilinogen Ur Leukocyte Esterase Urine RBC Urine WBC Ur Squamous Epith Cells Calcium Oxalate Crystal Amorphous Sediment Urine Bacteria Urine Mucus Ur Random Sodium Urine Creatinine Hep Bs Antigen MRSA (PCR) POC Glucose 11/02/20 11/02/20 11/02/20 07:02 07:02 07:59 WBC 20.3 H Corrected WBC RBC 4.58 L Hgb 12.5 L Hct 42.2 MCV 92.1 D MCH 27.3 MCHC 29.6 L D RDW Std Deviation 58.8 H RDW Coeff of Abhilash 17.2 H Plt Count 418 MPV 10.0 Immature Gran % (Auto) 2.600 H Neut % (Auto) 79.2 H Lymph % (Auto) 6.4 L [place] % (Auto) 11.3 H Eos % (Auto) 0.1 Baso % (Auto) 0.4 Absolute Neuts (auto) 16.1 H Absolute Lymphs (auto) 1.29 Total Counted Neutrophils % (Manual) Band Neutrophils % Lymphocytes % (Manual) Monocytes % (Manual) Eosinophils % (Manual) Basophils % (Manual) Metamyelocytes % Myelocytes % Promyelocytes % Blast Cells % Plasma Cell % (Manual) Other Cells % Nucleated RBC % 0 Nucleated RBCs/100 WBC Differential Comment Diff Path Review May foll Hypersegmented Neuts Atypical Lymphocytes Reactive Lymphocytes Smudge Cells Toxic Granulation Toxic Vacuolation Dohle Bodies Abe Rods Platelet Estimate Plt Morphology Comment RBC Morphology Polychromasia Hypochromasia Poikilocytosis Basophilic Stippling Anisocytosis Microcytosis Macrocytosis Spherocytes Sickle Cells Target Cells Tear Drop Cells Ovalocytes Stomatocytes Griffin-Ventana Bodies Bellflower Cells Bite Cells Crenated Cell Acanthocytes (Spur) Rouleaux Schistocytes Specimen Type ART Sample Site L Brach pH 7.23 L Bicarbonate Actual 27.9 H Total CO2 30 Base Excess 0 O2 Saturation 94 L O2 % 80 ABG pCO2 67.3 H* ABG pO2 84 Respiration Rate 20 O2 Delivery Device Adult Vent Vent Mode AC Tidal Volume 500 POC PEEP 20 Sodium 140 Potassium 6.1 H* Chloride 106 Carbon Dioxide 28.0 Anion Gap 6 BUN 47 H Creatinine 3.71 H Estim Creat Clear Calc 19.59 Est GFR (MDRD) Af Amer 21 L Est GFR (MDRD) Non-Af 18 L BUN/Creatinine Ratio 12.7 Glucose 127 H Calcium 8.7 Phosphorus 7.1 H Magnesium 2.3 Total Bilirubin 0.80 AST 103 H ALT 65 H Alkaline Phosphatase 80 Total Protein 7.3 Albumin 2.4 L Globulin 4.9 H Albumin/Globulin Ratio 0.5 L Urine Color Urine Clarity Urine pH Ur Specific [place] Urine Protein Urine Glucose (UA) Urine Ketones Urine Occult Blood Urine Nitrite Urine Bilirubin Urine Urobilinogen Ur Leukocyte Esterase Urine RBC Urine WBC Ur Squamous Epith Cells Calcium Oxalate Crystal Amorphous Sediment Urine Bacteria Urine Mucus Ur Random Sodium Urine Creatinine Hep Bs Antigen MRSA (PCR) POC Glucose 11/02/20 11/02/20 11/02/20 16:15 16:45 16:45 WBC Corrected WBC RBC Hgb Hct MCV MCH MCHC RDW Std Deviation RDW Coeff of Abhilash Plt Count MPV Immature Gran % (Auto) Neut % (Auto) Lymph % (Auto) [place] % (Auto) Eos % (Auto) Baso % (Auto) Absolute Neuts (auto) Absolute Lymphs (auto) Total Counted Neutrophils % (Manual) Band Neutrophils % Lymphocytes % (Manual) Monocytes % (Manual) Eosinophils % (Manual) Basophils % (Manual) Metamyelocytes % Myelocytes % Promyelocytes % Blast Cells % Plasma Cell % (Manual) Other Cells % Nucleated RBC % Nucleated RBCs/100 WBC Differential Comment Diff Path Review Hypersegmented Neuts Atypical Lymphocytes Reactive Lymphocytes Smudge Cells Toxic Granulation Toxic Vacuolation Dohle Bodies Abe Rods Platelet Estimate Plt Morphology Comment RBC Morphology Polychromasia Hypochromasia Poikilocytosis Basophilic Stippling Anisocytosis Microcytosis Macrocytosis Spherocytes Sickle Cells Target Cells Tear Drop Cells Ovalocytes Stomatocytes Griffin-Ventana Bodies Bellflower Cells Bite Cells Crenated Cell Acanthocytes (Spur) Rouleaux Schistocytes Specimen Type Sample Site pH Bicarbonate Actual Total CO2 Base Excess O2 Saturation O2 % ABG pCO2 ABG pO2 Respiration Rate O2 Delivery Device Vent Mode Tidal Volume POC PEEP Sodium Potassium Chloride Carbon Dioxide Anion Gap BUN Creatinine Estim Creat Clear Calc Est GFR (MDRD) Af Amer Est GFR (MDRD) Non-Af BUN/Creatinine Ratio Glucose Calcium Phosphorus Magnesium Total Bilirubin AST ALT Alkaline Phosphatase Total Protein Albumin Globulin Albumin/Globulin Ratio Urine Color Brown Urine Clarity Cloudy Urine pH 5.0 Ur Specific [place] 1.025 Urine Protein 100 H Urine Glucose (UA) 50 H Urine Ketones 5 H Urine Occult Blood 250 H Urine Nitrite Positive H Urine Bilirubin 1 H Urine Urobilinogen 1 H Ur Leukocyte Esterase 500 H Urine RBC 10-25 SEEN Urine WBC 5-10 SEEN Ur Squamous Epith Cells 0 SEEN Calcium Oxalate Crystal RARE Amorphous Sediment 2+ Urine Bacteria 4+ Urine Mucus 0 SEEN Ur Random Sodium 24 Urine Creatinine 205.00 Hep Bs Antigen Pending MRSA (PCR) POC Glucose 11/03/20 11/03/20 11/03/20 05:00 05:00 06:50 WBC 21.3 H Corrected WBC RBC 4.06 L Hgb 10.9 L Hct 37.4 L MCV 92.1 MCH 26.8 L MCHC 29.1 L RDW Std Deviation 59.4 H RDW Coeff of Abhilash 17.2 H Plt Count 361 MPV 10.0 Immature Gran % (Auto) 3.100 H Neut % (Auto) 80.8 H Lymph % (Auto) 6.0 L [place] % (Auto) 9.9 Eos % (Auto) 0.0 Baso % (Auto) 0.2 Absolute Neuts (auto) 17.2 H Absolute Lymphs (auto) 1.29 Total Counted Neutrophils % (Manual) Band Neutrophils % Lymphocytes % (Manual) Monocytes % (Manual) Eosinophils % (Manual) Basophils % (Manual) Metamyelocytes % Myelocytes % Promyelocytes % Blast Cells % Plasma Cell % (Manual) Other Cells % Nucleated RBC % 0 Nucleated RBCs/100 WBC Differential Comment SCANNED Diff Path Review May foll Hypersegmented Neuts Atypical Lymphocytes Reactive Lymphocytes Smudge Cells Toxic Granulation Toxic Vacuolation Dohle Bodies Abe Rods Platelet Estimate Plt Morphology Comment RBC Morphology Polychromasia Hypochromasia Poikilocytosis Basophilic Stippling Anisocytosis Microcytosis Macrocytosis Spherocytes Sickle Cells Target Cells Tear Drop Cells Ovalocytes Stomatocytes Griffin-Ventana Bodies Bellflower Cells Bite Cells Crenated Cell Acanthocytes (Spur) Rouleaux Schistocytes Specimen Type Sample Site pH Bicarbonate Actual Total CO2 Base Excess O2 Saturation O2 % ABG pCO2 ABG pO2 Respiration Rate O2 Delivery Device Vent Mode Tidal Volume POC PEEP Sodium 139 Potassium 5.4 H Chloride 105 Carbon Dioxide 24.0 Anion Gap 10 BUN 61 H Creatinine 5.29 H Estim Creat Clear Calc 13.74 Est GFR (MDRD) Af Amer 14 L Est GFR (MDRD) Non-Af 12 L BUN/Creatinine Ratio 11.5 Glucose 142 H Calcium 7.6 L Phosphorus Magnesium Total Bilirubin 0.50 AST 153 H ALT 80 H Alkaline Phosphatase 74 Total Protein 6.5 Albumin 2.0 L Globulin 4.5 H Albumin/Globulin Ratio 0.4 L Urine Color Urine Clarity Urine pH Ur Specific [place] Urine Protein Urine Glucose (UA) Urine Ketones Urine Occult Blood Urine Nitrite Urine Bilirubin Urine Urobilinogen Ur Leukocyte Esterase Urine RBC Urine WBC Ur Squamous Epith Cells Calcium Oxalate Crystal Amorphous Sediment Urine Bacteria Urine Mucus Ur Random Sodium Urine Creatinine Hep Bs Antigen MRSA (PCR) Negative POC Glucose 11/03/20 11/03/20 11/04/20 12:01 23:32 04:10 WBC Corrected WBC RBC Hgb Hct MCV MCH MCHC RDW Std Deviation RDW Coeff of Abhilash Plt Count MPV Immature Gran % (Auto) Neut % (Auto) Lymph % (Auto) [place] % (Auto) Eos % (Auto) Baso % (Auto) Absolute Neuts (auto) Absolute Lymphs (auto) Total Counted Neutrophils % (Manual) Band Neutrophils % Lymphocytes % (Manual) Monocytes % (Manual) Eosinophils % (Manual) Basophils % (Manual) Metamyelocytes % Myelocytes % Promyelocytes % Blast Cells % Plasma Cell % (Manual) Other Cells % Nucleated RBC % Nucleated RBCs/100 WBC Differential Comment Diff Path Review Hypersegmented Neuts Atypical Lymphocytes Reactive Lymphocytes Smudge Cells Toxic Granulation Toxic Vacuolation Dohle Bodies Abe Rods Platelet Estimate Plt Morphology Comment RBC Morphology Polychromasia Hypochromasia Poikilocytosis Basophilic Stippling Anisocytosis Microcytosis Macrocytosis Spherocytes Sickle Cells Target Cells Tear Drop Cells Ovalocytes Stomatocytes Girffin-Ventana Bodies Abraham Cells Bite Cells Crenated Cell Acanthocytes (Spur) Rouleaux Schistocytes Specimen Type Sample Site pH Bicarbonate Actual Total CO2 Base Excess O2 Saturation O2 % ABG pCO2 ABG pO2 Respiration Rate O2 Delivery Device Vent Mode Tidal Volume POC PEEP Sodium 137 Potassium 4.6 Chloride 102 Carbon Dioxide 25.0 Anion Gap 10 BUN 54 H Creatinine 5.36 H Estim Creat Clear Calc 13.56 Est GFR (MDRD) Af Amer 14 L Est GFR (MDRD) Non-Af 11 L BUN/Creatinine Ratio 10.1 Glucose 124 H Calcium 7.1 L Phosphorus Magnesium Total Bilirubin 0.50 AST 167 H ALT 78 H Alkaline Phosphatase 61 Total Protein 6.0 L Albumin 1.9 L Globulin 4.1 Albumin/Globulin Ratio 0.5 L Urine Color Urine Clarity Urine pH Ur Specific [place] Urine Protein Urine Glucose (UA) Urine Ketones Urine Occult Blood Urine Nitrite Urine Bilirubin Urine Urobilinogen Ur Leukocyte Esterase Urine RBC Urine WBC Ur Squamous Epith Cells Calcium Oxalate Crystal Amorphous Sediment Urine Bacteria Urine Mucus Ur Random Sodium Urine Creatinine Hep Bs Antigen MRSA (PCR) POC Glucose 131 H 151 H 11/04/20 04:20 WBC Corrected WBC RBC Hgb Hct MCV MCH MCHC RDW Std Deviation RDW Coeff of Abhilash Plt Count MPV Immature Gran % (Auto) Neut % (Auto) Lymph % (Auto) [place] % (Auto) Eos % (Auto) Baso % (Auto) Absolute Neuts (auto) Absolute Lymphs (auto) Total Counted Neutrophils % (Manual) Band Neutrophils % Lymphocytes % (Manual) Monocytes % (Manual) Eosinophils % (Manual) Basophils % (Manual) Metamyelocytes % Myelocytes % Promyelocytes % Blast Cells % Plasma Cell % (Manual) Other Cells % Nucleated RBC % Nucleated RBCs/100 WBC Differential Comment Diff Path Review Hypersegmented Neuts Atypical Lymphocytes Reactive Lymphocytes Smudge Cells Toxic Granulation Toxic Vacuolation Dohle Bodies Abe Rods Platelet Estimate Plt Morphology Comment RBC Morphology Polychromasia Hypochromasia Poikilocytosis Basophilic Stippling Anisocytosis Microcytosis Macrocytosis Spherocytes Sickle Cells Target Cells Tear Drop Cells Ovalocytes Stomatocytes Griffin-Ventana Bodies Bellflower Cells Bite Cells Crenated Cell Acanthocytes (Spur) Rouleaux Schistocytes Specimen Type Sample Site pH Bicarbonate Actual Total CO2 Base Excess O2 Saturation O2 % ABG pCO2 ABG pO2 Respiration Rate O2 Delivery Device Vent Mode Tidal Volume POC PEEP Sodium Potassium Chloride Carbon Dioxide Anion Gap BUN Creatinine Estim Creat Clear Calc Est GFR (MDRD) Af Amer Est GFR (MDRD) Non-Af BUN/Creatinine Ratio Glucose Calcium Phosphorus Magnesium Total Bilirubin AST ALT Alkaline Phosphatase Total Protein Albumin Globulin Albumin/Globulin Ratio Urine Color Urine Clarity Urine pH Ur Specific [place] Urine Protein Urine Glucose (UA) Urine Ketones Urine Occult Blood Urine Nitrite Urine Bilirubin Urine Urobilinogen Ur Leukocyte Esterase Urine RBC Urine WBC Ur Squamous Epith Cells Calcium Oxalate Crystal Amorphous Sediment Urine Bacteria Urine Mucus Ur Random Sodium Urine Creatinine Hep Bs Antigen MRSA (PCR) POC Glucose 131 H Microbiology 11/01/20 12:25 Sputum, Induced/Lukens Gram Stain - Final 11/01/20 12:25 Sputum, Induced/Lukens Respiratory Culture - Preliminary Streptococcus group B Presumptive C albicans Clinical Impression(s) from Imaging Studies Chest X-Ray 10/24/20 14:10 IMPRESSION: Bilateral pulmonary infiltrates worse in the right hemithorax. Electronically Signed: Jr Moya, at 14:27 EST , Service support , Chest CTA 10/25/20 10:45 IMPRESSION: Limited evaluation of the pulmonary arteries due to poor contrast-enhancement although I suspect multiple small pulmonary emboli in the upper lobe pulmonary arterial branches. Multiple areas of bilateral groundglass appearance was in the right hemithorax suggestive of a pneumonitis associated with Covid 19. Electronically Signed: Jr Moya, at 11:20 EST , Service support , Chest X-Ray 10/30/20 12:54 IMPRESSION: Worsening interstitial and airspace opacifications in both lung vann compared to the previous study. Follow-up recommended to ensure resolution Electronically Signed: Marcus Vides MD at 14:43 EST , Service support , Chest X-Ray 11/01/20 10:43 IMPRESSION: Progressive bilateral pulmonary infiltrates more prominent in the right hemithorax. The tip of the endotracheal tube is at 4.7 cm proximal to the javier. Electronically Signed: Jr Moya, at 11:21 EST , Service support , Chest X-Ray 11/02/20 10:50 IMPRESSION: The tip of the right sided hemodialysis catheter is in the right atrium. The tip of the endotracheal tube is at 9 cm proximal to the javier. Persistent bilateral pulmonary infiltrates although there has been improved aeration as compared to prior study. Electronically Signed: Jr Moya, at 11:07 EST , Service support , Chest X-Ray 11/02/20 13:50 IMPRESSION: Interval placement of a left subclavian catheter with the tip at the junction of superior vena cava and right atrium. The tip of the endotracheal tube is at 6.3 cm proximal to the javier. Stable bilateral pulmonary infiltrates. Electronically Signed: Jr Griffin, at 14:17 EST , Service support , Medical Necessity - Tobacco Use Smoking Status: Never smoker Tobacco Use: Non-smoker Assessment/Plan All Active Problems (Last Updated 10/24/20 @ 15:[address] Nish Dee, DO) Pneumonia due to Coronavirus disease 2019 (Acute) Hypoxia (Acute) Melena (Acute) RECOMMENDATIONS: 1. Continue patient on assist control mode of mechanical ventilation and wean FiO2 and PEEP to maintain oxygen saturations at or above 90%. 2. We will plan to discontinue paralytic today and continue propofol and fentanyl for sedation. 3. Continue attempts at volume optimization via hemodialysis per nephrology. 4. Hold tube feeds given high residuals. 5. Continue therapeutic Lovenox. 6. Continue PPI therapy as ordered. 7. Continue antimicrobials per ID recommendations. 8. Continue scheduled bronchodilators. IMPRESSIONS: 1. Acute hypoxemic respiratory failure Multifactorial in etiology with COVID-19 pneumonia and bilateral pulmonary emboli contributing. Although attempts were made to utilize heated high flow oxygen and later BiPAP, the patient continued to decompensate from a respiratory perspective, requiring intubation on November 01. For now, the patient will be continued on assist control mode of mechanical ventilation, with plans to wean FiO2 and PEEP to maintain saturations at or above 90%. The patient's paralytic will be discontinued this morning, with plans to continue propofol and fentanyl for sedation. Nephrology is currently following to assist with hemodialysis needs. Given high residuals, tube feeds will be placed on hold today. 2. Acute kidney injury/hyperkalemia Likely prerenal in etiology with component of ischemic ATN. Nephrology is currently following to assist with hemodialysis needs. Anticipate further need for ultrafiltration to assist with volume optimization. 3. Possible GI bleed No overt signs of GI blood loss at this time. Continue twice daily PPI therapy as ordered. Monitor H&H and transfuse if hemoglobin drops below 7 g/dL. 4. History of coronary artery disease/hypertension/hyperlipidemia/obesity Complicates care, management, recovery and prognosis. Continue home medications as indicated. TIME: 36 minutes of critical care time, inclusive of procedures, was spent addressing the patient's acute hypoxemic respiratory failure, COVID-19 pneumonia, bilateral pulmonary emboli, acute kidney injury, review of all data and collaboration with the care team. [id number]) [id number] Critical care first hour
[2020-11-04] MEDS: TITRATION PARAMETER CHANGE 1 EACH IV (05:45)
--- NOTE | 2020-11-04 07:18 | PN_ITS ---
Patient Problems: Active and Suspected Problems (Last Updated 10/24/20 @ 15:[address] Nish Dee, DO) Pneumonia due to Coronavirus disease 2019 (Acute) Hypoxia (Acute) Melena (Acute) Reason for Visit: Follow-up for acute hypoxic respiratory failure, acute kidney injury due to COVID-19 pneumonia Objective: Patient on Levophed 10 mics per minute. Patient had dialysis yesterday and 1.5 L of fluid was removed. On assist mode control of ventilator, 2% FiO2 PEEP of 12. And then paralytic agent cisatracurium discontinued. BUN/creatinine 54/5.36. Electrolytes in normal limit. Afebrile in the last 72 hours. Sputum culture growing strep group B. Physical exam General: Unconscious, sedated. HEENT: Atraumatic, Normocephalic. Pupils reactive but sluggish. Oral: ET and OG tube. Neck: Supple, No JVD, Negative Carotid Bruits Lungs: On vent support. Bilateral coarse crepitations present. Air entry bilateral equal. Cardiovascular: Sinus rhythm with PVCs normal S1, Normal S2, Hypotension on vasopressors. no murmurs. Abdomen: Bowel Sounds Present, Soft, Non Tender, Non-Distended : Anuria. 188 mL urine output on 11/03. Temporary hemodialysis catheter in right IJ. Burgess catheter. Dark yellow urine. No renal angle tenderness. Extremities: Mild bilateral ankle edema, Capillary Refill Less than 3 Seconds Skin: No rashes, No breakdown. Right femoral CVC catheter. Musculoskeletal: No Tenderness to Palpation of Joints or Extremities Neurological: No focal neurological deficit. Sedated Psych/Mental Status: Sedated. Vitals/I&O's: Vital Signs Temp Pulse Resp BP Pulse Ox 98.9 F 74 16 122/51 H 94 11/04/20 04:00 11/04/20 07:14 11/04/20 07:14 11/04/20 07:00 11/04/20 07:14 Oxygen Flow Rate (L/min) 50 Oxygen Delivery Method Mechanical Ventilator Weight: 278 lb 10.629 oz Body Mass Index (BMI) 40.2 Intake and Output for Last 24 Hours 11/02/20 11/03/20 11/04/20 23:59 23:59 23:59 Intake Total 3563.06 / 3682.06 3702.79 / 3927.67 1000.14 / 1000.14 Output Total 390 / 490 188 / 208 375 / 375 Balance 3173.06 / 3192.06 3514.79 / 3719.67 625.14 / 625.14 Microbiology Past 72 Hours 11/01/20 12:25 Sputum, Induced/Lukens Gram Stain - Final 11/01/20 12:25 Sputum, Induced/Lukens Respiratory Culture - Preliminary Streptococcus group B Presumptive C albicans Laboratory Results 11/03/20 06:50: MRSA (PCR) Negative 11/03/20 12:01: POC Glucose 131 H 11/03/20 23:32: POC Glucose 151 H 11/04/20 04:10: Sodium 137, Potassium 4.6, Chloride 102, Carbon Dioxide 25.0, A nion Gap 10, BUN 54 H, Creatinine 5.36 H, Estim Creat Clear Calc 13.56, Est GFR (MDRD) Af Amer 14 L, Est GFR (MDRD) Non-Af 11 L, BUN/Creatinine Ratio 10.1, Glucose 124 H, Calcium 7.1 L, Total Bilirubin 0.50, AST 167 H, ALT 78 H, Alkaline Phosphatase 61, Total Protein 6.0 L, Albumin 1.9 L, Globulin 4.1, Albumin/Globulin Ratio 0.5 L 11/04/20 04:20: POC Glucose 131 H Current Medications Acetaminophen (Acetaminophen 325 Mg Tablet) 650 mg PO Q6H PRN PRN PRN Reason: Pain Score 1-10/Temp > 100.7 F Last Admin: 11/01/20 05:13 Dose: 650 mg Documented by: Albuterol/Ipratropium (Ipratropium/Albuterol Sulfate 3 Ml Ampul.Neb) 3 ml INHALATION Q6H.RT [facility] Last Admin: 11/04/20 07:13 Dose: 3 ml Documented by: Allopurinol (Allopurinol 300 Mg Tablet) 300 mg PO DAILY [facility] Last Admin: 11/03/20 12:16 Dose: 300 mg Documented by: Atorvastatin Calcium (Atorvastatin Calcium 20 Mg Tablet) 20 mg PO DAILY [facility] Last Admin: 11/03/20 12:16 Dose: 20 mg Documented by: Chlorhexidine Gluconate (Chlorhexidine 15 Ml) 15 ml PO BID [facility] Last Admin: 11/03/20 20:54 Dose: 15 ml Documented by: Dexamethasone (Dexamethasone 4 Mg Tablet) 6 mg PO DAILY [facility] Stop: 11/11/20 10:01 Last Admin: 11/03/20 12:16 Dose: 6 mg Documented by: Enoxaparin Sodium (Enoxaparin 120 Mg/0.8 Ml Syringe) 120 mg SC DAILY [facility] Last Admin: 11/03/20 12:15 Dose: 120 mg Documented by: Cisatracurium Besylate 100 mg/ (Sodium Chloride) 250 mls @ 37.92 mls/hr CONT INF .Q6H36M [facility]; Protocol Last Titration: 11/04/20 07:00 Dose: 0 mcg/kg/min, 0 mls/hr Documented by: Propofol (Diprivan) 1,000 mg in 100 mls @ 7.584 mls/hr CONT INF .Q12H [facility]; Protocol Last Titration: 11/04/20 07:00 Dose: 50 mcg/kg/min, 37.9 mls/hr Documented by: Fentanyl Citrate 1,000 mcg/ (Sodium Chloride) 100 mls @ 20 mls/hr CONT INF .Q5H [facility]; Protocol Last Admin: 11/04/20 06:56 Dose: 200 mcg/hr, 20 mls/hr Documented by: Enteral Nutritional Formula (Vital High Protein) 1,000 mls @ 70 mls/hr GT .[id number] [facility] Last Admin: 11/04/20 05:44 Dose: Not Given Documented by: Pantoprazole Sodium 40 mg/ (Sodium Chloride) 110 mls @ 330 mls/hr IV Q12 [facility] Last Infusion: 11/03/20 21:23 Dose: Infused Documented by: Ceftriaxone Sodium 2 gm/ (Sodium Chloride) 50 mls @ 100 mls/hr IV Q24 [facility] Last Infusion: 11/03/20 12:44 Dose: Infused Documented by: Norepinephrine Bitartrate 8 mg (/ Sodium Chloride) 250 mls @ 9.375 mls/hr CONT INF .[id number] [facility]; Protocol Last Titration: 11/04/20 07:00 Dose: 10 mcg/min, 18.8 mls/hr Documented by: Vasopressin 20 units/ Sodium (Chloride) 25 mls @ 3 mls/hr IV .Q8H20M [facility] Last Admin: 11/04/20 02:37 Dose: Not Given Documented by: Insulin Human Lispro (Insulin Lispro 100 Unit/Ml Insuln.Pen) 0 unit SC Q6 [facility]; Protocol Nystatin (Nystatin 500,000 Unit/5 Ml Udc) 500,000 unit PO 4X/DAY [facility] Last Admin: 11/03/20 20:52 Dose: 500,000 unit Documented by: Sodium Chloride (0.9% Saline Lock 10 Ml Syringe) 10 - 40 ml IV UD PRN PRN Reason: SALINE FLUSH Last Admin: 11/03/20 12:14 Dose: 10 ml Documented by: Sodium Chloride (Sodium Chloride 0.65% 1 [place].Btl) 2 spray NASAL BID PRN PRN PRN Reason: NASAL DRYNESS Last Admin: 10/28/20 22:53 Dose: 2 sprays Documented by: STROKE Vital Signs/Narrative: Vital Signs Temp Pulse Resp BP Pulse Ox 11/04/20 07:14 74 16 94 11/04/20 07:00 77 16 122/51 H 95 11/04/20 06:00 79 16 125/47 H 93 11/04/20 05:00 79 16 110/47 L 94 11/04/20 04:15 89 16 92 11/04/20 04:00 98.9 F 79 16 113/50 L 96 Medical Necessity - Tobacco Use Smoking Status: Never smoker Tobacco Use: Non-smoker Assessment/Plan All Active Problems (Last Updated 10/24/20 @ 15:[address] Nish Dee, DO) Pneumonia due to Coronavirus disease 2019 (Acute) Hypoxia (Acute) Melena (Acute) This is a 65 years old male patient presented to the emergency room because of weakness, fatigue and diarrhea, found to have bilateral pulmonary infiltrate and tested positive for COVID-19 and he was found to have acute bilateral COVID-19 pneumonia, renal insufficiency and hypoxia. #1 Acute hypoxic respiratory failure secondary to acute bilateral COVID-19 pne umonia and bilateral PE possible septic shock from group B streptococcus or distributive shock: Patient completed remdesivir. On Decadron. Discussed with ID. Patient has bilateral leg edema and was on HCTZ, losartan at home which are discontinued. Started on Lasix 40 mg IV daily. BNP, pro calcitonin and troponin ordered by ID. 10/30: Patient is more hypoxic on 10 L of oxygen. Repeat chest x-ray ordered. Troponin, BNP and procalcitonin normal. Mild leukocytosis 12,000 with lymphocyte 12%. Insole Filler has been consulted. Discussed with ID. 10/31: Hypoxia worsening. On high flow oxygen. Leukocytosis 14,000 with relative lymphopenia. Patient seen by automatic drill operator. Looks mildly depressed, started on trazodone 50 mg daily. 11/01: Patient required 100% FiO2 on BiPAP and was intubated. Blood pressure dropped after intubation and sedation probably distributive shock/septic shock. Patient chest x-ray shows worsening of bilateral infiltrates. ET and OG tube positions adequate. Sputum culture ordered. Leukocytosis with lymphopenia. Procalcitonin, CRP and LDH ordered. Patient's daughter Charla was called and recent change in clinical status was given including intubation, ventilator, vasopressor therapy. She wants to continue full code including CPR. 11/02: On 80% FiO2. PEEP 20. ABG 7.2 //28 on 80% FiO2/500/20/20. Muscular paralytic agent cisatracurium 11/03: FiO2 improved to 60% and PEEP 14, which enable good flow in dialysis catheter. Sputum culture growing Streptococcus group B. Started on ceftriaxone by ID yesterday. 11/04: On IV ceftriaxone. Meropenem was discontinued yesterday. On 55% FiO2, PEEP 12, tidal volume 500, mean airway pressure 16. #2 acute bilateral upper small pulmonary emboli: CTA chest reviewed, revealed suspicious multiple small pulmonary emboli in the upper lobe arterial branches. Continue Eliquis. Patient completed remdesivir on 28 October.. #2 Acute kidney injury due to ATN:Admission creatinine was 1.86, received IV fluids and creatinine came down to 1.02 mg/dL but patient has bilateral leg edema and hypoxia worsened. Started on Lasix as mentioned above. 10/31: On Lasix. Patient voiding 4 times daily spontaneously. 11/01: Electrolytes are in normal range. BUN/creatinine 29/1.11. 11/02: Anuria. Ambrose senior paralegal consulted. Right IJ temporary dialysis catheter inserted. Plan for hemodialysis today. 11/03: Plan for hemodialysis. 11/04: Patient still has +10 L of fluid balance. Will need hemodialysis. Still anuric. BUN/creatinine 54/5.36 #3 melena/probable GI bleed: Patient has been having brown stool, no more melena. Stool for occult blood tested positive. He is on PPI. Today's hemoglobin is 12.6 g/dL. Hemoglobin and hematocrit are stable. Vital signs are stable. H&H is stable. 11/01: On anticoagulant Lovenox 120 mg twice daily. Monitor CBC daily. Patient holding H&H. 11/02: H&H 12.5/432. platelet count 118.On enoxaparin 11/03: H&H is stable on the decreased to 10.9/37. 11/04: H&H 10.9/37.4 #4 CAD status post stents: Stable, no acute issues. Continue statins, losartan metoprolol. 11/02: Metoprolol and losartan has been discontinued as patient had hypotension. #5 hypertension: Blood pressure stable, continue losartan and metoprolol. #6 hyperlipidemia: Continue statins. Total time of the visit including total time spent in counseling or coordination of care, (more than 50% of the total time, spent in obtaining medical information from nurses and other ancillary care providers,explaining to the patient about labs, imaging, diagnosis and management), discussion with consulta nts, exchange of information to the family, his daughter, review of labs and imaging is 30 minutes. Microbiology Past 72 Hours 11/01/20 12:25 Sputum, Induced/Lukens Gram Stain - Final 11/01/20 12:25 Sputum, Induced/Lukens Respiratory Culture - Final Streptococcus agalactiae (B) Presumptive C albicans Laboratory Results 11/03/20 12:01: POC Glucose 131 H 11/03/20 23:32: POC Glucose 151 H 11/04/20 04:10: Sodium 137, Potassium 4.6, Chloride 102, Carbon Dioxide 25.0, Anion Gap 10, BUN 54 H, Creatinine 5.36 H, Estim Creat Clear Calc 13.56, Est GFR (MDRD) Af Amer 14 L, Est GFR (MDRD) Non-Af 11 L, BUN/Creatinine Ratio 10.1, Glucose 124 H, Calcium 7.1 L, Total Bilirubin 0.50, AST 167 H, ALT 78 H, Alkaline Phosphatase 61, Total Protein 6.0 L, Albumin 1.9 L, Globulin 4.1, Albumin/Globulin Ratio 0.5 L 11/04/20 04:20: POC Glucose 131 H Clinical Impression(s) from Imaging Studies Chest CTA 10/25/20 10:45 IMPRESSION: Limited evaluation of the pulmonary arteries due to poor contrast-enhancement although I suspect multiple small pulmonary emboli in the upper lobe pulmonary arterial branches. Multiple areas of bilateral groundglass appearance was in the right hemithorax suggestive of a pneumonitis associated with Covid 19. Chest X-Ray 11/01/20 10:43 IMPRESSION: Progressive bilateral pulmonary infiltrates more prominent in the right hemithorax. The tip of the endotracheal tube is at 4.7 cm proximal to the javier. Inpatient E&M: [id number] [facility] L3
[2020-11-04] MEDS: Chlorhexidine 15 ML PO ×2 (08:34→20:04)
[2020-11-04] MEDS: NYSTATIN 500,000 UNIT/5 ML UDC 500000 UNIT PO ×4 (08:34→22:32)
[2020-11-04] MEDS: Enoxaparin 120 MG/0.8 ML Syringe SC (08:34)
[2020-11-04] MEDS: 0.9% Saline Lock 10 ML Syringe IV (08:34)
[2020-11-04] MEDS: Propofol 10MG/Ml 1,000 MG/100 ML Bottle 37.9 MG CONT INF ×2 (09:10→10:30)
[2020-11-04] MEDS: dexAMETHasone 10 MG/ML Vial 6 MG IV (11:58)
[2020-11-04 12:46] LABS: Bedside Glucose 120 mg/dL (70-110)
[2020-11-04] MEDS: Propofol 10MG/Ml 1,000 MG/100 ML Bottle 34.1 MG CONT INF ×2 (13:14→16:15)
[2020-11-04 18:31] LABS: Bedside Glucose 139 mg/dL (70-110)
--- NOTE | 2020-11-04 19:19 | PCM.PN.REN ---
Patient Problems: Active and Suspected Problems (Last Updated 10/24/20 @ 15:[address] Nish Dee, DO) Pneumonia due to Coronavirus disease 2019 (Acute) Hypoxia (Acute) Melena (Acute) Subjective: Following for acute kidney injury. The patient is dialysis dependent. The patient remains intubated and sedated. Cannot do review of system. No significant change to the day per my discussion with RN. The patient remains on 10 mcg/min of norepinephrine drip. - Physical Exam Vitals/I&O's: Vital Signs Temp Pulse Resp BP Pulse Ox 98.5 F 60 16 126/55 H 96 11/04/20 18:00 11/04/20 19:17 11/04/20 19:17 11/04/20 18:45 11/04/20 18:00 Oxygen Flow Rate (L/min) 50 Oxygen Delivery Method Mechanical Ventilator Weight: 126.4 kg Body Mass Index (BMI) 40.2 Intake and Output for Last 24 Hours 11/02/20 11/03/20 11/04/20 23:59 23:59 23:59 Intake Total 3563.06 / 3682.06 3702.79 / 3927.67 1972.18 / 1972.18 Output Total 390 / 490 1688 / 1708 667 / 667 Balance 3173.06 / 3192.06 2014.79 / 2219.67 1306.18 / 1306.18 Comment: Exam is limited to prevent the advertent transmission of coronavirus. Microbiology Past 72 Hours 11/01/20 12:25 Sputum, Induced/Lukens Gram Stain - Final 11/01/20 12:25 Sputum, Induced/Lukens Respiratory Culture - Final Streptococcus agalactiae (B) Presumptive C albicans Laboratory Results 11/03/20 23:32: POC Glucose 151 H 11/04/20 04:10: Sodium 137, Potassium 4.6, Chloride 102, Carbon Dioxide 25.0, Anion Gap 10, BUN 54 H, Creatinine 5.36 H, Estim Creat Clear Calc 13.56, Est GFR (MDRD) Af Amer 14 L, Est GFR (MDRD) Non-Af 11 L, BUN/Creatinine Ratio 10.1, Glucose 124 H, Calcium 7.1 L, Total Bilirubin 0.50, AST 167 H, ALT 78 H, Alkaline Phosphatase 61, Total Protein 6.0 L, Albumin 1.9 L, Globulin 4.1, Albumin/Globulin Ratio 0.5 L 11/04/20 04:20: POC Glucose 131 H 11/04/20 11:49: POC Glucose 120 H 11/04/20 18:16: POC Glucose 139 H Current Medications Acetaminophen (Acetaminophen 325 Mg Tablet) 650 mg PO Q6H PRN PRN PRN Reason: Pain Score 1-10/Temp > 100.7 F Last Admin: 11/01/20 05:13 Dose: 650 mg Documented by: Albuterol/Ipratropium (Ipratropium/Albuterol Sulfate 3 Ml Ampul.Neb) 3 ml INHALATION Q6H.RT [facility] Last Admin: 11/04/20 19:17 Dose: 3 ml Documented by: Allopurinol (Allopurinol 300 Mg Tablet) 300 mg PO DAILY [facility] Last Admin: 11/04/20 09:22 Dose: Not Given Documented by: Atorvastatin Calcium (Atorvastatin Calcium 20 Mg Tablet) 20 mg PO DAILY [facility] Last Admin: 11/04/20 09:22 Dose: Not Given Documented by: Chlorhexidine Gluconate (Chlorhexidine 15 Ml) 15 ml PO BID [facility] Last Admin: 11/04/20 08:34 Dose: 15 ml Documented by: Dexamethasone Sodium Phosphate (Dexamethasone 10 Mg/Ml Vial) 6 mg IV DAILY [facility] Stop: 11/12/20 10:01 Last Admin: 11/04/20 11:58 Dose: 6 mg Documented by: Enoxaparin Sodium (Enoxaparin 120 Mg/0.8 Ml Syringe) 120 mg SC DAILY [facility] Last Admin: 11/04/20 08:34 Dose: 120 mg Documented by: Cisatracurium Besylate 100 mg/ (Sodium Chloride) 250 mls @ 37.92 mls/hr CONT INF .Q6H36M [facility]; Protocol Last Titration: 11/04/20 17:07 Dose: Infused Documented by: Propofol (Diprivan) 1,000 mg in 100 mls @ 7.584 mls/hr CONT INF .Q12H [facility]; Protocol Last Titration: 11/04/20 18:00 Dose: 40 mcg/kg/min, 30.3 mls/hr Documented by: Fentanyl Citrate 1,000 mcg/ (Sodium Chloride) 100 mls @ 20 mls/hr CONT INF .Q5H [facility]; Protocol Last Titration: 11/04/20 18:00 Dose: 200 mcg/hr, 20 mls/hr Documented by: Enteral Nutritional Formula (Vital High Protein) 1,000 mls @ 70 mls/hr GT .[id number] [facility] Last Admin: 11/04/20 05:44 Dose: Not Given Documented by: Pantoprazole Sodium 40 mg/ (Sodium Chloride) 110 mls @ 330 mls/hr IV Q12 [facility] Last Infusion: 11/04/20 12:27 Dose: Infused Documented by: Ceftriaxone Sodium 2 gm/ (Sodium Chloride) 50 mls @ 100 mls/hr IV Q24 [facility] Last Infusion: 11/04/20 14:09 Dose: Infused Documented by: Norepinephrine Bitartrate 8 mg (/ Sodium Chloride) 250 mls @ 9.375 mls/hr CONT INF .[id number] [facility]; Protocol Last Titration: 11/04/20 18:45 Dose: 10 mcg/min, 18.8 mls/hr Documented by: Vasopressin 20 units/ Sodium (Chloride) 25 mls @ 3 mls/hr IV .Q8H20M [facility] Last Infusion: 11/04/20 17:08 Dose: Infused Documented by: Insulin Human Lispro (Insulin Lispro 100 Unit/Ml Insuln.Pen) 0 unit SC Q6 [facility]; Protocol Last Admin: 11/04/20 18:19 Dose: Not Given Documented by: Nystatin (Nystatin 500,000 Unit/5 Ml Udc) 500,000 unit PO 4X/DAY [facility] Last Admin: 11/04/20 18:19 Dose: 500,000 unit Documented by: Sodium Chloride (0.9% Saline Lock 10 Ml Syringe) 10 - 40 ml IV UD PRN PRN Reason: SALINE FLUSH Last Admin: 11/04/20 08:34 Dose: 20 ml Documented by: Sodium Chloride (Sodium Chloride 0.65% 1 [place].Btl) 2 spray NASAL BID PRN PRN PRN Reason: NASAL DRYNESS Last Admin: 10/28/20 22:53 Dose: 2 sprays Documented by: Medical Necessity - Tobacco Use Smoking Status: Never smoker Tobacco Use: Non-smoker Assessment/Plan All Active Problems (Last Updated 10/24/20 @ 15:[address] Nish Dee, DO) Pneumonia due to Coronavirus disease 2019 (Acute) Hypoxia (Acute) Melena (Acute) Assessment: CELIA?ATN with shock. Baseline creatinine is 1.02. The patient remains oliguric. Hyperkalemia. Resolved for now. Hyperphosphatemia Respiratory failure s/p intubation COVID-19 pneumonia and bilateral pulmonary emboli Plan: The patient remains oliguric and dialysis dependent. We will dialyze the patient again tomorrow in the morning. We will try to get as much volume off as we can depending on what the blood pressure is. We will see how much volume can get off given his hypotension. Recheck renal function panel including phosphorus again tomorrow. If phosphorus is not trending down with current dialysis, we can start liquid calcium carbonate to bind phosphorus from tube feed. We will discussed further volume removal and/or dialysis again with check services clerk.
[2020-11-04] MEDS: Propofol 10MG/Ml 1,000 MG/100 ML Bottle 30.3 MG CONT INF ×2 (19:50→22:32)
[2020-11-05] VITALS (45 sets, daily range): BP systolic 100–150; BP diastolic 47–70; PULSE 63–102; RESP 14–23; TEMP 35.9–36.6; O2SAT 85–95
[2020-11-05] MEDS: Propofol 10MG/Ml 1,000 MG/100 ML Bottle 30.3 MG CONT INF ×2 (00:10→03:14)
[2020-11-05 00:46] LABS: Bedside Glucose 141 mg/dL (70-110)
[2020-11-05] MEDS: Ipratropium/Albuterol Sulfate 3 ML AMPUL.NEB INHALATION ×4 (01:52→19:10)
[2020-11-05] MEDS: 0.9% Saline Lock 10 ML Syringe IV (03:46)
[2020-11-05 04:38] LABS: Albumin, Serum 1.8 g/dL (3.2-5.0); BUN 78 mg/dL (7-18); BUN/Creat Ratio 10.5 RATIO (10-20); Calcium,Total 7.4 mg/dL (8.5-10.1); Chloride 101 mmol/L (98-107); Creatinine, Serum 7.43 mg/dL (0.70-1.30); EST Glomerular Filtration Rate 8 mL/min (>60); Est Glom Filt Rate - Afr Amer 10 mL/min (>60); Estimated Creatinine Clearance 9.78 ml/min; Glucose 110 mg/dL (74-106); Phosphorus 7.5 mg/dL (2.5-4.9); Potassium 4.6 mmol/L (3.5-5.1); Sodium Level 137 mmol/L (136-145)
[2020-11-05] MEDS: TITRATION PARAMETER CHANGE 1 EACH IV ×2 (04:50→08:10)
[2020-11-05] MEDS: Propofol 10MG/Ml 1,000 MG/100 ML Bottle 30.6 MG CONT INF ×7 (06:25→23:44)
[2020-11-05] MEDS: Vital High Protein 1,000 ML 70 ML GT (06:30)
--- NOTE | 2020-11-05 07:07 | PN_ITS ---
Subjective: Patient did okay overnight. Patient did not have dialysis yesterday, but was able to have PEEP weaned slightly overnight. Patient remains on Levophed to maintain appropriate blood pressures. Patient did have problems with increased residuals previously, but low residuals have been reported overnight. Patient with good vent synchrony. No bowel movements have been noted. General: - - Anasarca. Intubated and sedated. RASS -2. Morbidly obese. HEENT: Atraumatic, PERRLA, EOMI, Normocephalic, - - No scleral icterus or injection noted Oral: Moist Mucosa, No Gingival or Mucosal Lesions/ Ulcerations Neck: Supple, No Nodes, Trachea Midline Lungs: No rhonchi, No wheeze, Diminished, Rales - Right greater than left Cardiovascular: Regular rate, Regular Rhythm, Normal S1, Normal S2, Murmur - G rade 2 out of 6 systolic ejection murmur at the right sternal border, No rub noted, No Gallop Abdomen: Bowel Sounds Present, Soft, Non Tender, Non-Distended, Obese Extremities: No clubbing, No cyanosis, Edema Skin: No rashes, No breakdown Musculoskeletal: No Tenderness to Palpation of Joints or Extremities Lymphatic: No Cervical, Supraclavicular, or Inguinal Adenopathy Neurological: Cranial nerves II-XII grossly intact, Deep Tendon Reflexes 2+/4 and Symmetrical, Neuro grossly intact, - - Positive cough and gag reflex. Localizes to stimulus. Not following commands. Psych/Mental Status: Flat Affect Vital Signs Temp Pulse Resp BP Pulse Ox 36.3 C L 75 17 105/53 L 91 11/05/20 04:00 11/05/20 07:00 11/05/20 07:00 11/05/20 07:00 11/05/20 07:00 Oxygen Flow Rate (L/min) 50 Oxygen Delivery Method Mechanical Ventilator Weight: 127.6 kg Body Mass Index (BMI) 40.2 Intake and Output for Last 24 Hours 11/03/20 11/04/20 11/05/20 23:59 23:59 23:59 Intake Total 3702.79 / 3927.67 2400.96 / 2475.01 545.81 / 545.81 Output Total 1688 / 1708 667 / 667 260 / 260 Balance 2014.79 / 2219.67 1733.96 / 1808.01 285.81 / 285.81 Labs (Last 48 Hours) 11/03/20 11/03/20 11/03/20 06:50 12:01 23:32 Sodium Potassium Chloride Carbon Dioxide Anion Gap BUN Creatinine Estim Creat Clear Calc Est GFR (MDRD) Af Amer Est GFR (MDRD) Non-Af BUN/Creatinine Ratio Glucose Calcium Phosphorus Total Bilirubin AST ALT Alkaline Phosphatase Total Protein Albumin Globulin Albumin/Globulin Ratio MRSA (PCR) Negative POC Glucose 131 H 151 H 11/04/20 11/04/20 11/04/20 04:10 04:20 11:49 Sodium 137 Potassium 4.6 Chloride 102 Carbon Dioxide 25.0 Anion Gap 10 BUN 54 H Creatinine 5.36 H Estim Creat Clear Calc 13.56 Est GFR (MDRD) Af Amer 14 L Est GFR (MDRD) Non-Af 11 L BUN/Creatinine Ratio 10.1 Glucose 124 H Calcium 7.1 L Phosphorus Total Bilirubin 0.50 AST 167 H ALT 78 H Alkaline Phosphatase 61 Total Protein 6.0 L Albumin 1.9 L Globulin 4.1 Albumin/Globulin Ratio 0.5 L MRSA (PCR) POC Glucose 131 H 120 H 11/04/20 11/05/20 11/05/20 18:16 00:19 03:45 Sodium 137 Potassium 4.6 Chloride 101 Carbon Dioxide 24.0 Anion Gap BUN 78 H Creatinine 7.43 H* Estim Creat Clear Calc 9.78 Est GFR (MDRD) Af Amer 10 L Est GFR (MDRD) Non-Af 8 L BUN/Creatinine Ratio 10.5 Glucose 110 H Calcium 7.4 L Phosphorus 7.5 H Total Bilirubin AST ALT Alkaline Phosphatase Total Protein Albumin 1.8 L Globulin Albumin/Globulin Ratio MRSA (PCR) POC Glucose 139 H 141 H Microbiology 11/01/20 12:25 Sputum, Induced/Lukens Gram Stain - Final 11/01/20 12:25 Sputum, Induced/Lukens Respiratory Culture - Final Streptococcus agalactiae (B) Presumptive C albicans Medical Necessity - Tobacco Use Smoking Status: Never smoker Tobacco Use: Non-smoker Assessment/Plan All Active Problems (Last Updated 10/24/20 @ 15:[address] Nish Dee, DO) Pneumonia due to Coronavirus disease 2019 (Acute) Hypoxia (Acute) Melena (Acute) RECOMMENDATIONS: 1. Continue patient on assist control mode of mechanical ventilation and wean FiO2 and PEEP to maintain oxygen saturations at or above 90%. 2. Monitor off paralytic and continue propofol and fentanyl for sedation. 3. Continue attempts at volume optimization via hemodialysis per nephrology. 4. Initiate trophic tube feeds. Aggressive bowel regimen. 5. Continue therapeutic Lovenox. 6. Continue PPI therapy as ordered. 7. Continue antimicrobials per ID recommendations. 8. Continue scheduled bronchodilators. IMPRESSIONS: 1. Acute hypoxemic respiratory failure Multifactorial in etiology with COVID-19 pneumonia and bilateral pulmonary emboli contributing. Although attempts were made to utilize heated high flow oxygen and later BiPAP, the patient continued to decompensate from a respiratory perspective, requiring intubation on November 01. For now, the patient will be continued on assist control mode of mechanical ventilation, with plans to wean FiO2 and PEEP to maintain saturations at or above 90%. We will continue to monitor patient off of paralytic therapy. Continue with propofol and fentanyl as necessary for vent synchrony. Nephrology is currently following to assist with hemodialysis needs. Residuals are improved, so trophic feeds will be added. Aggressive bowel regimen. Spontaneous breathing and awakening trials per protocol. 2. Acute kidney injury/hyperkalemia Likely prerenal in etiology with component of ischemic ATN. Nephrology is currently following to assist with hemodialysis needs. Anticipate further need for ultrafiltration to assist with volume optimization. 3. Possible GI bleed No overt signs of GI blood loss at this time. Continue twice daily PPI therapy as ordered. Monitor H&H and transfuse if hemoglobin drops below 7 g/dL. 4. History of coronary artery disease/hypertension/hyperlipidemia/obesity Complicates care, management, recovery and prognosis. Continue home medications as indicated. TIME: 34 minutes of critical care time, inclusive of procedures, was spent addressing the patient's acute hypoxemic respiratory failure, COVID-19 pneumonia, bilateral pulmonary emboli, acute kidney injury, review of all data and collaboration with the care team. (6 AM to 7 AM) [phone]: [id number] Critical care first hour
--- NOTE | 2020-11-05 07:16 | PCM.PN.HOSP ---
Patient Problems: Active and Suspected Problems (Last Updated 10/24/20 @ 15:[address] Nish Dee, DO) Pneumonia due to Coronavirus disease 2019 (Acute) Hypoxia (Acute) Melena (Acute) Reason for Visit: Follow-up for acute hypoxic respiratory failure, septic shock secondary to bilateral COVID-19 with bacterial superinfection/pneumonia Objective: No high-grade fever. 50% FiO2 on PEEP 8. Norepinephrine drip 5 mics per minute. Patient did not had dialysis on 11/04. Minimal urine output 67 mL on 11/04 110 mm since 12 midnight as per intake and output charting. Low residual in feeding tube as per nursing staff. Physical exam General: On propofol and fentanyl. Patient sometimes open eyes but probably incomprehensible HEENT: Atraumatic, Normocephalic. Pupils reactive but sluggish. Oral: ET and OG tube. Neck: Supple, No JVD, Negative Carotid Bruits. Temporary hemodialysis catheter in right IJ. Lungs: On vent support 70% FiO2. Bilateral coarse crepitations present. Air entry bilateral equal. Cardiovascular: Sinus rhythm with PVCs normal S1, Normal S2, Hypotension on vasopressors. no murmurs. Abdomen: Bowel Sounds Present, Soft, Non Tender, Non-Distended : Anuria. On hemodialysis. Burgess catheter. Clear urine. No renal angle tenderness. Extremities: Mild bilateral ankle edema, Capillary Refill Less than 3 Seconds Skin: No rashes, No breakdown. Right femoral CVC catheter. Musculoskeletal: No Tenderness to Palpation of Joints or Extremities Neurological: No focal neurological deficit. Sedated Psych/Mental Status: Sedated. Vitals/I&O's: Vital Signs Temp Pulse Resp BP Pulse Ox 97.3 F L 75 17 105/53 L 91 11/05/20 04:00 11/05/20 07:00 11/05/20 07:00 11/05/20 07:00 11/05/20 07:00 Oxygen Flow Rate (L/min) 50 Oxygen Delivery Method Mechanical Ventilator Weight: 281 lb 4.957 oz Body Mass Index (BMI) 40.2 Intake and Output for Last 24 Hours 11/03/20 11/04/20 11/05/20 23:59 23:59 23:59 Intake Total 3702.79 / 3927.67 2400.96 / 2475.01 545.81 / 545.81 Output Total 1688 / 1708 667 / 667 260 / 260 Balance 2014.79 / 2219.67 1733.96 / 1808.01 285.81 / 285.81 Microbiology Past 72 Hours 11/01/20 12:25 Sputum, Induced/Lukens Gram Stain - Final 11/01/20 12:25 Sputum, Induced/Lukens Respiratory Culture - Final Streptococcus agalactiae (B) Presumptive C albicans Laboratory Results 11/04/20 11:49: POC Glucose 120 H 11/04/20 18:16: POC Glucose 139 H 11/05/20 00:19: POC Glucose 141 H 11/05/20 03:45: Sodium 137, Potassium 4.6, Chloride 101, Carbon Dioxide 24.0, BUN 78 H, Creatinine 7.43 H*, Estim Creat Clear Calc 9.78, Est GFR (MDRD) Af Amer 10 L, Est GFR (MDRD) Non-Af 8 L, BUN/Creatinine Ratio 10.5, Glucose 110 H, Calcium 7.4 L, Phosphorus 7.5 H, Albumin 1.8 L 11/05/20 03:45: WBC Pending, RBC Pending, Hgb Pending, Hct Pending, MCV Pending, MCH Pending, MCHC Pending, RDW Std Deviation Pending, RDW Coeff of Abhilash Pending, Plt Count Pending, Neut % (Auto) Pending, Absolute Neuts (auto) Pending Current Medications Acetaminophen (Acetaminophen 325 Mg Tablet) 650 mg PO Q6H PRN PRN PRN Reason: Pain Score 1-10/Temp > 100.7 F Last Admin: 11/01/20 05:13 Dose: 650 mg Documented by: Albuterol/Ipratropium (Ipratropium/Albuterol Sulfate 3 Ml Ampul.Neb) 3 ml INHALATION Q6H.RT [facility] Last Admin: 11/05/20 06:52 Dose: 3 ml Documented by: Allopurinol (Allopurinol 300 Mg Tablet) 300 mg PO DAILY [facility] Last Admin: 11/04/20 09:22 Dose: Not Given Documented by: Atorvastatin Calcium (Atorvastatin Calcium 20 Mg Tablet) 20 mg PO DAILY [facility] Last Admin: 11/04/20 09:22 Dose: Not Given Documented by: Chlorhexidine Gluconate (Chlorhexidine 15 Ml) 15 ml PO BID [facility] Last Admin: 11/04/20 20:04 Dose: 15 ml Documented by: Dexamethasone Sodium Phosphate (Dexamethasone 10 Mg/Ml Vial) 6 mg IV DAILY [facility] Stop: 11/12/20 10:01 Last Admin: 11/04/20 11:58 Dose: 6 mg Documented by: Enoxaparin Sodium (Enoxaparin 120 Mg/0.8 Ml Syringe) 120 mg SC DAILY [facility] Last Admin: 11/04/20 08:34 Dose: 120 mg Documented by: Cisatracurium Besylate 100 mg/ (Sodium Chloride) 250 mls @ 38.28 mls/hr CONT INF .Q6H32M [facility]; Protocol Last Admin: 11/05/20 01:08 Dose: Not Given Documented by: Propofol (Diprivan) 1,000 mg in 100 mls @ 7.656 mls/hr CONT INF .Q12H [facility]; Protocol Last Titration: 11/05/20 07:00 Dose: 40 mcg/kg/min, 30.6 mls/hr Documented by: Fentanyl Citrate 1,000 mcg/ (Sodium Chloride) 100 mls @ 20 mls/hr CONT INF .Q5H [facility]; Protocol Last Titration: 11/05/20 07:00 Dose: 150 mcg/hr, 15 mls/hr Documented by: Enteral Nutritional Formula (Vital High Protein) 1,000 mls @ 70 mls/hr GT .[id number] [facility] Last Admin: 11/05/20 06:30 Dose: 70 mls/hr Documented by: Pantoprazole Sodium 40 mg/ (Sodium Chloride) 110 mls @ 330 mls/hr IV Q12 [facility] Last Infusion: 11/04/20 22:21 Dose: Infused Documented by: Ceftriaxone Sodium 2 gm/ (Sodium Chloride) 50 mls @ 100 mls/hr IV Q24 [facility] Last Infusion: 11/04/20 14:09 Dose: Infused Documented by: Norepinephrine Bitartrate 8 mg (/ Sodium Chloride) 250 mls @ 9.375 mls/hr CONT INF .[id number] [facility]; Protocol Last Titration: 11/05/20 07:00 Dose: 5 mcg/min, 9.4 mls/hr Documented by: Vasopressin 20 units/ Sodium (Chloride) 25 mls @ 3 mls/hr IV .Q8H20M [facility] Last Admin: 11/05/20 04:49 Dose: Not Given Documented by: Insulin Human Lispro (Insulin Lispro 100 Unit/Ml Insuln.Pen) 0 unit SC Q6 VERONICA; Protocol Last Admin: 11/05/20 06:34 Dose: Not Given Documented by: Nystatin (Nystatin 500,000 Unit/5 Ml Udc) 500,000 unit PO 4X/DAY [facility]ONICA Last Admin: 11/04/20 22:32 Dose: 500,000 unit Documented by: Polyethylene Glycol (Polyethylene Glycol 3350 17 Gm Packet) 17 gm PO BID PRN PRN PRN Reason: CONSTIPATION Senna/Docusate Sodium (Senna/Docusate Sodium 1 Tablet) 2 tablet PO BID VERONICA Sodium Chloride (0.9% Saline Lock 10 Ml Syringe) 10 - 40 ml IV UD PRN PRN Reason: SALINE FLUSH Last Admin: 11/05/20 03:46 Dose: 20 ml Documented by: Sodium Chloride (Sodium Chloride 0.65% 1 [place].Btl) 2 spray NASAL BID PRN PRN PRN Reason: NASAL DRYNESS Last Admin: 10/28/20 22:53 Dose: 2 sprays Documented by: STROKE Vital Signs/Narrative: Vital Signs Temp Pulse Resp BP Pulse Ox 11/05/20 07:00 75 17 105/53 L 91 11/05/20 06:53 74 16 92 11/05/20 06:00 70 15 104/52 L 92 11/05/20 05:02 72 18 93 11/05/20 05:00 72 16 110/50 L 95 11/05/20 04:30 109/50 L 11/05/20 04:15 110/54 L 11/05/20 04:00 97.3 F L 72 15 107/53 L 95 11/05/20 03:45 111/52 L 11/05/20 03:30 116/52 L Medical Necessity - Tobacco Use Smoking Status: Never smoker Tobacco Use: Non-smoker Assessment/Plan All Active Problems (Last Updated 10/24/20 @ 15:[address] Nish Dee DO) Pneumonia due to Coronavirus disease 2019 (Acute) Hypoxia (Acute) Melena (Acute) This is a 65 years old male patient presented to the emergency room because of weakness, fatigue and diarrhea, found to have bilateral pulmonary infiltrate and tested positive for COVID-19 and he was found to have acute bilateral COVID-19 pneumonia, renal insufficiency and hypoxia. #1 Acute hypoxic respiratory failure secondary to acute bilateral COVID-19 pneumonia and bilateral PE possible septic shock from group B streptococcus or distributive shock: Patient completed remdesivir. On Decadron. Discussed with ID. Patient has bilateral leg edema and was on HCTZ, losartan at home which are discontinued. Started on Lasix 40 mg IV daily. BNP, pro calcitonin and troponin ordered by ID. 10/30: Patient is more hypoxic on 10 L of oxygen. Repeat chest x-ray ordered. Troponin, BNP and procalcitonin normal. Mild leukocytosis 12,000 with lymphocyte 12%. Ambulance Dispatcher has been consulted. Discussed with ID. 10/31: Hypoxia worsening. On high flow oxygen. Leukocytosis 14,000 with relative lymphopenia. Patient seen by laboratory mechanical technician. Looks mildly depressed, started on trazodone 50 mg daily. 11/01: Patient required 100% FiO2 on BiPAP and was intubated. Blood pressure dropped after intubation and sedation probably distributive shock/septic shock. Patient chest x-ray shows worsening of bilateral infiltrates. ET and OG tube positions adequate. Sputum culture ordered. Leukocytosis with lymphopenia. Procalcitonin, CRP and LDH ordered. Patient's daughter Charla was called and recent change in clinical status was given including intubation, ventilator, vasopressor therapy. She wants to continue full code including CPR. 11/02: On 80% FiO2. PEEP 20. ABG 7.2 /84/28 on 80% FiO2/500/20/20. Muscular paralytic agent cisatracurium 11/03: FiO2 improved to 60% and PEEP 14, which enable good flow in dialysis catheter. Sputum culture growing Streptococcus group B. Started on ceftriaxone by ID yesterday. 11/04: On IV ceftriaxone. Meropenem was discontinued yesterday. On 55% FiO2, PEEP 12, tidal volume 500, mean airway pressure 16. 11/05: FiO2 70%. Leukocytosis 18,000 slightly better. Platelet count is stable. #2 acute bilateral upper small pulmonary emboli: CTA chest reviewed, revealed suspicious multiple small pulmonary emboli in the upper lobe arterial branches. Continue Eliquis. Patient completed remdesivir on 28 October.. #2 Acute kidney injury due to ATN:Admission creatinine was 1.86, received IV fluids and creatinine came down to 1.02 mg/dL but patient has bilateral leg edema and hypoxia worsened. Started on Lasix as mentioned above. 10/31: On Lasix. Patient voiding 4 times daily spontaneously. 11/01: Electrolytes are in normal range. BUN/creatinine 29/1.11. 11/02: Anuria. [place] supervisor production consulted. Right IJ temporary dialysis catheter inserted. Plan for hemodialysis today. 11/03: Plan for hemodialysis. 11/04: Patient still has +10 L of fluid balance. Will need hemodialysis. Still anuric. BUN/creatinine 54/5.36 11/05: Patient has +11 L fluid balance. Currently undergoing hemodialysis. Fluid tomorrow as per tolerated by blood pressure and hemodynamic parameters. #3 melena/probable GI bleed: Patient has been having brown stool, no more melena. Stool for occult blood tested positive. He is on PPI. Today's hemoglobin is 12.6 g/dL. Hemoglobin and hematocrit are stable. Vital signs are stable. H&H is stable. 11/01: On anticoagulant Lovenox 120 mg twice daily. Monitor CBC daily. Patient holding H&H. 11/02: H&H 12.5/432. platelet count 118.On enoxaparin 11/03: H&H is stable on the decreased to 10.9/37. 11/04: H&H 10.9/37.4 11/05: H&H 9./27. #4 CAD status post stents: Stable, no acute issues. Continue statins, losartan metoprolol. 11/02: Metoprolol and losartan has been discontinued as patient had hypotension. #5 hypertension: Blood pressure stable, continue losartan and metoprolol. #6 hyperlipidemia: Continue statins. Total time of the visit including total time spent in counseling or coordination of care, (more than 50% of the total time, spent in obtaining medical information from nurses and other ancillary care providers,explaining to the patient about labs, imaging, diagnosis and management), discussion with consultants, exchange of information to the family, his daughter, review of labs and imaging is 30 minutes. Microbiology Past 72 Hours 11/01/20 12:25 Sputum, Induced/Lukens Gram Stain - Final 11/01/20 12:25 Sputum, Induced/Lukens Respiratory Culture - Final Streptococcus agalactiae (B) Presumptive C albicans Laboratory Results 11/02/20 16:15: Hep Bs Antigen Non-Reactive 11/04/20 11:49: POC Glucose 120 H 11/04/20 18:16: POC Glucose 139 H 11/05/20 00:19: POC Glucose 141 H 11/05/20 03:45: Sodium 137, Potassium 4.6, Chloride 101, Carbon Dioxide 24.0, BUN 78 H, Creatinine 7.43 H*, Estim Creat Clear Calc 9.78, Est GFR (MDRD) Af Amer 10 L, Est GFR (MDRD) Non-Af 8 L, BUN/Creatinine Ratio 10.5, Glucose 110 H, Calcium 7.4 L, Phosphorus 7.5 H, Albumin 1.8 L 11/05/20 03:45: WBC 18.2 H, RBC 2.96 L, Hgb 9.1 L, Hct 27.0 L, MCV 91.2, MCH 30.7, MCHC 33.7 D, RDW Std Deviation 56.5 H, RDW Coeff of Abhilash 17.5 H, Plt Count 308, MPV 10.9, Immature Gran % (Auto) 4.400 H, Neut % (Auto) 78.3 H, Lymph % (Auto) 5.9 L, [place] % (Auto) 10.8 H, Eos % (Auto) 0.4, Baso % (Auto) 0.2, Absolute Neuts (auto) 14.3 H, Absolute Lymphs (auto) 1.07, Nucleated RBC % 0, Differential Comment COMMENT, Diff Path Review February foll 11/05/20 06:33: POC Glucose 107 Clinical Impression(s) from Imaging Studies Chest CTA 10/25/20 10:45 IMPRESSION: Limited evaluation of the pulmonary arteries due to poor contrast-enhancement although I suspect multiple small pulmonary emboli in the upper lobe pulmonary arterial branches. Multiple areas of bilateral groundglass appearance was in the right hemithorax suggestive of a pneumonitis associated with Covid 19. Chest X-Ray 11/01/20 10:43 IMPRESSION: Progressive bilateral pulmonary infiltrates more prominent in the right hemithorax. The tip of the endotracheal tube is at 4.7 cm proximal to the javier. Inpatient E&M: [id number] Subs Hosp L3
[2020-11-05 07:23] LABS: Absolute Lymphocyte Count 1.07 X10^3/uL (0.83-4.51); Absolute Neutrophil Count 14.3 X10^3/uL (2.0-7.7); Basophil# 0.03 X10^3/uL; Basophil% 0.2 % (0-1); Eosinophil# 0.07 X10^3/uL; Eosinophils% 0.4 % (0-5); Hemoglobin 9.1 g/dL (13.0-16.5); Lymphocyte # 1.07 X10^3/ul (4.0); Lymphocyte % 5.9 % (19-41); Mean Corp Hgb Conc 33.7 g/dL (32-36); Mean Corpuscular Hgb 30.7 pg (27.0-32.0); Mean Corpuscular Volume 91.2 fL (80-94); Mean Platelet Vol. 10.9 fl (6.2-12.0); Monocyte# 1.96 X10^3/uL; Monocyte% 10.8 % (0-10); NRBC Flagged by Analyzer 0 % (0-5); Neutrophil # 14.27 X10^3/uL (2.7-7.7); Neutrophil % 78.3 % (47-70); POSITIVE DIFFERENTIAL YES; Platelet Count 308 K/mm3 (150-450); RBC Distribution Width CV 17.5 % (11.6-14.6); RBC Distribution Width SD 56.5 fl (35.1-43.9); Red Blood Count 2.96 M/mm3 (4.6-6.2); White Blood Count 18.2 K/mm3 (4.4-11.0)
[2020-11-05 07:26] LABS: Differential Indicated SCAN CRITERIA MET
[2020-11-05] MEDS: dexAMETHasone 10 MG/ML Vial 6 MG IV (07:55)
[2020-11-05] MEDS: Senna/Docusate Sodium 1 Tablet 2 TABLET PO (07:56)
[2020-11-05] MEDS: Enoxaparin 120 MG/0.8 ML Syringe SC (07:56)
[2020-11-05] MEDS: NYSTATIN 500,000 UNIT/5 ML UDC 500000 UNIT PO ×4 (07:56→20:50)
[2020-11-05] MEDS: Atorvastatin Calcium 20 MG Tablet PO (07:56)
[2020-11-05] MEDS: Allopurinol 300 MG Tablet PO (07:56)
[2020-11-05] MEDS: Chlorhexidine 15 ML PO ×2 (07:57→23:44)
[2020-11-05 09:26] LABS: Bedside Glucose 107 mg/dL (70-110)
[2020-11-05 10:06] LABS: Hepatitis B Surface Antigen Non-Reactive (Nonreactive)
--- NOTE | 2020-11-05 10:06 | CASEMGMT ---
SCARLETT VARGAS Note: participated in ICU interdisciplinary rounds. Daughter Charla participated via phone. Pt remains on ventilator, 50% oxygen, Levophed. Receiving dialysis today. TF on hold. Early Mobility Passed. Daughter had questions re: patient returning home. SCARLETT VARGAS called after rounds to discuss. She had many questions re: concerns with him returning home as he has difficulty with activity and had difficulty keeping up his house. Daughter states she is going to the home to clean it for him now while he is in the hospital. Discussed that goal is for patient to return home if able, but due to extended critical illness, patient may need skilled care prior to discharge based on PT/OT evaluations and progression with activity and medical management needs. Daughter is agreeable to this and is aware CM would be discussing dc planning with pt once able. IF patient is not able to wean from ventilator and would require higher level or respiratory care, LTACH could be considered. This was explained briefly and SCARLETT VARGAS let daughter know that if needed, CM would be in contact for further explanations. Daughter did not have further questions. Larisa WILLN RN ACM
--- NOTE | 2020-11-05 12:44 | DIALYSIS ---
HD x 4 hours complete. Tolerated tx fairly well. Ran on 3k bath. UF of 2000ml. Used Right IJ temporary dialysis catheter. Lumens closed with heparin per fill volume. Caps placed. Report was given to SCARLETT Hayes.
[2020-11-05] MEDS: Heparin 10,000 UNITS/10 ML Vial IV (12:56)
[2020-11-05 13:21] LABS: Pathologist Review Reviewed
[2020-11-05 13:24] LABS: Pathologist Review Reviewed
[2020-11-05 13:32] LABS: Pathologist Review Reviewed
--- NOTE | 2020-11-05 14:04 | PCM.PN.REN ---
Patient Problems: Active and Suspected Problems (Last Updated 10/24/20 @ 15:[address] Nish Dee, DO) Pneumonia due to Coronavirus disease 2019 (Acute) Hypoxia (Acute) Melena (Acute) Subjective: Cannot do review of systems because the patient is intubated Objective: Physical examination deferred to preserve PPE and prevent further transmission of COVID-19. - Physical Exam Vitals/I&O's: Vital Signs Temp Pulse Resp BP Pulse Ox 97.1 F L 95 19 H 104/50 L 92 11/05/20 12:00 11/05/20 13:47 11/05/20 13:47 11/05/20 13:00 11/05/20 13:47 Oxygen Flow Rate (L/min) 50 Oxygen Delivery Method Mechanical Ventilator Weight: 127.6 kg Body Mass Index (BMI) 40.2 Intake and Output for Last 24 Hours 11/03/20 11/04/20 11/05/20 23:59 23:59 23:59 Intake Total 3702.79 / 3927.67 2400.96 / 2475.01 1142.69 / 1142.69 Output Total 1688 / 1708 667 / 667 275 / 275 Balance 2014.79 / 2219.67 1733.96 / 1808.01 867.69 / 867.69 Microbiology Past 72 Hours 11/01/20 12:25 Sputum, Induced/Lukens Gram Stain - Final 11/01/20 12:25 Sputum, Induced/Lukens Respiratory Culture - Final Streptococcus agalactiae (B) Presumptive C albicans Laboratory Results 11/02/20 07:02: Diff Path Review Reviewed 11/02/20 16:15: Hep Bs Antigen Non-Reactive 11/03/20 05:00: Diff Path Review Reviewed 11/04/20 18:16: POC Glucose 139 H 11/05/20 00:19: POC Glucose 141 H 11/05/20 03:45: Sodium 137, Potassium 4.6, Chloride 101, Carbon Dioxide 24.0, BUN 78 H, Creatinine 7.43 H*, Estim Creat Clear Calc 9.78, Est GFR (MDRD) Af Amer 10 L, Est GFR (MDRD) Non-Af 8 L, BUN/Creatinine Ratio 10.5, Glucose 110 H, Calcium 7.4 L, Phosphorus 7.5 H, Albumin 1.8 L 11/05/20 03:45: WBC 18.2 H, RBC 2.96 L, Hgb 9.1 L, Hct 27.0 L, MCV 91.2, MCH 30.7, MCHC 33.7 D, RDW Std Deviation 56.5 H, RDW Coeff of Abhilash 17.5 H, Plt Count 308, MPV 10.9, Immature Gran % (Auto) 4.400 H, Neut % (Auto) 78.3 H, Lymph % (Auto) 5.9 L, [place] % (Auto) 10.8 H, Eos % (Auto) 0.4, Baso % (Auto) 0.2, Absolute Neuts (auto) 14.3 H, Absolute Lymphs (auto) 1.07, Nucleated RBC % 0, Differential Comment COMMENT, Diff Path Review Reviewed 11/05/20 06:33: POC Glucose 107 Current Medications Acetaminophen (Acetaminophen 650 Mg/20 Ml Udc) 650 mg GT Q6H PRN PRN PRN Reason: Pain Score 1-10/Temp > 100.7 F Albuterol/Ipratropium (Ipratropium/Albuterol Sulfate 3 Ml Ampul.Neb) 3 ml INHALATION Q6H.RT [facility] Last Admin: 11/05/20 13:47 Dose: 3 ml Documented by: Allopurinol (Allopurinol 300 Mg Tablet) 300 mg GT DAILY [facility] Last Admin: 11/05/20 10:08 Dose: Not Given Documented by: Atorvastatin Calcium (Atorvastatin Calcium 20 Mg Tablet) 20 mg GT DAILY [facility] Last Admin: 11/05/20 10:08 Dose: Not Given Documented by: Chlorhexidine Gluconate (Chlorhexidine 15 Ml) 15 ml PO BID [facility] Last Admin: 11/05/20 07:57 Dose: 15 ml Documented by: Dexamethasone Sodium Phosphate (Dexamethasone 10 Mg/Ml Vial) 6 mg IV DAILY [facility] Stop: 11/12/20 10:01 Last Admin: 11/05/20 07:55 Dose: 6 mg Documented by: Enoxaparin Sodium (Enoxaparin 120 Mg/0.8 Ml Syringe) 120 mg SC DAILY [facility] Last Admin: 11/05/20 07:56 Dose: 120 mg Documented by: Propofol (Diprivan) 1,000 mg in 100 mls @ 7.656 mls/hr CONT INF .Q12H [facility]; Protocol Last Titration: 11/05/20 13:00 Dose: 40 mcg/kg/min, 30.6 mls/hr Documented by: Fentanyl Citrate 1,000 mcg/ (Sodium Chloride) 100 mls @ 20 mls/hr CONT INF .Q5H [facility]; Protocol Last Titration: 11/05/20 13:00 Dose: 175 mcg/hr, 17.5 mls/hr Documented by: Enteral Nutritional Formula (Vital High Protein) 1,000 mls @ 70 mls/hr GT .[id number] [facility] Last Admin: 11/05/20 10:07 Dose: Not Given Documented by: Pantoprazole Sodium 40 mg/ (Sodium Chloride) 110 mls @ 330 mls/hr IV Q12 [facility] Last Infusion: 11/05/20 13:23 Dose: Infused Documented by: Ceftriaxone Sodium 2 gm/ (Sodium Chloride) 50 mls @ 100 mls/hr IV Q24 [facility] Last Admin: 11/05/20 13:22 Dose: 100 mls/hr Documented by: Norepinephrine Bitartrate 8 mg (/ Sodium Chloride) 250 mls @ 9.375 mls/hr CONT INF .[id number] [facility]; Protocol Last Titration: 11/05/20 13:00 Dose: 5 mcg/min, 9.4 mls/hr Documented by: Insulin Human Lispro (Insulin Lispro 100 Unit/Ml Insuln.Pen) 0 unit SC Q6 [facility]; Protocol Last Admin: 11/05/20 11:46 Dose: Not Given Documented by: Nystatin (Nystatin 500,000 Unit/5 Ml Udc) 500,000 unit PO 4X/DAY [facility] Last Admin: 11/05/20 11:46 Dose: 500,000 unit Documented by: Polyethylene Glycol (Polyethylene Glycol 3350 17 Gm Packet) 17 gm GT BID PRN PRN PRN Reason: CONSTIPATION Senna/Docusate Sodium (Senna/Docusate Sodium 1 Tablet) 2 tablet GT BID [facility] Last Admin: 11/05/20 10:08 Dose: Not Given Documented by: Sodium Chloride (0.9% Saline Lock 10 Ml Syringe) 10 - 40 ml IV UD PRN PRN Reason: SALINE FLUSH Last Admin: 11/05/20 03:46 Dose: 20 ml Documented by: Sodium Chloride (Sodium Chloride 0.65% 1 [place].Btl) 2 spray NASAL BID PRN PRN PRN Reason: NASAL DRYNESS Last Admin: 10/28/20 22:53 Dose: 2 sprays Documented by: Medical Necessity - Tobacco Use Smoking Status: Never smoker Tobacco Use: Non-smoker Assessment/Plan All Active Problems (Last Updated 10/24/20 @ 15:[address] Nish Dee, DO) Pneumonia due to Coronavirus disease 2019 (Acute) Hypoxia (Acute) Melena (Acute) CELIA?ATN with shock creatinine 1.02 Hyperkalemia Hyperphosphatemia Respiratory failure s/p intubation COVID-19 pneumonia and bilateral pulmonary emboli Tolerated dialysis well today UF 2 L we will dialyze again tomorrow keep MAP more than 65 currently on Levophed Avoid nephrotoxins
--- NOTE | 2020-11-05 14:58 | NURSING ---
Was asked to see patient for pressure injury to sacrum. Respiratory therapy currently in room checking vent, etc. will try to assess later today. According to staff, Mepilex dressing is in place.
--- NOTE | 2020-11-05 15:34 | PN.ID_ITS ---
Patient Problems: Active and Suspected Problems (Last Updated 10/24/20 @ 15:[address] Nish Dee, DO) Pneumonia due to Coronavirus disease 2019 (Acute) Hypoxia (Acute) Melena (Acute) Subjective: On vent, pressor - Physical Exam Vitals/I&O's: Vital Signs Temp Pulse Resp BP Pulse Ox 97.1 F L 75 15 114/51 L 91 11/05/20 12:00 11/05/20 15:03 11/05/20 15:00 11/05/20 15:00 11/05/20 15:00 Oxygen Flow Rate (L/min) 50 Oxygen Delivery Method Mechanical Ventilator Weight: 127.6 kg Body Mass Index (BMI) 40.2 Intake and Output for Last 24 Hours 11/03/20 11/04/20 11/05/20 23:59 23:59 23:59 Intake Total 3702.79 / 3927.67 2400.96 / 2475.01 1307.69 / 1307.69 Output Total 1688 / 1708 667 / 667 275 / 275 Balance 2014.79 / 2219.67 1733.96 / 1808.01 1032.69 / 1032.69 General: Non-Cooperative Lungs: Diminished Cardiovascular: Regular rate, Regular Rhythm Abdomen: Soft, Non Tender, Non-Distended Skin: No rashes Microbiology Past 72 Hours 11/01/20 12:25 Sputum, Induced/Lukens Gram Stain - Final 11/01/20 12:25 Sputum, Induced/Lukens Respiratory Culture - Final Streptococcus agalactiae (B) Presumptive C albicans Laboratory Results 11/02/20 07:02: Diff Path Review Reviewed 11/02/20 16:15: Hep Bs Antigen Non-Reactive 11/03/20 05:00: Diff Path Review Reviewed 11/04/20 18:16: POC Glucose 139 H 11/05/20 00:19: POC Glucose 141 H 11/05/20 03:45: Sodium 137, Potassium 4.6, Chloride 101, Carbon Dioxide 24.0, BUN 78 H, Creatinine 7.43 H*, Estim Creat Clear Calc 9.78, Est GFR (MDRD) Af Amer 10 L, Est GFR (MDRD) Non-Af 8 L, BUN/Creatinine Ratio 10.5, Glucose 110 H, Calcium 7.4 L, Phosphorus 7.5 H, Albumin 1.8 L 11/05/20 03:45: WBC 18.2 H, RBC 2.96 L, Hgb 9.1 L, Hct 27.0 L, MCV 91.2, MCH 30.7, MCHC 33.7 D, RDW Std Deviation 56.5 H, RDW Coeff of Abhilash 17.5 H, Plt Count 308, MPV 10.9, Immature Gran % (Auto) 4.400 H, Neut % (Auto) 78.3 H, Lymph % (Auto) 5.9 L, [place] % (Auto) 10.8 H, Eos % (Auto) 0.4, Baso % (Auto) 0.2, Absolute Neuts (auto) 14.3 H, Absolute Lymphs (auto) 1.07, Nucleated RBC % 0, Differential Comment COMMENT, Diff Path Review Reviewed 11/05/20 06:33: POC Glucose 107 Current Medications Acetaminophen (Acetaminophen 650 Mg/20 Ml Udc) 650 mg GT Q6H PRN PRN PRN Reason: Pain Score 1-10/Temp > 100.7 F Albuterol/Ipratropium (Ipratropium/Albuterol Sulfate 3 Ml Ampul.Neb) 3 ml INHALATION Q6H.RT [facility] Last Admin: 11/05/20 13:47 Dose: 3 ml Documented by: Allopurinol (Allopurinol 300 Mg Tablet) 300 mg GT DAILY [facility] Last Admin: 11/05/20 10:08 Dose: Not Given Documented by: Atorvastatin Calcium (Atorvastatin Calcium 20 Mg Tablet) 20 mg GT DAILY [facility] Last Admin: 11/05/20 10:08 Dose: Not Given Documented by: Chlorhexidine Gluconate (Chlorhexidine 15 Ml) 15 ml PO BID [facility] Last Admin: 11/05/20 07:57 Dose: 15 ml Documented by: Dexamethasone Sodium Phosphate (Dexamethasone 10 Mg/Ml Vial) 6 mg IV DAILY [facility] Stop: 11/12/20 10:01 Last Admin: 11/05/20 07:55 Dose: 6 mg Documented by: Enoxaparin Sodium (Enoxaparin 120 Mg/0.8 Ml Syringe) 120 mg SC DAILY [facility] Last Admin: 11/05/20 07:56 Dose: 120 mg Documented by: Propofol (Diprivan) 1,000 mg in 100 mls @ 7.656 mls/hr CONT INF .Q12H [facility]; Protocol Last Titration: 11/05/20 15:00 Dose: 40 mcg/kg/min, 30.6 mls/hr Documented by: Fentanyl Citrate 1,000 mcg/ (Sodium Chloride) 100 mls @ 20 mls/hr CONT INF .Q5H [facility]; Protocol Last Titration: 11/05/20 15:00 Dose: 175 mcg/hr, 17.5 mls/hr Documented by: Enteral Nutritional Formula (Vital High Protein) 1,000 mls @ 70 mls/hr GT .[id number] [facility] Last Admin: 11/05/20 10:07 Dose: Not Given Documented by: Pantoprazole Sodium 40 mg/ (Sodium Chloride) 110 mls @ 330 mls/hr IV Q12 [facility] Last Infusion: 11/05/20 13:23 Dose: Infused Documented by: Ceftriaxone Sodium 2 gm/ (Sodium Chloride) 50 mls @ 100 mls/hr IV Q24 [facility] Last Infusion: 11/05/20 14:48 Dose: Infused Documented by: Norepinephrine Bitartrate 8 mg (/ Sodium Chloride) 250 mls @ 9.375 mls/hr CONT INF .[id number] [facility]; Protocol Last Titration: 11/05/20 15:00 Dose: 5 mcg/min, 9.4 mls/hr Documented by: Insulin Human Lispro (Insulin Lispro 100 Unit/Ml Insuln.Pen) 0 unit SC Q6 [facility]; Protocol Last Admin: 11/05/20 11:46 Dose: Not Given Documented by: Nystatin (Nystatin 500,000 Unit/5 Ml Udc) 500,000 unit PO 4X/DAY [facility] Last Admin: 11/05/20 11:46 Dose: 500,000 unit Documented by: Polyethylene Glycol (Polyethylene Glycol 3350 17 Gm Packet) 17 gm GT BID PRN PRN PRN Reason: CONSTIPATION Senna/Docusate Sodium (Senna/Docusate Sodium 1 Tablet) 2 tablet GT BID [facility] Last Admin: 11/05/20 10:08 Dose: Not Given Documented by: Sodium Chloride (0.9% Saline Lock 10 Ml Syringe) 10 - 40 ml IV UD PRN PRN Reason: SALINE FLUSH Last Admin: 11/05/20 03:46 Dose: 20 ml Documented by: Sodium Chloride (Sodium Chloride 0.65% 1 [place].Btl) 2 spray NASAL BID PRN PRN PRN Reason: NASAL DRYNESS Last Admin: 10/28/20 22:53 Dose: 2 sprays Documented by: Medical Necessity - Tobacco Use Smoking Status: Never smoker Tobacco Use: Non-smoker Route of nutrition/ use of supplements: [] Nutritional Intake: [] IV Site: [] [place] Catheter: [] - Assessment/Plan Antibiotics: [] Assessment/Plan: [] Active and Suspected Problems (Last Updated 10/24/20 @ 15:[address] Nish Dee, DO) Pneumonia due to Coronavirus disease 2019 (Acute) Hypoxia (Acute) Melena (Acute) covid with hypoxia and PE - sx started about 2 weeks prior to admit. On dex and completed remdesivir. On therapeutic lovenox. Now on vent and pressor Sputum cx with strep, cont ceftriaxone. Will follow
[2020-11-05] MEDS: Polyethylene Glycol 3350 17 GM PACKET GT (16:42)
[2020-11-05 17:11] LABS: Bedside Glucose 116 mg/dL (70-110)
[2020-11-05] MEDS: Senna/Docusate Sodium 1 Tablet 2 TABLET GT (20:51)
[2020-11-05 21:30] LABS: Bedside Glucose 126 mg/dL (70-110)
[2020-11-06] VITALS (66 sets, daily range): BP systolic 84–158; BP diastolic 44–77; PULSE 67–124; RESP 14–28; TEMP 36.2–37.1; O2SAT 88–96; BMI 41.4
[2020-11-06 00:16] LABS: Bedside Glucose 106 mg/dL (70-110)
[2020-11-06] MEDS: Propofol 10MG/Ml 1,000 MG/100 ML Bottle 30.6 MG CONT INF (01:07)
[2020-11-06] MEDS: Ipratropium/Albuterol Sulfate 3 ML AMPUL.NEB INHALATION ×4 (01:18→18:49)
[2020-11-06] MEDS: 0.9% Saline Lock 10 ML Syringe IV (04:12)
[2020-11-06] MEDS: Polyethylene Glycol 3350 17 GM PACKET GT (04:12)
[2020-11-06] MEDS: Propofol 10MG/Ml 1,000 MG/100 ML Bottle 26.8 MG CONT INF (04:22)
[2020-11-06 04:27] LABS: Absolute Lymphocyte Count 1.26 X10^3/uL (0.83-4.51); Absolute Neutrophil Count 10.4 X10^3/uL (2.0-7.7); Basophil# 0.02 X10^3/uL; Basophil% 0.1 % (0-1); Eosinophil# 0.05 X10^3/uL; Eosinophils% 0.4 % (0-5); Hemoglobin 9.1 g/dL (13.0-16.5); Lymphocyte # 1.26 X10^3/ul (4.0); Lymphocyte % 9.4 % (19-41); Mean Corp Hgb Conc 32.5 g/dL (32-36); Mean Corpuscular Hgb 27.5 pg (27.0-32.0); Mean Corpuscular Volume 84.6 fL (80-94); Monocyte% 10.5 % (0-10); NRBC Flagged by Analyzer 0 % (0-5); Neutrophil % 77.7 % (47-70); Platelet Count 262 K/mm3 (150-450); RBC Distribution Width CV 17.3 % (11.6-14.6); RBC Distribution Width SD 53.5 fl (35.1-43.9); Red Blood Count 3.31 M/mm3 (4.6-6.2); White Blood Count 13.4 K/mm3 (4.4-11.0)
[2020-11-06 04:41] LABS: ALB/GLOB Ratio 0.4 RATIO (0.9-2.4); AST(SGOT) 107 U/L (15-37); Alanine Aminotransfer ALT/SGPT 62 U/L (16-61); Albumin, Serum 1.8 g/dL (3.2-5.0); Alkaline Phosphatase 56 U/L (45-117); Anion Gap 12 (5-15); BUN 56 mg/dL (7-18); BUN/Creat Ratio 10.1 RATIO (10-20); Calcium,Total 8.1 mg/dL (8.5-10.1); Chloride 99 mmol/L (98-107); Creatinine, Serum 5.55 mg/dL (0.70-1.30); EST Glomerular Filtration Rate 11 mL/min (>60); Est Glom Filt Rate - Afr Amer 13 mL/min (>60); Estimated Creatinine Clearance 13.09 ml/min; Globulin 4.1 g/dL (2.2-4.2); Glucose 102 mg/dL (74-106); Potassium 4.2 mmol/L (3.5-5.1); Protein, Total 5.9 g/dL (6.4-8.2); Sodium Level 136 mmol/L (136-145)
[2020-11-06] MEDS: Vital High Protein 1,000 ML 70 ML GT (06:35)
[2020-11-06 06:50] LABS: Bedside Glucose 97 mg/dL (70-110)
--- NOTE | 2020-11-06 07:44 | PCM.PN.INT ---
Subjective: Patient did okay overnight. Patient remains on Levophed to maintain appropriate saturations. Patient was able to have 2 L removed with hemodialysis yesterday. No bowel movements have been reported. Oxygenation has remained stable. General: - - Intubated and sedated. RASS -1. Morbidly obese. Anasarca improved. HEENT: Atraumatic, PERRLA, EOMI, Normocephalic, - - Slight scleral injection without icterus Oral: Moist Mucosa, No Gingival or Mucosal Lesions/ Ulcerations Neck: Supple, No Nodes, Trachea Midline, - - IJ clean, dry and intact Lungs: No rhonchi, No wheeze, No rales, Diminished, - - Symmetric expansion Cardiovascular: Regular rate, Regular Rhythm, Normal S1, Normal S2, No murmurs, No rub noted, No Gallop Abdomen: Bowel Sounds Present, Soft, Non Tender, Non-Distended, Obese Extremities: No clubbing, No cyanosis, Edema Skin: - - No change from previous Musculoskeletal: No Tenderness to Palpation of Joints or Extremities Lymphatic: No Cervical, Supraclavicular, or Inguinal Adenopathy Neurological: Cranial nerves II-XII grossly intact, Neuro grossly intact Psych/Mental Status: Flat Affect Vital Signs Temp Pulse Resp BP Pulse Ox 36.6 C 83 16 115/52 L 93 11/06/20 04:00 11/06/20 07:14 11/06/20 07:14 11/06/20 06:45 11/06/20 07:14 Oxygen Flow Rate (L/min) 50 Oxygen Delivery Method Mechanical Ventilator Weight: 127.4 kg Body Mass Index (BMI) 40.2 Intake and Output for Last 24 Hours 11/04/20 11/05/20 11/06/20 23:59 23:59 23:59 Intake Total 2400.96 / 2475.01 2136.91 / 2171.97 416.26 / 416.26 Output Total 667 / 667 290 / 290 Balance 1733.96 / 1808.01 1846.91 / 1881.97 416.26 / 416.26 Labs (Last 48 Hours) 11/02/20 11/02/20 11/03/20 07:02 16:15 05:00 WBC RBC Hgb Hct MCV MCH MCHC RDW Std Deviation RDW Coeff of Abhilash Plt Count MPV Immature Gran % (Auto) Neut % (Auto) Lymph % (Auto) [place] % (Auto) Eos % (Auto) Baso % (Auto) Absolute Neuts (auto) Absolute Lymphs (auto) Nucleated RBC % Differential Comment Diff Path Review Reviewed Reviewed Sodium Potassium Chloride Carbon Dioxide Anion Gap BUN Creatinine Estim Creat Clear Calc Est GFR (MDRD) Af Amer Est GFR (MDRD) Non-Af BUN/Creatinine Ratio Glucose Calcium Phosphorus Total Bilirubin AST ALT Alkaline Phosphatase Total Protein Albumin Globulin Albumin/Globulin Ratio Hep Bs Antigen Non-Reactive POC Glucose 11/04/20 11/04/20 11/05/20 11:49 18:16 00:19 WBC RBC Hgb Hct MCV MCH MCHC RDW Std Deviation RDW Coeff of Abhilash Plt Count MPV Immature Gran % (Auto) Neut % (Auto) Lymph % (Auto) [place] % (Auto) Eos % (Auto) Baso % (Auto) Absolute Neuts (auto) Absolute Lymphs (auto) Nucleated RBC % Differential Comment Diff Path Review Sodium Potassium Chloride Carbon Dioxide Anion Gap BUN Creatinine Estim Creat Clear Calc Est GFR (MDRD) Af Amer Est GFR (MDRD) Non-Af BUN/Creatinine Ratio Glucose Calcium Phosphorus Total Bilirubin AST ALT Alkaline Phosphatase Total Protein Albumin Globulin Albumin/Globulin Ratio Hep Bs Antigen POC Glucose 120 H 139 H 141 H 11/05/20 11/05/20 11/05/20 03:45 03:45 06:33 WBC 18.2 H RBC 2.96 L Hgb 9.1 L Hct 27.0 L MCV 91.2 MCH 30.7 MCHC 33.7 D RDW Std Deviation 56.5 H RDW Coeff of Abhilash 17.5 H Plt Count 308 MPV 10.9 Immature Gran % (Auto) 4.400 H Neut % (Auto) 78.3 H Lymph % (Auto) 5.9 L [place] % (Auto) 10.8 H Eos % (Auto) 0.4 Baso % (Auto) 0.2 Absolute Neuts (auto) 14.3 H Absolute Lymphs (auto) 1.07 Nucleated RBC % 0 Differential Comment COMMENT Diff Path Review Reviewed Sodium 137 Potassium 4.6 Chloride 101 Carbon Dioxide 24.0 Anion Gap BUN 78 H Creatinine 7.43 H* Estim Creat Clear Calc 9.78 Est GFR (MDRD) Af Amer 10 L Est GFR (MDRD) Non-Af 8 L BUN/Creatinine Ratio 10.5 Glucose 110 H Calcium 7.4 L Phosphorus 7.5 H Total Bilirubin AST ALT Alkaline Phosphatase Total Protein Albumin 1.8 L Globulin Albumin/Globulin Ratio Hep Bs Antigen POC Glucose 107 11/05/20 11/05/20 11/05/20 11:41 16:27 23:37 WBC RBC Hgb Hct MCV MCH MCHC RDW Std Deviation RDW Coeff of Abhilash Plt Count MPV Immature Gran % (Auto) Neut % (Auto) Lymph % (Auto) [place] % (Auto) Eos % (Auto) Baso % (Auto) Absolute Neuts (auto) Absolute Lymphs (auto) Nucleated RBC % Differential Comment Diff Path Review Sodium Potassium Chloride Carbon Dioxide Anion Gap BUN Creatinine Estim Creat Clear Calc Est GFR (MDRD) Af Amer Est GFR (MDRD) Non-Af BUN/Creatinine Ratio Glucose Calcium Phosphorus Total Bilirubin AST ALT Alkaline Phosphatase Total Protein Albumin Globulin Albumin/Globulin Ratio Hep Bs Antigen POC Glucose 116 H 126 H 106 11/06/20 11/06/20 11/06/20 04:05 04:05 06:33 WBC 13.4 H RBC 3.31 L Hgb 9.1 L Hct 28.0 L MCV 84.6 D MCH 27.5 MCHC 32.5 RDW Std Deviation 53.5 H RDW Coeff of Abhilash 17.3 H Plt Count 262 MPV 10.0 Immature Gran % (Auto) 1.900 H Neut % (Auto) 77.7 H Lymph % (Auto) 9.4 L [place] % (Auto) 10.5 H Eos % (Auto) 0.4 Baso % (Auto) 0.1 Absolute Neuts (auto) 10.4 H Absolute Lymphs (auto) 1.26 Nucleated RBC % 0 Differential Comment Diff Path Review Sodium 136 Potassium 4.2 Chloride 99 Carbon Dioxide 25.0 Anion Gap 12 BUN 56 H Creatinine 5.55 H Estim Creat Clear Calc 13.09 Est GFR (MDRD) Af Amer 13 L Est GFR (MDRD) Non-Af 11 L BUN/Creatinine Ratio 10.1 Glucose 102 Calcium 8.1 L Phosphorus Total Bilirubin 0.40 AST 107 H ALT 62 H Alkaline Phosphatase 56 Total Protein 5.9 L Albumin 1.8 L Globulin 4.1 Albumin/Globulin Ratio 0.4 L Hep Bs Antigen POC Glucose 97 Microbiology 11/01/20 12:25 Sputum, Induced/Lukens Gram Stain - Final 11/01/20 12:25 Sputum, Induced/Lukens Respiratory Culture - Final Streptococcus agalactiae (B) Presumptive C albicans Medical Necessity - Tobacco Use Smoking Status: Never smoker Tobacco Use: Non-smoker Assessment/Plan All Active Problems (Last Updated 10/24/20 @ 15:[address] Nish Dee, DO) Pneumonia due to Coronavirus disease 2019 (Acute) Hypoxia (Acute) Melena (Acute) RECOMMENDATIONS: 1. Continue patient on assist control mode of mechanical ventilation and wean FiO2 and PEEP to maintain oxygen saturations at or above 90%. 2. Monitor off paralytic and continue propofol and fentanyl for sedation. 3. Continue attempts at volume optimization via hemodialysis per nephrology. 4. Continue trophic tube feeds. Aggressive bowel regimen. 5. Continue therapeutic Lovenox. 6. Continue PPI therapy as ordered. 7. Continue antimicrobials per ID recommendations. 8. Continue scheduled bronchodilators. IMPRESSIONS: 1. Acute hypoxemic respiratory failure Multifactorial in etiology with COVID-19 pneumonia and bilateral pulmonary emboli contributing. Although attempts were made to utilize heated high flow oxygen and later BiPAP, the patient continued to decompensate from a respiratory perspective, requiring intubation on November 01. For now, the patient will be continued on assist control mode of mechanical ventilation, with plans to wean FiO2 and PEEP to maintain saturations at or above 90%. We will continue to monitor patient off of paralytic therapy. Continue with propofol and fentanyl as necessary for vent synchrony. Nephrology is currently following to assist with hemodialysis needs. Patient appears to be tolerating trophic feeds. Continue aggressive bowel regimen. Spontaneous breathing and awakening trials per protocol. 2. Acute kidney injury/hyperkalemia Likely prerenal in etiology with component of ischemic ATN. Nephrology is currently following to assist with hemodialysis needs. Anticipate further need for ultrafiltration to assist with volume optimization. Defer to nephrology on timing. 3. Possible GI bleed No overt signs of GI blood loss at this time. Continue twice daily PPI therapy as ordered. Monitor H&H and transfuse if hemoglobin drops below 7 g/dL. 4. History of coronary artery disease/hypertension/hyperlipidemia/obesity Complicates care, management, recovery and prognosis. Continue home medications as indicated. TIME: 36 minutes of critical care time, inclusive of procedures, was spent addressing the patient's acute hypoxemic respiratory failure, COVID-19 pneumonia, bilateral pulmonary emboli, acute kidney injury, review of all data and collaboration with the care team. (5:15 AM to 6:15 AM) [id number]: [id number] Critical care first hour
[2020-11-06] MEDS: Propofol 10MG/Ml 1,000 MG/100 ML Bottle 22.9 MG CONT INF ×4 (08:55→22:42)
--- NOTE | 2020-11-06 10:25 | PCM.NTREPORT ---
Nutrition Therapy Report - History Current diet / nutrition support order:: NPO; Vital HP @10mL/hour - Anthropometric Measurements Height:: 5 ft 9 in Weight:: 127.4 kg Body Mass Index (BMI):: 41.4 - Relevant Labs Relevant Labs:: WBC 13.4 K/mm3 (4.4-11.0) H 11/06/20 04:05 RBC 3.31 M/mm3 (4.6-6.2) L 11/06/20 04:05 Hgb 9.1 g/dL (13.0-16.5) L 11/06/20 04:05 Hct 28.0 % (40-54) L 11/06/20 04:05 MCH 26.8 pg (27.0-32.0) L 11/03/20 05:00 MCHC 29.1 g/dL (32-36) L 11/03/20 05:00 RDW Std Deviation 53.5 fl (35.1-43.9) H 11/06/20 04:05 RDW Coeff of Abhilash 17.3 % (11.6-14.6) H 11/06/20 04:05 Immature Gran % (Auto) 1.900 % (0.0-0.9) H 11/06/20 04:05 Neut % (Auto) 77.7 % (47-70) H 11/06/20 04:05 Lymph % (Auto) 9.4 % (19-41) L 11/06/20 04:05 [place] % (Auto) 10.5 % (0-10) H 11/06/20 04:05 Absolute Neuts (auto) 10.4 X10^3/uL (2.0-7.7) H 11/06/20 04:05 Absolute Lymphs (auto) 0.82 X10^3/uL (0.83-4.51) L 10/25/20 06:45 Fibrinogen 739 mg/dl (203-444) H 10/24/20 17:50 D-Dimer Quant (PE/DVT) 1.29 FEU/ug/m (0.27-0.49) H* 10/24/20 17:50 Potassium 5.4 mmol/L (3.5-5.1) H 11/03/20 05:00 Chloride 108 mmol/L (98-107) H 10/31/20 06:20 Anion Gap 4 (5-15) L 10/28/20 06:10 BUN 56 mg/dL (7-18) H 11/06/20 04:05 Creatinine 5.55 mg/dL (0.70-1.30) H 11/06/20 04:05 Est GFR (MDRD) Af Amer 13 mL/min (>60) L 11/06/20 04:05 Est GFR (MDRD) Non-Af 11 mL/min (>60) L 11/06/20 04:05 BUN/Creatinine Ratio 26.1 RATIO (10-20) H 11/01/20 05:16 Glucose 110 mg/dL (74-106) H 11/05/20 03:45 Calcium 8.1 mg/dL (8.5-10.1) L 11/06/20 04:05 Phosphorus 7.5 mg/dL (2.5-4.9) H 11/05/20 03:45 AST 107 U/L (15-37) H 11/06/20 04:05 ALT 62 U/L (16-61) H 11/06/20 04:05 Lactate Dehydrogenase 457 U/L (87-241) H 11/01/20 05:16 C-React Prot Ext Range 64.00 mg/L (0.0-3.0) H 11/01/20 05:16 Total Protein 5.9 g/dL (6.4-8.2) L 11/06/20 04:05 Albumin 1.8 g/dL (3.2-5.0) L 11/06/20 04:05 Globulin 4.5 g/dL (2.2-4.2) H 11/03/20 05:00 Albumin/Globulin Ratio 0.4 RATIO (0.9-2.4) L 11/06/20 04:05 Procalcitonin 0.46 ng/mL (0.00-0.09) H 10/24/20 17:50 - Assessment Food / Nutrition-Related History:: Discussed in ICU rounds. Remains intubated. Had dialysis yesterday w/ 2L fluid removed. Currently undergoing dialysis again this AM. Wt decrease of 0.2 kg since last review. Has BLE non-pitting edema. Anticipate wt loss w/ dialysis/improvement in fluid status. No documented BM. Per rounds, will get mag citrate today. Enteral nutrition support running at trophic rate of 10mL/hour and to continue at trophic rate until pt has a BM per Dr. Fierro. - Nutrition Diagnosis Problem / Etiology / Signs & Symptoms (PES):: Pt w/ inadequate enteral nutrition related to altered GI function as evidenced by elevated gastric residuals, tube feeds running below goal rate. - Nutrition Intervention Nutrition Prescription:: Re-estimated nutritional needs using ASPEN guidelines for critically ill, morbidly obese pts- 4711-7277 calories (22-25 calories/kg IBW (72kg) and 144-180 g protein (2-2.5 g/kg IBW (72kg). - Food / Nutrient Delivery Interventions Summary of nutrition intervention:: Will change rate of Vital HP on DEC to 10mL/hour w/ 30mL H2O flush every 4 hours. Will monitor GI function/tolerance of feeds and adjust rate as indicated. Nutrition support ordered as / adjusted to:: While intubated, continue enteral nutrition support via OGT: Vital HP at 10mL/hour w/ 30mL H2O flush every 4 hours- continue trophic feeds until BM occurs per Dr. Fierro. As GI function improves, recommend increasing rate by 10mL every 12 hours as pt tolerates until goal rate of 70mL/hour is achieved. - MNT Monitoring Further MNT monitoring and evaluation required?: Yes MNT Follow-up in:: 1-2 days
--- NOTE | 2020-11-06 12:30 | NURSING ---
FIO2 increased to 60% d/t SPO2 low 80s. RT made aware.
--- NOTE | 2020-11-06 12:47 | NURSING ---
FIO2 increased to 75% d/t continued hypoxia. RT made aware.
--- NOTE | 2020-11-06 13:25 | PN.RENAL_ITS ---
Patient Problems: Active and Suspected Problems (Last Updated 10/24/20 @ 15:[address] Nish Dee, DO) Pneumonia due to Coronavirus disease 2019 (Acute) Hypoxia (Acute) Melena (Acute) Subjective: The patient is intubated cannot do review of systems Objective: Physical examination deferred to preserve PPE and prevent further transmission of COVID-19 - Physical Exam Vitals/I&O's: Vital Signs Temp Pulse Resp BP Pulse Ox 97.2 F L 114 H 22 H 146/63 H 91 11/06/20 12:00 11/06/20 12:29 11/06/20 12:00 11/06/20 12:00 11/06/20 12:00 Oxygen Flow Rate (L/min) 60 Oxygen Delivery Method Mechanical Ventilator Weight: 127.4 kg Body Mass Index (BMI) 41.4 Intake and Output for Last 24 Hours 11/04/20 11/05/20 11/06/20 23:59 23:59 23:59 Intake Total 2400.96 / 2475.01 2136.91 / 2171.97 517.51 / 517.51 Output Total 667 / 667 290 / 290 Balance 1733.96 / 1808.01 1846.91 / 1881.97 517.51 / 517.51 Microbiology Past 72 Hours 11/01/20 12:25 Sputum, Induced/Lukens Gram Stain - Final 11/01/20 12:25 Sputum, Induced/Lukens Respiratory Culture - Final Streptococcus agalactiae (B) Presumptive C albicans Laboratory Results 11/03/20 05:00: Diff Path Review Reviewed 11/05/20 03:45: Diff Path Review Reviewed 11/05/20 11:41: POC Glucose 116 H 11/05/20 16:27: POC Glucose 126 H 11/05/20 23:37: POC Glucose 106 11/06/20 04:05: WBC 13.4 H, RBC 3.31 L, Hgb 9.1 L, Hct 28.0 L, MCV 84.6 D, MCH 27.5, MCHC 32.5, RDW Std Deviation 53.5 H, RDW Coeff of Abhilash 17.3 H, Plt Count 262, MPV 10.0, Immature Gran % (Auto) 1.900 H, Neut % (Auto) 77.7 H, Lymph % (Auto) 9.4 L, [place] % (Auto) 10.5 H, Eos % (Auto) 0.4, Baso % (Auto) 0.1, Absolute Neuts (auto) 10.4 H, Absolute Lymphs (auto) 1.26, Nucleated RBC % 0 11/06/20 04:05: Sodium 136, Potassium 4.2, Chloride 99, Carbon Dioxide 25.0, Anion Gap 12, BUN 56 H, Creatinine 5.55 H, Estim Creat Clear Calc 13.09, Est GFR (MDRD) Af Amer 13 L, Est GFR (MDRD) Non-Af 11 L, BUN/Creatinine Ratio 10.1, Glucose 102, Calcium 8.1 L, Total Bilirubin 0.40, AST 107 H, ALT 62 H, Alkaline Phosphatase 56, Total Protein 5.9 L, Albumin 1.8 L, Globulin 4.1, Albumin/Globulin Ratio 0.4 L 11/06/20 06:33: POC Glucose 97 Current Medications Acetaminophen (Acetaminophen 650 Mg/20 Ml Udc) 650 mg GT Q6H PRN PRN PRN Reason: Pain Score 1-10/Temp > 100.7 F Albuterol/Ipratropium (Ipratropium/Albuterol Sulfate 3 Ml Ampul.Neb) 3 ml INHALATION Q6H.RT [facility] Last Admin: 11/06/20 07:11 Dose: 3 ml Documented by: Allopurinol (Allopurinol 300 Mg Tablet) 300 mg GT DAILY [facility] Last Admin: 11/05/20 10:08 Dose: Not Given Documented by: Atorvastatin Calcium (Atorvastatin Calcium 20 Mg Tablet) 20 mg GT DAILY [facility] Last Admin: 11/05/20 10:08 Dose: Not Given Documented by: Chlorhexidine Gluconate (Chlorhexidine 15 Ml) 15 ml PO BID [facility] Last Admin: 11/05/20 23:44 Dose: 15 ml Documented by: Dexamethasone Sodium Phosphate (Dexamethasone 10 Mg/Ml Vial) 6 mg IV DAILY [facility] Stop: 11/12/20 10:01 Last Admin: 11/05/20 07:55 Dose: 6 mg Documented by: Enoxaparin Sodium (Enoxaparin 120 Mg/0.8 Ml Syringe) 120 mg SC DAILY [facility] Last Admin: 11/05/20 07:56 Dose: 120 mg Documented by: Propofol (Diprivan) 1,000 mg in 100 mls @ 7.644 mls/hr CONT INF .Q12H [facility]; Protocol Last Admin: 11/06/20 08:55 Dose: 30 mcg/kg/min, 22.9 mls/hr Documented by: Fentanyl Citrate 1,000 mcg/ (Sodium Chloride) 100 mls @ 20 mls/hr CONT INF .Q5H [facility]; Protocol Last Titration: 11/06/20 08:56 Dose: 100 mcg/hr, 10 mls/hr Documented by: Enteral Nutritional Formula (Vital High Protein) 1,000 mls @ 10 mls/hr GT .Q48H [facility] Last Admin: 11/06/20 06:35 Dose: 70 mls/hr Documented by: Pantoprazole Sodium 40 mg/ (Sodium Chloride) 110 mls @ 330 mls/hr IV Q12 [facility] Last Infusion: 11/05/20 22:14 Dose: Infused Documented by: Ceftriaxone Sodium 2 gm/ (Sodium Chloride) 50 mls @ 100 mls/hr IV Q24 [facility] Last Infusion: 11/05/20 14:48 Dose: Infused Documented by: Norepinephrine Bitartrate 8 mg (/ Sodium Chloride) 250 mls @ 9.375 mls/hr CONT INF .[id number] [facility]; Protocol Last Titration: 11/06/20 12:00 Dose: 1 mcg/min, 1.9 mls/hr Documented by: Insulin Human Lispro (Insulin Lispro 100 Unit/Ml Insuln.Pen) 0 unit SC Q6 [facility]; Protocol Last Admin: 11/06/20 06:34 Dose: Not Given Documented by: Nystatin (Nystatin 500,000 Unit/5 Ml Udc) 500,000 unit PO 4X/DAY [facility] Last Admin: 11/05/20 20:50 Dose: 500,000 unit Documented by: Polyethylene Glycol (Polyethylene Glycol 3350 17 Gm Packet) 17 gm GT BID PRN PRN PRN Reason: CONSTIPATION Last Admin: 11/06/20 04:12 Dose: 17 gm Documented by: Senna/Docusate Sodium (Senna/Docusate Sodium 1 Tablet) 2 tablet GT BID [facility] Last Admin: 11/05/20 20:51 Dose: 2 tablet Documented by: Sodium Chloride (0.9% Saline Lock 10 Ml Syringe) 10 - 40 ml IV UD PRN PRN Reason: SALINE FLUSH Last Admin: 11/06/20 04:12 Dose: 40 ml Documented by: Sodium Chloride (Sodium Chloride 0.65% 1 [place].Btl) 2 spray NASAL BID PRN PRN PRN Reason: NASAL DRYNESS Last Admin: 10/28/20 22:53 Dose: 2 sprays Documented by: Medical Necessity - Tobacco Use Smoking Status: Never smoker Tobacco Use: Non-smoker Assessment/Plan All Active Problems (Last Updated 10/24/20 @ 15:[address] Nish Dee, DO) Pneumonia due to Coronavirus disease 2019 (Acute) Hypoxia (Acute) Melena (Acute) CELIA?ATN with shock creatinine 1.02 Hyperkalemia Hyperphosphatemia Respiratory failure s/p intubation COVID-19 pneumonia and bilateral pulmonary emboli Tolerated dialysis well today UF 2.4 L we will dialyze again tomorrow keep MAP more than 65 currently on Levophed 1 mcg d/w HD RN AND necktie turner Avoid nephrotoxins
[2020-11-06] MEDS: Heparin 10,000 UNITS/10 ML Vial IV (13:30)
[2020-11-06] MEDS: Magnesium Citrate 300 ML 150 ML PO ×2 (14:18→17:50)
[2020-11-06] MEDS: Chlorhexidine 15 ML PO ×2 (14:18→22:19)
[2020-11-06] MEDS: NYSTATIN 500,000 UNIT/5 ML UDC 500000 UNIT PO ×4 (14:19→22:19)
[2020-11-06] MEDS: Enoxaparin 120 MG/0.8 ML Syringe SC (14:19)
[2020-11-06] MEDS: Senna/Docusate Sodium 1 Tablet 2 TABLET GT ×2 (14:20→22:19)
[2020-11-06] MEDS: Atorvastatin Calcium 20 MG Tablet GT (14:20)
[2020-11-06] MEDS: Allopurinol 300 MG Tablet GT (14:20)
[2020-11-06] MEDS: dexAMETHasone 10 MG/ML Vial 6 MG IV (14:21)
--- NOTE | 2020-11-06 14:40 | PN_ITS ---
Patient Problems: Active and Suspected Problems (Last Updated 10/24/20 @ 15:[address] Nish Dee, DO) Pneumonia due to Coronavirus disease 2019 (Acute) Hypoxia (Acute) Melena (Acute) Reason for Visit: COVID 19 Subjective: Still on vent tolerated HD. Vitals/I&O's: Vital Signs Temp Pulse Resp BP Pulse Ox 36.2 C L 123 H 28 H 146/63 H 91 11/06/20 12:00 11/06/20 14:28 11/06/20 14:28 11/06/20 12:00 11/06/20 14:28 Oxygen Flow Rate (L/min) 60 Oxygen Delivery Method Mechanical Ventilator Weight: 127.4 kg Body Mass Index (BMI) 41.4 Intake and Output for Last 24 Hours 11/04/20 11/05/20 11/06/20 23:59 23:59 23:59 Intake Total 2400.96 / 2475.01 2136.91 / 2171.97 617.51 / 617.51 Output Total 667 / 667 290 / 290 Balance 1733.96 / 1808.01 1846.91 / 1881.97 617.51 / 617.51 HEENT: Atraumatic, Normocephalic Oral: Moist Mucosa, No Gingival or Mucosal Lesions/ Ulcerations, - - ETT/OG in place Neck: No Nodes, Thyroid Normal Size and Texture Lungs: Normal air movement, - - coarse breath sounds bilaterally. Cardiovascular: Regular rate, Regular Rhythm, Normal S1, Normal S2, No murmurs Abdomen: Bowel Sounds Present, Soft, Non Tender, Non-Distended Extremities: No edema, No Calf Tenderness Microbiology Past 72 Hours 11/01/20 12:25 Sputum, Induced/Lukens Gram Stain - Final 11/01/20 12:25 Sputum, Induced/Lukens Respiratory Culture - Final Streptococcus agalactiae (B) Presumptive C albicans Laboratory Results 11/05/20 11:41: POC Glucose 116 H 11/05/20 16:27: POC Glucose 126 H 11/05/20 23:37: POC Glucose 106 11/06/20 04:05: WBC 13.4 H, RBC 3.31 L, Hgb 9.1 L, Hct 28.0 L, MCV 84.6 D, MCH 27.5, MCHC 32.5, RDW Std Deviation 53.5 H, RDW Coeff of Abhilash 17.3 H, Plt Count 262, MPV 10.0, Immature Gran % (Auto) 1.900 H, Neut % (Auto) 77.7 H, Lymph % (Auto) 9.4 L, [place] % (Auto) 10.5 H, Eos % (Auto) 0.4, Baso % (Auto) 0.1, Absolute Neuts (auto) 10.4 H, Absolute Lymphs (auto) 1.26, Nucleated RBC % 0 11/06/20 04:05: Sodium 136, Potassium 4.2, Chloride 99, Carbon Dioxide 25.0, Anion Gap 12, BUN 56 H, Creatinine 5.55 H, Estim Creat Clear Calc 13.09, Est GFR (MDRD) Af Amer 13 L, Est GFR (MDRD) Non-Af 11 L, BUN/Creatinine Ratio 10.1, Glucose 102, Calcium 8.1 L, Total Bilirubin 0.40, AST 107 H, ALT 62 H, Alkaline Phosphatase 56, Total Protein 5.9 L, Albumin 1.8 L, Globulin 4.1, Albumin/Globulin Ratio 0.4 L 11/06/20 06:33: POC Glucose 97 Current Medications Acetaminophen (Acetaminophen 650 Mg/20 Ml Udc) 650 mg GT Q6H PRN PRN PRN Reason: Pain Score 1-10/Temp > 100.7 F Albuterol/Ipratropium (Ipratropium/Albuterol Sulfate 3 Ml Ampul.Neb) 3 ml INHALATION Q6H.RT [facility] Last Admin: 11/06/20 14:18 Dose: 3 ml Documented by: Allopurinol (Allopurinol 300 Mg Tablet) 300 mg GT DAILY [facility] Last Admin: 11/06/20 14:20 Dose: 300 mg Documented by: Atorvastatin Calcium (Atorvastatin Calcium 20 Mg Tablet) 20 mg GT DAILY [facility] Last Admin: 11/06/20 14:20 Dose: 20 mg Documented by: Chlorhexidine Gluconate (Chlorhexidine 15 Ml) 15 ml PO BID [facility] Last Admin: 11/06/20 14:18 Dose: 15 ml Documented by: Dexamethasone Sodium Phosphate (Dexamethasone 10 Mg/Ml Vial) 6 mg IV DAILY [facility] Stop: 11/12/20 10:01 Last Admin: 11/06/20 14:21 Dose: 6 mg Documented by: Enoxaparin Sodium (Enoxaparin 120 Mg/0.8 Ml Syringe) 120 mg SC DAILY [facility] Last Admin: 11/06/20 14:19 Dose: 120 mg Documented by: Propofol (Diprivan) 1,000 mg in 100 mls @ 7.644 mls/hr CONT INF .Q12H [facility]; Protocol Last Admin: 11/06/20 13:30 Dose: Not Given Documented by: Fentanyl Citrate 1,000 mcg/ (Sodium Chloride) 100 mls @ 20 mls/hr CONT INF .Q5H [facility]; Protocol Last Admin: 11/06/20 13:31 Dose: Not Given Documented by: Enteral Nutritional Formula (Vital High Protein) 1,000 mls @ 10 mls/hr GT .Q48H [facility] Last Admin: 11/06/20 14:21 Dose: Not Given Documented by: Pantoprazole Sodium 40 mg/ (Sodium Chloride) 110 mls @ 330 mls/hr IV Q12 [facility] Last Admin: 11/06/20 14:20 Dose: 330 mls/hr Documented by: Ceftriaxone Sodium 2 gm/ (Sodium Chloride) 50 mls @ 100 mls/hr IV Q24 [facility] Last Admin: 11/06/20 13:29 Dose: 100 mls/hr Documented by: Norepinephrine Bitartrate 8 mg (/ Sodium Chloride) 250 mls @ 9.375 mls/hr CONT INF .[id number] [facility]; Protocol Last Titration: 11/06/20 12:00 Dose: 1 mcg/min, 1.9 mls/hr Documented by: Insulin Human Lispro (Insulin Lispro 100 Unit/Ml Insuln.Pen) 0 unit SC Q6 [facility]; Protocol Last Admin: 11/06/20 13:31 Dose: Not Given Documented by: Nystatin (Nystatin 500,000 Unit/5 Ml Udc) 500,000 unit PO 4X/DAY [facility] Last Admin: 11/06/20 14:19 Dose: 500,000 unit Documented by: Polyethylene Glycol (Polyethylene Glycol 3350 17 Gm Packet) 17 gm GT BID PRN PRN PRN Reason: CONSTIPATION Last Admin: 11/06/20 04:12 Dose: 17 gm Documented by: Senna/Docusate Sodium (Senna/Docusate Sodium 1 Tablet) 2 tablet GT BID [facility] Last Admin: 11/06/20 14:20 Dose: 2 tablet Documented by: Sodium Chloride (0.9% Saline Lock 10 Ml Syringe) 10 - 40 ml IV UD PRN PRN Reason: SALINE FLUSH Last Admin: 11/06/20 04:12 Dose: 40 ml Documented by: Sodium Chloride (Sodium Chloride 0.65% 1 [place].Btl) 2 spray NASAL BID PRN PRN PRN Reason: NASAL DRYNESS Last Admin: 10/28/20 22:53 Dose: 2 sprays Documented by: STROKE Vital Signs/Narrative: Vital Signs Temp Pulse Resp BP Pulse Ox 11/06/20 14:28 123 H 28 H 91 11/06/20 12:29 114 H 11/06/20 12:00 36.2 C L 109 H 22 H 146/63 H 91 11/06/20 11:45 138/59 H 11/06/20 11:30 90 15 116/66 92 11/06/20 11:15 86 14 91/54 L 92 11/06/20 11:00 87 14 89/50 L 91 Medical Necessity - Tobacco Use Smoking Status: Never smoker Tobacco Use: Non-smoker Assessment/Plan All Active Problems (Last Updated 10/24/20 @ 15:[address] Nish Dee, DO) Pneumonia due to Coronavirus disease 2019 (Acute) Hypoxia (Acute) Melena (Acute) 1. Acute COVID-19 pneumonia: * Patient received a dexamethasone in the emergency room and will continue for a total of 10days. Back on dexa from - * Completed remdesivir * no registered temp of greater than 38, therefore, does not meet definition for CRS 2. Acute hypoxic respiratory failure * 2/2 COVID 19 pneumonia and PE +/- ARDS * Intubated 11/01/2020 currently on vent 50% FiO2 3. CELIA: * likely ischemic ATN * began on 11/02, received IV contrast on 10/29 * on HD 4. Black stools: * Concern is for melena. * on PPI 5. Chronic kidney disease stage III: * Presumed. Hold off on IV fluids given the patient's COVID-19 at this time. Hold HCTZ. Patient is on sodium bicarbonate is baseline. 6. Coronary artery disease: * Patient has had a history of a stent before. No active issues at this time. Continue with losartan, metoprolol tartrate and simvastatin. 7. VTE prophylaxis: * anticoagulated 8. Advanced care planning: * Previously discussed with the patient. Patient state that he would not want t o go on the ventilator but on further clarification stated that he did not need to go onto a ventilator. I told him this is a hypothetical question in case if he were to get worse. He is unsure at this time. I told him that we would leave him at full CODE STATUS at this time until he tells us otherwise. Inpatient E&M: 52502 Subs Hosp L2
[2020-11-06 17:50] LABS: Bedside Glucose 126 mg/dL (70-110)
[2020-11-07] VITALS (56 sets, daily range): BP systolic 89–156; BP diastolic 45–102; PULSE 75–98; RESP 16–24; TEMP 36.1–37.3; O2SAT 87–97; BMI 40.1
[2020-11-07] MEDS: Ipratropium/Albuterol Sulfate 3 ML AMPUL.NEB INHALATION ×3 (00:39→19:15)
[2020-11-07 00:46] LABS: Bedside Glucose 125 mg/dL (70-110)
[2020-11-07] MEDS: Propofol 10MG/Ml 1,000 MG/100 ML Bottle 22.9 MG CONT INF (02:30)
[2020-11-07 04:04] LABS: Absolute Neutrophil Count 13.9 X10^3/uL (2.0-7.7); Basophil# 0.03 X10^3/uL; Basophil% 0.2 % (0-1); Eosinophil# 0.03 X10^3/uL; Eosinophils% 0.2 % (0-5); Hematocrit 30.8 % (40-54); Hemoglobin 10.1 g/dL (13.0-16.5); Lymphocyte % 7.5 % (19-41); Mean Corp Hgb Conc 32.8 g/dL (32-36); Mean Corpuscular Hgb 27.4 pg (27.0-32.0); Mean Corpuscular Volume 83.7 fL (80-94); Mean Platelet Vol. 9.6 fl (6.2-12.0); Monocyte# 1.68 X10^3/uL; Monocyte% 9.7 % (0-10); NRBC Flagged by Analyzer 0 % (0-5); Neutrophil # 13.93 X10^3/uL (2.7-7.7); Neutrophil % 80.6 % (47-70); POSITIVE DIFFERENTIAL YES; Platelet Count 257 K/mm3 (150-450); RBC Distribution Width CV 17.2 % (11.6-14.6); RBC Distribution Width SD 52.2 fl (35.1-43.9); Red Blood Count 3.68 M/mm3 (4.6-6.2); White Blood Count 17.3 K/mm3 (4.4-11.0)
[2020-11-07 04:07] LABS: Differential Indicated SCAN CRITERIA MET
[2020-11-07 04:22] LABS: ALB/GLOB Ratio 0.4 RATIO (0.9-2.4); AST(SGOT) 111 U/L (15-37); Alanine Aminotransfer ALT/SGPT 85 U/L (16-61); Albumin, Serum 1.9 g/dL (3.2-5.0); Alkaline Phosphatase 87 U/L (45-117); Anion Gap 10 (5-15); BUN 47 mg/dL (7-18); BUN/Creat Ratio 9.9 RATIO (10-20); Calcium,Total 8.6 mg/dL (8.5-10.1); Chloride 98 mmol/L (98-107); Creatinine, Serum 4.73 mg/dL (0.70-1.30); EST Glomerular Filtration Rate 13 mL/min (>60); Est Glom Filt Rate - Afr Amer 16 mL/min (>60); Estimated Creatinine Clearance 15.36 ml/min; Globulin 4.8 g/dL (2.2-4.2); Glucose 104 mg/dL (74-106); Potassium 4.6 mmol/L (3.5-5.1); Protein, Total 6.7 g/dL (6.4-8.2); Sodium Level 135 mmol/L (136-145)
[2020-11-07 04:26] LABS: Differential Comment SCANNED
[2020-11-07] MEDS: TITRATION PARAMETER CHANGE 1 EACH IV (04:43)
[2020-11-07] MEDS: 0.9% Saline Lock 10 ML Syringe IV (04:43)
[2020-11-07] MEDS: Propofol 10MG/Ml 1,000 MG/100 ML Bottle 22.2 MG CONT INF ×2 (06:34→10:30)
--- NOTE | 2020-11-07 08:24 | PCM.PN.INT ---
Subjective: Patient did well overnight. No acute issues were reported. Patient has been able to be weaned on FiO2, but did not have a spontaneous breathing trial this morning secondary to PEEP. Patient did have dialysis yesterday with 2.4 L removed. Patient is following simple commands. Patient is still requiring minimal Levophed to maintain appropriate blood pressures. Patient did have 2 small bowel movements overnight. General: - - Intubated and sedated. Follows simple commands. Anasarca improved HEENT: Atraumatic, PERRLA, EOMI, Normocephalic, - - Scleral injection Oral: Moist Mucosa, No Gingival or Mucosal Lesions/ Ulcerations Neck: Supple, No Nodes, Trachea Midline, - - Lines are clean, dry and intact Lungs: No rhonchi, No wheeze, No rales, Diminished, - - Symmetric expansion Cardiovascular: Regular rate, Regular Rhythm, Normal S1, Normal S2, No murmurs, No rub noted, No Gallop Abdomen: Bowel Sounds Present, Soft, Non Tender, Non-Distended, Obese Extremities: No clubbing, No cyanosis, Edema Skin: No rashes, No breakdown Musculoskeletal: No Tenderness to Palpation of Joints or Extremities Lymphatic: No Cervical, Supraclavicular, or Inguinal Adenopathy Neurological: Cranial nerves II-XII grossly intact, Neuro grossly intact Psych/Mental Status: Flat Affect Vital Signs Temp Pulse Resp BP Pulse Ox 36.6 C 94 16 132/54 H 93 11/07/20 04:00 11/07/20 07:00 11/07/20 07:00 11/07/20 07:00 11/07/20 07:00 Oxygen Flow Rate (L/min) 60 Oxygen Delivery Method Mechanical Ventilator Weight: 123.4 kg Body Mass Index (BMI) 41.4 Intake and Output for Last 24 Hours 11/05/20 11/06/20 11/07/20 23:59 23:59 23:59 Intake Total 2136.91 / 2171.97 1487.91 / 1523.64 465.16 / 465.16 Output Total 290 / 290 2421 / 2421 8 / 8 Balance 1846.91 / 1881.97 -933.09 / -897.36 457.16 / 457.16 Labs (Last 48 Hours) 11/02/20 11/02/20 11/03/20 07:02 16:15 05:00 WBC RBC Hgb Hct MCV MCH MCHC RDW Std Deviation RDW Coeff of Abhilash Plt Count MPV Immature Gran % (Auto) Neut % (Auto) Lymph % (Auto) [place] % (Auto) Eos % (Auto) Baso % (Auto) Absolute Neuts (auto) Absolute Lymphs (auto) Nucleated RBC % Differential Comment Diff Path Review Reviewed Reviewed Sodium Potassium Chloride Carbon Dioxide Anion Gap BUN Creatinine Estim Creat Clear Calc Est GFR (MDRD) Af Amer Est GFR (MDRD) Non-Af BUN/Creatinine Ratio Glucose Calcium Total Bilirubin AST ALT Alkaline Phosphatase Total Protein Albumin Globulin Albumin/Globulin Ratio Hep Bs Antigen Non-Reactive POC Glucose 11/05/20 11/05/20 11/05/20 03:45 06:33 11:41 WBC RBC Hgb Hct MCV MCH MCHC RDW Std Deviation RDW Coeff of Abhilash Plt Count MPV Immature Gran % (Auto) Neut % (Auto) Lymph % (Auto) [place] % (Auto) Eos % (Auto) Baso % (Auto) Absolute Neuts (auto) Absolute Lymphs (auto) Nucleated RBC % Differential Comment Diff Path Review Reviewed Sodium Potassium Chloride Carbon Dioxide Anion Gap BUN Creatinine Estim Creat Clear Calc Est GFR (MDRD) Af Amer Est GFR (MDRD) Non-Af BUN/Creatinine Ratio Glucose Calcium Total Bilirubin AST ALT Alkaline Phosphatase Total Protein Albumin Globulin Albumin/Globulin Ratio Hep Bs Antigen POC Glucose 107 116 H 11/05/20 11/05/20 11/06/20 16:27 23:37 04:05 WBC 13.4 H RBC 3.31 L Hgb 9.1 L Hct 28.0 L MCV 84.6 D MCH 27.5 MCHC 32.5 RDW Std Deviation 53.5 H RDW Coeff of Abhilash 17.3 H Plt Count 262 MPV 10.0 Immature Gran % (Auto) 1.900 H Neut % (Auto) 77.7 H Lymph % (Auto) 9.[address] [place] % (Auto) 10.5 H Eos % (Auto) 0.4 Baso % (Auto) 0.1 Absolute Neuts (auto) 10.4 H Absolute Lymphs (auto) 1.26 Nucleated RBC % 0 Differential Comment Diff Path Review Sodium Potassium Chloride Carbon Dioxide Anion Gap BUN Creatinine Estim Creat Clear Calc Est GFR (MDRD) Af Amer Est GFR (MDRD) Non-Af BUN/Creatinine Ratio Glucose Calcium Total Bilirubin AST ALT Alkaline Phosphatase Total Protein Albumin Globulin Albumin/Globulin Ratio Hep Bs Antigen POC Glucose 126 H 106 11/06/20 11/06/20 11/06/20 04:05 06:33 17:39 WBC RBC Hgb Hct MCV MCH MCHC RDW Std Deviation RDW Coeff of Abhilash Plt Count MPV Immature Gran % (Auto) Neut % (Auto) Lymph % (Auto) [place] % (Auto) Eos % (Auto) Baso % (Auto) Absolute Neuts (auto) Absolute Lymphs (auto) Nucleated RBC % Differential Comment Diff Path Review Sodium 136 Potassium 4.2 Chloride 99 Carbon Dioxide 25.0 Anion Gap 12 BUN 56 H Creatinine 5.55 H Estim Creat Clear Calc 13.09 Est GFR (MDRD) Af Amer 13 L Est GFR (MDRD) Non-Af 11 L BUN/Creatinine Ratio 10.1 Glucose 102 Calcium 8.1 L Total Bilirubin 0.40 AST 107 H ALT 62 H Alkaline Phosphatase 56 Total Protein 5.9 L Albumin 1.8 L Globulin 4.1 Albumin/Globulin Ratio 0.4 L Hep Bs Antigen POC Glucose 97 126 H 11/06/20 11/07/20 11/07/20 22:27 03:55 03:55 WBC 17.3 H RBC 3.68 L Hgb 10.1 L Hct 30.8 L MCV 83.7 MCH 27.4 MCHC 32.8 RDW Std Deviation 52.2 H RDW Coeff of Abhilash 17.2 H Plt Count 257 MPV 9.6 Immature Gran % (Auto) 1.800 H Neut % (Auto) 80.6 H Lymph % (Auto) 7.[address] [place] % (Auto) 9.7 Eos % (Auto) 0.2 Baso % (Auto) 0.2 Absolute Neuts (auto) 13.9 H Absolute Lymphs (auto) 1.30 Nucleated RBC % 0 Differential Comment SCANNED Diff Path Review May foll Sodium 135 L Potassium 4.6 Chloride 98 Carbon Dioxide 27.0 Anion Gap 10 BUN 47 H Creatinine 4.73 H Estim Creat Clear Calc 15.36 Est GFR (MDRD) Af Amer 16 L Est GFR (MDRD) Non-Af 13 L BUN/Creatinine Ratio 9.9 L Glucose 104 Calcium 8.6 Total Bilirubin 0.70 AST 111 H ALT 85 H Alkaline Phosphatase 87 Total Protein 6.7 Albumin 1.9 L Globulin 4.8 H Albumin/Globulin Ratio 0.4 L Hep Bs Antigen POC Glucose 125 H Medical Necessity - Tobacco Use Smoking Status: Never smoker Tobacco Use: Non-smoker Assessment/Plan All Active Problems (Last Updated 10/24/20 @ 15:[address] Nish Dee, DO) Pneumonia due to Coronavirus disease 2019 (Acute) Hypoxia (Acute) Melena (Acute) RECOMMENDATIONS: 1. Continue patient on assist control mode of mechanical ventilation and wean FiO2 and PEEP to maintain oxygen saturations at or above 90%. 2. Monitor off paralytic and continue propofol and fentanyl for sedation. 3. Continue attempts at volume optimization via hemodialysis per nephrology. 4. Increase trophic tube feeds. Aggressive bowel regimen. 5. Continue therapeutic Lovenox. 6. Continue PPI therapy as ordered. 7. Continue antimicrobials per ID recommendations. 8. Continue scheduled bronchodilators. IMPRESSIONS: 1. Acute hypoxemic respiratory failure Multifactorial in etiology with COVID-19 pneumonia and bilateral pulmonary emboli contributing. Although attempts were made to utilize heated high flow oxygen and later BiPAP, the patient continued to decompensate from a respiratory perspective, requiring intubation on November 01. For now, the patient will be continued on assist control mode of mechanical ventilation, with plans to wean FiO2 and PEEP to maintain saturations at or above 90%. We will continue to monitor patient off of paralytic therapy. Continue with propofol and fentanyl as necessary for vent synchrony. Nephrology is currently following to assist with hemodialysis needs. Patient has been tolerating volume removal with dialysis. Patient appears to be tolerating trophic feeds. Continue aggressive bowel regimen. Spontaneous breathing and awakening trials per protocol. 2. Acute kidney injury/hyperkalemia Likely prerenal in etiology with component of ischemic ATN. Nephrology is currently following to assist with hemodialysis needs. Anticipate further need for ultrafiltration to assist with volume optimization. Defer to nephrology on timing. 3. Possible GI bleed No overt signs of GI blood loss at this time. Continue twice daily PPI therapy as ordered. Monitor H&H and transfuse if hemoglobin drops below 7 g/dL. 4. History of coronary artery disease/hypertension/hyperlipidemia/obesity Complicates care, management, recovery and prognosis. Continue home medications as indicated. TIME: 33 minutes of critical care time, inclusive of procedures, was spent addressing the patient's acute hypoxemic respiratory failure, COVID-19 pneumonia, bilateral pulmonary emboli, acute kidney injury, review of all data and collaboration with the care team. (7 AM to 8:30 AM) 9xxxx: [id number] Critical care first hour
[2020-11-07] MEDS: Chlorhexidine 15 ML PO ×2 (09:23→20:40)
[2020-11-07] MEDS: Atorvastatin Calcium 20 MG Tablet GT (09:24)
[2020-11-07] MEDS: NYSTATIN 500,000 UNIT/5 ML UDC 500000 UNIT PO (09:24)
[2020-11-07] MEDS: Senna/Docusate Sodium 1 Tablet 2 TABLET GT ×2 (09:24→20:48)
[2020-11-07] MEDS: dexAMETHasone 10 MG/ML Vial 6 MG IV (09:24)
[2020-11-07] MEDS: Enoxaparin 120 MG/0.8 ML Syringe SC (09:24)
[2020-11-07] MEDS: Allopurinol 300 MG Tablet GT (09:24)
--- NOTE | 2020-11-07 09:56 | NT.THERAPY_ITS ---
Nutrition Therapy Report - History Nutrition Services has been consulted to:: Manage nutrient details of diet order, Manage enteral nutrition Current diet / nutrition support order:: NPO; Vital HP at 10mL/hour w/ 30mL H2O flush every 4 hours to provide 240 calories, 21 g protein, and 380mL total fluid/day. - Anthropometric Measurements Height:: 5 ft 9 in Weight:: 123.4 kg Body Mass Index (BMI):: 40.1 - Relevant Labs Relevant Labs:: WBC 17.3 K/mm3 (4.4-11.0) H 11/07/20 03:55 RBC 3.68 M/mm3 (4.6-6.2) L 11/07/20 03:55 Hgb 10.1 g/dL (13.0-16.5) L 11/07/20 03:55 Hct 30.8 % (40-54) L 11/07/20 03:55 MCH 26.8 pg (27.0-32.0) L 11/03/20 05:00 MCHC 29.1 g/dL (32-36) L 11/03/20 05:00 RDW Std Deviation 52.2 fl (35.1-43.9) H 11/07/20 03:55 RDW Coeff of Abhilash 17.2 % (11.6-14.6) H 11/07/20 03:55 Immature Gran % (Auto) 1.800 % (0.0-0.9) H 11/07/20 03:55 Neut % (Auto) 80.6 % (47-70) H 11/07/20 03:55 Lymph % (Auto) 7.5 % (19-41) L 11/07/20 03:55 [place] % (Auto) 10.5 % (0-10) H 11/06/20 04:05 Absolute Neuts (auto) 13.9 X10^3/uL (2.0-7.7) H 11/07/20 03:55 Absolute Lymphs (auto) 0.82 X10^3/uL (0.83-4.51) L 10/25/20 06:45 Fibrinogen 739 mg/dl (203-444) H 10/24/20 17:50 D-Dimer Quant (PE/DVT) 1.29 FEU/ug/m (0.27-0.49) H* 10/24/20 17:50 Sodium 135 mmol/L (136-145) L 11/07/20 03:55 Potassium 5.4 mmol/L (3.5-5.1) H 11/03/20 05:00 Chloride 108 mmol/L (98-107) H 10/31/20 06:20 Anion Gap 4 (5-15) L 10/28/20 06:10 BUN 47 mg/dL (7-18) H 11/07/20 03:55 Creatinine 4.73 mg/dL (0.70-1.30) H 11/07/20 03:55 Est GFR (MDRD) Af Amer 16 mL/min (>60) L 11/07/20 03:55 Est GFR (MDRD) Non-Af 13 mL/min (>60) L 11/07/20 03:55 BUN/Creatinine Ratio 9.9 RATIO (10-20) L 11/07/20 03:55 Glucose 110 mg/dL (74-106) H 11/05/20 03:45 Calcium 8.1 mg/dL (8.5-10.1) L 11/06/20 04:05 Phosphorus 7.5 mg/dL (2.5-4.9) H 11/05/20 03:45 AST 111 U/L (15-37) H 11/07/20 03:55 ALT 85 U/L (16-61) H 11/07/20 03:55 Lactate Dehydrogenase 457 U/L (87-241) H 11/01/20 05:16 C-React Prot Ext Range 64.00 mg/L (0.0-3.0) H 11/01/20 05:16 Total Protein 5.9 g/dL (6.4-8.2) L 11/06/20 04:05 Albumin 1.9 g/dL (3.2-5.0) L 11/07/20 03:55 Globulin 4.8 g/dL (2.2-4.2) H 11/07/20 03:55 Albumin/Globulin Ratio 0.4 RATIO (0.9-2.4) L 11/07/20 03:55 Procalcitonin 0.46 ng/mL (0.00-0.09) H 10/24/20 17:50 - Assessment Food / Nutrition-Related History:: Discussed in ICU rounds. Remains intubated. Had dialysis yesterday w/ 2.4L fluid removed. Wt decrease of 4.0 kg since last review. Has bilat hand/BLE non-pitting edema. Anticipate wt loss w/ continued dialysis/improvement in fluid status. Nursing staff reports small BMs this AM. Per Dr. Fierro, rate increased to 20mL/hour and will be advanced as BMs continue. - Nutrition Diagnosis Problem / Etiology / Signs & Symptoms (PES):: Pt w/ inadequate enteral nutrition related to altered GI function as evidenced by elevated gastric residuals, tube feeds running below goal rate. - Nutrition Intervention Nutrition Prescription:: Re-estimated nutritional needs using ASPEN guidelines for critically ill, morbidly obese pts- 1225-3330 calories (22-25 calories/kg IBW (72kg) and 144-180 g protein (2-2.5 g/kg IBW (72kg). - Food / Nutrient Delivery Interventions Summary of nutrition intervention:: Will change rate of Vital HP on DEC to 20mL/hour w/ 40mL H2O flush every 4 hours. As ordered, enteral nutrition provides 480 calories, 42 g protein, and 641mL total fluid/day. Nutrition support ordered as / adjusted to:: While intubated, continue enteral nutrition support via OGT at 20mL/hour w/ 40mL H2O flush every 4 hours. As pt continues to have bowel movements, recommend increasing rate by 10mL every 12 hours as pt tolerates until goal rate of 70mL/hour is achieved. - MNT Monitoring Further MNT monitoring and evaluation required?: Yes MNT Follow-up in:: 1-2 days
--- NOTE | 2020-11-07 10:33 | PN_ITS ---
Patient Problems: Active and Suspected Problems (Last Updated 10/24/20 @ 15:[address] Nish Dee, DO) Pneumonia due to Coronavirus disease 2019 (Acute) Hypoxia (Acute) Melena (Acute) Reason for Visit: COVID 19 Subjective: Had HD yesterday. Still on vent. Vitals/I&O's: Vital Signs Temp Pulse Resp BP Pulse Ox 36.6 C 87 20 H 128/56 H 90 11/07/20 04:00 11/07/20 09:57 11/07/20 09:57 11/07/20 08:00 11/07/20 09:57 Oxygen Flow Rate (L/min) 60 Oxygen Delivery Method Mechanical Ventilator Weight: 123.4 kg Body Mass Index (BMI) 41.4 Intake and Output for Last 24 Hours 11/05/20 11/06/20 11/07/20 23:59 23:59 23:59 Intake Total 2136.91 / 2171.97 1487.91 / 1523.64 474.56 / 474.56 Output Total 290 / 290 2421 / 2421 Balance 1846.91 / 1881.97 -933.09 / -897.36 464.56 / 464.56 General: - - intubated and sedated. Neck: No Nodes, Thyroid Normal Size and Texture Lungs: Normal air movement, - - coarse breath sounds bilaterally. Cardiovascular: Regular rate, Regular Rhythm, Normal S1, Normal S2 Abdomen: Bowel Sounds Present, Soft, Non Tender, Non-Distended, No Hepato- splenomegaly Extremities: No edema, No Calf Tenderness Skin: No rashes, No breakdown Psych/Mental Status: Normal Affect, Appropriate Microbiology Past 72 Hours 11/01/20 12:25 Sputum, Induced/[place] Gram Stain - Final 11/01/20 12:25 Sputum, Induced/[place]ens Respiratory Culture - Final Streptococcus agalactiae (B) Presumptive C albicans Laboratory Results 11/06/20 17:39: POC Glucose 126 H 11/06/20 22:27: POC Glucose 125 H 11/07/20 03:55: WBC 17.3 H, RBC 3.68 L, Hgb 10.1 L, Hct 30.8 L, MCV 83.7, MCH 27.4, MCHC 32.8, RDW Std Deviation 52.2 H, RDW Coeff of Abhilash 17.2 H, Plt Count 257, MPV 9.6, Immature Gran % (Auto) 1.800 H, Neut % (Auto) 80.6 H, Lymph % (Auto) 7.5 L, [place] % (Auto) 9.7, Eos % (Auto) 0.2, Baso % (Auto) 0.2, Absolute Neuts (auto) 13.9 H, Absolute Lymphs (auto) 1.30, Nucleated RBC % 0, Diffe rential Comment SCANNED, Diff Path Review February foll 11/07/20 03:55: Sodium 135 L, Potassium 4.6, Chloride 98, Carbon Dioxide 27.0, Anion Gap 10, BUN 47 H, Creatinine 4.73 H, Estim Creat Clear Calc 15.36, Est GFR (MDRD) Af Amer 16 L, Est GFR (MDRD) Non-Af 13 L, BUN/Creatinine Ratio 9.9 L, Glucose 104, Calcium 8.6, Total Bilirubin 0.70, AST 111 H, ALT 85 H, Alkaline Phosphatase 87, Total Protein 6.7, Albumin 1.9 L, Globulin 4.8 H, Albumin/Globulin Ratio 0.4 L Current Medications Acetaminophen (Acetaminophen 650 Mg/20 Ml Udc) 650 mg GT Q6H PRN PRN PRN Reason: Pain Score 1-10/Temp > 100.7 F Albuterol/Ipratropium (Ipratropium/Albuterol Sulfate 3 Ml Ampul.Neb) 3 ml INHALATION Q6H.RT [facility] Last Admin: 11/07/20 06:59 Dose: 3 ml Documented by: Allopurinol (Allopurinol 300 Mg Tablet) 300 mg GT DAILY [facility] Last Admin: 11/07/20 09:24 Dose: 300 mg Documented by: Atorvastatin Calcium (Atorvastatin Calcium 20 Mg Tablet) 20 mg GT DAILY [facility] Last Admin: 11/07/20 09:24 Dose: 20 mg Documented by: Chlorhexidine Gluconate (Chlorhexidine 15 Ml) 15 ml PO BID [facility] Last Admin: 11/07/20 09:23 Dose: 15 ml Documented by: Dexamethasone Sodium Phosphate (Dexamethasone 10 Mg/Ml Vial) 6 mg IV DAILY [facility] Stop: 11/12/20 10:01 Last Admin: 11/07/20 09:24 Dose: 6 mg Documented by: Enoxaparin Sodium (Enoxaparin 120 Mg/0.8 Ml Syringe) 120 mg SC DAILY [facility] Last Admin: 11/07/20 09:24 Dose: 120 mg Documented by: Propofol (Diprivan) 1,000 mg in 100 mls @ 7.404 mls/hr CONT INF .Q12H [facility]; Pro tocol Last Titration: 11/07/20 08:00 Dose: 30 mcg/kg/min, 22.2 mls/hr Documented by: Fentanyl Citrate 1,000 mcg/ (Sodium Chloride) 100 mls @ 20 mls/hr CONT INF .Q5H [facility]; Protocol Last Admin: 11/07/20 09:23 Dose: Not Given Documented by: Enteral Nutritional Formula (Vital High Protein) 1,000 mls @ 20 mls/hr GT .Q48H [facility] Last Admin: 11/06/20 14:21 Dose: Not Given Documented by: Pantoprazole Sodium 40 mg/ (Sodium Chloride) 110 mls @ 330 mls/hr IV Q12 [facility] Last Admin: 11/07/20 09:24 Dose: 330 mls/hr Documented by: Ceftriaxone Sodium 2 gm/ (Sodium Chloride) 50 mls @ 100 mls/hr IV Q24 [facility] Last Admin: 11/07/20 09:23 Dose: 100 mls/hr Documented by: Norepinephrine Bitartrate 8 mg (/ Sodium Chloride) 250 mls @ 9.375 mls/hr CONT INF .[id number] [facility]; Protocol Last Titration: 11/07/20 08:00 Dose: 5 mcg/min, 9.4 mls/hr Documented by: Insulin Human Lispro (Insulin Lispro 100 Unit/Ml Insuln.Pen) 0 unit SC Q6 [facility]; Protocol Last Admin: 11/07/20 05:15 Dose: Not Given Documented by: Nystatin (Nystatin 500,000 Unit/5 Ml Udc) 500,000 unit PO 4X/DAY [facility] Last Admin: 11/07/20 09:24 Dose: 500,000 unit Documented by: Polyethylene Glycol (Polyethylene Glycol 3350 17 Gm Packet) 17 gm GT BID PRN PRN PRN Reason: CONSTIPATION Last Admin: 11/06/20 04:12 Dose: 17 gm Documented by: Senna/Docusate Sodium (Senna/Docusate Sodium 1 Tablet) 2 tablet GT BID [facility] Last Admin: 11/07/20 09:24 Dose: 2 tablet Documented by: Sodium Chloride (0.9% Saline Lock 10 Ml Syringe) 10 - 40 ml IV UD PRN PRN Reason: SALINE FLUSH Last Admin: 11/07/20 04:43 Dose: 40 ml Documented by: Sodium Chloride (Sodium Chloride 0.65% 1 [place].Btl) 2 spray NASAL BID PRN PRN PRN Reason: NASAL DRYNESS Last Admin: 10/28/20 22:53 Dose: 2 sprays Documented by: STROKE Vital Signs/Narrative: Vital Signs Pulse Resp BP Pulse Ox 11/07/20 09:57 87 20 H 90 11/07/20 08:00 91 20 H 128/56 H 90 11/07/20 07:00 94 16 132/54 H 93 11/07/20 06:59 91 20 H Medical Necessity - Tobacco Use Smoking Status: Never smoker Tobacco Use: Non-smoker Assessment/Plan All Active Problems (Last Updated 10/24/20 @ 15:[address] Nihs Dee, DO) Pneumonia due to Coronavirus disease 2019 (Acute) Hypoxia (Acute) Melena (Acute) 1. Acute COVID-19 pneumonia: * Patient received a dexamethasone in the emergency room and will continue for a total of 10days. Back on dexa from - * Completed remdesivir * no registered temp of greater than 38, therefore, does not meet definition for CRS 2. Acute hypoxic respiratory failure * 2/2 COVID 19 pneumonia, strep pneumonia and PE +/- ARDS * Intubated 11/01/2020 currently on vent 50% FiO2 3. CELIA: * likely ischemic ATN * began on 11/02, received IV contrast on 10/29 * on HD 4. pneumococcal pneumonia * +Cx on 11/01 * on CTX 5. Black stools: * Concern is for melena. * on PPI 6. Chronic kidney disease stage III: * Presumed. Hold off on IV fluids given the patient's COVID-19 at this time. Hold HCTZ. Patient is on sodium bicarbonate is baseline. 7. Coronary artery disease: * Patient has had a history of a stent before. No active issues at this time. Continue with losartan, metoprolol tartrate and simvastatin. 8. VTE prophylaxis: * anticoagulated 9. Advanced care planning: * Previously discussed with the patient. Patient state that he would not want to go on the ventilator but on further clarification stated that he did not need to go onto a ventilator. I told him this is a hypothetical question in case if he were to get worse. He is unsure at this time. I told him that we would leave him at full CODE STATUS at this time until he tells us otherwise. Inpatient E&M: 13115 Subs Hosp L2
--- NOTE | 2020-11-07 11:15 | PN.RENAL_ITS ---
Patient Problems: Active and Suspected Problems (Last Updated 10/24/20 @ 15:[address] Nish Dee, DO) Pneumonia due to Coronavirus disease 2019 (Acute) Hypoxia (Acute) Melena (Acute) Subjective: The patient is intubated and sedated so cannot do review of systems Objective: Physical examination was deferred to preserve PPE and prevent further transmission of COVID-19 - Physical Exam Vitals/I&O's: Vital Signs Temp Pulse Resp BP Pulse Ox 97.8 F 92 20 H 134/59 H 90 11/07/20 09:00 11/07/20 10:00 11/07/20 10:00 11/07/20 10:00 11/07/20 10:00 Oxygen Flow Rate (L/min) 60 Oxygen Delivery Method Mechanical Ventilator Weight: 123.4 kg Body Mass Index (BMI) 40.1 Intake and Output for Last 24 Hours 11/05/20 11/06/20 11/07/20 23:59 23:59 23:59 Intake Total 2136.91 / 2171.97 1487.91 / 1523.64 728.86 / 728.86 Output Total 290 / 290 2421 / 2421 Balance 1846.91 / 1881.97 -933.09 / -897.36 718.86 / 718.86 Microbiology Past 72 Hours 11/01/20 12:25 Sputum, Induced/[place]ukens Gram Stain - Final 11/01/20 12:25 Sputum, Induced/[place]ens Respiratory Culture - Final Streptococcus agalactiae (B) Presumptive C albicans Laboratory Results 11/06/20 17:39: POC Glucose 126 H 11/06/20 22:27: POC Glucose 125 H 11/07/20 03:55: WBC 17.3 H, RBC 3.68 L, Hgb 10.1 L, Hct 30.8 L, MCV 83.7, MCH 27.4, MCHC 32.8, RDW Std Deviation 52.2 H, RDW Coeff of Abhilash 17.2 H, Plt Count 257, MPV 9.6, Immature Gran % (Auto) 1.800 H, Neut % (Auto) 80.6 H, Lymph % (Auto) 7.5 L, [place] % (Auto) 9.7, Eos % (Auto) 0.2, Baso % (Auto) 0.2, Absolute Neuts (auto) 13.9 H, Absolute Lymphs (auto) 1.30, Nucleated RBC % 0, Differential Comment SCANNED, Diff Path Review February11/07/20 03:55: Sodium 135 L, Potassium 4.6, Chloride 98, Carbon Dioxide 27.0, Anion Gap 10, BUN 47 H, Creatinine 4.73 H, Estim Creat Clear Calc 15.36, Est GFR (MDRD) Af Amer 16 L, Est GFR (MDRD) Non-Af 13 L, BUN/Creatinine Ratio 9.9 L, Glucose 104, Calcium 8.6, Total Bilirubin 0.70, AST 111 H, ALT 85 H, Alkaline Phosphatase 87, Total Protein 6.7, Albumin 1.9 L, Globulin 4.8 H, Albumin/Globulin Ratio 0.4 L Current Medications Acetaminophen (Acetaminophen 650 Mg/20 Ml Udc) 650 mg GT Q6H PRN PRN PRN Reason: Pain Score 1-10/Temp > 100.7 F Albuterol/Ipratropium (Ipratropium/Albuterol Sulfate 3 Ml Ampul.Neb) 3 ml INHALATION Q6H.RT [facility] Last Admin: 11/07/20 06:59 Dose: 3 ml Documented by: Allopurinol (Allopurinol 300 Mg Tablet) 300 mg GT DAILY [facility] Last Admin: 11/07/20 09:24 Dose: 300 mg Documented by: Atorvastatin Calcium (Atorvastatin Calcium 20 Mg Tablet) 20 mg GT DAILY [facility] Last Admin: 11/07/20 09:24 Dose: 20 mg Documented by: Chlorhexidine Gluconate (Chlorhexidine 15 Ml) 15 ml PO BID [facility] Last Admin: 11/07/20 09:23 Dose: 15 ml Documented by: Dexamethasone Sodium Phosphate (Dexamethasone 10 Mg/Ml Vial) 6 mg IV DAILY [facility] Stop: 11/12/20 10:01 Last Admin: 11/07/20 09:24 Dose: 6 mg Documented by: Enoxaparin Sodium (Enoxaparin 120 Mg/0.8 Ml Syringe) 120 mg SC DAILY [facility] Last Admin: 11/07/20 09:24 Dose: 120 mg Documented by: Propofol (Diprivan) 1,000 mg in 100 mls @ 7.404 mls/hr CONT INF .Q12H [facility]; Protocol Last Admin: 11/07/20 10:46 Dose: Not Given Documented by: Fentanyl Citrate 1,000 mcg/ (Sodium Chloride) 100 mls @ 20 mls/hr CONT INF .Q5H [facility]; Protocol Last Titration: 11/07/20 10:00 Dose: 100 mcg/hr, 10 mls/hr Documented by: Enteral Nutritional Formula (Vital High Protein) 1,000 mls @ 20 mls/hr GT .Q48H [facility] Last Admin: 11/06/20 14:21 Dose: Not Given Documented by: Pantoprazole Sodium 40 mg/ (Sodium Chloride) 110 mls @ 330 mls/hr IV Q12 [facility] Last Infusion: 11/07/20 09:44 Dose: Infused Documented by: Ceftriaxone Sodium 2 gm/ (Sodium Chloride) 50 mls @ 100 mls/hr IV Q24 [facility] Last Infusion: 11/07/20 09:53 Dose: Infused Documented by: Norepinephrine Bitartrate 8 mg (/ Sodium Chloride) 250 mls @ 9.375 mls/hr CONT INF .[id number] [facility]; Protocol Last Titration: 11/07/20 10:00 Dose: 5 mcg/min, 9.4 mls/hr Documented by: Insulin Human Lispro (Insulin Lispro 100 Unit/Ml Insuln.Pen) 0 unit SC Q6 [facility]; Protocol Last Admin: 11/07/20 05:15 Dose: Not Given Documented by: Nystatin (Nystatin 500,000 Unit/5 Ml Udc) 500,000 unit PO 4X/DAY [facility] Last Admin: 11/07/20 09:24 Dose: 500,000 unit Documented by: Polyethylene Glycol (Polyethylene Glycol 3350 17 Gm Packet) 17 gm GT BID PRN PRN PRN Reason: CONSTIPATION Last Admin: 11/06/20 04:12 Dose: 17 gm Documented by: Senna/Docusate Sodium (Senna/Docusate Sodium 1 Tablet) 2 tablet GT BID [facility] Last Admin: 11/07/20 09:24 Dose: 2 tablet Documented by: Sodium Chloride (0.9% Saline Lock 10 Ml Syringe) 10 - 40 ml IV UD PRN PRN Reason: SALINE FLUSH Last Admin: 11/07/20 04:43 Dose: 40 ml Documented by: Sodium Chloride (Sodium Chloride 0.65% 1 Alvin Alvin.Btl) 2 spray NASAL BID PRN PRN PRN Reason: NASAL DRYNESS Last Admin: 10/28/20 22:53 Dose: 2 sprays Documented by: Medical Necessity - Tobacco Use Smoking Status: Never smoker Tobacco Use: Non-smoker Assessment/Plan All Active Problems (Last Updated 10/24/20 @ 15:[address] 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
[2020-11-07] MEDS: Propofol 10MG/Ml 1,000 MG/100 ML Bottle 25.9 MG CONT INF ×3 (12:30→16:00)
[2020-11-07] MEDS: Heparin 10,000 UNITS/10 ML Vial IV (14:22)
[2020-11-07 15:01] LABS: Pathologist Review Reviewed
--- NOTE | 2020-11-07 15:09 | DIALYSIS ---
Hemodialysis x 4 hour completed. -2000ml UF. Stable. CVC closed with heparin to each lumen fill volume. Did not appear to tolerate higher fluid removal today. See flowsheet. Per Dr Franco plan for HD again tomorrow. Report to Rajiv PANTOJA
[2020-11-07] MEDS: Vital High Protein 1,000 ML 20 ML GT (15:43)
--- NOTE | 2020-11-07 17:09 | PCM.PN.ID ---
Patient Problems: Active and Suspected Problems (Last Updated 10/24/20 @ 15:[address] Nish Dee, DO) Pneumonia due to Coronavirus disease 2019 (Acute) Hypoxia (Acute) Melena (Acute) Subjective: On vent, improving, no fever - Physical Exam Vitals/I&O's: Vital Signs Temp Pulse Resp BP Pulse Ox 96.9 F L 92 21 H 131/65 H 95 11/07/20 15:00 11/07/20 15:25 11/07/20 15:25 11/07/20 15:00 11/07/20 15:25 Oxygen Flow Rate (L/min) 60 Oxygen Delivery Method Mechanical Ventilator Weight: 123.4 kg Body Mass Index (BMI) 40.1 Intake and Output for Last 24 Hours 11/05/20 11/06/20 11/07/20 23:59 23:59 23:59 Intake Total 2136.91 / 2171.97 1487.91 / 1523.64 996.88 / 996.88 Output Total 290 / 290 2421 / 2421 2035 / 2035 Balance 1846.91 / 1881.97 -933.09 / -897.36 -1038.12 / -1038.12 General: No apparent distress Lungs: Clear to auscultation, Diminished Cardiovascular: Regular rate, Regular Rhythm Abdomen: Soft, Non Tender, Non-Distended Skin: No rashes Laboratory Results 11/06/20 17:39: POC Glucose 126 H 11/06/20 22:27: POC Glucose 125 H 11/07/20 03:55: WBC 17.3 H, RBC 3.68 L, Hgb 10.1 L, Hct 30.8 L, MCV 83.7, MCH 27.4, MCHC 32.8, RDW Std Deviation 52.2 H, RDW Coeff of Abhilash 17.2 H, Plt Count 257, MPV 9.6, Immature Gran % (Auto) 1.800 H, Neut % (Auto) 80.6 H, Lymph % (Auto) 7.5 L, [place] % (Auto) 9.7, Eos % (Auto) 0.2, Baso % (Auto) 0.2, Absolute Neuts (auto) 13.9 H, Absolute Lymphs (auto) 1.30, Nucleated RBC % 0, Differential Comment SCANNED, Diff Path Review Reviewed 11/07/20 03:55: Sodium 135 L, Potassium 4.6, Chloride 98, Carbon Dioxide 27.0, Anion Gap 10, BUN 47 H, Creatinine 4.73 H, Estim Creat Clear Calc 15.36, Est GFR (MDRD) Af Amer 16 L, Est GFR (MDRD) Non-Af 13 L, BUN/Creatinine Ratio 9.9 L, Glucose 104, Calcium 8.6, Total Bilirubin 0.70, AST 111 H, ALT 85 H, Alkaline Phosphatase 87, Total Protein 6.7, Albumin 1.9 L, Globulin 4.8 H, Albumin/Globulin Ratio 0.4 L Current Medications Acetaminophen (Acetaminophen 650 Mg/20 Ml Udc) 650 mg GT Q6H PRN PRN PRN Reason: Pain Score 1-10/Temp > 100.7 F Albuterol/Ipratropium (Ipratropium/Albuterol Sulfate 3 Ml Ampul.Neb) 3 ml INHALATION Q6H.RT [facility] Last Admin: 11/07/20 06:59 Dose: 3 ml Documented by: Allopurinol (Allopurinol 300 Mg Tablet) 300 mg GT DAILY [facility] Last Admin: 11/07/20 09:24 Dose: 300 mg Documented by: Atorvastatin Calcium (Atorvastatin Calcium 20 Mg Tablet) 20 mg GT DAILY [facility] Last Admin: 11/07/20 09:24 Dose: 20 mg Documented by: Chlorhexidine Gluconate (Chlorhexidine 15 Ml) 15 ml PO BID [facility] Last Admin: 11/07/20 09:23 Dose: 15 ml Documented by: Dexamethasone Sodium Phosphate (Dexamethasone 10 Mg/Ml Vial) 6 mg IV DAILY [facility] Stop: 11/12/20 10:01 Last Admin: 11/07/20 09:24 Dose: 6 mg Documented by: Enoxaparin Sodium (Enoxaparin 120 Mg/0.8 Ml Syringe) 120 mg SC DAILY [facility] Last Admin: 11/07/20 09:24 Dose: 120 mg Documented by: Propofol (Diprivan) 1,000 mg in 100 mls @ 7.404 mls/hr CONT INF .Q12H [facility]; Protocol Last Titration: 11/07/20 15:00 Dose: 35 mcg/kg/min, 25.9 mls/hr Documented by: Fentanyl Citrate 1,000 mcg/ (Sodium Chloride) 100 mls @ 20 mls/hr CONT INF .Q5H [facility]; Protocol Last Titration: 11/07/20 15:00 Dose: 100 mcg/hr, 10 mls/hr Documented by: Enteral Nutritional Formula (Vital High Protein) 1,000 mls @ 20 mls/hr GT .Q48H [facility] Last Admin: 11/07/20 15:43 Dose: 20 mls/hr Documented by: Pantoprazole Sodium 40 mg/ (Sodium Chloride) 110 mls @ 330 mls/hr IV Q12 [facility] Last Infusion: 11/07/20 09:44 Dose: Infused Documented by: Ceftriaxone Sodium 2 gm/ (Sodium Chloride) 50 mls @ 100 mls/hr IV Q24 [facility] Last Infusion: 11/07/20 09:53 Dose: Infused Documented by: Norepinephrine Bitartrate 8 mg (/ Sodium Chloride) 250 mls @ 9.375 mls/hr CONT INF .[id number] [facility]; Protocol Last Titration: 11/07/20 15:00 Dose: 5 mcg/min, 9.4 mls/hr Documented by: Insulin Human Lispro (Insulin Lispro 100 Unit/Ml Insuln.Pen) 0 unit SC Q6 [facility]; Protocol Last Admin: 11/07/20 15:46 Dose: Not Given Documented by: Polyethylene Glycol (Polyethylene Glycol 3350 17 Gm Packet) 17 gm GT BID PRN PRN PRN Reason: CONSTIPATION Last Admin: 11/06/20 04:12 Dose: 17 gm Documented by: Senna/Docusate Sodium (Senna/Docusate Sodium 1 Tablet) 2 tablet GT BID [facility] Last Admin: 11/07/20 09:24 Dose: 2 tablet Documented by: Sodium Chloride (0.9% Saline Lock 10 Ml Syringe) 10 - 40 ml IV UD PRN PRN Reason: SALINE FLUSH Last Admin: 11/07/20 04:43 Dose: 40 ml Documented by: Sodium Chloride (Sodium Chloride 0.65% 1 [place].Btl) 2 spray NASAL BID PRN PRN PRN Reason: NASAL DRYNESS Last Admin: 10/28/20 22:53 Dose: 2 sprays Documented by: Medical Necessity - Tobacco Use Smoking Status: Never smoker Tobacco Use: Non-smoker Route of nutrition/ use of supplements: [] Nutritional Intake: [] IV Site: [] [place] Catheter: [] - Assessment/Plan Antibiotics: [] Assessment/Plan: [] Active and Suspected Problems (Last Updated 10/24/20 @ 15:[address] Nish Dee, DO) Pneumonia due to Coronavirus disease 2019 (Acute) Hypoxia (Acute) Melena (Acute) covid with hypoxia and PE - sx started about 2 weeks prior to admit. Completed dex and completed remdesivir. On therapeutic lovenox. On vent and pressor Sputum cx with strep, cont ceftriaxone. Overall much improved. Will follow
[2020-11-07 18:11] LABS: Bedside Glucose 119 mg/dL (70-110)
[2020-11-07 18:11] LABS: Bedside Glucose 146 mg/dL (70-110)
--- NOTE | 2020-11-07 21:21 | NURSING ---
On the DEC Propofol drip is complete. However, current bottle still infusing at 40mcg/kg/min.
[2020-11-07] MEDS: Propofol 10MG/Ml 1,000 MG/100 ML Bottle 29.6 MG CONT INF (21:42)
[2020-11-08] VITALS (77 sets, daily range): BP systolic 76–137; BP diastolic 43–87; PULSE 74–104; RESP 14–24; TEMP 36.4–36.8; O2SAT 88–97; BMI 39.9
[2020-11-08] MEDS: Propofol 10MG/Ml 1,000 MG/100 ML Bottle 29.6 MG CONT INF (00:21)
[2020-11-08 00:31] LABS: Bedside Glucose 92 mg/dL (70-110)
[2020-11-08] MEDS: Ipratropium/Albuterol Sulfate 3 ML AMPUL.NEB INHALATION ×4 (01:45→19:09)
[2020-11-08] MEDS: TITRATION PARAMETER CHANGE 1 EACH IV (02:56)
[2020-11-08] MEDS: Propofol 10MG/Ml 1,000 MG/100 ML Bottle 29.4 MG CONT INF ×2 (03:00→06:00)
[2020-11-08 04:08] LABS: Absolute Lymphocyte Count 1.21 X10^3/uL (0.83-4.51); Absolute Neutrophil Count 8.5 X10^3/uL (2.0-7.7); Basophil# 0.02 X10^3/uL; Basophil% 0.2 % (0-1); Eosinophil# 0.11 X10^3/uL; Hematocrit 30.3 % (40-54); Hemoglobin 9.6 g/dL (13.0-16.5); Lymphocyte # 1.21 X10^3/ul (4.0); Lymphocyte % 10.6 % (19-41); Mean Corp Hgb Conc 31.7 g/dL (32-36); Mean Corpuscular Hgb 27.4 pg (27.0-32.0); Mean Corpuscular Volume 86.3 fL (80-94); Mean Platelet Vol. 10.1 fl (6.2-12.0); Monocyte# 1.35 X10^3/uL; Monocyte% 11.8 % (0-10); NRBC Flagged by Analyzer 0 % (0-5); Neutrophil % 74.3 % (47-70); Platelet Count 240 K/mm3 (150-450); RBC Distribution Width CV 17.2 % (11.6-14.6); RBC Distribution Width SD 53.9 fl (35.1-43.9); Red Blood Count 3.51 M/mm3 (4.6-6.2); White Blood Count 11.4 K/mm3 (4.4-11.0)
[2020-11-08 04:15] LABS: Bedside Glucose 98 mg/dL (70-110)
[2020-11-08 05:01] LABS: Anion Gap 10 (5-15); BUN 49 mg/dL (7-18); BUN/Creat Ratio 11.6 RATIO (10-20); Calcium,Total 8.7 mg/dL (8.5-10.1); Chloride 99 mmol/L (98-107); Creatinine, Serum 4.23 mg/dL (0.70-1.30); EST Glomerular Filtration Rate 15 mL/min (>60); Est Glom Filt Rate - Afr Amer 18 mL/min (>60); Estimated Creatinine Clearance 17.18 ml/min; Glucose 97 mg/dL (74-106); Magnesium 2.9 mg/dL (1.6-2.6); Phosphorus 6.9 mg/dL (2.5-4.9); Potassium 4.1 mmol/L (3.5-5.1); Sodium Level 136 mmol/L (136-145)
--- NOTE | 2020-11-08 06:37 | PN_ITS ---
Subjective: Patient did well overnight. However, at approximately 330, patient became tachycardic and hypoxic requiring increased PEEP. Patient also had to go up on his pressors. Patient reportedly has had copious thick secretions and has had to have lavage secondary to mucous plugging. Patient did have bowel movements overnight and tube feeds have been increased. General: - - Intubated and sedated. Opens eyes to voice, but not tracking. Anasarca improved. HEENT: Atraumatic, PERRLA, EOMI, Normocephalic, - - Slight scleral injection Oral: Moist Mucosa, No Gingival or Mucosal Lesions/ Ulcerations Neck: Supple, No JVD, No Nodes, Trachea Midline Lungs: Clear to auscultation, No rhonchi, No wheeze, No rales, - - Symmetric expansion Cardiovascular: Regular rate, Regular Rhythm, Normal S1, Normal S2, No murmurs, No rub noted, No Gallop Abdomen: Bowel Sounds Present, Soft, Non Tender, Non-Distended, Obese Extremities: No clubbing, No cyanosis, Edema Skin: - - No change from previous Musculoskeletal: No Tenderness to Palpation of Joints or Extremities Lymphatic: No Cervical, Supraclavicular, or Inguinal Adenopathy Neurological: Cranial nerves II-XII grossly intact, Neuro grossly intact, Motor Exam 5/5 strength throughout Psych/Mental Status: Flat Affect Vital Signs Temp Pulse Resp BP Pulse Ox 36.4 C L 92 14 103/52 L 92 11/08/20 04:00 11/08/20 06:00 11/08/20 06:00 11/08/20 06:15 11/08/20 06:00 Oxygen Flow Rate (L/min) 60 Oxygen Delivery Method Mechanical Ventilator Weight: 122.7 kg Body Mass Index (BMI) 40.1 Intake and Output for Last 24 Hours 11/06/20 11/07/20 11/08/20 23:59 23:59 23:59 Intake Total 1487.91 / 1523.64 1472.34 / 1843.59 803.84 / 803.84 Output Total 2421 / 2421 2034 / 2044 Balance -933.09 / -897.36 -562.66 / -201.41 793.84 / 793.84 Labs (Last 48 Hours) 11/06/20 11/06/20 11/06/20 06:33 17:39 22:27 WBC RBC Hgb Hct MCV MCH MCHC RDW Std Deviation RDW Coeff of Abhilash Plt Count MPV Immature Gran % (Auto) Neut % (Auto) Lymph % (Auto) [place] % (Auto) Eos % (Auto) Baso % (Auto) Absolute Neuts (auto) Absolute Lymphs (auto) Nucleated RBC % Differential Comment Diff Path Review Sodium Potassium Chloride Carbon Dioxide Anion Gap BUN Creatinine Estim Creat Clear Calc Est GFR (MDRD) Af Amer Est GFR (MDRD) Non-Af BUN/Creatinine Ratio Glucose Calcium Phosphorus Magnesium Total Bilirubin AST ALT Alkaline Phosphatase Total Protein Albumin Globulin Albumin/Globulin Ratio POC Glucose 97 126 H 125 H 11/07/20 11/07/20 11/07/20 03:55 03:55 15:44 WBC 17.3 H RBC 3.68 L Hgb 10.1 L Hct 30.8 L MCV 83.7 MCH 27.4 MCHC 32.8 RDW Std Deviation 52.2 H RDW Coeff of Abhilash 17.2 H Plt Count 257 MPV 9.6 Immature Gran % (Auto) 1.800 H Neut % (Auto) 80.6 H Lymph % (Auto) 7.5 L [place] % (Auto) 9.7 Eos % (Auto) 0.2 Baso % (Auto) 0.2 Absolute Neuts (auto) 13.9 H Absolute Lymphs (auto) 1.30 Nucleated RBC % 0 Differential Comment SCANNED Diff Path Review Reviewed Sodium 135 L Potassium 4.6 Chloride 98 Carbon Dioxide 27.0 Anion Gap 10 BUN 47 H Creatinine 4.73 H Estim Creat Clear Calc 15.36 Est GFR (MDRD) Af Amer 16 L Est GFR (MDRD) Non-Af 13 L BUN/Creatinine Ratio 9.9 L Glucose 104 Calcium 8.6 Phosphorus Magnesium Total Bilirubin 0.70 AST 111 H ALT 85 H Alkaline Phosphatase 87 Total Protein 6.7 Albumin 1.9 L Globulin 4.8 H Albumin/Globulin Ratio 0.4 L POC Glucose 146 H 11/07/20 11/07/20 11/08/20 18:06 23:51 03:52 WBC 11.4 H RBC 3.51 L Hgb 9.6 L Hct 30.3 L MCV 86.3 MCH 27.4 MCHC 31.7 L RDW Std Deviation 53.9 H RDW Coeff of Abhilash 17.2 H Plt Count 240 MPV 10.1 Immature Gran % (Auto) 2.100 H Neut % (Auto) 74.3 H Lymph % (Auto) 10.6 L [place] % (Auto) 11.8 H Eos % (Auto) 1.0 Baso % (Auto) 0.2 Absolute Neuts (auto) 8.5 H Absolute Lymphs (auto) 1.21 Nucleated RBC % 0 Differential Comment Diff Path Review Sodium Potassium Chloride Carbon Dioxide Anion Gap BUN Creatinine Estim Creat Clear Calc Est GFR (MDRD) Af Amer Est GFR (MDRD) Non-Af BUN/Creatinine Ratio Glucose Calcium Phosphorus Magnesium Total Bilirubin AST ALT Alkaline Phosphatase Total Protein Albumin Globulin Albumin/Globulin Ratio POC Glucose 119 H 92 11/08/20 11/08/20 03:52 04:06 WBC RBC Hgb Hct MCV MCH MCHC RDW Std Deviation RDW Coeff of Abhilash Plt Count MPV Immature Gran % (Auto) Neut % (Auto) Lymph % (Auto) [place] % (Auto) Eos % (Auto) Baso % (Auto) Absolute Neuts (auto) Absolute Lymphs (auto) Nucleated RBC % Differential Comment Diff Path Review Sodium 136 Potassium 4.1 Chloride 99 Carbon Dioxide 27.0 Anion Gap 10 BUN 49 H Creatinine 4.23 H Estim Creat Clear Calc 17.18 Est GFR (MDRD) Af Amer 18 L Est GFR (MDRD) Non-Af 15 L BUN/Creatinine Ratio 11.6 Glucose 97 Calcium 8.7 Phosphorus 6.9 H Magnesium 2.9 H Total Bilirubin AST ALT Alkaline Phosphatase Total Protein Albumin Globulin Albumin/Globulin Ratio POC Glucose 98 Medical Necessity - Tobacco Use Smoking Status: Never smoker Tobacco Use: Non-smoker Assessment/Plan All Active Problems (Last Updated 10/24/20 @ 15:[address] Nish Dee, DO) Pneumonia due to Coronavirus disease 2019 (Acute) Hypoxia (Acute) Melena (Acute) RECOMMENDATIONS: 1. Continue patient on assist control mode of mechanical ventilation and wean FiO2 and PEEP to maintain oxygen saturations at or above 90%. 2. Continue propofol and fentanyl for sedation. 3. Continue attempts at volume optimization via hemodialysis per nephrology. Likely okay to hold on dialysis today 4. Increase tube feeds. Aggressive bowel regimen. 5. Continue therapeutic Lovenox. 6. Continue PPI therapy as ordered. 7. Continue antimicrobials per ID recommendations. 8. Obtain chest x-ray. Add mucolytic. IMPRESSIONS: 1. Acute hypoxemic respiratory failure Multifactorial in etiology with COVID-19 pneumonia and bilateral pulmonary emboli contributing. Although attempts were made to utilize heated high flow oxygen and later BiPAP, the patient continued to decompensate from a respiratory perspective, requiring intubation on November 01. For now, the patient will be continued on assist control mode of mechanical ventilation, with plans to wean FiO2 and PEEP to maintain saturations at or above 90%. Continue with propofol and fentanyl as necessary for vent synchrony. Nephrology is currently following to assist with hemodialysis needs. Patient has been tolerating volume removal with dialysis. Patient appears to be tolerating tube feeds. Continue aggressive bowel regimen. Spontaneous breathing and awakening trials per protocol. Unclear if decompensation overnight was secondary to mucous plugging. Will obtain a chest x-ray and initiate mucolytic therapy. 2. Acute kidney injury/hyperkalemia Likely prerenal in etiology with component of ischemic ATN. Nephrology is currently following to assist with hemodialysis needs. Anticipate further need for ultrafiltration to assist with volume optimization. Defer to nephrology on timing. 3. Possible GI bleed No overt signs of GI blood loss at this time. Continue twice daily PPI therapy as ordered. Monitor H&H and transfuse if hemoglobin drops below 7 g/dL. 4. History of coronary artery disease/hypertension/hyperlipidemia/obesity Complicates care, management, recovery and prognosis. Continue home medications as indicated. TIME: 34 minutes of critical care time, inclusive of procedures, was spent addressing the patient's acute hypoxemic respiratory failure, COVID-19 pneumon ia, bilateral pulmonary emboli, acute kidney injury, review of all data and collaboration with the care team. (5:15 AM to 6:15 AM) [id number] Critical care first hour
--- NOTE | 2020-11-08 06:49 | RAD_ITS ---
STUDY: X-RAY CHEST REASON FOR EXAM: Male, 65 years old. HYPOXIA, COVID 19 TECHNIQUE: Single AP portable view of the chest. COMPARISON: Comparison is made with prior study dated 11/02/2020. FINDINGS: An endotracheal tube is seen with the tip at 3.4 cm proximal to the javier. An orogastric tube is seen with the tip below the left hemidiaphragm. A left-sided subclavian catheter is seen with the tip at the junction of the superior vena cava and right atrium. A right-sided dialysis catheter is seen with the tip at the junction of the superior vena cava and right atrium. EKG electrodes are seen. There now is evidence of a dense consolidation in the right midlung as well as infiltrate in the left lower lobe. Mild elevation of the right hemidiaphragm. Normal size heart. Normal mediastinum and gaby. Normal visualized pulmonary arteries. Normal visualized aortic arch and descending thoracic aorta. Normal visualized thoracic spine. Normal visualized ribs, clavicles, and shoulders. There is no demonstrated abnormality of the visualized soft tissue structures of the upper abdomen. RAD/Chest 1 View (Portable) IMPRESSION: Dense consolidation in the right midlung and focal infiltrate in the left lower lobe. Electronically Signed: Jr Moya MD at 9:06 EST , Service support ,
[2020-11-08] MEDS: Propofol 10MG/Ml 1,000 MG/100 ML Bottle 25.8 MG CONT INF ×2 (09:25→13:45)
[2020-11-08] MEDS: 0.9% Saline Lock 10 ML Syringe IV ×3 (10:10→18:30)
[2020-11-08] MEDS: Enoxaparin 120 MG/0.8 ML Syringe SC (10:11)
[2020-11-08] MEDS: Allopurinol 300 MG Tablet GT (10:11)
[2020-11-08] MEDS: dexAMETHasone 10 MG/ML Vial 6 MG IV (10:11)
[2020-11-08] MEDS: Atorvastatin Calcium 20 MG Tablet GT (10:11)
[2020-11-08] MEDS: guaiFENesin 10 ML UDC (200MG/10ML) GT ×4 (10:11→21:20)
[2020-11-08] MEDS: Senna/Docusate Sodium 1 Tablet 2 TABLET GT ×2 (10:11→21:20)
[2020-11-08] MEDS: Chlorhexidine 15 ML PO ×2 (10:20→21:19)
--- NOTE | 2020-11-08 11:38 | PN.RENAL_ITS ---
Patient Problems: Active and Suspected Problems (Last Updated 10/24/20 @ 15:[address] Nish Dee, DO) Pneumonia due to Coronavirus disease 2019 (Acute) Hypoxia (Acute) Melena (Acute) Subjective: Patient is intubated and sedated so cannot do ROS Objective: Physical examination deferred to preserve PPE and prevent further transmission of COVID-19. - Physical Exam Vitals/I&O's: Vital Signs Temp Pulse Resp BP Pulse Ox 97.5 F L 98 21 H 108/47 L 91 11/08/20 04:00 11/08/20 09:55 11/08/20 09:55 11/08/20 07:00 11/08/20 09:55 Oxygen Flow Rate (L/min) 60 Oxygen Delivery Method Mechanical Ventilator Weight: 122.7 kg Body Mass Index (BMI) 40.1 Intake and Output for Last 24 Hours 11/06/20 11/07/20 11/08/20 23:59 23:59 23:59 Intake Total 1487.91 / 1523.64 1472.34 / 1843.59 984.19 / 984.19 Output Total 2421 / 2421 2034 / 2044 Balance -933.09 / -897.36 -562.66 / -201.41 974.19 / 974.19 Laboratory Results 11/07/20 03:55: Diff Path Review Reviewed 11/07/20 15:44: POC Glucose 146 H 11/07/20 18:06: POC Glucose 119 H 11/07/20 23:51: POC Glucose 92 11/08/20 03:52: WBC 11.4 H, RBC 3.51 L, Hgb 9.6 L, Hct 30.3 L, MCV 86.3, MCH 27.4, MCHC 31.7 L, RDW Std Deviation 53.9 H, RDW Coeff of Abhilash 17.2 H, Plt Count 240, MPV 10.1, Immature Gran % (Auto) 2.100 H, Neut % (Auto) 74.3 H, Lymph % (Auto) 10.6 L, [place] % (Auto) 11.8 H, Eos % (Auto) 1.0, Baso % (Auto) 0.2, Absolute Neuts (auto) 8.5 H, Absolute Lymphs (auto) 1.21, Nucleated RBC % 0 11/08/20 03:52: Sodium 136, Potassium 4.1, Chloride 99, Carbon Dioxide 27.0, Anion Gap 10, BUN 49 H, Creatinine 4.23 H, Estim Creat Clear Calc 17.18, Est GFR (MDRD) Af Amer 18 L, Est GFR (MDRD) Non-Af 15 L, BUN/Creatinine Ratio 11.6, Glucose 97, Calcium 8.7, Phosphorus 6.9 H, Magnesium 2.9 H 11/08/20 04:06: POC Glucose 98 Current Medications Acetaminophen (Acetaminophen 650 Mg/20 Ml Udc) 650 mg GT Q6H PRN PRN PRN Reason: Pain Score 1-10/Temp > 100.7 F Albuterol/Ipratropium (Ipratropium/Albuterol Sulfate 3 Ml Ampul.Neb) 3 ml INHALATION Q6H.RT [facility] Last Admin: 11/08/20 06:57 Dose: 3 ml Documented by: Allopurinol (Allopurinol 300 Mg Tablet) 300 mg GT DAILY [facility] Last Admin: 11/08/20 10:11 Dose: 300 mg Documented by: Atorvastatin Calcium (Atorvastatin Calcium 20 Mg Tablet) 20 mg GT DAILY [facility] Last Admin: 11/08/20 10:11 Dose: 20 mg Documented by: Chlorhexidine Gluconate (Chlorhexidine 15 Ml) 15 ml PO BID [facility] Last Admin: 11/08/20 10:20 Dose: 15 ml Documented by: Dexamethasone Sodium Phosphate (Dexamethasone 10 Mg/Ml Vial) 6 mg IV DAILY [facility] Stop: 11/12/20 10:01 Last Admin: 11/08/20 10:11 Dose: 6 mg Documented by: Enoxaparin Sodium (Enoxaparin 120 Mg/0.8 Ml Syringe) 120 mg SC DAILY [facility] Last Admin: 11/08/20 10:11 Dose: 120 mg Documented by: Guaifenesin (Guaifenesin 10 Ml Udc (200mg/10ml)) 10 ml GT Q4H [facility] Last Admin: 11/08/20 10:11 Dose: 10 ml Documented by: Propofol (Diprivan) 1,000 mg in 100 mls @ 7.362 mls/hr CONT INF .Q12H [facility]; Protocol Last Titration: 11/08/20 09:00 Dose: 35 mcg/kg/min, 25.8 mls/hr Documented by: Fentanyl Citrate 1,000 mcg/ (Sodium Chloride) 100 mls @ 20 mls/hr CONT INF .Q5H [facility]; Protocol Last Titration: 11/08/20 10:00 Dose: Infused Documented by: Enteral Nutritional Formula (Vital High Protein) 1,000 mls @ 70 mls/hr GT .[id number] [facility] Last Admin: 11/07/20 15:43 Dose: 20 mls/hr Documented by: Pantoprazole Sodium 40 mg/ (Sodium Chloride) 110 mls @ 330 mls/hr IV Q12 [facility] Last Admin: 11/08/20 10:23 Dose: 330 mls/hr Documented by: Ceftriaxone Sodium 2 gm/ (Sodium Chloride) 50 mls @ 100 mls/hr IV Q24 [facility] Last Admin: 11/08/20 10:23 Dose: 100 mls/hr Documented by: Norepinephrine Bitartrate 8 mg (/ Sodium Chloride) 250 mls @ 9.375 mls/hr CONT INF .[id number] [facility]; Protocol Last Titration: 11/08/20 07:00 Dose: 2 mcg/min, 3.8 mls/hr Documented by: Insulin Human Lispro (Insulin Lispro 100 Unit/Ml Insuln.Pen) 0 unit SC Q6 [facility]; Protocol Last Admin: 11/08/20 04:24 Dose: Not Given Documented by: Polyethylene Glycol (Polyethylene Glycol 3350 17 Gm Packet) 17 gm GT BID PRN PRN PRN Reason: CONSTIPATION Last Admin: 11/06/20 04:12 Dose: 17 gm Documented by: Senna/Docusate Sodium (Senna/Docusate Sodium 1 Tablet) 2 tablet GT BID [facility] Last Admin: 11/08/20 10:11 Dose: 2 tablet Documented by: Sodium Chloride (0.9% Saline Lock 10 Ml Syringe) 10 - 40 ml IV UD PRN PRN Reason: SALINE FLUSH Last Admin: 11/08/20 10:10 Dose: 20 ml Documented by: Sodium Chloride (Sodium Chloride 0.65% 1 [place].Btl) 2 spray NASAL BID PRN PRN PRN Reason: NASAL DRYNESS Last Admin: 10/28/20 22:53 Dose: 2 sprays Documented by: Medical Necessity - Tobacco Use Smoking Status: Never smoker Tobacco Use: Non-smoker Assessment/Plan All Active Problems (Last Updated 10/24/20 @ 15:[address] Nish Dee, DO) Pneumonia due to Coronavirus disease 2019 (Acute) Hypoxia (Acute) Melena (Acute) CELIA?ATN with shock creatinine 1.02 Hyperkalemia resolved Hypermagnesemia Hyperphosphatemia Respiratory failure s/p intubation COVID-19 pneumonia and bilateral pulmonary emboli Oliguric almost anuric continue with dialysis with UF as tolerated we will dialyze again tomorrow keep MAP more than 65 currently off Levophed d/w HD RN AND r d intern Avoid nephrotoxins
--- NOTE | 2020-11-08 11:49 | PCM.NTREPORT ---
Nutrition Therapy Report - History Current diet / nutrition support order:: NPO; Vital HP at 30mL/hour via OGT w/ 40mL H2O flush every 4 hours - Anthropometric Measurements Height:: 5 ft 9 in Weight:: 122.7 kg Body Mass Index (BMI):: 39.9 - Relevant Labs Relevant Labs:: WBC 11.4 K/mm3 (4.4-11.0) H 11/08/20 03:52 RBC 3.51 M/mm3 (4.6-6.2) L 11/08/20 03:52 Hgb 9.6 g/dL (13.0-16.5) L 11/08/20 03:52 Hct 30.3 % (40-54) L 11/08/20 03:52 MCH 26.8 pg (27.0-32.0) L 11/03/20 05:00 MCHC 31.7 g/dL (32-36) L 11/08/20 03:52 RDW Std Deviation 53.9 fl (35.1-43.9) H 11/08/20 03:52 RDW Coeff of Abhilash 17.2 % (11.6-14.6) H 11/08/20 03:52 Immature Gran % (Auto) 2.100 % (0.0-0.9) H 11/08/20 03:52 Neut % (Auto) 74.3 % (47-70) H 11/08/20 03:52 Lymph % (Auto) 10.6 % (19-41) L 11/08/20 03:52 [place] % (Auto) 11.8 % (0-10) H 11/08/20 03:52 Absolute Neuts (auto) 8.5 X10^3/uL (2.0-7.7) H 11/08/20 03:52 Absolute Lymphs (auto) 0.82 X10^3/uL (0.83-4.51) L 10/25/20 06:45 Fibrinogen 739 mg/dl (203-444) H 10/24/20 17:50 D-Dimer Quant (PE/DVT) 1.29 FEU/ug/m (0.27-0.49) H* 10/24/20 17:50 Sodium 135 mmol/L (136-145) L 11/07/20 03:55 Potassium 5.4 mmol/L (3.5-5.1) H 11/03/20 05:00 Chloride 108 mmol/L (98-107) H 10/31/20 06:20 Anion Gap 4 (5-15) L 10/28/20 06:10 BUN 49 mg/dL (7-18) H 11/08/20 03:52 Creatinine 4.23 mg/dL (0.70-1.30) H 11/08/20 03:52 Est GFR (MDRD) Af Amer 18 mL/min (>60) L 11/08/20 03:52 Est GFR (MDRD) Non-Af 15 mL/min (>60) L 11/08/20 03:52 BUN/Creatinine Ratio 9.9 RATIO (10-20) L 11/07/20 03:55 Glucose 110 mg/dL (74-106) H 11/05/20 03:45 Calcium 8.1 mg/dL (8.5-10.1) L 11/06/20 04:05 Phosphorus 6.9 mg/dL (2.5-4.9) H 11/08/20 03:52 Magnesium 2.9 mg/dL (1.6-2.6) H 11/08/20 03:52 AST 111 U/L (15-37) H 11/07/20 03:55 ALT 85 U/L (16-61) H 11/07/20 03:55 Lactate Dehydrogenase 457 U/L (87-241) H 11/01/20 05:16 C-React Prot Ext Range 64.00 mg/L (0.0-3.0) H 11/01/20 05:16 Total Protein 5.9 g/dL (6.4-8.2) L 11/06/20 04:05 Albumin 1.9 g/dL (3.2-5.0) L 11/07/20 03:55 Globulin 4.8 g/dL (2.2-4.2) H 11/07/20 03:55 Albumin/Globulin Ratio 0.4 RATIO (0.9-2.4) L 11/07/20 03:55 Procalcitonin 0.46 ng/mL (0.00-0.09) H 10/24/20 17:50 - Assessment Food / Nutrition-Related History:: Discussed in ICU rounds. Remains intubated. Had dialysis yesterday w/ 2L fluid removed. Wt decrease of 0.7 kg since last review. Has bilat hand 1+ pitting/BLE 2+pitting edema. Anticipate wt loss w/ continued dialysis/improvement in fluid status. Nursing staff reports BMs yesterday and overnight. Per Dr. Fierro, rate increased to 30mL/hour and can be advanced as tolerated to goal rate. - Nutrition Diagnosis Problem / Etiology / Signs & Symptoms (PES):: Pt w/ inadequate enteral nutrition related to altered GI function as evidenced by elevated gastric residuals, tube feeds running below goal rate. Evidence of Malnutrition Exists:: No - Nutrition Intervention Nutrition Prescription:: Re-estimated nutritional needs using ASPEN guidelines for critically ill, morbidly obese pts- [id number] calories (22-25 calories/kg IBW (72kg) and 144-180 g protein (2-2.5 g/kg IBW (72kg). - Food / Nutrient Delivery Interventions Summary of nutrition intervention:: Will change rate of Vital HP on DEC to 70mL/hour w/ 50mL H2O flush every 4 hours (goal rate). As ordered, enteral nutrition provides 1680 calories, 146 g protein, and 1704mL total fluid/day. Will recommend increasing by 10mL every 12 hours as tolerated until goal rate is achieved. Nutrition support ordered as / adjusted to:: While intubated, continue enteral nutrition support via OGT- recommend increasing Vital HP by 10mL every 12 hours as pt tolerates until goal rate of 70mL/hour is achieved. 50mL H2O flush every 4 hours. - MNT Monitoring Further MNT monitoring and evaluation required?: Yes MNT Follow-up in:: 1-2 days
--- NOTE | 2020-11-08 13:57 | PCM.PN.HOSP ---
Patient Problems: Active and Suspected Problems (Last Updated 10/24/20 @ 15:[address] Nish Dee, DO) Pneumonia due to Coronavirus disease 2019 (Acute) Hypoxia (Acute) Melena (Acute) Reason for Visit: COVID 19 Subjective: Hypoxic. Suspected Mucous plugging. Vitals/I&O's: Vital Signs Temp Pulse Resp BP Pulse Ox 36.4 C L 101 H 21 H 108/47 L 90 11/08/20 04:00 11/08/20 12:41 11/08/20 12:41 11/08/20 07:00 11/08/20 12:34 Oxygen Flow Rate (L/min) 60 Oxygen Delivery Method Mechanical Ventilator Weight: 122.7 kg Body Mass Index (BMI) 39.9 Intake and Output for Last 24 Hours 11/06/20 11/07/20 11/08/20 23:59 23:59 23:59 Intake Total 1487.91 / 1523.64 1472.34 / 1843.59 1144.19 / 1144.19 Output Total 2421 / 2421 2034 / 2044 Balance -933.09 / -897.36 -562.66 / -201.41 1134.19 / 1134.19 General: - - intubated and sedated HEENT: Normocephalic Oral: Moist Mucosa, No Gingival or Mucosal Lesions/ Ulcerations Neck: No Nodes, Thyroid Normal Size and Texture Lungs: Clear to auscultation, Normal air movement, No rhonchi, No wheeze Cardiovascular: Regular rate, Regular Rhythm, Normal S1, Normal S2 Abdomen: Bowel Sounds Present, Soft, Non Tender, Non-Distended, No Hepato-splenomegaly Extremities: No edema, No Calf Tenderness Skin: No rashes, No breakdown Laboratory Results 11/07/20 03:55: Diff Path Review Reviewed 11/07/20 15:44: POC Glucose 146 H 11/07/20 18:06: POC Glucose 119 H 11/07/20 23:51: POC Glucose 92 11/08/20 03:52: WBC 11.4 H, RBC 3.51 L, Hgb 9.6 L, Hct 30.3 L, MCV 86.3, MCH 27.4, MCHC 31.7 L, RDW Std Deviation 53.9 H, RDW Coeff of Abhilash 17.2 H, Plt Count 240, MPV 10.1, Immature Gran % (Auto) 2.100 H, Neut % (Auto) 74.3 H, Lymph % (Auto) 10.6 L, [place] % (Auto) 11.8 H, Eos % (Auto) 1.0, Baso % (Auto) 0.2, Absolute Neuts (auto) 8.5 H, Absolute Lymphs (auto) 1.21, Nucleated RBC % 0 11/08/20 03:52: Sodium 136, Potassium 4.1, Chloride 99, Carbon Dioxide 27.0, Anion Gap 10, BUN 49 H, Creatinine 4.23 H, Estim Creat Clear Calc 17.18, Est GFR (MDRD) Af Amer 18 L, Est GFR (MDRD) Non-Af 15 L, BUN/Creatinine Ratio 11.6, Glucose 97, Calcium 8.7, Phosphorus 6.9 H, Magnesium 2.9 H 11/08/20 04:06: POC Glucose 98 Current Medications Acetaminophen (Acetaminophen 650 Mg/20 Ml Udc) 650 mg GT Q6H PRN PRN PRN Reason: Pain Score 1-10/Temp > 100.7 F Albuterol/Ipratropium (Ipratropium/Albuterol Sulfate 3 Ml Ampul.Neb) 3 ml INHALATION Q6H.RT [facility] Last Admin: 11/08/20 12:33 Dose: 3 ml Documented by: Allopurinol (Allopurinol 300 Mg Tablet) 300 mg GT DAILY [facility] Last Admin: 11/08/20 10:11 Dose: 300 mg Documented by: Atorvastatin Calcium (Atorvastatin Calcium 20 Mg Tablet) 20 mg GT DAILY [facility] Last Admin: 11/08/20 10:11 Dose: 20 mg Documented by: Chlorhexidine Gluconate (Chlorhexidine 15 Ml) 15 ml PO BID [facility] Last Admin: 11/08/20 10:20 Dose: 15 ml Documented by: Dexamethasone Sodium Phosphate (Dexamethasone 10 Mg/Ml Vial) 6 mg IV DAILY [facility] Stop: 11/12/20 10:01 Last Admin: 11/08/20 10:11 Dose: 6 mg Documented by: Enoxaparin Sodium (Enoxaparin 120 Mg/0.8 Ml Syringe) 120 mg SC DAILY [facility] Last Admin: 11/08/20 10:11 Dose: 120 mg Documented by: Guaifenesin (Guaifenesin 10 Ml Udc (200mg/10ml)) 10 ml GT Q4H [facility] Last Admin: 11/08/20 13:37 Dose: 10 ml Documented by: Propofol (Diprivan) 1,000 mg in 100 mls @ 7.362 mls/hr CONT INF .Q12H [facility]; Protocol Last Admin: 11/08/20 13:34 Dose: Not Given Documented by: Fentanyl Citrate 1,000 mcg/ (Sodium Chloride) 100 mls @ 20 mls/hr CONT INF .Q5H [facility]; Protocol Last Titration: 11/08/20 10:00 Dose: Infused Documented by: Enteral Nutritional Formula (Vital High Protein) 1,000 mls @ 70 mls/hr GT .[id number] [facility] Last Admin: 11/07/20 15:43 Dose: 20 mls/hr Documented by: Pantoprazole Sodium 40 mg/ (Sodium Chloride) 110 mls @ 330 mls/hr IV Q12 [facility] Last Infusion: 11/08/20 10:43 Dose: Infused Documented by: Ceftriaxone Sodium 2 gm/ (Sodium Chloride) 50 mls @ 100 mls/hr IV Q24 [facility] Last Infusion: 11/08/20 10:53 Dose: Infused Documented by: Norepinephrine Bitartrate 8 mg (/ Sodium Chloride) 250 mls @ 9.375 mls/hr CONT INF .[id number] [facility]; Protocol Last Titration: 11/08/20 07:00 Dose: 2 mcg/min, 3.8 mls/hr Documented by: Insulin Human Lispro (Insulin Lispro 100 Unit/Ml Insuln.Pen) 0 unit SC Q6 [facility]; Protocol Last Admin: 11/08/20 13:34 Dose: Not Given Documented by: Polyethylene Glycol (Polyethylene Glycol 3350 17 Gm Packet) 17 gm GT BID PRN PRN PRN Reason: CONSTIPATION Last Admin: 11/06/20 04:12 Dose: 17 gm Documented by: Senna/Docusate Sodium (Senna/Docusate Sodium 1 Tablet) 2 tablet GT BID [facility] Last Admin: 11/08/20 10:11 Dose: 2 tablet Documented by: Sodium Chloride (0.9% Saline Lock 10 Ml Syringe) 10 - 40 ml IV UD PRN PRN Reason: SALINE FLUSH Last Admin: 11/08/20 13:37 Dose: 10 ml Documented by: Sodium Chloride (Sodium Chloride 0.65% 1 [place].Btl) 2 spray NASAL BID PRN PRN PRN Reason: NASAL DRYNESS Last Admin: 10/28/20 22:53 Dose: 2 sprays Documented by: STROKE Vital Signs/Narrative: Vital Signs Pulse Resp Pulse Ox 11/08/20 12:41 101 H 21 H 11/08/20 12:34 103 H 21 H 90 Medical Necessity - Tobacco Use Smoking Status: Never smoker Tobacco Use: Non-smoker Assessment/Plan All Active Problems (Last Updated 10/24/20 @ 15:[address] Nish Dee, DO) Pneumonia due to Coronavirus disease 2019 (Acute) Hypoxia (Acute) Melena (Acute) 1. Acute COVID-19 pneumonia: Patient received a dexamethasone in the emergency room and will continue for a total of 10days. Back on dexa from - Completed remdesivir no registered temp of greater than 38, therefore, does not meet definition for CRS 2. Acute hypoxic respiratory failure 2/2 COVID 19 pneumonia, strep pneumonia and PE +/- ARDS Intubated 11/01/2020 currently on vent 50% FiO2 11/08: worse, likely mucus plugging. 3. CELIA: likely ischemic ATN began on 11/02, received IV contrast on 10/29 on HD 4. pneumococcal pneumonia +Cx on 11/01 on CTX 5. Black stools: Concern is for melena. on PPI 6. Chronic kidney disease stage III: Presumed. Hold off on IV fluids given the patient's COVID-19 at this time. Hold HCTZ. Patient is on sodium bicarbonate is baseline. 7. Coronary artery disease: Patient has had a history of a stent before. No active issues at this time. Continue with losartan, metoprolol tartrate and simvastatin. 8. VTE prophylaxis: anticoagulated 9. Advanced care planning: Previously discussed with the patient. Patient state that he would not want to go on the ventilator but on further clarification stated that he did not need to go onto a ventilator. I told him this is a hypothetical question in case if he were to get worse. He is unsure at this time. I told him that we would leave him at full CODE STATUS at this time until he tells us otherwise. Inpatient E&M: 95177 Subs Hosp L2
--- NOTE | 2020-11-08 15:34 | NURSING ---
all belongings other than dentures & hearing aide given to daughter yanet.
[2020-11-08 17:16] LABS: Bedside Glucose 124 mg/dL (70-110)
[2020-11-08] MEDS: Propofol 10MG/Ml 1,000 MG/100 ML Bottle 22.1 MG CONT INF (18:00)
--- NOTE | 2020-11-08 18:01 | DIALYSIS ---
HD treatment pt tolerated well 1100ml removed
[2020-11-08] MEDS: Vital High Protein 1,000 ML 70 ML GT (18:30)
[2020-11-08 18:46] LABS: Bedside Glucose 128 mg/dL (70-110)
[2020-11-08] MEDS: Propofol 10MG/Ml 1,000 MG/100 ML Bottle 18.4 MG CONT INF (21:05)
[2020-11-09] VITALS (42 sets, daily range): BP systolic 89–151; BP diastolic 39–75; PULSE 75–112; RESP 15–32; TEMP 36.4–37.2; O2SAT 21–98
[2020-11-09] MEDS: Propofol 10MG/Ml 1,000 MG/100 ML Bottle 18.4 MG CONT INF (00:15)
[2020-11-09] MEDS: guaiFENesin 10 ML UDC (200MG/10ML) GT ×6 (01:02→22:55)
[2020-11-09 01:11] LABS: Bedside Glucose 116 mg/dL (70-110)
[2020-11-09] MEDS: Ipratropium/Albuterol Sulfate 3 ML AMPUL.NEB INHALATION ×4 (01:54→19:12)
[2020-11-09 04:24] LABS: Absolute Lymphocyte Count 1.19 X10^3/uL (0.83-4.51); Absolute Neutrophil Count 6.8 X10^3/uL (2.0-7.7); Basophil# 0.03 X10^3/uL; Basophil% 0.3 % (0-1); Eosinophil# 0.16 X10^3/uL; Eosinophils% 1.6 % (0-5); Hematocrit 29.8 % (40-54); Hemoglobin 9.4 g/dL (13.0-16.5); Lymphocyte # 1.19 X10^3/ul (4.0); Lymphocyte % 12.1 % (19-41); Mean Corp Hgb Conc 31.5 g/dL (32-36); Mean Corpuscular Volume 85.6 fL (80-94); Mean Platelet Vol. 9.8 fl (6.2-12.0); Monocyte# 1.44 X10^3/uL; Monocyte% 14.7 % (0-10); NRBC Flagged by Analyzer 0 % (0-5); Neutrophil # 6.75 X10^3/uL (2.7-7.7); Neutrophil % 68.8 % (47-70); Platelet Count 219 K/mm3 (150-450); RBC Distribution Width CV 17.3 % (11.6-14.6); RBC Distribution Width SD 53.2 fl (35.1-43.9); Red Blood Count 3.48 M/mm3 (4.6-6.2); White Blood Count 9.8 K/mm3 (4.4-11.0)
[2020-11-09 04:42] LABS: Anion Gap 12 (5-15); BUN 57 mg/dL (7-18); BUN/Creat Ratio 12.8 RATIO (10-20); Calcium,Total 8.9 mg/dL (8.5-10.1); Chloride 98 mmol/L (98-107); Creatinine, Serum 4.47 mg/dL (0.70-1.30); EST Glomerular Filtration Rate 14 mL/min (>60); Est Glom Filt Rate - Afr Amer 17 mL/min (>60); Estimated Creatinine Clearance 16.26 ml/min; Glucose 94 mg/dL (74-106); Magnesium 2.7 mg/dL (1.6-2.6); Phosphorus 8.8 mg/dL (2.5-4.9); Potassium 4.5 mmol/L (3.5-5.1); Sodium Level 136 mmol/L (136-145)
[2020-11-09] MEDS: TITRATION PARAMETER CHANGE 1 EACH IV (05:10)
[2020-11-09] MEDS: Propofol 10MG/Ml 1,000 MG/100 ML Bottle 11.1 MG CONT INF (06:26)
--- NOTE | 2020-11-09 07:35 | PCM.PN.INT ---
Subjective: Patient did well overnight. No acute issues were reported. Patient did have hemodialysis yesterday and tolerated well. Patient remains on minimal Levophed to maintain pressures. Patient did have a spontaneous breathing trial this morning, but this was discontinued secondary to tachypnea and tachycardia. Nursing reports secretions much improved compared to previous. General: - - Eyes are open and tracks, but not following commands. HEENT: Atraumatic, PERRLA, EOMI, Normocephalic, - - No scleral icterus or injection noted Oral: Moist Mucosa, No Gingival or Mucosal Lesions/ Ulcerations Neck: Supple, No Nodes, Trachea Midline, - - Lines are clean, dry and intact Lungs: No rhonchi, No wheeze, No rales, Diminished, - - Symmetric expansion Cardiovascular: Regular rate, Regular Rhythm, Normal S1, Normal S2, - - Frequent PVCs noted on telemetry Abdomen: Bowel Sounds Present, Soft, Non Tender, Non-Distended, Obese Extremities: No clubbing, No cyanosis, Edema - Much improved compared to previous Skin: No rashes, No breakdown Musculoskeletal: No Tenderness to Palpation of Joints or Extremities Lymphatic: No Cervical, Supraclavicular, or Inguinal Adenopathy Neurological: Cranial nerves II-XII grossly intact, Neuro grossly intact Psych/Mental Status: Flat Affect Vital Signs Temp Pulse Resp BP Pulse Ox 36.7 C 106 H 25 H 130/64 H 93 11/09/20 04:00 11/09/20 07:06 11/09/20 07:06 11/09/20 07:00 11/09/20 07:06 Oxygen Flow Rate (L/min) 60 Oxygen Delivery Method Mechanical Ventilator Weight: 123.4 kg Body Mass Index (BMI) 39.9 Intake and Output for Last 24 Hours 11/07/20 11/08/20 11/09/20 23:59 23:59 23:59 Intake Total 1472.34 / 1843.59 2419.32 / 2814.52 886.77 / 886.77 Output Total 2034 / 2044 5 Balance -562.66 / -201.41 2389.32 / 2784.52 881.77 / 881.77 Labs (Last 48 Hours) 11/07/20 11/07/20 11/07/20 03:55 15:44 18:06 WBC RBC Hgb Hct MCV MCH MCHC RDW Std Deviation RDW Coeff of Abhilash Plt Count MPV Immature Gran % (Auto) Neut % (Auto) Lymph % (Auto) [place] % (Auto) Eos % (Auto) Baso % (Auto) Absolute Neuts (auto) Absolute Lymphs (auto) Nucleated RBC % Diff Path Review Reviewed Sodium Potassium Chloride Carbon Dioxide Anion Gap BUN Creatinine Estim Creat Clear Calc Est GFR (MDRD) Af Amer Est GFR (MDRD) Non-Af BUN/Creatinine Ratio Glucose Calcium Phosphorus Magnesium POC Glucose 146 H 119 H 11/07/20 11/08/20 11/08/20 23:51 03:52 03:52 WBC 11.4 H RBC 3.51 L Hgb 9.6 L Hct 30.3 L MCV 86.3 MCH 27.4 MCHC 31.7 L RDW Std Deviation 53.9 H RDW Coeff of Abhilash 17.2 H Plt Count 240 MPV 10.1 Immature Gran % (Auto) 2.100 H Neut % (Auto) 74.3 H Lymph % (Auto) 10.6 L [place] % (Auto) 11.8 H Eos % (Auto) 1.0 Baso % (Auto) 0.2 Absolute Neuts (auto) 8.5 H Absolute Lymphs (auto) 1.21 Nucleated RBC % 0 [address] Review Sodium 136 Potassium 4.1 Chloride 99 Carbon Dioxide 27.0 Anion Gap 10 BUN 49 H Creatinine 4.23 H Estim Creat Clear Calc 17.18 Est GFR (MDRD) Af Amer 18 L Est GFR (MDRD) Non-Af 15 L BUN/Creatinine Ratio 11.6 Glucose 97 Calcium 8.7 Phosphorus 6.9 H Magnesium 2.9 H POC Glucose 92 11/08/20 11/08/20 11/08/20 04:06 13:30 18:31 WBC RBC Hgb Hct MCV MCH MCHC RDW Std Deviation RDW Coeff of Abhilash Plt Count MPV Immature Gran % (Auto) Neut % (Auto) Lymph % (Auto) [place] % (Auto) Eos % (Auto) Baso % (Auto) Absolute Neuts (auto) Absolute Lymphs (auto) Nucleated RBC % Diff Path Review Sodium Potassium Chloride Carbon Dioxide Anion Gap BUN Creatinine Estim Creat Clear Calc Est GFR (MDRD) Af Amer Est GFR (MDRD) Non-Af BUN/Creatinine Ratio Glucose Calcium Phosphorus Magnesium POC Glucose 98 124 H 128 H 11/09/20 11/09/20 11/09/20 00:51 04:18 04:18 WBC 9.8 RBC 3.48 L Hgb 9.4 L Hct 29.8 L MCV 85.6 MCH 27.0 MCHC 31.5 L RDW Std Deviation 53.2 H RDW Coeff of Abhilash 17.3 H Plt Count 219 MPV 9.8 Immature Gran % (Auto) 2.500 H Neut % (Auto) 68.8 Lymph % (Auto) 12.1 L [place] % (Auto) 14.7 H Eos % (Auto) 1.6 Baso % (Auto) 0.3 Absolute Neuts (auto) 6.8 Absolute Lymphs (auto) 1.19 Nucleated RBC % 0 [address] Path Review Sodium 136 Potassium 4.5 Chloride 98 Carbon Dioxide 26.0 Anion Gap 12 BUN 57 H Creatinine 4.47 H Estim Creat Clear Calc 16.26 Est GFR (MDRD) Af Amer 17 L Est GFR (MDRD) Non-Af 14 L BUN/Creatinine Ratio 12.8 Glucose 94 Calcium 8.9 Phosphorus 8.8 H Magnesium 2.7 H POC Glucose 116 H Clinical Impression(s) from Imaging Studies Chest X-Ray 11/08/20 06:49 IMPRESSION: Dense consolidation in the right midlung and focal infiltrate in the left lower lobe. Electronically Signed: Jr Moya MD at 9:06 EST , Service support , Medical Necessity - Tobacco Use Smoking Status: Never smoker Tobacco Use: Non-smoker Assessment/Plan All Active Problems (Last Updated 10/24/20 @ 15:[address] Nish Dee, DO) Pneumonia due to Coronavirus disease 2019 (Acute) Hypoxia (Acute) Melena (Acute) RECOMMENDATIONS: 1. Continue patient on assist control mode of mechanical ventilation and wean FiO2 and PEEP to maintain oxygen saturations at or above 90%. 2. Continue propofol and fentanyl for sedation. 3. Continue attempts at volume optimization via hemodialysis per nephrology. Likely okay to hold on dialysis today 4. Increase tube feeds. Aggressive bowel regimen. 5. Continue therapeutic Lovenox. 6. Continue PPI therapy as ordered. 7. Continue antimicrobials per ID recommendations. IMPRESSIONS: 1. Acute hypoxemic respiratory failure Multifactorial in etiology with COVID-19 pneumonia and bilateral pulmonary emboli contributing. Although attempts were made to utilize heated high flow oxygen and later BiPAP, the patient continued to decompensate from a respiratory perspective, requiring intubation on November 01. For now, the patient will be continued on assist control mode of mechanical ventilation, with plans to wean FiO2 and PEEP to maintain saturations at or above 90%. Continue with propofol and fentanyl as necessary for vent synchrony. Nephrology is currently following to assist with hemodialysis needs. Patient has been tolerating volume removal with dialysis. Spontaneous breathing and awakening trials per protocol. Secretions appear to be improved today despite no change in antibiotics. 2. Acute kidney injury/hyperkalemia Likely prerenal in etiology with component of ischemic ATN. Nephrology is currently following to assist with hemodialysis needs. Anticipate further need for future dialysis to assist with volume optimization. Defer to nephrology on timing. 3. Possible GI bleed No overt signs of GI blood loss at this time. Continue twice daily PPI therapy as ordered. Monitor H&H and transfuse if hemoglobin drops below 7 g/dL. 4. History of coronary artery disease/hypertension/hyperlipidemia/obesity Complicates care, management, recovery and prognosis. Continue home medications as indicated. TIME: 35 minutes of critical care time, inclusive of procedures, was spent addressing the patient's acute hypoxemic respiratory failure, COVID-19 pneumonia, bilateral pulmonary emboli, acute kidney injury, review of all data and collaboration with the care team. (6 AM to 7:00 AM) 9xxxx: [id number] Critical care first hour
[2020-11-09] MEDS: Atorvastatin Calcium 20 MG Tablet GT (09:24)
[2020-11-09] MEDS: Senna/Docusate Sodium 1 Tablet 2 TABLET GT ×2 (09:24→22:55)
[2020-11-09] MEDS: dexAMETHasone 10 MG/ML Vial 6 MG IV (09:24)
[2020-11-09] MEDS: Allopurinol 300 MG Tablet GT (09:25)
[2020-11-09] MEDS: Chlorhexidine 15 ML PO ×2 (09:25→20:00)
--- NOTE | 2020-11-09 09:56 | CASEMGMT ---
RN CM Note: participated in ICU interdisciplinary. Pt continues to be intubated, on ventilator with oxygen 50%. Failed weaning trial this am. Continues on Levophed, Tube feed @ 50 ml/hr. Passed Mobility screen-PT/OT will work with patient today. DC Planning deferred. DC PLAN: TBD. Larisa MILES RN ACM
[2020-11-09 11:00] LABS: Bedside Glucose 102 mg/dL (70-110)
[2020-11-09] MEDS: Enoxaparin 120 MG/0.8 ML Syringe SC (12:30)
[2020-11-09 13:25] LABS: Bedside Glucose 126 mg/dL (70-110)
[2020-11-09] MEDS: Propofol 10MG/Ml 1,000 MG/100 ML Bottle 14.8 MG CONT INF ×3 (13:45→23:05)
--- NOTE | 2020-11-09 14:04 | PCM.PN.HOSP ---
Patient Problems: Active and Suspected Problems (Last Updated 10/24/20 @ 15:[address] Nish Dee, DO) Pneumonia due to Coronavirus disease 2019 (Acute) Hypoxia (Acute) Melena (Acute) Reason for Visit: COVID 19 Vitals/I&O's: Vital Signs Temp Pulse Resp BP Pulse Ox 36.7 C 106 H 22 H 130/64 H 94 11/09/20 04:00 11/09/20 13:31 11/09/20 13:31 11/09/20 07:00 11/09/20 13:31 Oxygen Flow Rate (L/min) 60 Oxygen Delivery Method Mechanical Ventilator Weight: 123.4 kg Body Mass Index (BMI) 39.9 Intake and Output for Last 24 Hours 11/07/20 11/08/20 11/09/20 23:59 23:59 23:59 Intake Total 1472.34 / 1843.59 2419.32 / 2814.52 1046.77 / 1046.77 Output Total 2034 / 2044 5 / Balance -562.66 / -201.41 2389.32 / 2784.52 1041.77 / 1041.77 General: - - awake, does not follow commands. HEENT: Atraumatic, Normocephalic Oral: Moist Mucosa, No Gingival or Mucosal Lesions/ Ulcerations Neck: No Nodes, Thyroid Normal Size and Texture Lungs: Normal air movement, - - coarse breath sounds Cardiovascular: Regular rate, Regular Rhythm, Normal S1, Normal S2, No murmurs Abdomen: Bowel Sounds Present, Soft, Non Tender, Non-Distended, No Hepato-splenomegaly Extremities: No clubbing, No cyanosis Skin: No rashes, No breakdown Psych/Mental Status: Normal Affect, Appropriate Laboratory Results 11/08/20 13:30: POC Glucose 124 H 11/08/20 18:31: POC Glucose 128 H 11/09/20 00:51: POC Glucose 116 H 11/09/20 04:18: WBC 9.8, RBC 3.48 L, Hgb 9.4 L, Hct 29.8 L, MCV 85.6, MCH 27.0, MCHC 31.5 L, RDW Std Deviation 53.2 H, RDW Coeff of Abhilash 17.3 H, Plt Count 219, MPV 9.8, Immature Gran % (Auto) 2.500 H, Neut % (Auto) 68.8, Lymph % (Auto) 12.1 L, [place] % (Auto) 14.7 H, Eos % (Auto) 1.6, Baso % (Auto) 0.3, Absolute Neuts (auto) 6.8, Absolute Lymphs (auto) 1.19, Nucleated RBC % 0 11/09/20 04:18: Sodium 136, Potassium 4.5, Chloride 98, Carbon Dioxide 26.0, Anion Gap 12, BUN 57 H, Creatinine 4.47 H, Estim Creat Clear Calc 16.26, Est GFR (MDRD) Af Amer 17 L, Est GFR (MDRD) Non-Af 14 L, BUN/Creatinine Ratio 12.8, Glucose 94, Calcium 8.9, Phosphorus 8.8 H, Magnesium 2.7 H 11/09/20 04:22: POC Glucose 102 11/09/20 12:54: POC Glucose 126 H Current Medications Acetaminophen (Acetaminophen 650 Mg/20 Ml Udc) 650 mg GT Q6H PRN PRN PRN Reason: Pain Score 1-10/Temp > 100.7 F Albuterol/Ipratropium (Ipratropium/Albuterol Sulfate 3 Ml Ampul.Neb) 3 ml INHALATION Q6H.RT [facility] Last Admin: 11/09/20 13:29 Dose: 3 ml Documented by: Allopurinol (Allopurinol 300 Mg Tablet) 300 mg GT DAILY [facility] Last Admin: 11/09/20 09:25 Dose: 300 mg Documented by: Atorvastatin Calcium (Atorvastatin Calcium 20 Mg Tablet) 20 mg GT DAILY [facility] Last Admin: 11/09/20 09:24 Dose: 20 mg Documented by: Chlorhexidine Gluconate (Chlorhexidine 15 Ml) 15 ml PO BID [facility] Last Admin: 11/09/20 09:25 Dose: 15 ml Documented by: Dexamethasone Sodium Phosphate (Dexamethasone 10 Mg/Ml Vial) 6 mg IV DAILY [facility] Stop: 11/12/20 10:01 Last Admin: 11/09/20 09:24 Dose: 6 mg Documented by: Enoxaparin Sodium (Enoxaparin 120 Mg/0.8 Ml Syringe) 120 mg SC DAILY [facility] Last Admin: 11/09/20 12:30 Dose: 120 mg Documented by: Guaifenesin (Guaifenesin 10 Ml Udc (200mg/10ml)) 10 ml GT Q4H [facility] Last Admin: 11/09/20 09:24 Dose: 10 ml Documented by: Propofol (Diprivan) 1,000 mg in 100 mls @ 7.404 mls/hr CONT INF .Q12H [facility]; Protocol Last Admin: 11/09/20 12:38 Dose: Not Given Documented by: Fentanyl Citrate 1,000 mcg/ (Sodium Chloride) 100 mls @ 20 mls/hr CONT INF .Q5H [facility]; Protocol Last Admin: 11/09/20 11:40 Dose: Not Given Documented by: Enteral Nutritional Formula (Vital High Protein) 1,000 mls @ 70 mls/hr GT .[id number] [facility] Last Admin: 11/09/20 02:14 Dose: Not Given Documented by: Pantoprazole Sodium 40 mg/ (Sodium Chloride) 110 mls @ 330 mls/hr IV Q12 [facility] Last Infusion: 11/09/20 11:40 Dose: Infused Documented by: Ceftriaxone Sodium 2 gm/ (Sodium Chloride) 50 mls @ 100 mls/hr IV Q24 [facility] Last Infusion: 11/09/20 11:41 Dose: Infused Documented by: Norepinephrine Bitartrate 8 mg (/ Sodium Chloride) 250 mls @ 9.375 mls/hr CONT INF .[id number] [facility]; Protocol Last Admin: 11/09/20 09:24 Dose: Not Given Documented by: Insulin Human Lispro (Insulin Lispro 100 Unit/Ml Insuln.Pen) 0 unit SC Q6 [facility]; Protocol Last Admin: 11/09/20 13:46 Dose: Not Given Documented by: Polyethylene Glycol (Polyethylene Glycol 3350 17 Gm Packet) 17 gm GT BID PRN PRN PRN Reason: CONSTIPATION Last Admin: 11/06/20 04:12 Dose: 17 gm Documented by: Senna/Docusate Sodium (Senna/Docusate Sodium 1 Tablet) 2 tablet GT BID [facility] Last Admin: 11/09/20 09:24 Dose: 2 tablet Documented by: Sodium Chloride (0.9% Saline Lock 10 Ml Syringe) 10 - 40 ml IV UD PRN PRN Reason: SALINE FLUSH Last Admin: 11/08/20 18:30 Dose: 10 ml Documented by: Sodium Chloride (Sodium Chloride 0.65% 1 [place].Btl) 2 spray NASAL BID PRN PRN PRN Reason: NASAL DRYNESS Last Admin: 10/28/20 22:53 Dose: 2 sprays Documented by: STROKE Vital Signs/Narrative: Vital Signs Pulse Resp Pulse Ox 11/09/20 13:31 106 H 22 H 94 Medical Necessity - Tobacco Use Smoking Status: Never smoker Tobacco Use: Non-smoker Assessment/Plan All Active Problems (Last Updated 10/24/20 @ 15:[address] Nish Dee, DO) Pneumonia due to Coronavirus disease 2019 (Acute) Hypoxia (Acute) Melena (Acute) 1. Acute COVID-19 pneumonia: Patient received a dexamethasone in the emergency room and will continue for a total of 10days. Back on dexa from - Completed remdesivir no registered temp of greater than 38, therefore, does not meet definition for CRS 2. Acute hypoxic respiratory failure 2/2 COVID 19 pneumonia, strep pneumonia and PE +/- ARDS Intubated 11/01/2020 currently on vent 50% FiO2 11/08: worse, likely mucus plugging. 3. CELIA: likely ischemic ATN began on 11/02, received IV contrast on 10/29 on HD 4. pneumococcal pneumonia +Cx on 11/01 on CTX 5. Black stools: Concern is for melena. on PPI 6. Chronic kidney disease stage III: Presumed. Hold off on IV fluids given the patient's COVID-19 at this time. Hold HCTZ. Patient is on sodium bicarbonate is baseline. 7. Coronary artery disease: Patient has had a history of a stent before. No active issues at this time. Continue with losartan, metoprolol tartrate and simvastatin. 8. VTE prophylaxis: anticoagulated 9. Advanced care planning: Previously discussed with the patient. Patient state that he would not want to go on the ventilator but on further clarification stated that he did not need to go onto a ventilator. I told him this is a hypothetical question in case if he were to get worse. He is unsure at this time. I told him that we would leave him at full CODE STATUS at this time until he tells us otherwise. Inpatient E&M: 58667 Subs Hosp L2
--- NOTE | 2020-11-09 14:15 | PN.ID_ITS ---
Patient Problems: Active and Suspected Problems (Last Updated 10/24/20 @ 15:[address] Nish Dee, DO) Pneumonia due to Coronavirus disease 2019 (Acute) Hypoxia (Acute) Melena (Acute) Subjective: On vent, BP improved, no fever. - Physical Exam Vitals/I&O's: Vital Signs Temp Pulse Resp BP Pulse Ox 98.0 F 106 H 22 H 130/64 H 94 11/09/20 04:00 11/09/20 13:31 11/09/20 13:31 11/09/20 07:00 11/09/20 13:31 Oxygen Flow Rate (L/min) 60 Oxygen Delivery Method Mechanical Ventilator Weight: 123.4 kg Body Mass Index (BMI) 39.9 Intake and Output for Last 24 Hours 11/07/20 11/08/20 11/09/20 23:59 23:59 23:59 Intake Total 1472.34 / 1843.59 2419.32 / 2814.52 1046.77 / 1046.77 Output Total 2034 / 2044 5 / Balance -562.66 / -201.41 2389.32 / 2784.52 1041.77 / 1041.77 General: No apparent distress Lungs: Clear to auscultation, Normal air movement Cardiovascular: Regular rate, Regular Rhythm Abdomen: Soft, Non Tender, Non-Distended Skin: No rashes Laboratory Results 11/08/20 13:30: POC Glucose 124 H 11/08/20 18:31: POC Glucose 128 H 11/09/20 00:51: POC Glucose 116 H 11/09/20 04:18: WBC 9.8, RBC 3.48 L, Hgb 9.4 L, Hct 29.8 L, MCV 85.6, MCH 27.0, MCHC 31.5 L, RDW Std Deviation 53.2 H, RDW Coeff of Abhilash 17.3 H, Plt Count 219, MPV 9.8, Immature Gran % (Auto) 2.500 H, Neut % (Auto) 68.8, Lymph % (Auto) 12.1 L, [place] % (Auto) 14.7 H, Eos % (Auto) 1.6, Baso % (Auto) 0.3, Absolute Neuts (auto) 6.8, Absolute Lymphs (auto) 1.19, Nucleated RBC % 0 01/22/21 04:18: Sodium 136, Potassium 4.5, Chloride 98, Carbon Dioxide 26.0, Anion Gap 12, BUN 57 H, Creatinine 4.47 H, Estim Creat Clear Calc 16.26, Est GFR (MDRD) Af Amer 17 L, Est GFR (MDRD) Non-Af 14 L, BUN/Creatinine Ratio 12.8, Glucose 94, Calcium 8.9, Phosphorus 8.8 H, Magnesium 2.7 H 11/09/20 04:22: POC Glucose 102 11/09/20 12:54: POC Glucose 126 H Current Medications Acetaminophen (Acetaminophen 650 Mg/20 Ml Udc) 650 mg GT Q6H PRN PRN PRN Reason: Pain Score 1-10/Temp > 100.7 F Albuterol/Ipratropium (Ipratropium/Albuterol Sulfate 3 Ml Ampul.Neb) 3 ml INHALATION Q6H.RT [facility] Last Admin: 11/09/20 13:29 Dose: 3 ml Documented by: Allopurinol (Allopurinol 300 Mg Tablet) 300 mg GT DAILY [facility] Last Admin: 11/09/20 09:25 Dose: 300 mg Documented by: Atorvastatin Calcium (Atorvastatin Calcium 20 Mg Tablet) 20 mg GT DAILY [facility] Last Admin: 11/09/20 09:24 Dose: 20 mg Documented by: Chlorhexidine Gluconate (Chlorhexidine 15 Ml) 15 ml PO BID [facility] Last Admin: 11/09/20 09:25 Dose: 15 ml Documented by: Dexamethasone Sodium Phosphate (Dexamethasone 10 Mg/Ml Vial) 6 mg IV DAILY [facility] Stop: 11/12/20 10:01 Last Admin: 11/09/20 09:24 Dose: 6 mg Documented by: Enoxaparin Sodium (Enoxaparin 120 Mg/0.8 Ml Syringe) 120 mg SC DAILY [facility] Last Admin: 11/09/20 12:30 Dose: 120 mg Documented by: Guaifenesin (Guaifenesin 10 Ml Udc (200mg/10ml)) 10 ml GT Q4H [facility] Last Admin: 11/09/20 09:24 Dose: 10 ml Documented by: Propofol (Diprivan) 1,000 mg in 100 mls @ 7.404 mls/hr CONT INF .Q12H [facility]; Protocol Last Admin: 11/09/20 12:38 Dose: Not Given Documented by: Fentanyl Citrate 1,000 mcg/ (Sodium Chloride) 100 mls @ 20 mls/hr CONT INF .Q5H [facility]; Protocol Last Admin: 11/09/20 11:40 Dose: Not Given Documented by: Enteral Nutritional Formula (Vital High Protein) 1,000 mls @ 70 mls/hr GT .[id number] [facility] Last Admin: 11/09/20 02:14 Dose: Not Given Documented by: Pantoprazole Sodium 40 mg/ (Sodium Chloride) 110 mls @ 330 mls/hr IV Q12 [facility] Last Infusion: 11/09/20 11:40 Dose: Infused Documented by: Ceftriaxone Sodium 2 gm/ (Sodium Chloride) 50 mls @ 100 mls/hr IV Q24 [facility] Last Infusion: 11/09/20 11:41 Dose: Infused Documented by: Norepinephrine Bitartrate 8 mg (/ Sodium Chloride) 250 mls @ 9.375 mls/hr CONT INF .[id number] [facility]; Protocol Last Admin: 11/09/20 09:24 Dose: Not Given Documented by: Insulin Human Lispro (Insulin Lispro 100 Unit/Ml Insuln.Pen) 0 unit SC Q6 [facility]; Protocol Last Admin: 11/09/20 13:46 Dose: Not Given Documented by: Polyethylene Glycol (Polyethylene Glycol 3350 17 Gm Packet) 17 gm GT BID PRN PRN PRN Reason: CONSTIPATION Last Admin: 11/06/20 04:12 Dose: 17 gm Documented by: Senna/Docusate Sodium (Senna/Docusate Sodium 1 Tablet) 2 tablet GT BID [facility] Last Admin: 11/09/20 09:24 Dose: 2 tablet Documented by: Sodium Chloride (0.9% Saline Lock 10 Ml Syringe) 10 - 40 ml IV UD PRN PRN Reason: SALINE FLUSH Last Admin: 11/08/20 18:30 Dose: 10 ml Documented by: Sodium Chloride (Sodium Chloride 0.65% 1 [place].Btl) 2 spray NASAL BID PRN PRN PRN Reason: NASAL DRYNESS Last Admin: 10/28/20 22:53 Dose: 2 sprays Documented by: Medical Necessity - Tobacco Use Smoking Status: Never smoker Tobacco Use: Non-smoker Route of nutrition/ use of supplements: [] Nutritional Intake: [] IV Site: [] [place] Catheter: [] - Assessment/Plan Antibiotics: [] Assessment/Plan: [] Active and Suspected Problems (Last Updated 10/24/20 @ 15:[address] Nish Dee, DO) Pneumonia due to Coronavirus disease 2019 (Acute) Hypoxia (Acute) Melena (Acute) covid with hypoxia and PE - sx started about 2 weeks prior to admit 10/24. Completed dex and completed remdesivir. On therapeutic lovenox. On vent and pressor Sputum cx with strep, cont ceftriaxone, stop date tomorrow. Overall much improved. Likely can stop isolation soon given timing of symptoms and overall improvement. Will follow
--- NOTE | 2020-11-09 15:06 | PN.RENAL_ITS ---
Patient Problems: Active and Suspected Problems (Last Updated 10/24/20 @ 15:[address] Nish Dee, DO) Pneumonia due to Coronavirus disease 2019 (Acute) Hypoxia (Acute) Melena (Acute) Subjective: The patient is intubated so cannot do review of systems Objective: Physical examination was deferred to preserve PPE and prevent further transmission of COVID-19 - Physical Exam Vitals/I&O's: Vital Signs Temp Pulse Resp BP Pulse Ox 98.9 F 106 H 22 H 151/69 H 94 11/09/20 12:00 11/09/20 13:31 11/09/20 13:31 11/09/20 12:00 11/09/20 13:31 Oxygen Flow Rate (L/min) 60 Oxygen Delivery Method Mechanical Ventilator Weight: 123.4 kg Body Mass Index (BMI) 39.9 Intake and Output for Last 24 Hours 11/07/20 11/08/20 11/09/20 23:59 23:59 23:59 Intake Total 1472.34 / 1843.59 2419.32 / 2814.52 1121.70 / 1121.70 Output Total 2034 / 2044 Balance -562.66 / -201.41 2389.32 / 2784.52 1096.70 / 1096.70 Laboratory Results 11/08/20 13:30: POC Glucose 124 H 11/08/20 18:31: POC Glucose 128 H 11/09/20 00:51: POC Glucose 116 H 11/09/20 04:18: WBC 9.8, RBC 3.48 L, Hgb 9.4 L, Hct 29.8 L, MCV 85.6, MCH 27.0, MCHC 31.5 L, RDW Std Deviation 53.2 H, RDW Coeff of Abhilash 17.3 H, Plt Count 219, MPV 9.8, Immature Gran % (Auto) 2.500 H, Neut % (Auto) 68.8, Lymph % (Auto) 12.1 L, [place] % (Auto) 14.7 H, Eos % (Auto) 1.6, Baso % (Auto) 0.3, Absolute Neuts (auto) 6.8, Absolute Lymphs (auto) 1.19, Nucleated RBC % 0 11/09/20 04:18: Sodium 136, Potassium 4.5, Chloride 98, Carbon Dioxide 26.0, Anion Gap 12, BUN 57 H, Creatinine 4.47 H, Estim Creat Clear Calc 16.26, Est GFR (MDRD) Af Amer 17 L, Est GFR (MDRD) Non-Af 14 L, BUN/Creatinine Ratio 12.8, Glucose 94, Calcium 8.9, Phosphorus 8.8 H, Magnesium 2.7 H 11/09/20 04:22: POC Glucose 102 11/09/20 12:54: POC Glucose 126 H Current Medications Acetaminophen (Acetaminophen 650 Mg/20 Ml Udc) 650 mg GT Q6H PRN PRN PRN Reason: Pain Score 1-10/Temp > 100.7 F Albuterol/Ipratropium (Ipratropium/Albuterol Sulfate 3 Ml Ampul.Neb) 3 ml INHALATION Q6H.RT [facility] Last Admin: 11/09/20 13:29 Dose: 3 ml Documented by: Allopurinol (Allopurinol 300 Mg Tablet) 300 mg GT DAILY [facility] Last Admin: 11/09/20 09:25 Dose: 300 mg Documented by: Atorvastatin Calcium (Atorvastatin Calcium 20 Mg Tablet) 20 mg GT DAILY [facility] Last Admin: 11/09/20 09:24 Dose: 20 mg Documented by: Chlorhexidine Gluconate (Chlorhexidine 15 Ml) 15 ml PO BID [facility] Last Admin: 11/09/20 09:25 Dose: 15 ml Documented by: Dexamethasone Sodium Phosphate (Dexamethasone 10 Mg/Ml Vial) 6 mg IV DAILY [facility] Stop: 11/12/20 10:01 Last Admin: 11/09/20 09:24 Dose: 6 mg Documented by: Enoxaparin Sodium (Enoxaparin 120 Mg/0.8 Ml Syringe) 120 mg SC DAILY [facility] Last Admin: 11/09/20 12:30 Dose: 120 mg Documented by: Guaifenesin (Guaifenesin 10 Ml Udc (200mg/10ml)) 10 ml GT Q4H [facility] Last Admin: 11/09/20 14:45 Dose: 10 ml Documented by: Propofol (Diprivan) 1,000 mg in 100 mls @ 7.404 mls/hr CONT INF .Q12H [facility]; Protocol Last Admin: 11/09/20 13:45 Dose: 20 mcg/kg/min, 14.8 mls/hr Documented by: Fentanyl Citrate 1,000 mcg/ (Sodium Chloride) 100 mls @ 20 mls/hr CONT INF .Q5H [facility]; Protocol Last Admin: 11/09/20 11:40 Dose: Not Given Documented by: Enteral Nutritional Formula (Vital High Protein) 1,000 mls @ 70 mls/hr GT .[id number] [facility] Last Admin: 11/09/20 02:14 Dose: Not Given Documented by: Pantoprazole Sodium 40 mg/ (Sodium Chloride) 110 mls @ 330 mls/hr IV Q12 [facility] Last Infusion: 11/09/20 11:40 Dose: Infused Documented by: Ceftriaxone Sodium 2 gm/ (Sodium Chloride) 50 mls @ 100 mls/hr IV Q24 [facility] Last Infusion: 11/09/20 11:41 Dose: Infused Documented by: Norepinephrine Bitartrate 8 mg (/ Sodium Chloride) 250 mls @ 9.375 mls/hr CONT INF .[id number] [facility]; Protocol Last Admin: 11/09/20 09:24 Dose: Not Given Documented by: Insulin Human Lispro (Insulin Lispro 100 Unit/Ml Insuln.Pen) 0 unit SC Q6 [facility]; Protocol Last Admin: 11/09/20 13:46 Dose: Not Given Documented by: Polyethylene Glycol (Polyethylene Glycol 3350 17 Gm Packet) 17 gm GT BID PRN PRN PRN Reason: CONSTIPATION Last Admin: 11/06/20 04:12 Dose: 17 gm Documented by: Senna/Docusate Sodium (Senna/Docusate Sodium 1 Tablet) 2 tablet GT BID [facility] Last Admin: 11/09/20 09:24 Dose: 2 tablet Documented by: Sodium Chloride (0.9% Saline Lock 10 Ml Syringe) 10 - 40 ml IV UD PRN PRN Reason: SALINE FLUSH Last Admin: 11/08/20 18:30 Dose: 10 ml Documented by: Sodium Chloride (Sodium Chloride 0.65% 1 [place].Btl) 2 spray NASAL BID PRN PRN PRN Reason: NASAL DRYNESS Last Admin: 10/28/20 22:53 Dose: 2 sprays Documented by: Medical Necessity - Tobacco Use Smoking Status: Never smoker Tobacco Use: Non-smoker Assessment/Plan All Active Problems (Last Updated 10/24/20 @ 15:[address] 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
[2020-11-09] MEDS: Vital High Protein 1,000 ML 50 ML GT (18:34)
[2020-11-09 18:36] LABS: Bedside Glucose 106 mg/dL (70-110)
[2020-11-09 23:56] LABS: Bedside Glucose 100 mg/dL (70-110)
[2020-11-10] VITALS (56 sets, daily range): BP systolic 58–175; BP diastolic 40–81; PULSE 57–103; RESP 16–35; TEMP 36.4–37.2; O2SAT 17–97
[2020-11-10] MEDS: guaiFENesin 10 ML UDC (200MG/10ML) GT ×6 (02:36→22:00)
[2020-11-10] MEDS: 0.9% Saline Lock 10 ML Syringe IV ×2 (02:36→06:27)
[2020-11-10 04:17] LABS: Absolute Lymphocyte Count 1.24 X10^3/uL (0.83-4.51); Absolute Neutrophil Count 5.2 X10^3/uL (2.0-7.7); Basophil# 0.02 X10^3/uL; Basophil% 0.2 % (0-1); Eosinophil# 0.18 X10^3/uL; Eosinophils% 2.2 % (0-5); Hematocrit 28.3 % (40-54); Hemoglobin 8.9 g/dL (13.0-16.5); Lymphocyte # 1.24 X10^3/ul (4.0); Lymphocyte % 15.3 % (19-41); Mean Corp Hgb Conc 31.4 g/dL (32-36); Mean Corpuscular Hgb 27.5 pg (27.0-32.0); Mean Corpuscular Volume 87.3 fL (80-94); Mean Platelet Vol. 10.3 fl (6.2-12.0); Monocyte# 1.38 X10^3/uL; NRBC Flagged by Analyzer 0 % (0-5); Neutrophil # 5.15 X10^3/uL (2.7-7.7); Neutrophil % 63.3 % (47-70); Platelet Count 220 K/mm3 (150-450); RBC Distribution Width CV 17.3 % (11.6-14.6); RBC Distribution Width SD 55.8 fl (35.1-43.9); Red Blood Count 3.24 M/mm3 (4.6-6.2); White Blood Count 8.1 K/mm3 (4.4-11.0)
[2020-11-10 04:30] LABS: Anion Gap 13 (5-15); BUN 99 mg/dL (7-18); BUN/Creat Ratio 15.3 RATIO (10-20); Calcium,Total 9.1 mg/dL (8.5-10.1); Chloride 98 mmol/L (98-107); Creatinine, Serum 6.46 mg/dL (0.70-1.30); EST Glomerular Filtration Rate 9 mL/min (>60); Est Glom Filt Rate - Afr Amer 11 mL/min (>60); Estimated Creatinine Clearance 11.25 ml/min; Glucose 86 mg/dL (74-106); Potassium 5.2 mmol/L (3.5-5.1); Sodium Level 136 mmol/L (136-145)
[2020-11-10] MEDS: Metoclopramide 10 MG/2 ML Vial 5 MG IV ×4 (06:19→20:16)
--- NOTE | 2020-11-10 06:39 | PN_ITS ---
Subjective: Patient did okay overnight. Patient did have some increased tube feeds, so this had been held. Patient did have a spontaneous breathing trial this morning, but this was discontinued after 45 minutes secondary to tachycardia and tachypnea. Patient is more interactive today and readily nods to questions. General: Alert, Cooperative, - - Good vent synchrony. RASS of 0 HEENT: Atraumatic, PERRLA, EOMI, Normocephalic, - - Slight scleral injection Oral: Moist Mucosa, No Gingival or Mucosal Lesions/ Ulcerations Neck: Supple, No Nodes, Trachea Midline, - - Lines are clean, dry and intact Lungs: No rhonchi, No wheeze, No rales, Diminished Cardiovascular: Normal S1, Normal S2, No murmurs, No rub noted, No Gallop, Tachycardic Abdomen: Bowel Sounds Present, Soft, Non Tender, Distended - Slightly, Obese Extremities: No clubbing, No cyanosis, Edema - Trace Skin: - - No change from previous Musculoskeletal: No Tenderness to Palpation of Joints or Extremities Lymphatic: No Cervical, Supraclavicular, or Inguinal Adenopathy Neurological: Cranial nerves II-XII grossly intact, Neuro grossly intact, Motor Exam 5/5 strength throughout Psych/Mental Status: Flat Affect Vital Signs Temp Pulse Resp BP Pulse Ox 36.4 C L 98 18 133/58 H 90 11/10/20 04:00 11/10/20 05:45 11/10/20 05:45 11/10/20 05:45 11/10/20 05:45 Oxygen Flow Rate (L/min) 60 Oxygen Delivery Method Mechanical Ventilator Weight: 123.9 kg Body Mass Index (BMI) 39.9 Intake and Output for Last 24 Hours 11/08/20 11/09/20 11/10/20 23:59 23:59 23:59 Intake Total 2419.32 / 2814.52 1457.88 / 1887.75 684.14 / 684.14 Output Total 25 / 125 125 / 125 Balance 2389.32 / 2784.52 1432.88 / 1762.75 559.14 / 559.14 Labs (Last 48 Hours) 11/08/20 11/08/20 11/09/20 13:30 18:31 00:51 WBC RBC Hgb Hct MCV MCH MCHC RDW Std Deviation RDW Coeff of Abhilash Plt Count MPV Immature Gran % (Auto) Neut % (Auto) Lymph % (Auto) [place] % (Auto) Eos % (Auto) Baso % (Auto) Absolute Neuts (auto) Absolute Lymphs (auto) Nucleated RBC % Sodium Potassium Chloride Carbon Dioxide Anion Gap BUN Creatinine Estim Creat Clear Calc Est GFR (MDRD) Af Amer Est GFR (MDRD) Non-Af BUN/Creatinine Ratio Glucose Calcium Phosphorus Magnesium POC Glucose 124 H 128 H 116 H 11/09/20 11/09/20 11/09/20 04:18 04:18 04:22 WBC 9.8 RBC 3.48 L Hgb 9.4 L Hct 29.8 L MCV 85.6 MCH 27.0 MCHC 31.5 L RDW Std Deviation 53.2 H RDW Coeff of Abhilash 17.3 H Plt Count 219 MPV 9.8 Immature Gran % (Auto) 2.500 H Neut % (Auto) 68.8 Lymph % (Auto) 12.1 L [place] % (Auto) 14.7 H Eos % (Auto) 1.6 Baso % (Auto) 0.3 Absolute Neuts (auto) 6.8 Absolute Lymphs (auto) 1.19 Nucleated RBC % 0 Sodium 136 Potassium 4.5 Chloride 98 Carbon Dioxide 26.0 Anion Gap 12 BUN 57 H Creatinine 4.47 H Estim Creat Clear Calc 16.26 Est GFR (MDRD) Af Amer 17 L Est GFR (MDRD) Non-Af 14 L BUN/Creatinine Ratio 12.8 Glucose 94 Calcium 8.9 Phosphorus 8.8 H Magnesium 2.7 H POC Glucose 102 11/09/20 11/09/20 11/09/20 12:54 18:11 23:44 WBC RBC Hgb Hct MCV MCH MCHC RDW Std Deviation RDW Coeff of Abhilash Plt Count MPV Immature Gran % (Auto) Neut % (Auto) Lymph % (Auto) [place] % (Auto) Eos % (Auto) Baso % (Auto) Absolute Neuts (auto) Absolute Lymphs (auto) Nucleated RBC % Sodium Potassium Chloride Carbon Dioxide Anion Gap BUN Creatinine Estim Creat Clear Calc Est GFR (MDRD) Af Amer Est GFR (MDRD) Non-Af BUN/Creatinine Ratio Glucose Calcium Phosphorus Magnesium POC Glucose 126 H 106 100 11/10/20 11/10/20 04:10 04:10 WBC 8.1 RBC 3.24 L Hgb 8.9 L Hct 28.3 L MCV 87.3 MCH 27.5 MCHC 31.4 L RDW Std Deviation 55.8 H RDW Coeff of Abhilash 17.3 H Plt Count 220 MPV 10.3 Immature Gran % (Auto) 2.000 H Neut % (Auto) 63.3 Lymph % (Auto) 15.3 L [place] % (Auto) 17.0 H Eos % (Auto) 2.2 Baso % (Auto) 0.2 Absolute Neuts (auto) 5.2 Absolute Lymphs (auto) 1.24 Nucleated RBC % 0 Sodium 136 Potassium 5.2 H Chloride 98 Carbon Dioxide 25.0 Anion Gap 13 BUN 99 H Creatinine 6.46 H Estim Creat Clear Calc 11.25 Est GFR (MDRD) Af Amer 11 L Est GFR (MDRD) Non-Af 9 L BUN/Creatinine Ratio 15.3 Glucose 86 Calcium 9.1 Phosphorus Magnesium POC Glucose Microbiology 11/09/20 13:44 Sputum, Induced/Lukens Gram Stain - Final Medical Necessity - Tobacco Use Smoking Status: Never smoker Tobacco Use: Non-smoker Assessment/Plan All Active Problems (Last Updated 10/24/20 @ 15:[address] Nish Dee, DO) Pneumonia due to Coronavirus disease 2019 (Acute) Hypoxia (Acute) Melena (Acute) RECOMMENDATIONS: 1. Continue patient on assist control mode of mechanical ventilation and wean FiO2 and PEEP to maintain oxygen saturations at or above 90%. 2. Transition to Precedex therapy to facilitate spontaneous breathing trial 3. Continue attempts at volume optimization via hemodialysis per nephrology. Okay to dialyze today from my perspective 4. Add Reglan. Possibly reinitiate tube feeds. Aggressive bowel regimen. 5. Continue therapeutic Lovenox. 6. Continue PPI therapy as ordered. 7. Continue antimicrobials per ID recommendations. IMPRESSIONS: 1. Acute hypoxemic respiratory failure Multifactorial in etiology with COVID-19 pneumonia and bilateral pulmonary emboli contributing. Although attempts were made to utilize heated high flow oxygen and later BiPAP, the patient continued to decompensate from a respiratory perspective, requiring intubation on November 01. For now, the patient will be continued on assist control mode of mechanical ventilation, with plans to wean FiO2 and PEEP to maintain saturations at or above 90%. We will transition to Precedex therapy to facilitate spontaneous breathing trials. Nephrology is currently following to assist with hemodialysis needs. Patient has been tolerating volume removal with dialysis. Spontaneous breathing and awakening trials per protocol. Secretions appear to be improved today despite no change in antibiotics. Sputum with no growth to date. 2. Acute kidney injury/hyperkalemia Likely prerenal in etiology with component of ischemic ATN. Nephrology is currently following to assist with hemodialysis needs. Anticipate further need for future dialysis to assist with volume optimization. Defer to nephrology on timing. 3. Possible GI bleed No overt signs of GI blood loss at this time. Continue twice daily PPI therapy as ordered. Monitor H&H and transfuse if hemoglobin drops below 7 g/dL. 4. History of coronary artery disease/hypertension/hyperlipidemia/obesity Complicates care, management, recovery and prognosis. Continue home medications as indicated. TIME: 33 minutes of critical care time, inclusive of procedures, was spent addressing the patient's acute hypoxemic respiratory failure, COVID-19 pneumonia, bilateral pulmonary emboli, acute kidney injury, review of all data and collaboration with the care team. (5:45 AM to 6:45 AM) 9xxxx: [id number] Critical care first hour
[2020-11-10 06:41] LABS: Bedside Glucose 81 mg/dL (70-110)
[2020-11-10] MEDS: Ipratropium/Albuterol Sulfate 3 ML AMPUL.NEB INHALATION ×3 (07:00→19:35)
[2020-11-10] MEDS: TITRATION PARAMETER CHANGE 1 EACH IV (07:10)
[2020-11-10] MEDS: Chlorhexidine 15 ML PO ×2 (07:55→20:05)
[2020-11-10] MEDS: dexAMETHasone 10 MG/ML Vial 6 MG IV (07:56)
[2020-11-10] MEDS: Enoxaparin 120 MG/0.8 ML Syringe SC (07:56)
[2020-11-10] MEDS: Atorvastatin Calcium 20 MG Tablet GT (07:56)
[2020-11-10] MEDS: Allopurinol 300 MG Tablet GT (07:57)
[2020-11-10] MEDS: Senna/Docusate Sodium 1 Tablet 2 TABLET GT (07:57)
--- NOTE | 2020-11-10 09:40 | CM.UR ---
Participated in ICU interdisciplinary rounds. Patient continues to be intubated, on ventilator with min. vent settings. Failed weaning trial this am after 45 minutes. Continues on Levophed and Precedex. Had some increased residuals, started on reglan. Passed Mobility screen-PT/OT to continue to work with patient. Patient is following commands. DC Planning deferred. DC PLAN: TBD. Clay Sargent RN, CCM.
--- NOTE | 2020-11-10 10:29 | PN_ITS ---
Patient Problems: Active and Suspected Problems (Last Updated 10/24/20 @ 15:[address] Nish Dee, DO) Pneumonia due to Coronavirus disease 2019 (Acute) Hypoxia (Acute) Melena (Acute) Reason for Visit: COVID 19 Subjective: More interactive today. Not following commands, but establishes eye contact. Vitals/I&O's: Vital Signs Temp Pulse Resp BP Pulse Ox 36.4 C L 86 22 H 92/47 L 93 11/10/20 04:00 11/10/20 10:10 11/10/20 10:10 11/10/20 09:30 11/10/20 10:10 Oxygen Flow Rate (L/min) 60 Oxygen Delivery Method Mechanical Ventilator Weight: 123.9 kg Body Mass Index (BMI) 39.9 Intake and Output for Last 24 Hours 11/08/20 11/09/20 11/10/20 23:59 23:59 23:59 Intake Total 2419.32 / 2814.52 1457.88 / 1887.75 928.84 / 928.84 Output Total 25 / 125 125 / 125 Balance 2389.32 / 2784.52 1432.88 / 1762.75 803.84 / 803.84 General: Alert, - - doesn't follow commands. HEENT: Atraumatic, Normocephalic Oral: - - ETT, OG in place Neck: No Nodes, Thyroid Normal Size and Texture Lungs: - - coarse breath sounds bilaterally. Cardiovascular: Regular rate, Regular Rhythm, Normal S1, Normal S2, No murmurs Abdomen: Bowel Sounds Present, Soft, Non Tender, Non-Distended, No Hepato- splenomegaly Extremities: No edema, No Calf Tenderness Psych/Mental Status: Normal Affect, Appropriate Microbiology Past 72 Hours 11/09/20 13:44 Sputum, Induced/Lukens Gram Stain - Final Laboratory Results 11/09/20 04:22: POC Glucose 102 11/09/20 12:54: POC Glucose 126 H 11/09/20 18:11: POC Glucose 106 11/09/20 23:44: POC Glucose 100 11/10/20 04:10: WBC 8.1, RBC 3.24 L, Hgb 8.9 L, Hct 28.3 L, MCV 87.3, MCH 27.5, MCHC 31.4 L, RDW Std Deviation 55.8 H, RDW Coeff of Abhilash 17.3 H, Plt Count 220, MPV 10.3, Immature Gran % (Auto) 2.000 H, Neut % (Auto) 63.3, Lymph % (Auto) 15.3 L, [place] % (Auto) 17.0 H, Eos % (Auto) 2.2, Baso % (Auto) 0.2, Absolute Neuts (auto) 5.2, Absolute Lymphs (auto) 1.24, Nucleated RBC % 0 11/10/20 04:10: Sodium 136, Potassium 5.2 H, Chloride 98, Carbon Dioxide 25.0, Anion Gap 13, BUN 99 H, Creatinine 6.46 H, Estim Creat Clear Calc 11.25, Est GFR (MDRD) Af Amer 11 L, Est GFR (MDRD) Non-Af 9 L, BUN/Creatinine Ratio 15.3, Glucose 86, Calcium 9.1 11/10/20 06:17: POC Glucose 81 Current Medications Acetaminophen (Acetaminophen 650 Mg/20 Ml Udc) 650 mg GT Q6H PRN PRN PRN Reason: Pain Score 1-10/Temp > 100.7 F Albuterol/Ipratropium (Ipratropium/Albuterol Sulfate 3 Ml Ampul.Neb) 3 ml INHALATION Q6H.RT [facility] Last Admin: 11/10/20 07:00 Dose: 3 ml Documented by: Allopurinol (Allopurinol 300 Mg Tablet) 300 mg GT DAILY [facility] Last Admin: 11/10/20 07:57 Dose: 300 mg Documented by: Atorvastatin Calcium (Atorvastatin Calcium 20 Mg Tablet) 20 mg GT DAILY [facility] Last Admin: 11/10/20 07:56 Dose: 20 mg Documented by: Chlorhexidine Gluconate (Chlorhexidine 15 Ml) 15 ml PO BID [facility] Last Admin: 11/10/20 07:55 Dose: 15 ml Documented by: Dexamethasone Sodium Phosphate (Dexamethasone 10 Mg/Ml Vial) 6 mg IV DAILY [facility] Stop: 11/12/20 10:01 Last Admin: 11/10/20 07:56 Dose: 6 mg Documented by: Enoxaparin Sodium (Enoxaparin 120 Mg/0.8 Ml Syringe) 120 mg SC DAILY [facility] Last Admin: 11/10/20 07:56 Dose: 120 mg Documented by: Guaifenesin (Guaifenesin 10 Ml Udc (200mg/10ml)) 10 ml GT Q4H [facility] Last Admin: 11/10/20 07:57 Dose: 10 ml Documented by: Propofol (Diprivan) 1,000 mg in 100 mls @ 7.434 mls/hr CONT INF .Q12H [facility]; Protocol Last Titration: 11/10/20 07:15 Dose: Infused Documented by: Fentanyl Citrate 1,000 mcg/ (Sodium Chloride) 100 mls @ 20 mls/hr CONT INF .Q5H [facility]; Protocol Last Titration: 11/10/20 08:00 Dose: 75 mcg/hr, 7.5 mls/hr Documented by: Enteral Nutritional Formula (Vital High Protein) 1,000 mls @ 70 mls/hr GT .[id number] [facility] Last Admin: 11/10/20 09:35 Dose: Not Given Documented by: Pantoprazole Sodium 40 mg/ (Sodium Chloride) 110 mls @ 330 mls/hr IV Q12 [facility] Last Infusion: 11/10/20 09:35 Dose: Infused Documented by: Ceftriaxone Sodium 2 gm/ (Sodium Chloride) 50 mls @ 100 mls/hr IV Q24 [facility] Last Infusion: 11/10/20 09:36 Dose: Infused Documented by: Norepinephrine Bitartrate 8 mg (/ Sodium Chloride) 250 mls @ 9.375 mls/hr CONT INF .[id number] [facility]; Protocol Last Admin: 11/10/20 09:30 Dose: 2 mcg/min, 3.8 mls/hr Documented by: Dexmedetomidine HCl 400 mcg/ (Sodium Chloride) 100 mls @ 15.488 mls/hr CONT INF .Q6H28M [facility]; Protocol Last Titration: 11/10/20 10:00 Dose: 0.6 mcg/kg/hr, 18.6 mls/hr Documented by: Insulin Human Lispro (Insulin Lispro 100 Unit/Ml Insuln.Pen) 0 unit SC Q6 [facility]; Protocol Last Admin: 11/10/20 06:20 Dose: Not Given Documented by: Metoclopramide HCl (Metoclopramide 10 Mg/2 Ml Vial) 5 mg IV Q6@0400,1000,1600,2200 [facility] Last Admin: 11/10/20 07:57 Dose: 5 mg Documented by: Polyethylene Glycol (Polyethylene Glycol 3350 17 Gm Packet) 17 gm GT BID PRN PRN PRN Reason: CONSTIPATION Last Admin: 11/06/20 04:12 Dose: 17 gm Documented by: Senna/Docusate Sodium (Senna/Docusate Sodium 1 Tablet) 2 tablet GT BID [facility] Last Admin: 11/10/20 07:57 Dose: 2 tablet Documented by: Sodium Chloride (0.9% Saline Lock 10 Ml Syringe) 10 - 40 ml IV UD PRN PRN Reason: SALINE FLUSH Last Admin: 11/10/20 06:27 Dose: 20 ml Documented by: Sodium Chloride (Sodium Chloride 0.65% 1 [place].Btl) 2 spray NASAL BID PRN PRN PRN Reason: NASAL DRYNESS Last Admin: 10/28/20 22:53 Dose: 2 sprays Documented by: STROKE Vital Signs/Narrative: Vital Signs Pulse Resp BP Pulse Ox 11/10/20 10:10 86 22 H 93 11/10/20 09:30 92/47 L 11/10/20 09:15 82/40 L 11/10/20 08:00 92 20 H 122/64 H 11/10/20 07:03 100 35 H 90 11/10/20 07:00 91 16 103/55 L 90 11/10/20 06:30 96 19 H 135/61 H 91 Medical Necessity - Tobacco Use Smoking Status: Never smoker Tobacco Use: Non-smoker Assessment/Plan All Active Problems (Last Updated 10/24/20 @ 15:[address] Nish Dee, DO) Pneumonia due to Coronavirus disease 2019 (Acute) Hypoxia (Acute) Melena (Acute) 1. Acute COVID-19 pneumonia: * Patient received a dexamethasone in the emergency room and will continue for a total of 10days. Back on dexa from - * Completed remdesivir * no registered temp of greater than 38, therefore, does not meet definition for CRS 2. Acute hypoxic respiratory failure * 2/2 COVID 19 pneumonia, strep pneumonia and PE +/- ARDS * Intubated 11/01/2020 currently on vent 50% FiO2 * 11/08: worse, likely mucus plugging. * 11/10: stable on 40% fio2 3. CELIA: * anuric * 2/2 ischemic ATN * began on 11/02, received IV contrast on 10/29 * on HD 4. pneumococcal pneumonia * +Cx on 11/01 * on CTX 5. Black stools: * Concern is for melena. * on PPI 6. Chronic kidney disease stage III: * Presumed. Hold off on IV fluids given the patient's COVID-19 at this time. H old HCTZ. Patient is on sodium bicarbonate is baseline. 7. Coronary artery disease: * Patient has had a history of a stent before. No active issues at this time. Continue with losartan, metoprolol tartrate and simvastatin. 8. VTE prophylaxis: * anticoagulated 9. Advanced care planning: * Previously discussed with the patient. Patient state that he would not want to go on the ventilator but on further clarification stated that he did not need to go onto a ventilator. I told him this is a hypothetical question in case if he were to get worse. He is unsure at this time. I told him that we would leave him at full CODE STATUS at this time until he tells us otherwise. Inpatient E&M: 57314 Subs Hosp L2
[2020-11-10 12:06] LABS: Bedside Glucose 124 mg/dL (70-110)
--- NOTE | 2020-11-10 13:55 | DIALYSIS ---
Hemodialysis stopped at 1305, 2K bath, tx ended 20 mins early due to persistent hypotension, tolerated well first 3 hours of tx with pressor support, UF 2000mL, accessed via right neck temporary dialysis catheter, line very positional, arterial port poor push/pull, able to manipulate and use for tx
--- NOTE | 2020-11-10 15:53 | PN.RENAL_ITS ---
Patient Problems: Active and Suspected Problems (Last Updated 10/24/20 @ 15:[address] Nish Dee, DO) Pneumonia due to Coronavirus disease 2019 (Acute) Hypoxia (Acute) Melena (Acute) Subjective: Patient tolerated HD session earlier today with 2L UF Patient was seen from outside ICU. Reviewed Dr. Salmeron note from today.Patient is more interactive O FIO2 45% Remains intubated. On levophed 5 mcg.min ROS: is not obtainable - Physical Exam Vitals/I&O's: Vital Signs Temp Pulse Resp BP Pulse Ox 97.6 F L 67 16 95/55 L 94 11/10/20 13:15 11/10/20 15:00 11/10/20 15:00 11/10/20 15:00 11/10/20 15:00 Oxygen Flow Rate (L/min) 60 Oxygen Delivery Method Mechanical Ventilator Weight: 123.9 kg Body Mass Index (BMI) 39.9 Intake and Output for Last 24 Hours 11/08/20 11/09/20 11/10/20 23:59 23:59 23:59 Intake Total 2419.32 / 2814.52 1577.88 / 2007.75 1229.20 / 1229.20 Output Total 1130 / 1130 25 / 125 2145 / 2145 Balance 1289.32 / 1684.52 1552.88 / 1882.75 -915.80 / -915.80 Psych/Mental Status: Alert and oriented to time, place, person, mood and affect Comment: No physical exam performed today to limit exposure to COVID virus Microbiology Past 72 Hours 11/09/20 13:44 Sputum, Induced/Lukens Gram Stain - Final 11/09/20 13:44 Sputum, Induced/Lukens Respiratory Culture - Preliminary Presumptive C albicans Laboratory Results 11/09/20 18:11: POC Glucose 106 11/09/20 23:44: POC Glucose 100 11/10/20 04:10: WBC 8.1, RBC 3.24 L, Hgb 8.9 L, Hct 28.3 L, MCV 87.3, MCH 27.5, MCHC 31.4 L, RDW Std Deviation 55.8 H, RDW Coeff of Abhilash 17.3 H, Plt Count 220, MPV 10.3, Immature Gran % (Auto) 2.000 H, Neut % (Auto) 63.3, Lymph % (Auto) 15.3 L, [place] % (Auto) 17.0 H, Eos % (Auto) 2.2, Baso % (Auto) 0.2, Absolute Neuts (auto) 5.2, Absolute Lymphs (auto) 1.24, Nucleated RBC % 0 11/10/20 04:10: Sodium 136, Potassium 5.2 H, Chloride 98, Carbon Dioxide 25.0, Anion Gap 13, BUN 99 H, Creatinine 6.46 H, Estim Creat Clear Calc 11.25, Est GFR (MDRD) Af Amer 11 L, Est GFR (MDRD) Non-Af 9 L, BUN/Creatinine Ratio 15.3, Glucose 86, Calcium 9.1 11/10/20 06:17: POC Glucose 81 11/10/20 11:55: POC Glucose 124 H Current Medications Acetaminophen (Acetaminophen 650 Mg/20 Ml Udc) 650 mg GT Q6H PRN PRN PRN Reason: Pain Score 1-10/Temp > 100.7 F Albuterol/Ipratropium (Ipratropium/Albuterol Sulfate 3 Ml Ampul.Neb) 3 ml INHALATION Q6H.RT [facility] Last Admin: 11/10/20 13:17 Dose: 3 ml Documented by: Allopurinol (Allopurinol 300 Mg Tablet) 300 mg GT DAILY [facility] Last Admin: 11/10/20 07:57 Dose: 300 mg Documented by: Atorvastatin Calcium (Atorvastatin Calcium 20 Mg Tablet) 20 mg GT DAILY [facility] Last Admin: 11/10/20 07:56 Dose: 20 mg Documented by: Chlorhexidine Gluconate (Chlorhexidine 15 Ml) 15 ml PO BID [facility] Last Admin: 11/10/20 07:55 Dose: 15 ml Documented by: Dexamethasone Sodium Phosphate (Dexamethasone 10 Mg/Ml Vial) 6 mg IV DAILY [facility] Stop: 11/12/20 10:01 Last Admin: 11/10/20 07:56 Dose: 6 mg Documented by: Enoxaparin Sodium (Enoxaparin 120 Mg/0.8 Ml Syringe) 120 mg SC DAILY [facility] Last Admin: 11/10/20 07:56 Dose: 120 mg Documented by: Guaifenesin (Guaifenesin 10 Ml Udc (200mg/10ml)) 10 ml GT Q4H [facility] Last Admin: 11/10/20 14:00 Dose: 10 ml Documented by: Propofol (Diprivan) 1,000 mg in 100 mls @ 7.434 mls/hr CONT INF .Q12H [facility]; Protocol Last Admin: 11/10/20 10:39 Dose: Not Given Documented by: Fentanyl Citrate 1,000 mcg/ (Sodium Chloride) 100 mls @ 20 mls/hr CONT INF .Q5H [facility]; Protocol Last Titration: 11/10/20 15:00 Dose: 75 mcg/hr, 7.5 mls/hr Documented by: Enteral Nutritional Formula (Vital High Protein) 1,000 mls @ 70 mls/hr GT .[id number] [facility] Last Admin: 11/10/20 09:35 Dose: Not Given Documented by: Pantoprazole Sodium 40 mg/ (Sodium Chloride) 110 mls @ 330 mls/hr IV Q12 [facility] Last Infusion: 11/10/20 09:35 Dose: Infused Documented by: Ceftriaxone Sodium 2 gm/ (Sodium Chloride) 50 mls @ 100 mls/hr IV Q24 [facility] Last Infusion: 11/10/20 09:36 Dose: Infused Documented by: Norepinephrine Bitartrate 8 mg (/ Sodium Chloride) 250 mls @ 9.375 mls/hr CONT INF .[id number] [facility]; Protocol Last Titration: 11/10/20 15:00 Dose: 4 mcg/min, 7.5 mls/hr Documented by: Dexmedetomidine HCl 400 mcg/ (Sodium Chloride) 100 mls @ 15.488 mls/hr CONT INF .Q6H28M [facility]; Protocol Last Admin: 11/10/20 15:00 Dose: 0.6 mcg/kg/hr, 18.6 mls/hr Documented by: Insulin Human Lispro (Insulin Lispro 100 Unit/Ml Insuln.Pen) 0 unit SC Q6 [facility]; Protocol Last Admin: 11/10/20 12:07 Dose: Not Given Documented by: Metoclopramide HCl (Metoclopramide 10 Mg/2 Ml Vial) 5 mg IV Q6@0400,1000,1600,2200 [facility] Last Admin: 11/10/20 07:57 Dose: 5 mg Documented by: Polyethylene Glycol (Polyethylene Glycol 3350 17 Gm Packet) 17 gm GT BID PRN PRN PRN Reason: CONSTIPATION Last Admin: 11/06/20 04:12 Dose: 17 gm Documented by: Senna/Docusate Sodium (Senna/Docusate Sodium 1 Tablet) 2 tablet GT BID [facility] Last Admin: 11/10/20 07:57 Dose: 2 tablet Documented by: Sodium Chloride (0.9% Saline Lock 10 Ml Syringe) 10 - 40 ml IV UD PRN PRN Reason: SALINE FLUSH Last Admin: 11/10/20 06:27 Dose: 20 ml Documented by: Sodium Chloride (Sodium Chloride 0.65% 1 [place].Btl) 2 spray NASAL BID PRN PRN PRN Reason: NASAL DRYNESS Last Admin: 10/28/20 22:53 Dose: 2 sprays Documented by: Medical Necessity - Tobacco Use Smoking Status: Never smoker Tobacco Use: Non-smoker Assessment/Plan All Active Problems (Last Updated 10/24/20 @ 15:[address] Nish Dee, DO) Pneumonia due to Coronavirus disease 2019 (Acute) Hypoxia (Acute) Melena (Acute) CELIA?ATN with shock creatinine baseline 1.02. Patient also received IV contrast o 10/29 Started HD o 11/02. No recovery of kidney function. Anuric HD was arranged for today. Patient tolerated 2L UF Will continue to monitor for renal function recovery Keep MAP > 65 Hyperkalemia. from CELIA. k 5.2 this am. had HD session with 2K dialysate. check K in am Hyperphosphatemia: P 8.8 o 11/09. should improve with HD. Monitor P level Respiratory failure due to ARDS, COVID-19 bacterial pneumonia with B/L PE Vent support as per ICU service UF as tolerated with HD d/w HD RN and [employer] Please call if any question or concern at [phone] Fabiano Weiss MD
[2020-11-10 18:41] LABS: Bedside Glucose 96 mg/dL (70-110)
[2020-11-11] VITALS (44 sets, daily range): BP systolic 94–157; BP diastolic 47–87; PULSE 62–157; RESP 15–28; TEMP 36.5–37.1; O2SAT 88–97
[2020-11-11] MEDS: Dexmedetomidine 1,000 mcg in 0.9% NS 240 mL 21.7 MCG CONT INF (01:00)
[2020-11-11] MEDS: Ipratropium/Albuterol Sulfate 3 ML AMPUL.NEB INHALATION ×4 (01:15→19:45)
[2020-11-11] MEDS: guaiFENesin 10 ML UDC (200MG/10ML) GT ×2 (01:23→05:20)
[2020-11-11] MEDS: Metoclopramide 10 MG/2 ML Vial 5 MG IV ×4 (04:00→20:16)
[2020-11-11 05:07] LABS: Absolute Lymphocyte Count 1.77 X10^3/uL (0.83-4.51); Absolute Neutrophil Count 5.5 X10^3/uL (2.0-7.7); Basophil# 0.05 X10^3/uL; Basophil% 0.5 % (0-1); Eosinophil# 0.21 X10^3/uL; Eosinophils% 2.3 % (0-5); Hematocrit 31.1 % (40-54); Lymphocyte # 1.77 X10^3/ul (4.0); Lymphocyte % 19.1 % (19-41); Mean Corp Hgb Conc 32.2 g/dL (32-36); Mean Corpuscular Hgb 28.3 pg (27.0-32.0); Mean Corpuscular Volume 88.1 fL (80-94); Mean Platelet Vol. 10.2 fl (6.2-12.0); Monocyte% 17.2 % (0-10); NRBC Flagged by Analyzer 0 % (0-5); Neutrophil % 59.2 % (47-70); POSITIVE DIFFERENTIAL YES; Platelet Count 227 K/mm3 (150-450); RBC Distribution Width CV 17.2 % (11.6-14.6); RBC Distribution Width SD 54.2 fl (35.1-43.9); Red Blood Count 3.53 M/mm3 (4.6-6.2); White Blood Count 9.3 K/mm3 (4.4-11.0)
[2020-11-11 05:14] LABS: Differential Indicated SCAN CRITERIA MET
[2020-11-11 05:26] LABS: ALB/GLOB Ratio 0.4 RATIO (0.9-2.4); AST(SGOT) 44 U/L (15-37); Alanine Aminotransfer ALT/SGPT 54 U/L (16-61); Alkaline Phosphatase 77 U/L (45-117); Anion Gap 13 (5-15); BUN 73 mg/dL (7-18); Chloride 97 mmol/L (98-107); EST Glomerular Filtration Rate 11 mL/min (>60); Est Glom Filt Rate - Afr Amer 13 mL/min (>60); Estimated Creatinine Clearance 12.98 ml/min; Glucose 91 mg/dL (74-106); Potassium 4.5 mmol/L (3.5-5.1); Sodium Level 134 mmol/L (136-145)
[2020-11-11 05:47] LABS: Differential Comment SCANNED
[2020-11-11 06:01] LABS: Allen Test Positive; Base Excess 1 mmol/L (-2 to +2); Bicarbonate 24.1 mmol/L (22-26); Blood Gas Specimen Type ART; FI02 35; Mode CPAP/PS; O2 Delivery Device Adult Vent; PEEP 5; PO2 63 mmHG (75-100); PS 5; SITE L Radial; SO2 94 % (95-99); Total Carbon Dioxide 25 mmol/L; pCO2 31.9 mmHg (35-45); pH 7.49 (7.35-7.45)
--- NOTE | 2020-11-11 06:26 | PN_ITS ---
Subjective: Patient did well overnight. No acute issues were reported. Patient was able to be taken off of Levophed following hemodialysis. Patient remains on Precedex only and was able to pass a spontaneous breathing trial. Patient extubated under my direct supervision without complication. No chest pain, abdominal pain or emesis has been reported. Patient did have increased residuals reported prior to holding for spontaneous breathing trial. General: Alert, Cooperative, No apparent distress, - - Comfortable on spontaneou s breathing trial. Following commands. HEENT: Atraumatic, PERRLA, EOMI, Normocephalic, - - No scleral icterus or injection noted Oral: Moist Mucosa, No Gingival or Mucosal Lesions/ Ulcerations Neck: Supple, No Nodes, Trachea Midline, - - Lines are clean, dry and intact Lungs: No rhonchi, No wheeze, No rales, Diminished, - - Symmetric expansion Cardiovascular: Regular rate, Regular Rhythm, Normal S1, Normal S2, No murmurs, No rub noted, No Gallop Abdomen: Bowel Sounds Present, Soft, Non Tender, Non-Distended, Obese Extremities: No clubbing, No cyanosis, Edema - Trace to 1+ Skin: - - No change compared to previous Musculoskeletal: No Tenderness to Palpation of Joints or Extremities Lymphatic: No Cervical, Supraclavicular, or Inguinal Adenopathy Neurological: Cranial nerves II-XII grossly intact, Neuro grossly intact, Motor Exam 5/5 strength throughout Psych/Mental Status: Normal Affect, Appropriate Vital Signs Temp Pulse Resp BP Pulse Ox 37.1 C 79 18 125/69 H 91 11/11/20 04:00 11/11/20 05:00 11/11/20 05:00 11/11/20 05:00 11/11/20 05:00 Oxygen Flow Rate (L/min) 60 Oxygen Delivery Method Mechanical Ventilator Weight: 121.9 kg Body Mass Index (BMI) 39.9 Intake and Output for Last 24 Hours 11/09/20 11/10/20 11/11/20 23:59 23:59 23:59 Intake Total 1577.88 / 2007.75 1573.98 / 1605.68 265.18 / 265.18 Output Total 25 / 125 2155 / 2305 175 / 175 Balance 1552.88 / 1882.75 -581.02 / -699.32 90.18 / 90.18 Labs (Last 48 Hours) 11/09/20 11/09/20 11/09/20 04:22 12:54 18:11 WBC RBC Hgb Hct MCV MCH MCHC RDW Std Deviation RDW Coeff of Abhilash Plt Count MPV Immature Gran % (Auto) Neut % (Auto) Lymph % (Auto) [place] % (Auto) Eos % (Auto) Baso % (Auto) Absolute Neuts (auto) Absolute Lymphs (auto) Nucleated RBC % Differential Comment Specimen Type Sample Site pH Bicarbonate Actual Total CO2 Base Excess O2 Saturation O2 % ABG pCO2 ABG pO2 Lonnie Test O2 Delivery Device Vent Mode POC PEEP POC Pressure Suppt Sodium Potassium Chloride Carbon Dioxide Anion Gap BUN Creatinine Estim Creat Clear Calc Est GFR (MDRD) Af Amer Est GFR (MDRD) Non-Af BUN/Creatinine Ratio Glucose Calcium Total Bilirubin AST ALT Alkaline Phosphatase Total Protein Albumin Globulin Albumin/Globulin Ratio POC Glucose 102 126 H 106 11/09/20 11/10/20 11/10/20 23:44 04:10 04:10 WBC 8.1 RBC 3.24 L Hgb 8.9 L Hct 28.3 L MCV 87.3 MCH 27.5 MCHC 31.4 L RDW Std Deviation 55.8 H RDW Coeff of Abhilash 17.3 H Plt Count 220 MPV 10.3 Immature Gran % (Auto) 2.000 H Neut % (Auto) 63.3 Lymph % (Auto) 15.3 L [place] % (Auto) 17.0 H Eos % (Auto) 2.2 Baso % (Auto) 0.2 Absolute Neuts (auto) 5.2 Absolute Lymphs (auto) 1.24 Nucleated RBC % 0 Differential Comment Specimen Type Sample Site pH Bicarbonate Actual Total CO2 Base Excess O2 Saturation O2 % ABG pCO2 ABG pO2 Lonnie Test O2 Delivery Device Vent Mode POC PEEP POC Pressure Suppt Sodium 136 Potassium 5.2 H Chloride 98 Carbon Dioxide 25.0 Anion Gap 13 BUN 99 H Creatinine 6.46 H Estim Creat Clear Calc 11.25 Est GFR (MDRD) Af Amer 11 L Est GFR (MDRD) Non-Af 9 L BUN/Creatinine Ratio 15.3 Glucose 86 Calcium 9.1 Total Bilirubin AST ALT Alkaline Phosphatase Total Protein Albumin Globulin Albumin/Globulin Ratio POC Glucose 100 11/10/20 11/10/20 11/10/20 06:17 11:55 18:37 WBC RBC Hgb Hct MCV MCH MCHC RDW Std Deviation RDW Coeff of Abhilash Plt Count MPV Immature Gran % (Auto) Neut % (Auto) Lymph % (Auto) [place] % (Auto) Eos % (Auto) Baso % (Auto) Absolute Neuts (auto) Absolute Lymphs (auto) Nucleated RBC % Differential Comment Specimen Type Sample Site pH Bicarbonate Actual Total CO2 Base Excess O2 Saturation O2 % ABG pCO2 ABG pO2 Lonnie Test O2 Delivery Device Vent Mode POC PEEP POC Pressure Suppt Sodium Potassium Chloride Carbon Dioxide Anion Gap BUN Creatinine Estim Creat Clear Calc Est GFR (MDRD) Af Amer Est GFR (MDRD) Non-Af BUN/Creatinine Ratio Glucose Calcium Total Bilirubin AST ALT Alkaline Phosphatase Total Protein Albumin Globulin Albumin/Globulin Ratio POC Glucose 81 124 H 96 11/11/20 11/11/20 11/11/20 05:00 05:00 05:56 WBC 9.3 RBC 3.53 L Hgb 10.0 L Hct 31.1 L MCV 88.1 MCH 28.3 MCHC 32.2 RDW Std Deviation 54.2 H RDW Coeff of Abhilash 17.2 H Plt Count 227 MPV 10.2 Immature Gran % (Auto) 1.700 H Neut % (Auto) 59.2 Lymph % (Auto) 19.1 [place] % (Auto) 17.2 H Eos % (Auto) 2.3 Baso % (Auto) 0.5 Absolute Neuts (auto) 5.5 Absolute Lymphs (auto) 1.77 Nucleated RBC % 0 Differential Comment SCANNED Specimen Type ART Sample Site L Radial pH 7.49 H Bicarbonate Actual 24.1 Total CO2 25 Base Excess 1 O2 Saturation 94 L O2 % 35 ABG pCO2 31.9 L ABG pO2 63 L Lonnie Test Positive O2 Delivery Device Adult Vent Vent Mode CPAP/PS POC PEEP 5 POC Pressure Suppt 5 Sodium 134 L Potassium 4.5 Chloride 97 L Carbon Dioxide 24.0 Anion Gap 13 BUN 73 H Creatinine 5.60 H Estim Creat Clear Calc 12.98 Est GFR (MDRD) Af Amer 13 L Est GFR (MDRD) Non-Af 11 L BUN/Creatinine Ratio 13.0 Glucose 91 Calcium 9.0 Total Bilirubin 0.60 AST 44 H ALT 54 Alkaline Phosphatase 77 Total Protein 7.0 Albumin 2.0 L Globulin 5.0 H Albumin/Globulin Ratio 0.4 L POC Glucose Microbiology 11/09/20 13:44 Sputum, Induced/Lukens Gram Stain - Final 11/09/20 13:44 Sputum, Induced/Lukens Respiratory Culture - Preliminary Presumptive C albicans Medical Necessity - Tobacco Use Smoking Status: Never smoker Tobacco Use: Non-smoker Assessment/Plan All Active Problems (Last Updated 10/24/20 @ 15:[address] Nish Dee, DO) Pneumonia due to Coronavirus disease 2019 (Acute) Hypoxia (Acute) Melena (Acute) RECOMMENDATIONS: 1. Extubate patient and wean oxygen to keep oxygen saturations at or above 90%. 2. Okay to discontinue Precedex and tube feeds 3. Continue attempts at volume optimization via hemodialysis per nephrology. Okay to dialyze today from my perspective 4. Okay to discontinue IPPV 5. Continue therapeutic Lovenox. Likely okay to transition to Eliquis if able to pass a bedside swallow 6. Continue PPI therapy as ordered. 7. Continue antimicrobials per ID recommendations. IMPRESSIONS: 1. Acute hypoxemic respiratory failure Multifactorial in etiology with COVID-19 pneumonia and bilateral pulmonary emboli contributing. Although attempts were made to utilize heated high flow oxygen and later BiPAP, the patient continued to decompensate from a respiratory perspective, requiring intubation on November 01. Patient was able to pass a spontaneous breathing trial and extubated today. We will wean oxygen as necessary to keep saturations greater than 90%. Patient does have an element of fluid, but likely does not require dialysis today from a pulmonary perspective. Okay to discontinue IPPV and Precedex following extubation. 2. Acute kidney injury/hyperkalemia Likely prerenal in etiology with component of ischemic ATN. Nephrology is currently following to assist with hemodialysis needs. Anticipate further need for future dialysis to assist with volume optimization. Defer to nephrology on timing. 3. Possible GI bleed No overt signs of GI blood loss at this time. Continue twice daily PPI therapy as ordered. Monitor H&H and transfuse if hemoglobin drops below 7 g/dL. Likely okay to transition to Eliquis therapy if able to tolerate swallow evaluation following extubation. 4. History of coronary artery disease/hypertension/hyperlipidemia/obesity Complicates care, management, recovery and prognosis. Continue home medications as indicated. TIME: 35 minutes of critical care time, inclusive of procedures, was spent addressing the patient's acute hypoxemic respiratory failure, COVID-19 pneumonia, bilateral pulmonary emboli, acute kidney injury, review of all data and collaboration with the care team. (5:25 AM to 6:25 AM) 9xxxx: [id number] Critical care first hour
--- NOTE | 2020-11-11 09:30 | PCM.PN.HOSP ---
Patient Problems: Active and Suspected Problems (Last Updated 10/24/20 @ 15:[address] Nish Dee, DO) Pneumonia due to Coronavirus disease 2019 (Acute) Hypoxia (Acute) Melena (Acute) Reason for Visit: COVID 19 Subjective: Extubated today. Currently on Airvo and feeling great. Vitals/I&O's: Vital Signs Temp Pulse Resp BP Pulse Ox 37.1 C 87 28 H 94/53 L 88 11/11/20 04:00 11/11/20 07:15 11/11/20 07:15 11/11/20 07:00 11/11/20 07:00 Oxygen Flow Rate (L/min) 60 Oxygen Delivery Method Airvo Weight: 121.9 kg Body Mass Index (BMI) 39.9 Intake and Output for Last 24 Hours 11/09/20 11/10/20 11/11/20 23:59 23:59 23:59 Intake Total 1577.88 / 2007.75 1573.98 / 1605.68 331.73 / 331.73 Output Total 25 / 125 2155 / 2305 175 / 175 Balance 1552.88 / 1882.75 -581.02 / -699.32 156.73 / 156.73 General: Alert, No apparent distress HEENT: Atraumatic, Normocephalic Oral: Moist Mucosa, No Gingival or Mucosal Lesions/ Ulcerations Neck: No Nodes, Thyroid Normal Size and Texture Lungs: Normal air movement, - - coarse breath sounds Cardiovascular: Regular rate, Regular Rhythm, Normal S1, Normal S2, No murmurs Abdomen: Bowel Sounds Present, Soft, Non Tender, Non-Distended, No Hepato-splenomegaly Extremities: No edema, No Calf Tenderness Microbiology Past 72 Hours 11/09/20 13:44 Sputum, Induced/Lukens Gram Stain - Final 11/09/20 13:44 Sputum, Induced/Lukens Respiratory Culture - Preliminary Presumptive C albicans Laboratory Results 11/10/20 11:55: POC Glucose 124 H 11/10/20 18:37: POC Glucose 96 11/11/20 05:00: WBC 9.3, RBC 3.53 L, Hgb 10.0 L, Hct 31.1 L, MCV 88.1, MCH 28.3, MCHC 32.2, RDW Std Deviation 54.2 H, RDW Coeff of Abhilash 17.2 H, Plt Count 227, MPV 10.2, Immature Gran % (Auto) 1.700 H, Neut % (Auto) 59.2, Lymph % (Auto) 19.1, [place] % (Auto) 17.2 H, Eos % (Auto) 2.3, Baso % (Auto) 0.5, Absolute Neuts (auto) 5.5, Absolute Lymphs (auto) 1.77, Nucleated RBC % 0, Differential Comment SCANNED 11/11/20 05:00: Sodium 134 L, Potassium 4.5, Chloride 97 L, Carbon Dioxide 24.0, Anion Gap 13, BUN 73 H, Creatinine 5.60 H, Estim Creat Clear Calc 12.98, Est GFR (MDRD) Af Amer 13 L, Est GFR (MDRD) Non-Af 11 L, BUN/Creatinine Ratio 13.0, Glucose 91, Calcium 9.0, Total Bilirubin 0.60, AST 44 H, ALT 54, Alkaline Phosphatase 77, Total Protein 7.0, Albumin 2.0 L, Globulin 5.0 H, Albumin/Globulin Ratio 0.4 L 11/11/20 05:56: Specimen Type ART, Sample Site L Radial, pH 7.49 H, Bicarbonate Actual 24.1, Total CO2 25, Base Excess 1, O2 Saturation 94 L, O2 % 35, ABG pCO2 31.9 L, ABG pO2 63 L, Lonnie Test Positive, O2 Delivery Device Adult Vent, Vent Mode CPAP/PS, POC PEEP 5, POC Pressure Suppt 5 Current Medications Acetaminophen (Acetaminophen 650 Mg/20 Ml Udc) 650 mg GT Q6H PRN PRN PRN Reason: Pain Score 1-10/Temp > 100.7 F Albuterol/Ipratropium (Ipratropium/Albuterol Sulfate 3 Ml Ampul.Neb) 3 ml INHALATION Q6H.RT [facility] Last Admin: 11/11/20 07:12 Dose: 3 ml Documented by: Allopurinol (Allopurinol 300 Mg Tablet) 300 mg GT DAILY [facility] Last Admin: 11/10/20 07:57 Dose: 300 mg Documented by: Atorvastatin Calcium (Atorvastatin Calcium 20 Mg Tablet) 20 mg GT DAILY [facility] Last Admin: 11/10/20 07:56 Dose: 20 mg Documented by: Chlorhexidine Gluconate (Chlorhexidine 15 Ml) 15 ml PO BID [facility] Last Admin: 11/10/20 20:05 Dose: 15 ml Documented by: Dexamethasone Sodium Phosphate (Dexamethasone 10 Mg/Ml Vial) 6 mg IV DAILY [facility] Stop: 11/12/20 10:01 Last Admin: 11/10/20 07:56 Dose: 6 mg Documented by: Enoxaparin Sodium (Enoxaparin 120 Mg/0.8 Ml Syringe) 120 mg SC DAILY [facility] Last Admin: 11/10/20 07:56 Dose: 120 mg Documented by: Pantoprazole Sodium 40 mg/ (Sodium Chloride) 110 mls @ 330 mls/hr IV Q12 [facility] Last Infusion: 11/10/20 21:44 Dose: Infused Documented by: Ceftriaxone Sodium 2 gm/ (Sodium Chloride) 50 mls @ 100 mls/hr IV Q24 [facility] Last Infusion: 11/10/20 09:36 Dose: Infused Documented by: Insulin Human Lispro (Insulin Lispro 100 Unit/Ml Insuln.Pen) 0 unit SC Q6 [facility]; Protocol Last Admin: 11/11/20 07:06 Dose: Not Given Documented by: Metoclopramide HCl (Metoclopramide 10 Mg/2 Ml Vial) 5 mg IV Q6@0400,1000,1600,2200 [facility] Last Admin: 11/11/20 04:00 Dose: 5 mg Documented by: Polyethylene Glycol (Polyethylene Glycol 3350 17 Gm Packet) 17 gm GT BID PRN PRN PRN Reason: CONSTIPATION Last Admin: 11/06/20 04:12 Dose: 17 gm Documented by: Senna/Docusate Sodium (Senna/Docusate Sodium 1 Tablet) 2 tablet GT BID [facility] Last Admin: 11/10/20 20:06 Dose: Not Given Documented by: Sodium Chloride (0.9% Saline Lock 10 Ml Syringe) 10 - 40 ml IV UD PRN PRN Reason: SALINE FLUSH Last Admin: 11/10/20 06:27 Dose: 20 ml Documented by: Sodium Chloride (Sodium Chloride 0.65% 1 [place].Btl) 2 spray NASAL BID PRN PRN PRN Reason: NASAL DRYNESS Last Admin: 10/28/20 22:53 Dose: 2 sprays Documented by: STROKE Vital Signs/Narrative: Vital Signs Pulse Resp BP Pulse Ox 11/11/20 07:15 87 28 H 11/11/20 07:00 79 18 94/53 L 88 11/11/20 06:58 78 20 H 88 11/11/20 06:40 73 20 H 89 11/11/20 06:00 84 22 H 116/62 90 Medical Necessity - Tobacco Use Smoking Status: Never smoker Tobacco Use: Non-smoker Assessment/Plan All Active Problems (Last Updated 10/24/20 @ 15:[address] Nish Dee, DO) Pneumonia due to Coronavirus disease 2019 (Acute) Hypoxia (Acute) Melena (Acute) 1. Acute COVID-19 pneumonia: Patient received a dexamethasone in the emergency room and will continue for a total of 10days. Back on dexa from - Completed remdesivir no registered temp of greater than 38, therefore, does not meet definition for CRS 2. Acute hypoxic respiratory failure 2/2 COVID 19 pneumonia, strep pneumonia and PE +/- ARDS Intubated 11/01/2020 currently on vent 50% FiO2 11/08: worse, likely mucus plugging. 11/10: stable on 40% fio2 11/11: extubated to Airvo 3. CELIA: anuric 2/2 ischemic ATN began on 11/02, received IV contrast on 10/29 on HD 4. pneumococcal pneumonia +Cx on 11/01 CTX started 11/02 5. Bilateral pulmonary emboli anticoagulated with renal dosed enoxaparin will need treatment for 6 months 6. Septic shock v distributive shock 2/2 COVID 19, pneumoccal pneumonia 11/11: off pressors 7. Black stools: POA No overt evidence of bleeding. on PPI IV, consider change to PO when passes swallow eval 8. Chronic kidney disease stage III: Presumed upon admission, when creatinine was 1.86 (no baseline data available), then improved to 1.11 on 11/01 9. Coronary artery disease: Patient has had a history of a stent before. No active issues at this time. Continue statin. Losartan held given CELIA Metoprolol held given shock 10. VTE prophylaxis: anticoagulated 11. Advanced care planning: Previously discussed with the patient. Patient state that he would not want to go on the ventilator but on further clarification stated that he did not need to go onto a ventilator. I told him this is a hypothetical question in case if he were to get worse. He is unsure at this time. I told him that we would leave him at full CODE STATUS at this time until he tells us otherwise. Inpatient E&M: 53027 Subs Hosp L2
[2020-11-11] MEDS: Allopurinol 300 MG Tablet GT (10:47)
[2020-11-11] MEDS: Atorvastatin Calcium 20 MG Tablet GT (10:47)
[2020-11-11] MEDS: dexAMETHasone 10 MG/ML Vial 6 MG IV (10:47)
[2020-11-11] MEDS: Alteplase 2 MG/2 ML Vial IV (12:06)
[2020-11-11] MEDS: APIXABAN 2.5 MG TABLET PO ×2 (12:14→20:16)
[2020-11-11] MEDS: Metoprolol Tartrate 5 MG/5 ML Vial 2.5 MG IV ×2 (13:53→18:10)
[2020-11-11 15:06] LABS: Bedside Glucose 93 mg/dL (70-110)
--- NOTE | 2020-11-11 16:20 | PCM.PN.REN ---
Patient Problems: Active and Suspected Problems (Last Updated 10/24/20 @ 15:[address] Nish Dee, DO) Pneumonia due to Coronavirus disease 2019 (Acute) Hypoxia (Acute) Melena (Acute) Subjective: Patient remains intubated. cannot do ROS - Physical Exam Vitals/I&O's: Vital Signs Temp Pulse Resp BP Pulse Ox 98.2 F 104 H 15 112/69 96 11/11/20 12:00 11/11/20 15:00 11/11/20 15:00 11/11/20 15:00 11/11/20 14:00 Oxygen Flow Rate (L/min) 60 Oxygen Delivery Method Airvo Weight: 121.9 kg Body Mass Index (BMI) 39.9 Intake and Output for Last 24 Hours 11/09/20 11/10/20 11/11/20 23:59 23:59 23:59 Intake Total 1577.88 / 2007.75 1573.98 / 1605.68 491.73 / 491.73 Output Total 25 / 125 2155 / 2305 205 / 205 Balance 1552.88 / 1882.75 -581.02 / -699.32 286.73 / 286.73 Comment: Patient was not examined today due to COVID-19 active infection Microbiology Past 72 Hours 11/09/20 13:44 Sputum, Induced/Lukens Gram Stain - Final 11/09/20 13:44 Sputum, Induced/Lukens Respiratory Culture - Final Presumptive C albicans Laboratory Results 11/10/20 18:37: POC Glucose 96 11/11/20 05:00: WBC 9.3, RBC 3.53 L, Hgb 10.0 L, Hct 31.1 L, MCV 88.1, MCH 28.3, MCHC 32.2, RDW Std Deviation 54.2 H, RDW Coeff of Abhilash 17.2 H, Plt Count 227, MPV 10.2, Immature Gran % (Auto) 1.700 H, Neut % (Auto) 59.2, Lymph % (Auto) 19.1, [place] % (Auto) 17.2 H, Eos % (Auto) 2.3, Baso % (Auto) 0.5, Absolute Neuts (auto) 5.5, Absolute Lymphs (auto) 1.77, Nucleated RBC % 0, Differential Comment SCANNED 11/11/20 05:00: Sodium 134 L, Potassium 4.5, Chloride 97 L, Carbon Dioxide 24.0, Anion Gap 13, BUN 73 H, Creatinine 5.60 H, Estim Creat Clear Calc 12.98, Est GFR (MDRD) Af Amer 13 L, Est GFR (MDRD) Non-Af 11 L, BUN/Creatinine Ratio 13.0, Glucose 91, Calcium 9.0, Total Bilirubin 0.60, AST 44 H, ALT 54, Alkaline Phosphatase 77, Total Protein 7.0, Albumin 2.0 L, Globulin 5.0 H, Albumin/Globulin Ratio 0.4 L 11/11/20 05:56: Specimen Type ART, Sample Site L Radial, pH 7.49 H, Bicarbonate Actual 24.1, Total CO2 25, Base Excess 1, O2 Saturation 94 L, O2 % 35, ABG pCO2 31.9 L, ABG pO2 63 L, Lonnie Test Positive, O2 Delivery Device Adult Vent, Vent Mode CPAP/PS, POC PEEP 5, POC Pressure Suppt 5 11/11/20 12:02: POC Glucose 93 Current Medications Acetaminophen (Acetaminophen 325 Mg Tablet) 650 mg PO Q6H PRN PRN PRN Reason: Pain Score 1-10/Temp > 100.7 F Albuterol/Ipratropium (Ipratropium/Albuterol Sulfate 3 Ml Ampul.Neb) 3 ml INHALATION Q6H.RT [facility] Last Admin: 11/11/20 13:44 Dose: 3 ml Documented by: Allopurinol (Allopurinol 300 Mg Tablet) 300 mg PO DAILY [facility] Apixaban (Apixaban 2.5 Mg Tablet) 2.5 mg PO BID [facility] Last Admin: 11/11/20 12:14 Dose: 2.5 mg Documented by: Atorvastatin Calcium (Atorvastatin Calcium 20 Mg Tablet) 20 mg PO DAILY [facility] Dexamethasone Sodium Phosphate (Dexamethasone 10 Mg/Ml Vial) 6 mg IV DAILY [facility] Stop: 11/12/20 10:01 Last Admin: 11/11/20 10:47 Dose: 6 mg Documented by: Pantoprazole Sodium 40 mg/ (Sodium Chloride) 110 mls @ 330 mls/hr IV Q12 [facility] Last Infusion: 11/11/20 11:36 Dose: Infused Documented by: Ceftriaxone Sodium 2 gm/ (Sodium Chloride) 50 mls @ 100 mls/hr IV Q24 [facility] Last Infusion: 11/11/20 14:08 Dose: Infused Documented by: Insulin Human Lispro (Insulin Lispro 100 Unit/Ml Insuln.Pen) 0 unit SC Q6 [facility]; Protocol Last Admin: 11/11/20 12:03 Dose: Not Given Documented by: Metoclopramide HCl (Metoclopramide 10 Mg/2 Ml Vial) 5 mg IV Q6@0400,1000,1600,2200 [facility] Last Admin: 11/11/20 10:47 Dose: 5 mg Documented by: Metoprolol Tartrate (Metoprolol Tartrate 5 Mg/5 Ml Vial) 2.5 mg IV Q6 [facility] Polyethylene Glycol (Polyethylene Glycol 3350 17 Gm Packet) 17 gm PO BID PRN PRN PRN Reason: CONSTIPATION Senna/Docusate Sodium (Senna/Docusate Sodium 1 Tablet) 2 tablet PO BID [facility] Sodium Chloride (0.9% Saline Lock 10 Ml Syringe) 10 - 40 ml IV UD PRN PRN Reason: SALINE FLUSH Last Admin: 11/10/20 06:27 Dose: 20 ml Documented by: Sodium Chloride (Sodium Chloride 0.65% 1 [place].Btl) 2 spray NASAL BID PRN PRN PRN Reason: NASAL DRYNESS Last Admin: 10/28/20 22:53 Dose: 2 sprays Documented by: Medical Necessity - Tobacco Use Smoking Status: Never smoker Tobacco Use: Non-smoker Assessment/Plan All Active Problems (Last Updated 10/24/20 @ 15:[address] Nish Dee, DO) Pneumonia due to Coronavirus disease 2019 (Acute) Hypoxia (Acute) Melena (Acute) CELIA?ATN with shock creatinine baseline 1.02. Patient also received IV contrast o 10/29 Started HD o 11/02. No recovery of kidney function. last HD session 11/10 . No need for HD session today Will revaluate the need for HD tomorrow Will continue to monitor for renal function recovery Keep MAP > 65 Hyperkalemia. resolved with HD check K in am Hyperphosphatemia: P 8.8 o 11/09. should improve with HD. Monitor P level Respiratory failure due to ARDS, COVID-19 bacterial pneumonia with B/L PE Vent support as per ICU service UF as tolerated with HD Please call if any question or concern at [phone] Fabiano Weiss MD
[2020-11-11 17:26] LABS: Bedside Glucose 107 mg/dL (70-110)
--- NOTE | 2020-11-11 18:45 | NURSING ---
Patient has been continually pulling off his tele wires and pulse ox even after repeated instructions by this RN to keep his wires on. Patient was repositioned and all leads replaced at 1830. After this RN left the room, patient immediately pulled off his tele leads again.
[2020-11-11] MEDS: 0.9% Saline Lock 10 ML Syringe IV (20:17)
[2020-11-11] MEDS: Menthol/Lanolin/Calamine/Znox 113 GM Tube 1 APPLIC TOPICAL (20:38)
[2020-11-11] MEDS: QUEtiapine 25 MG Tablet 50 MG PO (20:41)
[2020-11-12] VITALS (39 sets, daily range): BP systolic 87–153; BP diastolic 40–72; PULSE 94–119; RESP 15–28; TEMP 36.1–37.3; O2SAT 83–97
[2020-11-12 00:36] LABS: Bedside Glucose 99 mg/dL (70-110)
[2020-11-12] MEDS: Metoprolol Tartrate 5 MG/5 ML Vial 2.5 MG IV ×5 (00:40→23:44)
[2020-11-12] MEDS: 0.9% Saline Lock 10 ML Syringe IV ×5 (00:40→18:09)
[2020-11-12] MEDS: Ipratropium/Albuterol Sulfate 3 ML AMPUL.NEB INHALATION ×3 (01:20→13:01)
--- NOTE | 2020-11-12 01:20 | CPS ---
decreased FIO2 to 50% on AirVo
[2020-11-12] MEDS: Metoclopramide 10 MG/2 ML Vial 5 MG IV (04:47)
--- NOTE | 2020-11-12 05:13 | NURSING ---
Pt has had numerous episodes of rapid a-fib/flutter, with a duration of approximately 1-2 minutes in length, reverts back to NSR without intervention. EKG performed during one episode. Pt does not express discomfort.
--- NOTE | 2020-11-12 05:44 | PCM.PN.INT ---
Subjective: The patient was seen and examined at the bedside this morning. Events from the last 24 hours have been reviewed. The patient is currently afebrile, hemodynamically stable and maintaining appropriate oxygen saturations on airvo heated high flow with an FiO2 requirement of 50% and flow rate of 60 L/min. No issues were identified by the overnight nursing staff. The patient last underwent hemodialysis on November 10. The patient is currently documented to be overall net +12 L for the hospital admission. Objective: The patient's most recent lab work, culture data and imaging studies have all been personally reviewed. Rapid coronavirus antigen testing was positive on October 24. Stool for occult blood was positive on October 25. Sputum culture was positive for group B streptococcus. General: Disoriented, Lethargic HEENT: Atraumatic, Normocephalic, Sluggish Pupils Oral: Dry Mucosa Neck: Supple, No Nodes, Trachea Midline Lungs: Diminished Cardiovascular: Regular rate, Regular Rhythm, Normal S1, Normal S2, No murmurs Abdomen: Bowel Sounds Present, Soft, Non Tender, Obese Extremities: No clubbing, No cyanosis, Edema Skin: No breakdown Musculoskeletal: No Tenderness to Palpation of Joints or Extremities Lymphatic: No Cervical, Supraclavicular, or Inguinal Adenopathy Neurological: - - No focal neurological deficits. Psych/Mental Status: Flat Affect Vital Signs Temp Pulse Resp BP Pulse Ox 98.9 F 101 H 24 H 115/52 L 93 11/12/20 04:00 11/12/20 05:00 11/12/20 05:00 11/12/20 05:00 11/12/20 05:00 Oxygen Flow Rate (L/min) 60 Oxygen Delivery Method Airvo Weight: 266 lb 5.094 oz Body Mass Index (BMI) 39.9 Intake and Output for Last 24 Hours 11/10/20 11/11/20 11/12/20 23:59 23:59 23:59 Intake Total 1573.98 / 1605.68 691.73 / 691.73 Output Total 2155 / 2305 285 / 285 50 / 50 Balance -581.02 / -699.32 406.73 / 406.73 -50 / -50 Labs (Last 48 Hours) 11/10/20 11/10/20 11/10/20 06:17 11:55 18:37 WBC RBC Hgb Hct MCV MCH MCHC RDW Std Deviation RDW Coeff of Abhilash Plt Count MPV Immature Gran % (Auto) Neut % (Auto) Lymph % (Auto) [place] % (Auto) Eos % (Auto) Baso % (Auto) Absolute Neuts (auto) Absolute Lymphs (auto) Nucleated RBC % Differential Comment Specimen Type Sample Site pH Bicarbonate Actual Total CO2 Base Excess O2 Saturation O2 % ABG pCO2 ABG pO2 Lonnie Test O2 Delivery Device Vent Mode POC PEEP POC Pressure Suppt Sodium Potassium Chloride Carbon Dioxide Anion Gap BUN Creatinine Estim Creat Clear Calc Est GFR (MDRD) Af Amer Est GFR (MDRD) Non-Af BUN/Creatinine Ratio Glucose Calcium Total Bilirubin AST ALT Alkaline Phosphatase Total Protein Albumin Globulin Albumin/Globulin Ratio POC Glucose 81 124 H 96 11/11/20 11/11/20 11/11/20 05:00 05:00 05:56 WBC 9.3 RBC 3.53 L Hgb 10.0 L Hct 31.1 L MCV 88.1 MCH 28.3 MCHC 32.2 RDW Std Deviation 54.2 H RDW Coeff of Abhilash 17.2 H Plt Count 227 MPV 10.2 Immature Gran % (Auto) 1.700 H Neut % (Auto) 59.2 Lymph % (Auto) 19.1 [place] % (Auto) 17.2 H Eos % (Auto) 2.3 Baso % (Auto) 0.5 Absolute Neuts (auto) 5.5 Absolute Lymphs (auto) 1.77 Nucleated RBC % 0 Differential Comment SCANNED Specimen Type ART Sample Site L Radial pH 7.49 H Bicarbonate Actual 24.1 Total CO2 25 Base Excess 1 O2 Saturation 94 L O2 % 35 ABG pCO2 31.9 L ABG pO2 63 L Lonnie Test Positive O2 Delivery Device Adult Vent Vent Mode CPAP/PS POC PEEP 5 POC Pressure Suppt 5 Sodium 134 L Potassium 4.5 Chloride 97 L Carbon Dioxide 24.0 Anion Gap 13 BUN 73 H Creatinine 5.60 H Estim Creat Clear Calc 12.98 Est GFR (MDRD) Af Amer 13 L Est GFR (MDRD) Non-Af 11 L BUN/Creatinine Ratio 13.0 Glucose 91 Calcium 9.0 Total Bilirubin 0.60 AST 44 H ALT 54 Alkaline Phosphatase 77 Total Protein 7.0 Albumin 2.0 L Globulin 5.0 H Albumin/Globulin Ratio 0.4 L POC Glucose 11/11/20 11/11/20 11/11/20 12:02 16:27 20:43 WBC RBC Hgb Hct MCV MCH MCHC RDW Std Deviation RDW Coeff of Abhilash Plt Count MPV Immature Gran % (Auto) Neut % (Auto) Lymph % (Auto) [place] % (Auto) Eos % (Auto) Baso % (Auto) Absolute Neuts (auto) Absolute Lymphs (auto) Nucleated RBC % Differential Comment Specimen Type Sample Site pH Bicarbonate Actual Total CO2 Base Excess O2 Saturation O2 % ABG pCO2 ABG pO2 Lonnie Test O2 Delivery Device Vent Mode POC PEEP POC Pressure Suppt Sodium Potassium Chloride Carbon Dioxide Anion Gap BUN Creatinine Estim Creat Clear Calc Est GFR (MDRD) Af Amer Est GFR (MDRD) Non-Af BUN/Creatinine Ratio Glucose Calcium Total Bilirubin AST ALT Alkaline Phosphatase Total Protein Albumin Globulin Albumin/Globulin Ratio POC Glucose 93 107 99 Microbiology 11/09/20 13:44 Sputum, Induced/Lukens Gram Stain - Final 11/09/20 13:44 Sputum, Induced/Lukens Respiratory Culture - Final Presumptive C albicans Clinical Impression(s) from Imaging Studies Chest X-Ray 10/24/20 14:10 IMPRESSION: Bilateral pulmonary infiltrates worse in the right hemithorax. Electronically Signed: Jr Moya, at 14:27 EST , Service support , Chest CTA 10/25/20 10:45 IMPRESSION: Limited evaluation of the pulmonary arteries due to poor contrast-enhancement although I suspect multiple small pulmonary emboli in the upper lobe pulmonary arterial branches. Multiple areas of bilateral groundglass appearance was in the right hemithorax suggestive of a pneumonitis associated with Covid 19. Electronically Signed: Jr Moya, at 11:20 EST , Service support , Chest X-Ray 10/30/20 12:54 IMPRESSION: Worsening interstitial and airspace opacifications in both lung vann compared to the previous study. Follow-up recommended to ensure resolution Electronically Signed: Marcus Vides MD at 14:43 EST , Service support , Chest X-Ray 11/01/20 10:43 IMPRESSION: Progressive bilateral pulmonary infiltrates more prominent in the right hemithorax. The tip of the endotracheal tube is at 4.7 cm proximal to the javier. Electronically Signed: Jr Moya, at 11:21 EST , Service support , Chest X-Ray 11/02/20 10:50 IMPRESSION: The tip of the right sided hemodialysis catheter is in the right atrium. The tip of the endotracheal tube is at 9 cm proximal to the javier. Persistent bilateral pulmonary infiltrates although there has been improved aeration as compared to prior study. Electronically Signed: Jr Moya, at 11:07 EST , Service support , Chest X-Ray 11/02/20 13:50 IMPRESSION: Interval placement of a left subclavian catheter with the tip at the junction of superior vena cava and right atrium. The tip of the endotracheal tube is at 6.3 cm proximal to the javier. Stable bilateral pulmonary infiltrates. Electronically Signed: Jr Moya, at 14:17 EST , Service support , Chest X-Ray 11/08/20 06:49 IMPRESSION: Dense consolidation in the right midlung and focal infiltrate in the left lower lobe. Electronically Signed: Jr Moya MD at 9:06 EST , Service support , Medical Necessity - Tobacco Use Smoking Status: Never smoker Tobacco Use: Non-smoker Assessment/Plan All Active Problems (Last Updated 10/24/20 @ 15:[address] Nish Dee, DO) Pneumonia due to Coronavirus disease 2019 (Acute) Hypoxia (Acute) Melena (Acute) RECOMMENDATIONS: 1. Okay to stop antibiotics from my perspective. 2. Continue hemodialysis support per nephrology recommendations. 3. Obtain ABG if mental state worsens. 4. Continue systemic anticoagulation with Eliquis. 5. Continue scheduled bronchodilator therapy. 6. Continue to wean FiO2 to maintain oxygen saturations at or above 90%. 7. Encourage incentive spirometer use and mobilize patient as tolerated. IMPRESSIONS: 1. Acute hypoxemic respiratory failure Multifactorial in etiology with COVID-19 pneumonia and bilateral pulmonary emboli contributing. Although attempts were made to utilize heated high flow oxygen and later BiPAP, the patient continued to decompensate from a respiratory perspective, requiring intubation on November 01, only to later be successfully extubated on November 11. The patient is currently maintaining appropriate oxygen saturations on heated high flow, which will be continued as tolerated to maintain saturations at or above 90%. His antibiotics can be discontinued from my perspective. He has already completed treatment courses of remdesivir and Decadron. I would recommend that if his mental state were to worsen, that an arterial blood gas be obtained. 2. Acute kidney injury/hyperkalemia Likely prerenal in etiology with component of ischemic ATN. Nephrology is currently following to assist with hemodialysis needs. Anticipate further need for ultrafiltration to assist with volume optimization. 3. Possible GI bleed No overt signs of GI blood loss at this time. Continue twice daily PPI therapy as ordered. Monitor H&H and transfuse if hemoglobin drops below 7 g/dL. 4. History of coronary artery disease/hypertension/hyperlipidemia/obesity Complicates care, management, recovery and prognosis. Continue home medications as indicated. This note was generated with [email or web address] dictation software. It may contain incorrect words, spelling, and punctuation that were not noted in checking the note before signing. Inpatient E&M: [id number] [facility] L3
--- NOTE | 2020-11-12 07:07 | CPS ---
NO VEST THIS AM, PATIENT SLEEPING
--- NOTE | 2020-11-12 07:25 | PCM.PN.HOSP ---
Patient Problems: Active and Suspected Problems (Last Updated 10/24/20 @ 15:[address] Nish Dee, DO) Pneumonia due to Coronavirus disease 2019 (Acute) Hypoxia (Acute) Melena (Acute) Reason for Visit: Acute hypoxic respiratory failure Acute COVID-19 pneumonia Subjective: Patient is a 65-year-old gentleman with multiple comorbidities who presented with progressive shortness of breath. Patient was diagnosed with acute COVID-19 pneumonitis. Patient has had complicated stay resulting in patient developing acute respiratory failure for which patient was on the vent. His hospital stay also characterized by bilateral pulmonary emboli as well as superimposed bacterial pneumonia and acute kidney injury Objective: GENERAL: cooperative on Airvo HEENT: Atraumatic; EYES; Anicteric, Normal Conjunctiva NECK; supple, normal thyroid, RESPIRATORY: Diminished to auscultation CARDIOVASCULAR: Regular S1 S2, GI: soft, normoactive bowel sounds, : No Renal angle tenderness; EXTREMITIES: No edema, no clubbing, MUSCULOSKELETAL: no muscle waisting NEURO: Awake; no lateralizing signs. SKIN: No Rash PSYCH; Flat affect Vitals/I&O's: Vital Signs Temp Pulse Resp BP Pulse Ox 98.9 F 102 H 20 H 120/64 92 11/12/20 04:00 11/12/20 07:06 11/12/20 07:06 11/12/20 07:00 11/12/20 07:06 Oxygen Flow Rate (L/min) 60 Oxygen Delivery Method Airvo Weight: 120.8 kg Body Mass Index (BMI) 39.9 Intake and Output for Last 24 Hours 11/10/20 11/11/20 11/12/20 23:59 23:59 23:59 Intake Total 1573.98 / 1605.68 691.73 / 691.73 Output Total 2155 / 2305 285 / 285 50 / 50 Balance -581.02 / -699.32 406.73 / 406.73 -50 / -50 Microbiology Past 72 Hours 11/09/20 13:44 Sputum, Induced/Lukens Gram Stain - Final 11/09/20 13:44 Sputum, Induced/Lukens Respiratory Culture - Final Presumptive C albicans Laboratory Results 11/11/20 12:02: POC Glucose 93 11/11/20 16:27: POC Glucose 107 11/11/20 20:43: POC Glucose 99 Current Medications Acetaminophen (Acetaminophen 325 Mg Tablet) 650 mg PO Q6H PRN PRN PRN Reason: Pain Score 1-10/Temp > 100.7 F Albuterol/Ipratropium (Ipratropium/Albuterol Sulfate 3 Ml Ampul.Neb) 3 ml INHALATION Q6H.RT [facility] Last Admin: 11/12/20 06:43 Dose: 3 ml Documented by: Allopurinol (Allopurinol 300 Mg Tablet) 300 mg PO DAILY [facility] Apixaban (Apixaban 2.5 Mg Tablet) 2.5 mg PO BID [facility] Last Admin: 11/11/20 20:16 Dose: 2.5 mg Documented by: Atorvastatin Calcium (Atorvastatin Calcium 20 Mg Tablet) 20 mg PO DAILY [facility] Calamine/Phenol (Menthol/Lanolin/Calamine/Znox 113 Gm Tube) 1 applic TOPICAL BID [facility]; Protocol Last Admin: 11/11/20 20:38 Dose: 1 applicatio Documented by: Dexamethasone Sodium Phosphate (Dexamethasone 10 Mg/Ml Vial) 6 mg IV DAILY [facility] Stop: 11/12/20 10:01 Last Admin: 11/11/20 10:47 Dose: 6 mg Documented by: Pantoprazole Sodium 40 mg/ (Sodium Chloride) 110 mls @ 330 mls/hr IV Q12 [facility] Last Infusion: 11/11/20 20:37 Dose: Infused Documented by: Ceftriaxone Sodium 2 gm/ (Sodium Chloride) 50 mls @ 100 mls/hr IV Q24 [facility] Last Infusion: 11/11/20 14:08 Dose: Infused Documented by: Insulin Human Lispro (Insulin Lispro 100 Unit/Ml Insuln.Pen) 0 unit SC ACHS [facility]; Protocol Last Admin: 11/11/20 20:44 Dose: Not Given Documented by: Metoprolol Tartrate (Metoprolol Tartrate 5 Mg/5 Ml Vial) 2.5 mg IV Q6 [facility] Last Admin: 11/12/20 04:47 Dose: 2.5 mg Documented by: Polyethylene Glycol (Polyethylene Glycol 3350 17 Gm Packet) 17 gm PO BID PRN PRN PRN Reason: CONSTIPATION Senna/Docusate Sodium (Senna/Docusate Sodium 1 Tablet) 2 tablet PO BID [facility] Last Admin: 11/11/20 20:07 Dose: Not Given Documented by: Sodium Chloride (0.9% Saline Lock 10 Ml Syringe) 10 - 40 ml IV UD PRN PRN Reason: SALINE FLUSH Last Admin: 11/12/20 04:47 Dose: 40 ml Documented by: Sodium Chloride (Sodium Chloride 0.65% 1 [place].Btl) 2 spray NASAL BID PRN PRN PRN Reason: NASAL DRYNESS Last Admin: 10/28/20 22:53 Dose: 2 sprays Documented by: STROKE Vital Signs/Narrative: Vital Signs Temp Pulse Resp BP BP Pulse Ox 11/12/20 07:06 102 H 20 H 92 11/12/20 07:05 98 20 H 11/12/20 07:00 105 H 20 H 120/64 90 11/12/20 06:00 103 H 22 H 117/56 L 93 11/12/20 05:00 101 H 24 H 115/52 L 93 11/12/20 04:47 113 H 136/63 H 11/12/20 04:20 117 H 24 H 91 11/12/20 04:00 98.9 F 117 H 26 H 136/63 H 92 Medical Necessity - Tobacco Use Smoking Status: Never smoker Tobacco Use: Non-smoker Assessment/Plan All Active Problems (Last Updated 10/24/20 @ 15:[address] Nish Dee, DO) Pneumonia due to Coronavirus disease 2019 (Acute) Hypoxia (Acute) Melena (Acute) Patient is a 65-year-old gentleman with multiple comorbidities who presented with progressive shortness of breath. Patient was diagnosed with acute COVID-19 pneumonitis. Patient has had complicated stay resulting in patient developing acute respiratory failure for which patient was on the vent. His hospital stay also characterized by bilateral pulmonary emboli as well as superimposed bacterial pneumonia and acute kidney injury 1. Acute hypoxic respiratory failure ?Due to combination of acute COVID-19 pneumonia, pneumococcal pneumonia, bilateral PE and ARDS. Patient was intubated on 11/01/2020 weaned off the vent on 11/11/2020. Currently on Airvo 1. Acute COVID-19 pneumonitis ?Patient completed a course of dexamethasone which had to be repeated. Also did receive remdesivir 3. Acute kidney injury secondary to acute tubular necrosis from sepsis and possibly contrast induced nephropathy. Patient currently on hemodialysis 4. Septic shock ?Secondary to patient underlying infection. Patient was weaned off pressors as of 11/11/2020 5. Pneumococcal pneumonia ?Noted on 11/01/2020. Completed a course of antibiotic therapy 5. Bilateral pulmonary embolism ?Secondary to Covid induced coagulopathy. Patient is on Eliquis 7. Essential hypertension ?Patient is on metoprolol 8. Gout ?Patient is on allopurinol continue 9. Dyslipidemia -Patient is on statin therapy, continued at home dose 10. Melenic stools ?Patient was placed on PPI 11. Coronary artery disease ?Patient has history of previous PCI with stent placement 12. Physical deconditioning - Requested for PT OT eval and home health care social worker to assist with discharge planning Inpatient E&M: [id number] [facility] Hosp L3
[2020-11-12 08:15] LABS: Absolute Lymphocyte Count 1.17 X10^3/uL (0.83-4.51); Absolute Neutrophil Count 9.7 X10^3/uL (2.0-7.7); Basophil# 0.04 X10^3/uL; Basophil% 0.3 % (0-1); Eosinophil# 0.09 X10^3/uL; Eosinophils% 0.7 % (0-5); Hematocrit 28.3 % (40-54); Hemoglobin 9.8 g/dL (13.0-16.5); Lymphocyte # 1.17 X10^3/ul (4.0); Lymphocyte % 8.9 % (19-41); Mean Corp Hgb Conc 34.6 g/dL (32-36); Mean Corpuscular Hgb 30.4 pg (27.0-32.0); Mean Corpuscular Volume 87.9 fL (80-94); Mean Platelet Vol. 11.3 fl (6.2-12.0); Monocyte# 1.98 X10^3/uL; Monocyte% 15.1 % (0-10); NRBC Flagged by Analyzer 0 % (0-5); Neutrophil # 9.73 X10^3/uL (2.7-7.7); POSITIVE DIFFERENTIAL YES; Platelet Count 200 K/mm3 (150-450); RBC Distribution Width CV 17.2 % (11.6-14.6); RBC Distribution Width SD 52.9 fl (35.1-43.9); Red Blood Count 3.22 M/mm3 (4.6-6.2); White Blood Count 13.1 K/mm3 (4.4-11.0)
[2020-11-12 08:17] LABS: Differential Indicated SCAN CRITERIA MET
[2020-11-12 08:35] LABS: Anion Gap 16 (5-15); BUN 103 mg/dL (7-18); BUN/Creat Ratio 13.6 RATIO (10-20); Calcium,Total 9.1 mg/dL (8.5-10.1); Chloride 97 mmol/L (98-107); Creatinine, Serum 7.57 mg/dL (0.70-1.30); EST Glomerular Filtration Rate 8 mL/min (>60); Est Glom Filt Rate - Afr Amer 9 mL/min (>60); Glucose 99 mg/dL (74-106); Potassium 5.4 mmol/L (3.5-5.1); Sodium Level 135 mmol/L (136-145)
[2020-11-12] MEDS: dexAMETHasone 10 MG/ML Vial 6 MG IV (08:38)
[2020-11-12] MEDS: Allopurinol 300 MG Tablet PO (08:38)
[2020-11-12] MEDS: Menthol/Lanolin/Calamine/Znox 113 GM Tube 1 APPLIC TOPICAL ×2 (08:38→23:22)
[2020-11-12] MEDS: Atorvastatin Calcium 20 MG Tablet PO (08:38)
[2020-11-12] MEDS: APIXABAN 2.5 MG TABLET PO ×2 (08:39→12:26)
--- NOTE | 2020-11-12 12:33 | PN.RENAL_ITS ---
Patient Problems: Active and Suspected Problems (Last Updated 10/24/20 @ 15:[address] Nish Dee, DO) Pneumonia due to Coronavirus disease 2019 (Acute) Hypoxia (Acute) Melena (Acute) Subjective: no new events K and BUN are high - Physical Exam Vitals/I&O's: Vital Signs Temp Pulse Resp BP Pulse Ox 97.9 F 100 17 140/47 H 92 11/12/20 08:00 11/12/20 12:25 11/12/20 09:00 11/12/20 09:00 11/12/20 09:00 Oxygen Flow Rate (L/min) 60 Oxygen Delivery Method Airvo Weight: 120.8 kg Body Mass Index (BMI) 39.9 Intake and Output for Last 24 Hours 11/10/20 11/11/20 11/12/20 23:59 23:59 23:59 Intake Total 1573.98 / 1605.68 691.73 / 691.73 110 / 110 Output Total 2155 / 2305 285 / 285 50 / 50 Balance -581.02 / -699.32 406.73 / 406.73 60 / 60 Comment: exam minmized due to covid. dw staff Microbiology Past 72 Hours 11/09/20 13:44 Sputum, Induced/Lukens Gram Stain - Final 11/09/20 13:44 Sputum, Induced/Lukens Respiratory Culture - Final Presumptive C albicans Laboratory Results 11/11/20 12:02: POC Glucose 93 11/11/20 16:27: POC Glucose 107 11/11/20 20:43: POC Glucose 99 11/12/20 05:00: WBC 13.1 H, RBC 3.22 L, Hgb 9.8 L, Hct 28.3 L, MCV 87.9, MCH 30.4, MCHC 34.6 D, RDW Std Deviation 52.9 H, RDW Coeff of Abhilash 17.2 H, Plt Count 200, MPV 11.3, Immature Gran % (Auto) 1.000 H, Neut % (Auto) 74.0 H, Lymph % (Auto) 8.9 L, [place] % (Auto) 15.1 H, Eos % (Auto) 0.7, Baso % (Auto) 0.3, Absolu te Neuts (auto) 9.7 H, Absolute Lymphs (auto) 1.17, Nucleated RBC % 0, Differential Comment COMMENT, Diff Path Review February foll 11/12/20 05:00: Sodium 135 L, Potassium 5.4 H, Chloride 97 L, Carbon Dioxide 22.0, Anion Gap 16 H, BUN 103 H*, Creatinine 7.57 H*, Estim Creat Clear Calc 9.60, Est GFR (MDRD) Af Amer 9 L, Est GFR (MDRD) Non-Af 8 L, BUN/Creatinine Ratio 13.6, Glucose 99, Calcium 9.1 Current Medications Acetaminophen (Acetaminophen 325 Mg Tablet) 650 mg PO Q6H PRN PRN PRN Reason: Pain Score 1-10/Temp > 100.7 F Albuterol/Ipratropium (Ipratropium/Albuterol Sulfate 3 Ml Ampul.Neb) 3 ml INHALATION Q6H.RT [facility] Last Admin: 11/12/20 06:43 Dose: 3 ml Documented by: Allopurinol (Allopurinol 300 Mg Tablet) 300 mg PO DAILY [facility] Last Admin: 11/12/20 08:38 Dose: 300 mg Documented by: Apixaban (Apixaban 5 Mg Tablet) 5 mg PO BID [facility] Atorvastatin Calcium (Atorvastatin Calcium 20 Mg Tablet) 20 mg PO DAILY [facility] Last Admin: 11/12/20 08:38 Dose: 20 mg Documented by: Calamine/Phenol (Menthol/Lanolin/Calamine/Znox 113 Gm Tube) 1 applic TOPICAL BID [facility]; Protocol Last Admin: 11/12/20 08:38 Dose: 1 applicatio Documented by: Pantoprazole Sodium 40 mg/ (Sodium Chloride) 110 mls @ 330 mls/hr IV Q12 [facility] Last Infusion: 11/12/20 09:20 Dose: Infused Documented by: Metoprolol Tartrate (Metoprolol Tartrate 5 Mg/5 Ml Vial) 2.5 mg IV Q6 [facility] Last Admin: 11/12/20 12:25 Dose: 2.5 mg Documented by: Polyethylene Glycol (Polyethylene Glycol 3350 17 Gm Packet) 17 gm PO BID PRN PRN PRN Reason: CONSTIPATION Senna/Docusate Sodium (Senna/Docusate Sodium 1 Tablet) 2 tablet PO BID [facility] Last Admin: 11/12/20 08:39 Dose: Not Given Documented by: Sodium Chloride (0.9% Saline Lock 10 Ml Syringe) 10 - 40 ml IV UD PRN PRN Reason: SALINE FLUSH Last Admin: 11/12/20 12:26 Dose: 40 ml Documented by: Sodium Chloride (Sodium Chloride 0.65% 1 [place].Btl) 2 spray NASAL BID PRN PRN PRN Reason: NASAL DRYNESS Last Admin: 10/28/20 22:53 Dose: 2 sprays Documented by: Medical Necessity - Tobacco Use Smoking Status: Never smoker Tobacco Use: Non-smoker Assessment/Plan All Active Problems (Last Updated 10/24/20 @ 15:[address] Nish Dee, DO) Pneumonia due to Coronavirus disease 2019 (Acute) Hypoxia (Acute) Melena (Acute) CELIA?ATN with shock creatinine baseline 1.02. Patient also received IV contrast o 10/29 Started HD 11/02. No recovery of kidney function. last HD session 11/10 . HD today fluid removal as tolerated Hyperkalemia. HD on 2K bath Hyperphosphatemia: P 8.8 o 11/09. should improve with HD. Monitor P level Respiratory failure due to ARDS, COVID-19 bacterial pneumonia with B/L PE Vent support as per ICU service UF as tolerated with HD
--- NOTE | 2020-11-12 13:37 | CPS ---
vest not done, patient is getting dialysis
--- NOTE | 2020-11-12 14:53 | PN.ID_ITS ---
Patient Problems: Active and Suspected Problems (Last Updated 10/24/20 @ 15:[address] Nish Dee, DO) Pneumonia due to Coronavirus disease 2019 (Acute) Hypoxia (Acute) Melena (Acute) Subjective: Off vent, no fever - Physical Exam Vitals/I&O's: Vital Signs Temp Pulse Resp BP Pulse Ox 97.5 F L 103 H 20 H 135/69 H 90 11/12/20 12:00 11/12/20 13:36 11/12/20 13:36 11/12/20 13:00 11/12/20 13:00 Oxygen Flow Rate (L/min) 6 Oxygen Delivery Method Nasal Cannula Weight: 120.8 kg Body Mass Index (BMI) 39.9 Intake and Output for Last 24 Hours 11/10/20 11/11/20 11/12/20 23:59 23:59 23:59 Intake Total 1573.98 / 1605.68 691.73 / 691.73 350 / 350 Output Total 2155 / 2305 285 / 285 100 / 100 Balance -581.02 / -699.32 406.73 / 406.73 250 / 250 General: Cooperative, No apparent distress Lungs: Diminished Cardiovascular: Regular rate, Regular Rhythm Abdomen: Soft, Non Tender, Non-Distended Extremities: Edema Skin: No rashes Microbiology Past 72 Hours 11/09/20 13:44 Sputum, Induced/Lukens Gram Stain - Final 11/09/20 13:44 Sputum, Induced/Lukens Respiratory Culture - Final Presumptive C albicans Laboratory Results 11/11/20 12:02: POC Glucose 93 11/11/20 16:27: POC Glucose 107 11/11/20 20:43: POC Glucose 99 11/12/20 05:00: WBC 13.1 H, RBC 3.22 L, Hgb 9.8 L, Hct 28.3 L, MCV 87.9, MCH 30.4, MCHC 34.6 D, RDW Std Deviation 52.9 H, RDW Coeff of Abhilash 17.2 H, Plt Count 200, MPV 11.3, Immature Gran % (Auto) 1.000 H, Neut % (Auto) 74.0 H, Lymph % (Auto) 8.9 L, [place] % (Auto) 15.1 H, Eos % (Auto) 0.7, Baso % (Auto) 0.3, Absolute Neuts (auto) 9.7 H, Absolute Lymphs (auto) 1.17, Nucleated RBC % 0, Differential Comment COMMENT, Diff Path Review February11/12/20 05:00: Sodium 135 L, Potassium 5.4 H, Chloride 97 L, Carbon Dioxide 22.0, Anion Gap 16 H, BUN 103 H*, Creatinine 7.57 H*, Estim Creat Clear Calc 9.60, Est GFR (MDRD) Af Amer 9 L, Est GFR (MDRD) Non-Af 8 L, BUN/Creatinine Ratio 13.6, Glucose 99, Calcium 9.1 Current Medications Acetaminophen (Acetaminophen 325 Mg Tablet) 650 mg PO Q6H PRN PRN PRN Reason: Pain Score 1-10/Temp > 100.7 F Albuterol/Ipratropium (Ipratropium/Albuterol Sulfate 3 Ml Ampul.Neb) 3 ml INHALATION Q6H.RT [facility] Last Admin: 11/12/20 13:01 Dose: 3 ml Documented by: Allopurinol (Allopurinol 300 Mg Tablet) 300 mg PO DAILY [facility] Last Admin: 11/12/20 08:38 Dose: 300 mg Documented by: Apixaban (Apixaban 5 Mg Tablet) 5 mg PO BID [facility] Atorvastatin Calcium (Atorvastatin Calcium 20 Mg Tablet) 20 mg PO DAILY [facility] Last Admin: 11/12/20 08:38 Dose: 20 mg Documented by: Calamine/Phenol (Menthol/Lanolin/Calamine/Znox 113 Gm Tube) 1 applic TOPICAL BID [facility]; Protocol Last Admin: 11/12/20 08:38 Dose: 1 applicatio Documented by: Pantoprazole Sodium 40 mg/ (Sodium Chloride) 110 mls @ 330 mls/hr IV Q12 [facility] Last Infusion: 11/12/20 09:20 Dose: Infused Documented by: Metoprolol Tartrate (Metoprolol Tartrate 5 Mg/5 Ml Vial) 2.5 mg IV Q6 [facility] Last Admin: 11/12/20 12:25 Dose: 2.5 mg Documented by: Polyethylene Glycol (Polyethylene Glycol 3350 17 Gm Packet) 17 gm PO BID PRN PRN PRN Reason: CONSTIPATION Senna/Docusate Sodium (Senna/Docusate Sodium 1 Tablet) 2 tablet PO BID [facility] Last Admin: 11/12/20 08:39 Dose: Not Given Documented by: Sodium Chloride (0.9% Saline Lock 10 Ml Syringe) 10 - 40 ml IV UD PRN PRN Reason: SALINE FLUSH Last Admin: 11/12/20 12:26 Dose: 40 ml Documented by: Sodium Chloride (Sodium Chloride 0.65% 1 [place].Btl) 2 spray NASAL BID PRN PRN PRN Reason: NASAL DRYNESS Last Admin: 10/28/20 22:53 Dose: 2 sprays Documented by: Medical Necessity - Tobacco Use Smoking Status: Never smoker Tobacco Use: Non-smoker Route of nutrition/ use of supplements: [] Nutritional Intake: [] IV Site: [] [place] Catheter: [] - Assessment/Plan Antibiotics: [] Assessment/Plan: [] Active and Suspected Problems (Last Updated 10/24/20 @ 15:[address] Nish Dee, DO) Pneumonia due to Coronavirus disease 2019 (Acute) Hypoxia (Acute) Melena (Acute) covid with hypoxia and PE - sx started about 2 weeks prior to admit 10/24. Completed dex and completed remdesivir. On therapeutic lovenox. Sputum cx with strep, stop ceftriaxone and d/c covid iso. Off vent. Will follow as needed
[2020-11-12 17:25] LABS: Bedside Glucose 121 mg/dL (70-110)
--- NOTE | 2020-11-12 17:47 | DIALYSIS ---
HD discontinued 13 minutes early d/t hypotension and O2 sat in low 80's (on airvo). Dr. Thomas was notified. Ran on 2k bath. Used right neck temporary dialysis catheter. Lumens closed with heparin per fill volume. Caps placed. Report was given to SCARLETT Bower.
[2020-11-12] MEDS: Heparin 10,000 UNITS/10 ML Vial IV (18:07)
--- NOTE | 2020-11-12 21:24 | CPS ---
Pt refused ABG at this time, RN notified
[2020-11-12] MEDS: APIXABAN 5 MG TABLET PO (23:22)
[2020-11-12] MEDS: Senna/Docusate Sodium 1 Tablet 2 TABLET PO (23:23)
[2020-11-13] VITALS (30 sets, daily range): BP systolic 94–164; BP diastolic 45–96; PULSE 85–102; RESP 14–22; TEMP 35.8–36.9; O2SAT 92–99; BMI 38.5
[2020-11-13] MEDS: Ipratropium/Albuterol Sulfate 3 ML AMPUL.NEB INHALATION ×3 (01:36→20:12)
[2020-11-13] MEDS: Acetaminophen 325 MG Tablet 650 MG PO ×2 (04:36→21:14)
--- NOTE | 2020-11-13 05:44 | PCM.PN.PUL ---
Patient Problems: Active and Suspected Problems (Last Updated 10/24/20 @ 15:[address] Nish Dee, DO) Pneumonia due to Coronavirus disease 2019 (Acute) Hypoxia (Acute) Melena (Acute) Subjective: The patient was seen and examined at the bedside this morning. Events from the last 24 hours have been reviewed. The patient is currently afebrile, hemodynamically stable and maintaining appropriate oxygen saturations on Airvo heated high flow oxygen with an FiO2 requirement of 75% and flow rate of 60 L/min. No overnight issues were identified by the nursing staff. The patient tolerated dialysis yesterday with 1.6 L of fluid removed. The patient is currently documented to be overall net +10.6 L for the hospital admission. Objective: The patient's most recent lab work, culture data and imaging studies have all been personally reviewed. Rapid coronavirus antigen testing was positive on October 24. Stool for occult blood was positive on October 25. Sputum culture was positive for group B streptococcus. - Physical Exam Vitals/I&O's: Vital Signs Temp Pulse Resp BP Pulse Ox 97.8 F 98 22 H 120/66 95 11/13/20 00:00 11/13/20 04:40 11/13/20 04:40 11/13/20 01:00 11/13/20 04:40 Oxygen Flow Rate (L/min) 60 Oxygen Delivery Method Airvo Weight: 266 lb 5.094 oz Body Mass Index (BMI) 39.9 Intake and Output for Last 24 Hours 11/11/20 11/12/20 11/13/20 23:59 23:59 23:59 Intake Total 691.73 / 691.73 460 / 460 Output Total 285 / 285 1780 / 1780 35 / 35 Balance 406.73 / 406.73 -1320 / -1320 -35 / -35 General: Alert, No apparent distress HEENT: Atraumatic, Normocephalic Oral: Dry Mucosa Neck: Supple, No Nodes, Trachea Midline Lungs: No rhonchi, No wheeze, No rales, Diminished Cardiovascular: Regular rate, Regular Rhythm Abdomen: Bowel Sounds Present, Soft, Non Tender, Obese Extremities: No clubbing, No cyanosis, Edema Skin: No breakdown Musculoskeletal: No Tenderness to Palpation of Joints or Extremities Lymphatic: No Cervical, Supraclavicular, or Inguinal Adenopathy Neurological: Neuro grossly intact Psych/Mental Status: Flat Affect Labs (Last 48 Hours) 11/11/20 11/11/20 11/11/20 05:00 05:56 12:02 WBC RBC Hgb Hct MCV MCH MCHC RDW Std Deviation RDW Coeff of Abhilash Plt Count MPV Immature Gran % (Auto) Neut % (Auto) Lymph % (Auto) [place] % (Auto) Eos % (Auto) Baso % (Auto) Absolute Neuts (auto) Absolute Lymphs (auto) Nucleated RBC % Differential Comment SCANNED Diff Path Review Specimen Type ART Sample Site L Radial pH 7.49 H Bicarbonate Actual 24.1 Total CO2 25 Base Excess 1 O2 Saturation 94 L O2 % 35 ABG pCO2 31.9 L ABG pO2 63 L Lonnie Test Positive O2 Delivery Device Adult Vent Vent Mode CPAP/PS POC PEEP 5 POC Pressure Suppt 5 Sodium Potassium Chloride Carbon Dioxide Anion Gap BUN Creatinine Estim Creat Clear Calc Est GFR (MDRD) Af Amer Est GFR (MDRD) Non-Af BUN/Creatinine Ratio Glucose Calcium POC Glucose 93 11/11/20 11/11/20 11/12/20 16:27 20:43 05:00 WBC 13.1 H RBC 3.22 L Hgb 9.8 L Hct 28.3 L MCV 87.9 MCH 30.4 MCHC 34.6 D RDW Std Deviation 52.9 H RDW Coeff of Abhilash 17.2 H Plt Count 200 MPV 11.3 Immature Gran % (Auto) 1.000 H Neut % (Auto) 74.0 H Lymph % (Auto) 8.9 L [place] % (Auto) 15.1 H Eos % (Auto) 0.7 Baso % (Auto) 0.3 Absolute Neuts (auto) 9.7 H Absolute Lymphs (auto) 1.17 Nucleated RBC % 0 Differential Comment COMMENT Diff Path Review May foll Specimen Type Sample Site pH Bicarbonate Actual Total CO2 Base Excess O2 Saturation O2 % ABG pCO2 ABG pO2 Lonnie Test O2 Delivery Device Vent Mode POC PEEP POC Pressure Suppt Sodium Potassium Chloride Carbon Dioxide Anion Gap BUN Creatinine Estim Creat Clear Calc Est GFR (MDRD) Af Amer Est GFR (MDRD) Non-Af BUN/Creatinine Ratio Glucose Calcium POC Glucose 107 99 11/12/20 11/12/20 05:00 17:21 WBC RBC Hgb Hct MCV MCH MCHC RDW Std Deviation RDW Coeff of Abhilash Plt Count MPV Immature Gran % (Auto) Neut % (Auto) Lymph % (Auto) [place] % (Auto) Eos % (Auto) Baso % (Auto) Absolute Neuts (auto) Absolute Lymphs (auto) Nucleated RBC % Differential Comment Diff Path Review Specimen Type Sample Site pH Bicarbonate Actual Total CO2 Base Excess O2 Saturation O2 % ABG pCO2 ABG pO2 Lonnie Test O2 Delivery Device Vent Mode POC PEEP POC Pressure Suppt Sodium 135 L Potassium 5.4 H Chloride 97 L Carbon Dioxide 22.0 Anion Gap 16 H BUN 103 H* Creatinine 7.57 H* Estim Creat Clear Calc 9.60 Est GFR (MDRD) Af Amer 9 L Est GFR (MDRD) Non-Af 8 L BUN/Creatinine Ratio 13.6 Glucose 99 Calcium 9.1 POC Glucose 121 H Microbiology 11/09/20 13:44 Sputum, Induced/Lukens Gram Stain - Final 11/09/20 13:44 Sputum, Induced/Lukens Respiratory Culture - Final Presumptive C albicans Clinical Impression(s) from Imaging Studies Chest X-Ray 10/24/20 14:10 IMPRESSION: Bilateral pulmonary infiltrates worse in the right hemithorax. Electronically Signed: Jr Moya, at 14:27 EST , Service support , Chest CTA 10/25/20 10:45 IMPRESSION: Limited evaluation of the pulmonary arteries due to poor contrast-enhancement although I suspect multiple small pulmonary emboli in the upper lobe pulmonary arterial branches. Multiple areas of bilateral groundglass appearance was in the right hemithorax suggestive of a pneumonitis associated with Covid 19. Electronically Signed: Jr Moya, at 11:20 EST , Service support , Chest X-Ray 10/30/20 12:54 IMPRESSION: Worsening interstitial and airspace opacifications in both lung vann compared to the previous study. Follow-up recommended to ensure resolution Electronically Signed: Marcus Vides MD at 14:43 EST , Service support , Chest X-Ray 11/01/20 10:43 IMPRESSION: Progressive bilateral pulmonary infiltrates more prominent in the right hemithorax. The tip of the endotracheal tube is at 4.7 cm proximal to the javier. Electronically Signed: Jr Moya, at 11:21 EST , Service support , Chest X-Ray 11/02/20 10:50 IMPRESSION: The tip of the right sided hemodialysis catheter is in the right atrium. The tip of the endotracheal tube is at 9 cm proximal to the javier. Persistent bilateral pulmonary infiltrates although there has been improved aeration as compared to prior study. Electronically Signed: Jr Moya, at 11:07 EST , Service support , Chest X-Ray 11/02/20 13:50 IMPRESSION: Interval placement of a left subclavian catheter with the tip at the junction of superior vena cava and right atrium. The tip of the endotracheal tube is at 6.3 cm proximal to the javier. Stable bilateral pulmonary infiltrates. Electronically Signed: Jr Moya, at 14:17 EST , Service support , Chest X-Ray 11/08/20 06:49 IMPRESSION: Dense consolidation in the right midlung and focal infiltrate in the left lower lobe. Electronically Signed: Jr Moya MD at 9:06 EST , Service support , Current Medications Acetaminophen (Acetaminophen 325 Mg Tablet) 650 mg PO Q6H PRN PRN PRN Reason: Pain Score 1-10/Temp > 100.7 F Last Admin: 11/13/20 04:36 Dose: 650 mg Documented by: Albuterol/Ipratropium (Ipratropium/Albuterol Sulfate 3 Ml Ampul.Neb) 3 ml INHALATION Q6H.RT [facility] Last Admin: 11/13/20 01:36 Dose: 3 ml Documented by: Allopurinol (Allopurinol 300 Mg Tablet) 300 mg PO DAILY [facility] Last Admin: 11/12/20 08:38 Dose: 300 mg Documented by: Apixaban (Apixaban 5 Mg Tablet) 5 mg PO BID [facility] Last Admin: 11/12/20 23:22 Dose: 5 mg Documented by: Atorvastatin Calcium (Atorvastatin Calcium 20 Mg Tablet) 20 mg PO DAILY [facility] Last Admin: 11/12/20 08:38 Dose: 20 mg Documented by: Calamine/Phenol (Menthol/Lanolin/Calamine/Znox 113 Gm Tube) 1 applic TOPICAL BID [facility]; Protocol Last Admin: 11/12/20 23:22 Dose: 1 applicatio Documented by: Pantoprazole Sodium 40 mg/ (Sodium Chloride) 110 mls @ 330 mls/hr IV Q12 [facility] Last Infusion: 11/12/20 23:42 Dose: Infused Documented by: Metoprolol Tartrate (Metoprolol Tartrate 5 Mg/5 Ml Vial) 2.5 mg IV Q6 [facility] Last Admin: 11/12/20 23:44 Dose: 2.5 mg Documented by: Polyethylene Glycol (Polyethylene Glycol 3350 17 Gm Packet) 17 gm PO BID PRN PRN PRN Reason: CONSTIPATION Senna/Docusate Sodium (Senna/Docusate Sodium 1 Tablet) 2 tablet PO BID [facility] Last Admin: 11/12/20 23:23 Dose: 2 tablet Documented by: Sodium Chloride (0.9% Saline Lock 10 Ml Syringe) 10 - 40 ml IV UD PRN PRN Reason: SALINE FLUSH Last Admin: 11/12/20 18:09 Dose: 10 ml Documented by: Sodium Chloride (Sodium Chloride 0.65% 1 [place].Btl) 2 spray NASAL BID PRN PRN PRN Reason: NASAL DRYNESS Last Admin: 10/28/20 22:53 Dose: 2 sprays Documented by: Medical Necessity - Tobacco Use Smoking Status: Never smoker Tobacco Use: Non-smoker Assessment/Plan All Active Problems (Last Updated 10/24/20 @ 15:[address] Nish Dee, DO) Pneumonia due to Coronavirus disease 2019 (Acute) Hypoxia (Acute) Melena (Acute) RECOMMENDATIONS: 1. Continue to wean FiO2 to maintain oxygen saturations at or above 90%. 2. Continue hemodialysis support per nephrology recommendations. 3. Continue systemic anticoagulation with Eliquis. 4. Continue scheduled bronchodilator therapy. 5. Encourage incentive spirometer use and mobilize patient as tolerated. 6. The patient is medically stable for transfer out of the intensive care unit. IMPRESSIONS: 1. Acute hypoxemic respiratory failure Multifactorial in etiology with COVID-19 pneumonia and bilateral pulmonary emboli contributing. Although attempts were made to utilize heated high flow oxygen and later BiPAP, the patient continued to decompensate from a respiratory perspective, requiring intubation on November 01, only to later be successfully extubated on November 11. The patient is currently maintaining appropriate oxygen saturations on heated high flow, which will be continued as tolerated to maintain saturations at or above 90%. He has already completed treatment courses of remdesivir and Decadron. I would recommend that if his mental state were to worsen, that an arterial blood gas be obtained. 2. Acute kidney injury/hyperkalemia Likely prerenal in etiology with component of ischemic ATN. Nephrology is currently following to assist with hemodialysis needs. Anticipate further need for ultrafiltration to assist with volume optimization. 3. Possible GI bleed No overt signs of GI blood loss at this time. Continue twice daily PPI therapy as ordered. Monitor H&H and transfuse if hemoglobin drops below 7 g/dL. 4. History of coronary artery disease/hypertension/hyperlipidemia/obesity Complicates care, management, recovery and prognosis. Continue home medications as indicated. This note was generated with [employer] dictation software. It may contain incorrect words, spelling, and punctuation that were not noted in checking the note before signing. Inpatient E&M: [id number] [facility] L3
[2020-11-13] MEDS: Metoprolol Tartrate 5 MG/5 ML Vial 2.5 MG IV (06:39)
[2020-11-13] MEDS: 0.9% Saline Lock 10 ML Syringe IV (06:40)
--- NOTE | 2020-11-13 07:25 | PN_ITS ---
Patient Problems: Active and Suspected Problems (Last Updated 10/24/20 @ 15:[address] Nish Dee, DO) Pneumonia due to Coronavirus disease 2019 (Acute) Hypoxia (Acute) Melena (Acute) Reason for Visit: Acute COVID-19 pneumonitis Subjective: Patient is a 65-year-old gentleman with multiple comorbidities who presented with progressive shortness of breath. Patient was diagnosed with acute COVID-19 pneumonitis. Patient has had complicated stay resulting in patient developing acute respiratory failure for which patient was on the vent. His hospital stay also characterized by bilateral pulmonary emboli as well as superimposed bacterial pneumonia and acute kidney injury 11/13/2020; patient was taken out of isolation the day prior. Plan is to increase activity as tolerated and patient transferred from ICU to PCU Objective: GENERAL: cooperative on Airvo HEENT: Atraumatic; EYES; Anicteric, Normal Conjunctiva NECK; supple, normal thyroid, RESPIRATORY: Diminished to auscultation CARDIOVASCULAR: Regular S1 S2, GI: soft, normoactive bowel sounds, : No Renal angle tenderness; EXTREMITIES: No edema, no clubbing, MUSCULOSKELETAL: no muscle waisting NEURO: Awake; no lateralizing signs. SKIN: No Rash PSYCH; Flat affect Vitals/I&O's: Vital Signs Temp Pulse Resp BP Pulse Ox 97.9 F 95 22 H 94/45 L 95 11/13/20 04:00 11/13/20 07:13 11/13/20 07:12 11/13/20 07:00 11/13/20 07:12 Oxygen Flow Rate (L/min) 60 Oxygen Delivery Method Airvo Weight: 118.4 kg Body Mass Index (BMI) 39.9 Intake and Output for Last 24 Hours 11/11/20 11/12/20 11/13/20 23:59 23:59 23:59 Intake Total 691.73 / 691.73 460 / 460 Output Total 285 / 285 1780 / 1780 45 / 45 Balance 406.73 / 406.73 -1320 / -1320 -45 / -45 Microbiology Past 72 Hours 11/09/20 13:44 Sputum, Induced/Lukens Gram Stain - Final 11/09/20 13:44 Sputum, Induced/Lukens Respiratory Culture - Final Presumptive C albicans Laboratory Results 11/12/20 05:00: WBC 13.1 H, RBC 3.22 L, Hgb 9.8 L, Hct 28.3 L, MCV 87.9, MCH 30.4, MCHC 34.6 D, RDW Std Deviation 52.9 H, RDW Coeff of Abhilash 17.2 H, Plt Count 200, MPV 11.3, Immature Gran % (Auto) 1.000 H, Neut % (Auto) 74.0 H, Lymph % (Auto) 8.9 L, [place] % (Auto) 15.1 H, Eos % (Auto) 0.7, Baso % (Auto) 0.3, Absolute Neuts (auto) 9.7 H, Absolute Lymphs (auto) 1.17, Nucleated RBC % 0, Differential Comment COMMENT, Diff Path Review February11/12/20 05:00: Sodium 135 L, Potassium 5.4 H, Chloride 97 L, Carbon Dioxide 22.0, Anion Gap 16 H, BUN 103 H*, Creatinine 7.57 H*, Estim Creat Clear Calc 9.60, Est GFR (MDRD) Af Amer 9 L, Est GFR (MDRD) Non-Af 8 L, BUN/Creatinine Ratio 13.6, Glucose 99, Calcium 9.1 11/12/20 17:21: POC Glucose 121 H 11/13/20 07:00: Sodium Pending, Potassium Pending, Chloride Pending, Carbon Dioxide Pending, Anion Gap Pending, BUN Pending, Creatinine Pending, Est GFR (MDRD) Af Amer Pending, Est GFR (MDRD) Non-Af Pending, BUN/Creatinine Ratio Pending, Glucose Pending, Calcium Pending Current Medications Acetaminophen (Acetaminophen 325 Mg Tablet) 650 mg PO Q6H PRN PRN PRN Reason: Pain Score 1-10/Temp > 100.7 F Last Admin: 11/13/20 04:36 Dose: 650 mg Documented by: Albuterol/Ipratropium (Ipratropium/Albuterol Sulfate 3 Ml Ampul.Neb) 3 ml INHALATION Q6H.RT [facility] Last Admin: 11/13/20 07:12 Dose: 3 ml Documented by: Allopurinol (Allopurinol 300 Mg Tablet) 300 mg PO DAILY [facility] Last Admin: 11/12/20 08:38 Dose: 300 mg Documented by: Apixaban (Apixaban 5 Mg Tablet) 5 mg PO BID [facility] Last Admin: 11/12/20 23:22 Dose: 5 mg Documented by: Atorvastatin Calcium (Atorvastatin Calcium 20 Mg Tablet) 20 mg PO DAILY [facility] Last Admin: 11/12/20 08:38 Dose: 20 mg Documented by: Calamine/Phenol (Menthol/Lanolin/Calamine/Znox 113 Gm Tube) 1 applic TOPICAL BID [facility]; Protocol Last Admin: 11/12/20 23:22 Dose: 1 applicatio Documented by: Pantoprazole Sodium 40 mg/ (Sodium Chloride) 110 mls @ 330 mls/hr IV Q12 [facility] Last Infusion: 11/12/20 23:42 Dose: Infused Documented by: Metoprolol Tartrate (Metoprolol Tartrate 5 Mg/5 Ml Vial) 2.5 mg IV Q6 [facility] Last Admin: 11/13/20 06:39 Dose: 2.5 mg Documented by: Polyethylene Glycol (Polyethylene Glycol 3350 17 Gm Packet) 17 gm PO BID PRN PRN PRN Reason: CONSTIPATION Senna/Docusate Sodium (Senna/Docusate Sodium 1 Tablet) 2 tablet PO BID [facility] Last Admin: 11/12/20 23:23 Dose: 2 tablet Documented by: Sodium Chloride (0.9% Saline Lock 10 Ml Syringe) 10 - 40 ml IV UD PRN PRN Reason: SALINE FLUSH Last Admin: 11/13/20 06:40 Dose: 30 ml Documented by: Sodium Chloride (Sodium Chloride 0.65% 1 [place].Btl) 2 spray NASAL BID PRN PRN PRN Reason: NASAL DRYNESS Last Admin: 10/28/20 22:53 Dose: 2 sprays Documented by: STROKE Vital Signs/Narrative: Vital Signs Temp Pulse Resp BP BP Pulse Ox 11/13/20 07:13 95 11/13/20 07:12 98 22 H 95 11/13/20 07:00 85 16 94/45 L 96 11/13/20 06:39 89 113/60 11/13/20 06:00 99 22 H 109/61 96 11/13/20 05:00 98 21 H 120/70 98 11/13/20 04:40 98 22 H 95 11/13/20 04:00 97.9 F 94 14 141/54 H 94 Medical Necessity - Tobacco Use Smoking Status: Never smoker Tobacco Use: Non-smoker Assessment/Plan All Active Problems (Last Updated 01/06/21 @ 15:[address] Nish Dee, DO) Pneumonia due to Coronavirus disease 2019 (Acute) Hypoxia (Acute) Melena (Acute) Patient is a 65-year-old gentleman with multiple comorbidities who presented with progressive shortness of breath. Patient was diagnosed with acute COVID-19 pneumonitis. Patient has had complicated stay resulting in patient developing acute respiratory failure for which patient was on the vent. His hospital stay also characterized by bilateral pulmonary emboli as well as superimposed bacterial pneumonia and acute kidney injury 1. Acute hypoxic respiratory failure ?Due to combination of acute COVID-19 pneumonia, pneumococcal pneumonia, bilateral PE and ARDS. Patient was intubated on 11/01/2020 weaned off the vent on 11/11/2020. Currently on Airvo - 11/13/2020; patient was taken out of isolation the day prior. Plan is to increase activity as tolerated and patient transferred from ICU to PCU 1. Acute COVID-19 pneumonitis ?Patient completed a course of dexamethasone which had to be repeated. Also did receive remdesivir 3. Acute kidney injury secondary to acute tubular necrosis from sepsis and possibly contrast induced nephropathy. Patient currently on hemodialysis 4. Septic shock ?Secondary to patient underlying infection. Patient was weaned off pressors as of 11/11/2020 5. Pneumococcal pneumonia ?Noted on 11/01/2020. Completed a course of antibiotic therapy 5. Bilateral pulmonary embolism ?Secondary to Covid induced coagulopathy. Patient is on Eliquis 7. Essential hypertension ?Patient is on metoprolol 8. Gout ?Patient is on allopurinol continue 9. Dyslipidemia -Patient is on statin therapy, continued at home dose 10. Melenic stools ?Patient was placed on PPI 11. Coronary artery disease ?Patient has history of previous PCI with stent placement 12. Physical deconditioning - Requested for PT OT eval and social services coordinator to assist with discharge planning Inpatient E&M: [id number] Subs Hosp L2
[2020-11-13 07:26] LABS: Anion Gap 13 (5-15); BUN 75 mg/dL (7-18); Calcium,Total 9.4 mg/dL (8.5-10.1); Chloride 98 mmol/L (98-107); Creatinine, Serum 6.25 mg/dL (0.70-1.30); EST Glomerular Filtration Rate 10 mL/min (>60); Est Glom Filt Rate - Afr Amer 12 mL/min (>60); Estimated Creatinine Clearance 11.63 ml/min; Glucose 89 mg/dL (74-106); Potassium 4.7 mmol/L (3.5-5.1); Sodium Level 136 mmol/L (136-145)
[2020-11-13] MEDS: Menthol/Lanolin/Calamine/Znox 113 GM Tube 1 APPLIC TOPICAL ×2 (10:23→21:20)
[2020-11-13] MEDS: Senna/Docusate Sodium 1 Tablet 2 TABLET PO (10:23)
[2020-11-13] MEDS: Atorvastatin Calcium 20 MG Tablet PO (10:23)
[2020-11-13] MEDS: Allopurinol 300 MG Tablet PO (10:23)
[2020-11-13] MEDS: APIXABAN 5 MG TABLET PO ×2 (10:23→21:15)
[2020-11-13] MEDS: Pantoprazole Sodium 40 MG Tablet PO ×2 (10:23→21:14)
--- NOTE | 2020-11-13 10:50 | NT.THERAPY_ITS ---
Nutrition Therapy Report - History Current diet / nutrition support order:: cardiac; ensure enlive 120mL TID w/ meals - Anthropometric Measurements Height:: 5 ft 9 in Weight:: 118.4 kg Body Mass Index (BMI):: 38.5 - Relevant Labs Relevant Labs:: WBC 13.1 K/mm3 (4.4-11.0) H 11/12/20 05:00 RBC 3.22 M/mm3 (4.6-6.2) L 11/12/20 05:00 Hgb 9.8 g/dL (13.0-16.5) L 11/12/20 05:00 Hct 28.3 % (40-54) L 11/12/20 05:00 MCH 26.8 pg (27.0-32.0) L 11/03/20 05:00 MCHC 31.4 g/dL (32-36) L 11/10/20 04:10 RDW Std Deviation 52.9 fl (35.1-43.9) H 11/12/20 05:00 RDW Coeff of Abhilash 17.2 % (11.6-14.6) H 11/12/20 05:00 Immature Gran % (Auto) 1.000 % (0.0-0.9) H 11/12/20 05:00 Neut % (Auto) 74.0 % (47-70) H 11/12/20 05:00 Lymph % (Auto) 8.9 % (19-41) L 11/12/20 05:00 [place] % (Auto) 15.1 % (0-10) H 11/12/20 05:00 Absolute Neuts (auto) 9.7 X10^3/uL (2.0-7.7) H 11/12/20 05:00 Absolute Lymphs (auto) 0.82 X10^3/uL (0.83-4.51) L 10/25/20 06:45 Fibrinogen 739 mg/dl (203-444) H 10/24/20 17:50 D-Dimer Quant (PE/DVT) 1.29 FEU/ug/m (0.27-0.49) H* 10/24/20 17:50 Sodium 135 mmol/L (136-145) L 11/12/20 05:00 Potassium 5.4 mmol/L (3.5-5.1) H 11/12/20 05:00 Chloride 97 mmol/L (98-107) L 11/12/20 05:00 Anion Gap 16 (5-15) H 11/12/20 05:00 BUN 75 mg/dL (7-18) H 11/13/20 07:00 Creatinine 6.25 mg/dL (0.70-1.30) H 11/13/20 07:00 Est GFR (MDRD) Af Amer 12 mL/min (>60) L 11/13/20 07:00 Est GFR (MDRD) Non-Af 10 mL/min (>60) L 11/13/20 07:00 BUN/Creatinine Ratio 9.9 RATIO (10-20) L 11/07/20 03:55 Glucose 110 mg/dL (74-106) H 11/05/20 03:45 Calcium 8.1 mg/dL (8.5-10.1) L 11/06/20 04:05 Phosphorus 8.8 mg/dL (2.5-4.9) H 11/09/20 04:18 Magnesium 2.7 mg/dL (1.6-2.6) H 11/09/20 04:18 AST 44 U/L (15-37) H 11/11/20 05:00 ALT 85 U/L (16-61) H 11/07/20 03:55 Lactate Dehydrogenase 457 U/L (87-241) H 11/01/20 05:16 C-React Prot Ext Range 64.00 mg/L (0.0-3.0) H 11/01/20 05:16 Total Protein 5.9 g/dL (6.4-8.2) L 11/06/20 04:05 Albumin 2.0 g/dL (3.2-5.0) L 11/11/20 05:00 Globulin 5.0 g/dL (2.2-4.2) H 11/11/20 05:00 Albumin/Globulin Ratio 0.4 RATIO (0.9-2.4) L 11/11/20 05:00 Procalcitonin 0.46 ng/mL (0.00-0.09) H 10/24/20 17:50 - Assessment Food / Nutrition-Related History:: Pt out of COVID isolation. Observed by this RDN eating breakfast this AM. Noted difficulty using fork to gather scrambled eggs. Previously w/ finger food modification, discontinued by nursing staff at request of pt. Pt states he can eat fine he just needs to take his time. Fair intake of meal noted. Wt decrease of 2.4 kg since last review. Had dialysis yesterday w/ 1.6L removed. Overall wt decrease of 10.874kg/ 8.4% since 10/24/20 admission, significant for malnutrition. Pt w/ inadequate enteral nutrition support during intubation d/t GI intolerance. Pt states he did not eat yesterday. - Nutrition Diagnosis Problem / Etiology / Signs & Symptoms (PES):: Pt w/ acute, severe malnutrition related to inadequate energy intake during acute COVID-19 illness as evidenced by 10.874kg/ 8.4% wt loss <3 weeks, inadequate calorie/protein meeting less than 50% of estimated nutritional needs for greater than 5 days. Evidence of Malnutrition Exists:: Yes Severe PCM:: Acute Illness - Nutrition Intervention Nutrition Prescription:: [id number] calories (22-25 calories/kg IBW (72kg) and 144-180 g protein (2-2.5 g/kg IBW (72kg). - Food / Nutrient Delivery Interventions Summary of nutrition intervention:: Will continue Ensure Enlive w/ meals for additional calories/protein if consumed. Has OT ordered to help w/ feeding difficulties but was unable to be seen yesterday by OT d/t dialysis treatment. Nutrition support ordered as / adjusted to:: continue cardiac diet, ensure enlive w/ meals as tolerated. Will monitor PO intake/acceptance of ONS and adjust as indicated. Continue daily wts. Nutrition education provided?: Yes - MNT Monitoring Further MNT monitoring and evaluation required?: Yes MNT Follow-up in:: 3-5 days
--- NOTE | 2020-11-13 11:46 | PCM.PN.REN ---
Patient Problems: Active and Suspected Problems (Last Updated 10/24/20 @ 15:[address] Nish Dee, DO) Pneumonia due to Coronavirus disease 2019 (Acute) Hypoxia (Acute) Melena (Acute) Subjective: no new events - Physical Exam Vitals/I&O's: Vital Signs Temp Pulse Resp BP Pulse Ox 97.6 F L 97 18 150/74 H 95 11/13/20 11:00 11/13/20 11:00 11/13/20 11:00 11/13/20 11:00 11/13/20 11:00 Oxygen Flow Rate (L/min) 60 Oxygen Delivery Method Airvo Weight: 118.4 kg Body Mass Index (BMI) 38.5 Intake and Output for Last 24 Hours 11/11/20 11/12/20 11/13/20 23:59 23:59 23:59 Intake Total 691.73 / 691.73 460 / 460 100 / 100 Output Total 285 / 285 1780 / 1780 65 / 65 Balance 406.73 / 406.73 -1320 / -1320 35 / 35 General: Alert, Oriented x3, Cooperative HEENT: Atraumatic, PERRLA, EOMI, Normocephalic Neck: Supple, No JVD, Negative Carotid Bruits Lungs: Clear to auscultation, Normal air movement Cardiovascular: Regular rate, No murmurs Abdomen: Bowel Sounds Present, Soft, Non Tender Extremities: No edema, Capillary Refill Less than 3 Seconds Skin: No rashes, No breakdown Musculoskeletal: No Tenderness to Palpation of Joints or Extremities Neurological: Cranial nerves II-XII grossly intact Psych/Mental Status: Normal Affect, Appropriate Microbiology Past 72 Hours 11/09/20 13:44 Sputum, Induced/Lukens Gram Stain - Final 11/09/20 13:44 Sputum, Induced/Lukens Respiratory Culture - Final Presumptive C albicans Laboratory Results 11/12/20 17:21: POC Glucose 121 H 11/13/20 07:00: Sodium 136, Potassium 4.7, Chloride 98, Carbon Dioxide 25.0, Anion Gap 13, BUN 75 H, Creatinine 6.25 H, Estim Creat Clear Calc 11.63, Est GFR (MDRD) Af Amer 12 L, Est GFR (MDRD) Non-Af 10 L, BUN/Creatinine Ratio 12.0, Glucose 89, Calcium 9.4 Current Medications Acetaminophen (Acetaminophen 325 Mg Tablet) 650 mg PO Q6H PRN PRN PRN Reason: Pain Score 1-10/Temp > 100.7 F Last Admin: 11/13/20 04:36 Dose: 650 mg Documented by: Albuterol/Ipratropium (Ipratropium/Albuterol Sulfate 3 Ml Ampul.Neb) 3 ml INHALATION Q6H.RT [facility] [place] Last Admin: 11/13/20 07:12 Dose: 3 ml Documented by: Allopurinol (Allopurinol 300 Mg Tablet) 300 mg PO DAILY [facility] [place] Last Admin: 11/13/20 10:23 Dose: 300 mg Documented by: Apixaban (Apixaban 5 Mg Tablet) 5 mg PO BID [facility] [place] Last Admin: 11/13/20 10:23 Dose: 5 mg Documented by: Atorvastatin Calcium (Atorvastatin Calcium 20 Mg Tablet) 20 mg PO DAILY [facility] [place] Last Admin: 11/13/20 10:23 Dose: 20 mg Documented by: Calamine/Phenol (Menthol/Lanolin/Calamine/Znox 113 Gm Tube) 1 applic TOPICAL BID [facility] [place]; Protocol Last Admin: 11/13/20 10:23 Dose: 1 applicatio Documented by: Metoprolol Tartrate (Metoprolol Tartrate 25 Mg Tablet) 12.5 mg PO BID [facility] [place] Pantoprazole Sodium (Pantoprazole Sodium 40 Mg Tablet) 40 mg PO BID [facility] [place] Last Admin: 11/13/20 10:23 Dose: 40 mg Documented by: Polyethylene Glycol (Polyethylene Glycol 3350 17 Gm Packet) 17 gm PO BID PRN PRN PRN Reason: CONSTIPATION Senna/Docusate Sodium (Senna/Docusate Sodium 1 Tablet) 2 tablet PO BID [facility] [place] Last Admin: 11/13/20 10:23 Dose: 2 tablet Documented by: Sodium Chloride (0.9% Saline Lock 10 Ml Syringe) 10 - 40 ml IV UD PRN PRN Reason: SALINE FLUSH Last Admin: 11/13/20 06:40 Dose: 30 ml Documented by: Sodium Chloride (Sodium Chloride 0.65% 1 [place].Btl) 2 spray NASAL BID PRN PRN PRN Reason: NASAL DRYNESS Last Admin: 10/28/20 22:53 Dose: 2 sprays Documented by: Medical Necessity - Tobacco Use Smoking Status: Never smoker Tobacco Use: Non-smoker Assessment/Plan All Active Problems (Last Updated 10/24/20 @ 15:[address] Nish Dee, DO) Pneumonia due to Coronavirus disease 2019 (Acute) Hypoxia (Acute) Melena (Acute) CELIA?ATN with shock creatinine baseline 1.02. Patient also received IV contrast o 10/29 Started HD 11/02. No recovery of kidney function. HD yesterday Hyperkalemia. HD on 2K bath. better Hyperphosphatemia: P 8.8 o 11/09. should improve with HD. Monitor P level Respiratory failure due to ARDS, COVID-19 bacterial pneumonia with B/L PE currently on hi vega nasal cannula. will try for fluid removal today
[2020-11-13] MEDS: Metoprolol Tartrate 25 MG Tablet 12.5 MG PO ×2 (12:15→21:14)
[2020-11-13 12:42] LABS: Pathologist Review Reviewed
--- NOTE | 2020-11-13 16:06 | DIALYSIS ---
HD today iuf only uf -2300ml tolerated well no issues.
[2020-11-14] VITALS (35 sets, daily range): BP systolic 94–138; BP diastolic 55–82; PULSE 83–113; RESP 12–28; TEMP 35.7–36.9; O2SAT 40–98
[2020-11-14] MEDS: Ipratropium/Albuterol Sulfate 3 ML AMPUL.NEB INHALATION ×2 (01:18→13:35)
--- NOTE | 2020-11-14 01:29 | CPS ---
decreased flow to 50l and fio2 to 63% -sats 94% water changed at this time
[2020-11-14] MEDS: Acetaminophen 325 MG Tablet 650 MG PO ×2 (04:06→23:03)
--- NOTE | 2020-11-14 04:11 | NURSING ---
tylenol given for hip pain. Pt has not slept at all this night. Pt is very argumentive at this time. Encourage pt to rest.
--- NOTE | 2020-11-14 08:02 | PCM.PN.PUL ---
Patient Problems: Active and Suspected Problems (Last Updated 10/24/20 @ 15:[address] Nish Dee, DO) Pneumonia due to Coronavirus disease 2019 (Acute) Hypoxia (Acute) Melena (Acute) Subjective: The patient was seen and examined at the bedside this morning. Events from the last 24 hours have been reviewed. The patient is currently afebrile, hemodynamically stable and maintaining appropriate oxygen saturations on Airvo heated high flow with an FiO2 requirement of 67% and flow rate of 40 L/min. The patient tolerated ultrafiltration yesterday with 2.3 L of fluid removed. I was called this morning by the patient's nurse to come and evaluate the patient after he had become increasingly hypoxemic and less responsive after being started on dialysis. Arterial blood gas had already been obtained and revealed a pH of 7.47 with a corresponding PCO2 of 28 and PO2 of 103. The patient had been placed on BiPAP with improvement in his oxygenation status. However, the patient remained significantly lethargic. I did personally call and speak with the patient's daughter who indicated that she wished for the patient to remain full CODE STATUS. Given the patient's altered mentation, orders were placed for stat CT head, with plans to transition the patient back to ICU level of care. Objective: The patient's most recent lab work, culture data and imaging studies have all been personally reviewed. Rapid coronavirus antigen testing was positive on October 24. Stool for occult blood was positive on October 25. Sputum culture was positive for group B streptococcus. - Physical Exam Vitals/I&O's: Vital Signs Temp Pulse Resp BP Pulse Ox 98 F 101 H 20 H 138/70 H 94 11/14/20 04:09 11/14/20 07:48 11/14/20 04:09 11/14/20 04:09 11/14/20 07:20 Oxygen Flow Rate (L/min) 40 Oxygen Delivery Method Airvo Weight: 262 lb 2.074 oz Body Mass Index (BMI) 38.5 Intake and Output for Last 24 Hours 11/12/20 11/13/20 11/14/20 23:59 23:59 23:59 Intake Total 460 / 460 660 / 660 440 / 440 Output Total 1780 / 1780 65 / 65 Balance -1320 / -1320 595 / 595 440 / 440 General: Lethargic, - - BiPAP mask in place HEENT: Atraumatic, Normocephalic Oral: Dry Mucosa Neck: Supple, No Nodes, Trachea Midline Lungs: No rhonchi, No wheeze, No rales, Diminished Cardiovascular: Regular rate, Regular Rhythm Abdomen: Bowel Sounds Present, Soft, Non Tender, Obese Extremities: No clubbing, No cyanosis, Edema Skin: - - No significant change from previous Musculoskeletal: No Tenderness to Palpation of Joints or Extremities Lymphatic: No Cervical, Supraclavicular, or Inguinal Adenopathy Neurological: - - No focal neurological deficits. The patient is very difficult to arouse and falls easily to sleep. Psych/Mental Status: Flat Affect Labs (Last 48 Hours) 11/12/20 11/12/20 11/12/20 05:00 05:00 17:21 WBC 13.1 H RBC 3.22 L Hgb 9.8 L Hct 28.3 L MCV 87.9 MCH 30.4 MCHC 34.6 D RDW Std Deviation 52.9 H RDW Coeff of Abhilash 17.2 H Plt Count 200 MPV 11.3 Immature Gran % (Auto) 1.000 H Neut % (Auto) 74.0 H Lymph % (Auto) 8.9 L [place] % (Auto) 15.1 H Eos % (Auto) 0.7 Baso % (Auto) 0.3 Absolute Neuts (auto) 9.7 H Absolute Lymphs (auto) 1.17 Nucleated RBC % 0 Differential Comment COMMENT Diff Path Review Reviewed Sodium 135 L Potassium 5.4 H Chloride 97 L Carbon Dioxide 22.0 Anion Gap 16 H BUN 103 H* Creatinine 7.57 H* Estim Creat Clear Calc 9.60 Est GFR (MDRD) Af Amer 9 L Est GFR (MDRD) Non-Af 8 L BUN/Creatinine Ratio 13.6 Glucose 99 Calcium 9.1 POC Glucose 121 H 11/13/20 07:00 WBC RBC Hgb Hct MCV MCH MCHC RDW Std Deviation RDW Coeff of Abhilash Plt Count MPV Immature Gran % (Auto) Neut % (Auto) Lymph % (Auto) [place] % (Auto) Eos % (Auto) Baso % (Auto) Absolute Neuts (auto) Absolute Lymphs (auto) Nucleated RBC % Differential Comment Diff Path Review Sodium 136 Potassium 4.7 Chloride 98 Carbon Dioxide 25.0 Anion Gap 13 BUN 75 H Creatinine 6.25 H Estim Creat Clear Calc 11.63 Est GFR (MDRD) Af Amer 12 L Est GFR (MDRD) Non-Af 10 L BUN/Creatinine Ratio 12.0 Glucose 89 Calcium 9.4 POC Glucose Clinical Impression(s) from Imaging Studies Chest X-Ray 10/24/20 14:10 IMPRESSION: Bilateral pulmonary infiltrates worse in the right hemithorax. Electronically Signed: Jr Griffin, at 14:27 EST , Service support , Chest CTA 10/25/20 10:45 IMPRESSION: Limited evaluation of the pulmonary arteries due to poor contrast-enhancement although I suspect multiple small pulmonary emboli in the upper lobe pulmonary arterial branches. Multiple areas of bilateral groundglass appearance was in the right hemithorax suggestive of a pneumonitis associated with Covid 19. Electronically Signed: Jr Moya, at 11:20 EST , Service support , Chest X-Ray 10/30/20 12:54 IMPRESSION: Worsening interstitial and airspace opacifications in both lung vann compared to the previous study. Follow-up recommended to ensure resolution Electronically Signed: Marcus Vides MD at 14:43 EST , Service support , Chest X-Ray 11/01/20 10:43 IMPRESSION: Progressive bilateral pulmonary infiltrates more prominent in the right hemithorax. The tip of the endotracheal tube is at 4.7 cm proximal to the javier. Electronically Signed: Jr Moya, at 11:21 EST , Service support , Chest X-Ray 11/02/20 10:50 IMPRESSION: The tip of the right sided hemodialysis catheter is in the right atrium. The tip of the endotracheal tube is at 9 cm proximal to the javier. Persistent bilateral pulmonary infiltrates although there has been improved aeration as compared to prior study. Electronically Signed: Jr Moya, at 11:07 EST , Service support , Chest X-Ray 11/02/20 13:50 IMPRESSION: Interval placement of a left subclavian catheter with the tip at the junction of superior vena cava and right atrium. The tip of the endotracheal tube is at 6.3 cm proximal to the javier. Stable bilateral pulmonary infiltrates. Electronically Signed: Jr Moya, at 14:17 EST , Service support , Chest X-Ray 11/08/20 06:49 IMPRESSION: Dense consolidation in the right midlung and focal infiltrate in the left lower lobe. Electronically Signed: Jr Moya MD at 9:06 EST , Service support , Current Medications Acetaminophen (Acetaminophen 325 Mg Tablet) 650 mg PO Q6H PRN PRN PRN Reason: Pain Score 1-10/Temp > 100.7 F Last Admin: 11/14/20 04:06 Dose: 650 mg Documented by: Albuterol/Ipratropium (Ipratropium/Albuterol Sulfate 3 Ml Ampul.Neb) 3 ml INHALATION Q6H.RT [facility] Last Admin: 11/14/20 01:18 Dose: 3 ml Documented by: Allopurinol (Allopurinol 300 Mg Tablet) 300 mg PO DAILY [facility] Last Admin: 11/13/20 10:23 Dose: 300 mg Documented by: Apixaban (Apixaban 5 Mg Tablet) 5 mg PO BID [facility] Last Admin: 11/13/20 21:15 Dose: 5 mg Documented by: Atorvastatin Calcium (Atorvastatin Calcium 20 Mg Tablet) 20 mg PO DAILY [facility] Last Admin: 11/13/20 10:23 Dose: 20 mg Documented by: Calamine/Phenol (Menthol/Lanolin/Calamine/Znox 113 Gm Tube) 1 applic TOPICAL BID [facility]; Protocol Last Admin: 11/13/20 21:20 Dose: 1 applicatio Documented by: Melatonin (Melatonin 3 Mg Tablet) 3 mg PO QHS [facility] Metoprolol Tartrate (Metoprolol Tartrate 25 Mg Tablet) 12.5 mg PO BID [facility] Last Admin: 11/13/20 21:14 Dose: 12.5 mg Documented by: Pantoprazole Sodium (Pantoprazole Sodium 40 Mg Tablet) 40 mg PO BID [facility] Last Admin: 11/13/20 21:14 Dose: 40 mg Documented by: Polyethylene Glycol (Polyethylene Glycol 3350 17 Gm Packet) 17 gm PO BID PRN PRN PRN Reason: CONSTIPATION Senna/Docusate Sodium (Senna/Docusate Sodium 1 Tablet) 2 tablet PO BID [facility] Last Admin: 11/13/20 19:38 Dose: Not Given Documented by: Sodium Chloride (0.9% Saline Lock 10 Ml Syringe) 10 - 40 ml IV UD PRN PRN Reason: SALINE FLUSH Last Admin: 11/13/20 06:40 Dose: 30 ml Documented by: Sodium Chloride (Sodium Chloride 0.65% 1 [place].Btl) 2 spray NASAL BID PRN PRN PRN Reason: NASAL DRYNESS Last Admin: 10/28/20 22:53 Dose: 2 sprays Documented by: Medical Necessity - Tobacco Use Smoking Status: Never smoker Tobacco Use: Non-smoker Assessment/Plan All Active Problems (Last Updated 10/24/20 @ 15:[address] Nish Dee, ) Pneumonia due to Coronavirus disease 2019 (Acute) Hypoxia (Acute) Melena (Acute) RECOMMENDATIONS: 1. Transfer patient back to ICU given clinical decompensation. 2. Patient to remain full code following goals of care discussion with the daughter. 3. Check blood glucose level. 4. Obtain arterial blood gas. 5. Obtain repeat chest x-ray and CT head. 6. Echocardiogram is pending. 7. Continue patient on BiPAP and wean FiO2 to maintain saturations at or above 90%. 8. Continue systemic anticoagulation with Eliquis. 9. Continue scheduled bronchodilator therapy. 10. Continue hemodialysis with volume removal per nephrology recommendations. IMPRESSIONS: 1. Acute hypoxemic respiratory failure Multifactorial in etiology with COVID-19 pneumonia and bilateral pulmonary emboli contributing. Although attempts were made to utilize heated high flow oxygen and later BiPAP, the patient continued to decompensate from a respiratory perspective, requiring intubation on November 01, only to later be successfully extubated on November 11. The patient was doing quite well this morning from a respiratory perspective only to become more hypoxemic once being started on dialysis. The patient was also noted to be less responsive. We will plan to obtain arterial blood gas and check blood glucose level. Given that the patient is systemically anticoagulated, CT head will also be obtained. In the interim, the patient will be continued on BiPAP with plans to wean FiO2 to maintain saturations at or above 90%. Given that the patient's daughter wants him to remain a full code, he will be transition back to the ICU. 2. Acute kidney injury Likely prerenal in etiology with component of ischemic ATN. Nephrology is currently following to assist with hemodialysis needs. Anticipate further need for ultrafiltration to assist with volume optimization. 3. Encephalopathy Unclear precipitating etiology. Arterial blood gas and blood glucose will be obtained. CT head will also be obtained. 4. Possible GI bleed No overt signs of GI blood loss at this time. Continue twice daily PPI therapy as ordered. Monitor H&H and transfuse if hemoglobin drops below 7 g/dL. 5. History of coronary artery disease/hypertension/hyperlipidemia/obesity Complicates care, management, recovery and prognosis. Continue home medications as indicated. TIME: 38 minutes of critical care time, independent of procedures, was spent addressing the patient's acute hypoxemic respiratory failure, acute kidney injury, encephalopathy, review of all data and collaboration with the care team. ([id number]) [phone]: [id number] Critical care first hour
--- NOTE | 2020-11-14 08:22 | PCM.PN.HOSP ---
Patient Problems: Active and Suspected Problems (Last Updated 10/24/20 @ 15:[address] Nish Dee, DO) Pneumonia due to Coronavirus disease 2019 (Acute) Hypoxia (Acute) Melena (Acute) Reason for Visit: Acute COVID-19 pneumonitis Subjective: Patient is a 65-year-old gentleman with multiple comorbidities who presented with progressive shortness of breath. Patient was diagnosed with acute COVID-19 pneumonitis. Patient has had complicated stay resulting in patient developing acute respiratory failure for which patient was on the vent. His hospital stay also characterized by bilateral pulmonary emboli as well as superimposed bacterial pneumonia and acute kidney injury 11/13/2020; patient was taken out of isolation the day prior. Plan is to increase activity as tolerated and patient transferred from ICU to PCU 11/14/2020; patient had sudden deterioration in her clinical status prior to initiation of dialysis. Patient only became hypoxic. Placed on noninvasive ventilation. Stat head CT ordered in addition to ABGs. Case was discussed with Dr. Salmeron with pulmonary medicine plans for patient to be transferred back to the ICU. Dr. Salmeron also had further discussion with patient's family and they still insisted on keeping patient full code. Objective: GENERAL: Lethargic HEENT: Atraumatic; EYES; Anicteric, Normal Conjunctiva NECK; supple, normal thyroid, RESPIRATORY: Diminished to auscultation CARDIOVASCULAR: Regular S1 S2, GI: soft, normoactive bowel sounds, : No Renal angle tenderness; EXTREMITIES: No edema, no clubbing, MUSCULOSKELETAL: no muscle waisting NEURO: no lateralizing signs. SKIN: No Rash PSYCH; Flat affect Vitals/I&O's: Vital Signs Temp Pulse Resp BP Pulse Ox 98 F 101 H 20 H 138/70 H 94 11/14/20 04:09 11/14/20 07:48 11/14/20 04:09 11/14/20 04:09 11/14/20 07:20 Oxygen Flow Rate (L/min) 40 Oxygen Delivery Method Airvo Weight: 118.9 kg Body Mass Index (BMI) 38.5 Intake and Output for Last 24 Hours 11/12/20 11/13/20 11/14/20 23:59 23:59 23:59 Intake Total 460 / 460 660 / 660 440 / 440 Output Total 1780 / 1780 65 / 65 Balance -1320 / -1320 595 / 595 440 / 440 Microbiology Past 72 Hours 11/09/20 13:44 Sputum, Induced/[place]ukens Gram Stain - Final 11/09/20 13:44 Sputum, Induced/[place]ens Respiratory Culture - Final Presumptive C albicans Laboratory Results 11/12/20 05:00: Diff Path Review Reviewed Current Medications Acetaminophen (Acetaminophen 325 Mg Tablet) 650 mg PO Q6H PRN PRN PRN Reason: Pain Score 1-10/Temp > 100.7 F Last Admin: 11/14/20 04:06 Dose: 650 mg Documented by: Albuterol/Ipratropium (Ipratropium/Albuterol Sulfate 3 Ml Ampul.Neb) 3 ml INHALATION Q6H.RT [facility] Last Admin: 11/14/20 01:18 Dose: 3 ml Documented by: Allopurinol (Allopurinol 300 Mg Tablet) 300 mg PO DAILY [facility] Last Admin: 11/13/20 10:23 Dose: 300 mg Documented by: Apixaban (Apixaban 5 Mg Tablet) 5 mg PO BID [facility] Last Admin: 11/13/20 21:15 Dose: 5 mg Documented by: Atorvastatin Calcium (Atorvastatin Calcium 20 Mg Tablet) 20 mg PO DAILY [facility] Last Admin: 11/13/20 10:23 Dose: 20 mg Documented by: Calamine/Phenol (Menthol/Lanolin/Calamine/Znox 113 Gm Tube) 1 applic TOPICAL BID [facility]; Protocol Last Admin: 11/13/20 21:20 Dose: 1 applicatio Documented by: Melatonin (Melatonin 3 Mg Tablet) 3 mg PO QHS [facility] Metoprolol Tartrate (Metoprolol Tartrate 25 Mg Tablet) 12.5 mg PO BID [facility] Last Admin: 11/13/20 21:14 Dose: 12.5 mg Documented by: Pantoprazole Sodium (Pantoprazole Sodium 40 Mg Tablet) 40 mg PO BID [facility] Last Admin: 11/13/20 21:14 Dose: 40 mg Documented by: Polyethylene Glycol (Polyethylene Glycol 3350 17 Gm Packet) 17 gm PO BID PRN PRN PRN Reason: CONSTIPATION Senna/Docusate Sodium (Senna/Docusate Sodium 1 Tablet) 2 tablet PO BID [facility] Last Admin: 11/13/20 19:38 Dose: Not Given Documented by: Sodium Chloride (0.9% Saline Lock 10 Ml Syringe) 10 - 40 ml IV UD PRN PRN Reason: SALINE FLUSH Last Admin: 11/13/20 06:40 Dose: 30 ml Documented by: Sodium Chloride (Sodium Chloride 0.65% 1 [place].Btl) 2 spray NASAL BID PRN PRN PRN Reason: NASAL DRYNESS Last Admin: 10/28/20 22:53 Dose: 2 sprays Documented by: STROKE Vital Signs/Narrative: Vital Signs Pulse Pulse Ox 11/14/20 07:48 101 H 11/14/20 07:20 94 11/14/20 07:00 40 Medical Necessity - Tobacco Use Smoking Status: Never smoker Tobacco Use: Non-smoker Assessment/Plan All Active Problems (Last Updated 10/24/20 @ 15:[address] Nish Dee, DO) Pneumonia due to Coronavirus disease 2019 (Acute) Hypoxia (Acute) Melena (Acute) Patient is a 65-year-old gentleman with multiple comorbidities who presented with progressive shortness of breath. Patient was diagnosed with acute COVID-19 pneumonitis. Patient has had complicated stay resulting in patient developing acute respiratory failure for which patient was on the vent. His hospital stay also characterized by bilateral pulmonary emboli as well as superimposed bacterial pneumonia and acute kidney injury 1. Acute hypoxic respiratory failure ?Due to combination of acute COVID-19 pneumonia, pneumococcal pneumonia, bilateral PE and ARDS. Patient was intubated on 11/01/2020 weaned off the vent on 11/11/2020. Currently on Airvo - 11/13/2020; patient was taken out of isolation the day prior. Plan is to increase activity as tolerated and patient transferred from ICU to PCU - 11/14/2020; patient had sudden deterioration in her clinical status prior to initiation of dialysis. Patient only became hypoxic. Placed on noninvasive ventilation. Stat head CT ordered in addition to ABGs. Case was discussed with Dr. Salmeron with pulmonary medicine plans for patient to be transferred back to the ICU. Dr. Salmeron also had further discussion with patient's family and they still insisted on keeping patient full code. 2. Acute COVID-19 pneumonitis ?Patient completed a course of dexamethasone which had to be repeated. Also did receive remdesivir 3. Acute kidney injury secondary to acute tubular necrosis from sepsis and possibly contrast induced nephropathy. Patient currently on hemodialysis 4. Septic shock ?Secondary to patient underlying infection. Patient was weaned off pressors as of 11/11/2020 5. Pneumococcal pneumonia ?Noted on 11/01/2020. Completed a course of antibiotic therapy 5. Bilateral pulmonary embolism ?Secondary to Covid induced coagulopathy. Patient is on Eliquis 7. Essential hypertension ?Patient is on metoprolol 8. Gout ?Patient is on allopurinol continue 9. Dyslipidemia -Patient is on statin therapy, continued at home dose 10. Melenic stools ?Patient was placed on PPI 11. Coronary artery disease ?Patient has history of previous PCI with stent placement 12. Physical deconditioning - Requested for PT OT eval and high school social studies tutor to assist with discharge planning Inpatient E&M: 40471 Subs Hosp L2
--- NOTE | 2020-11-14 09:00 | NURSING ---
This RN called to room by Alyssia (public administration teacher). When he was placed on his treatment, the patients O2 sats dropped to the 70's nearly immediately per report from Alyssia. patient was found to be pale, diaphoretic, 80% SPO2 on 100% Airvo, his eyes rolled back in his head a few times but patient always appropriately responded when his name was called. Respiratory therapy was called to place patient on bipap, Dr Rudolph and Dr Salmeron notified. Both came to see the patient, several new orders received.
--- NOTE | 2020-11-14 09:20 | RAD_ITS ---
STUDY: X-RAY CHEST REASON FOR EXAM: Male, 65 years old. INCREASE SOB TECHNIQUE: Single AP portable view of the chest. COMPARISON: Comparison is made with prior study dated 05/08/2021. FINDINGS: The endotracheal tube and orogastric tube have been removed. A left-sided central venous catheter is seen with the tip in the right atrium. A right-sided central venous catheter is seen with the tip at the junction of the superior vena cava and right atrium. EKG electrodes are seen. Since prior study, there has been improved aeration of the left lung. Persistent infiltration in the right lung although it has improved. There is no demonstrated pleural abnormality. Normal size heart. Normal mediastinum and gaby. Normal visualized pulmonary arteries. Normal visualized aortic arch and descending thoracic aorta. There are degenerative changes of the visualized thoracic spine. Healed right rib fractures. There is no demonstrated abnormality of the visualized soft tissue structures of the upper abdomen. RAD/Chest 1 View (Portable) IMPRESSION: Improved aeration of both lungs. Dense infiltrate persists in the right lung. Electronically Signed: Jr Moya MD at 12:48 EST , Service support ,
[2020-11-14 09:31] LABS: Base Excess -3 mmol/L (-2 to +2); Bicarbonate 20.8 mmol/L (22-26); Blood Gas Specimen Type ART; FI02 100; Mode BiLevel; O2 Delivery Device BiPAP; PO2 103 mmHG (75-100); SITE L Radial; SO2 98 % (95-99); Total Carbon Dioxide 22 mmol/L; pCO2 28.6 mmHg (35-45); pH 7.47 (7.35-7.45)
--- NOTE | 2020-11-14 09:45 | CT_ITS ---
5STUDY: CT BRAIN WITHOUT CONTRAST REASON FOR EXAM: Male, 65 years old patient with altered mental status. Patient is feeling ill. History of COVID. RADIATION DOSAGE (If Supplied By Facility): CTDIvol = ( 44.99 ) mGy, DLP = ( 829.85 ) mGycm TECHNIQUE: Transaxial CT imaging of the brain was performed without administration of intravenous contrast material. Multiplanar reformations are submitted for interpretation. Individualized dose optimization techniques were used for this CT. COMPARISON: No relevant priors. FINDINGS: Normal soft tissue structures. Normal calvarium. There is mild cerebral atrophy with widening of the extra-axial spaces and ventricular dilatation. There are areas of decreased attenuation within the white matter tracts of the supratentorial brain, consistent with microvascular disease changes. Normal basal ganglia and thalami. Normal brainstem. Normal cerebellum. There is no intracranial hemorrhage. There is mild atherosclerotic calcification of the intracranial arteries. Normal visualized paranasal sinuses. There is deviation of nasal septum towards the right with a bony spur. CT/Brain/Head without Contrast IMPRESSION: 1. Chronic involutional changes of the brain. 2. No CT evidence of acute intracranial hemorrhage. Electronically Signed: Catrina Norton MD at 11:43 EST , Service support ,
--- NOTE | 2020-11-14 10:38 | ECHOCS_ITS ---
Reason For Study: DYSPNEA/SOB Procedure This was a 2D Doppler, Color Flow transthoracic echocardiogram. The study was technically difficult. Contrast injection was performed. Exam performed portable in ICU/CCU. Left Ventricle Normal LV size. Left ventricular systolic function is normal. The estimated ejection fraction is 65 %. Stage 1 diastolic dysfunction. No regional wall motion abnormalities noted. Right Ventricle Normal RV size. Normal systolic function. Atria Normal left atrium. Normal right atrium. Mitral Valve Normal mitral valve. Tricuspid Valve Normal tricuspid valve. Unable to estimate RV systolic pressure due to insufficient tricuspid regurgitant envelope. Pulmonic Valve Normal pulmonic valve. Great Vessels Normal aortic root. The pulmonary artery is normal size. Normal inferior vena cava. Pericardium/Pleural No pericardial effusion. Medication Performed a rapid injection of agitated mix of 9 cc saline and 1cc air to assess for atrial septal defect. Diluted definity 5.0ml given slow IV push to enhance endocardial definition. MMode/2D Measurements & Calculations LVIDd: 4.3 cm IVSd: 1.4 cm Ao root diam: 3.2 cm LVIDs: 3.0 cm LVPWd: 1.1 cm RVDd: 3.4 cm FS: 30.8 % LAV(MOD-bp): 50.1 ml LA A4 area: 17.3 cm2 LA dimension(2D): 3.1 cm LAV(MOD-bp) Indexed: 21.6 ml/m2 LAV(MOD-sp2): 46.6 ml LAV(MOD-sp4): 48.1 ml RA A4 area: 11.7 cm2 Doppler Measurements & Calculations MV E max melissa: 44.6 cm/sec Ao V2 max: 136.9 cm/sec LV V1 max: 78.1 cm/sec MV A max melissa: 74.6 cm/sec Ao max P.5 mmHg LV V1 max P.4 mmHg MV E/A: 0.60 PA V2 max: 107.7 cm/sec Interpretation Summary Normal LV size. Left ventricular systolic function is normal. The estimated ejection fraction is 65 %. Stage 1 diastolic dysfunction. Contrast injection was performed. Ordering Physician: Preet Salmeron Referring Physician: Arnoldo Menjivar Performed By: Emy Dunn, HIPOLITO, RVT
[2020-11-14 10:41] LABS: Glucose 99 mg/dL (74-106)
[2020-11-14 10:42] LABS: Anion Gap 17 (5-15); BUN/Creat Ratio 13.4 RATIO (10-20); Calcium,Total 9.6 mg/dL (8.5-10.1); Chloride 95 mmol/L (98-107); EST Glomerular Filtration Rate 7 mL/min (>60); Est Glom Filt Rate - Afr Amer 8 mL/min (>60); Estimated Creatinine Clearance 8.62 ml/min; Potassium 5.5 mmol/L (3.5-5.1); Sodium Level 134 mmol/L (136-145)
[2020-11-14 10:43] LABS: BUN 113 mg/dL (7-18); Creatinine, Serum 8.43 mg/dL (0.70-1.30)
[2020-11-14] MEDS: Menthol/Lanolin/Calamine/Znox 113 GM Tube 1 APPLIC TOPICAL (11:20)
[2020-11-14 11:47] LABS: Lactic Acid 0.8 mmol/L (0.4-1.9)
[2020-11-14 12:00] LABS: Bedside Glucose 90 mg/dL (70-110)
--- NOTE | 2020-11-14 12:51 | PCM.PN.REN ---
Patient Problems: Active and Suspected Problems (Last Updated 10/24/20 @ 15:[address] Nish Dee, DO) Pneumonia due to Coronavirus disease 2019 (Acute) Hypoxia (Acute) Melena (Acute) Subjective: events noted did not tolerate dialysis earlier now back in ICU on Bipap so far ok - Physical Exam Vitals/I&O's: Vital Signs Temp Pulse Resp BP Pulse Ox 96.3 F L 95 19 H 108/67 97 11/14/20 12:00 11/14/20 12:00 11/14/20 12:00 11/14/20 12:00 11/14/20 12:00 Oxygen Flow Rate (L/min) 40 Oxygen Delivery Method Bi-pap Weight: 119.3 kg Body Mass Index (BMI) 38.5 Intake and Output for Last 24 Hours 11/12/20 11/13/20 11/14/20 23:59 23:59 23:59 Intake Total 460 / 460 660 / 660 440 / 440 Output Total 1780 / 1780 65 / 65 Balance -1320 / -1320 595 / 595 440 / 440 General: Alert, Oriented x3, Cooperative HEENT: Atraumatic, PERRLA, EOMI, Normocephalic Neck: Supple, No JVD, Negative Carotid Bruits Lungs: Clear to auscultation, Normal air movement Cardiovascular: Regular rate, No murmurs Abdomen: Bowel Sounds Present, Soft, Non Tender Extremities: No edema, Capillary Refill Less than 3 Seconds Skin: No rashes, No breakdown Musculoskeletal: No Tenderness to Palpation of Joints or Extremities Neurological: Cranial nerves II-XII grossly intact Psych/Mental Status: Normal Affect, Appropriate Microbiology Past 72 Hours 11/09/20 13:44 Sputum, Induced/Lukens Gram Stain - Final 11/09/20 13:44 Sputum, Induced/Lukens Respiratory Culture - Final Presumptive C albicans Laboratory Results 11/14/20 08:49: Sodium 134 L, Potassium 5.5 H, Chloride 95 L, Carbon Dioxide 22.0, Anion Gap 17 H, BUN 113 H*, Creatinine 8.43 H*, Estim Creat Clear Calc 8.62, Est GFR (MDRD) Af Amer 8 L, Est GFR (MDRD) Non-Af 7 L, BUN/Creatinine Ratio 13.4, Glucose 99, Calcium 9.6 11/14/20 08:49: Troponin I < 0.015 11/14/20 09:21: Specimen Type ART, Sample Site L Radial, pH 7.47 H, Bicarbonate Actual 20.8 L, Total CO2 22, Base Excess -3 L, O2 Saturation 98, O2 % 100, ABG pCO2 28.6 L, ABG pO2 103 H, O2 Delivery Device BiPAP, Vent Mode BiLevel 11/14/20 11:10: Lactic Acid 0.8 11/14/20 11:57: POC Glucose 90 Current Medications Acetaminophen (Acetaminophen 325 Mg Tablet) 650 mg PO Q6H PRN PRN PRN Reason: Pain Score 1-10/Temp > 100.7 F Last Admin: 11/14/20 04:06 Dose: 650 mg Documented by: Albuterol/Ipratropium (Ipratropium/Albuterol Sulfate 3 Ml Ampul.Neb) 3 ml INHALATION Q6H.RT [facility] Last Admin: 11/14/20 01:18 Dose: 3 ml Documented by: Allopurinol (Allopurinol 300 Mg Tablet) 300 mg PO DAILY [facility] Last Admin: 11/14/20 11:22 Dose: Not Given Documented by: Apixaban (Apixaban 5 Mg Tablet) 5 mg PO BID [facility] Last Admin: 11/14/20 11:21 Dose: Not Given Documented by: Atorvastatin Calcium (Atorvastatin Calcium 20 Mg Tablet) 20 mg PO DAILY [facility] Last Admin: 11/14/20 11:21 Dose: Not Given Documented by: Calamine/Phenol (Menthol/Lanolin/Calamine/Znox 113 Gm Tube) 1 applic TOPICAL BID [facility]; Protocol Last Admin: 11/14/20 11:20 Dose: 1 applicatio Documented by: Melatonin (Melatonin 3 Mg Tablet) 3 mg PO QHS [facility] Metoprolol Tartrate (Metoprolol Tartrate 25 Mg Tablet) 12.5 mg PO BID [facility] Last Admin: 11/14/20 11:22 Dose: Not Given Documented by: Pantoprazole Sodium (Pantoprazole Sodium 40 Mg Tablet) 40 mg PO BID [facility] Last Admin: 11/14/20 11:22 Dose: Not Given Documented by: Polyethylene Glycol (Polyethylene Glycol 3350 17 Gm Packet) 17 gm PO BID PRN PRN PRN Reason: CONSTIPATION Senna/Docusate Sodium (Senna/Docusate Sodium 1 Tablet) 2 tablet PO BID [facility] Last Admin: 11/14/20 11:22 Dose: Not Given Documented by: Sodium Chloride (0.9% Saline Lock 10 Ml Syringe) 10 - 40 ml IV UD PRN PRN Reason: SALINE FLUSH Last Admin: 11/13/20 06:40 Dose: 30 ml Documented by: Sodium Chloride (Sodium Chloride 0.65% 1 [place].Btl) 2 spray NASAL BID PRN PRN PRN Reason: NASAL DRYNESS Last Admin: 10/28/20 22:53 Dose: 2 sprays Documented by: Medical Necessity - Tobacco Use Smoking Status: Never smoker Tobacco Use: Non-smoker Assessment/Plan All Active Problems (Last Updated 10/24/20 @ 15:[address] Nish Dee, DO) Pneumonia due to Coronavirus disease 2019 (Acute) Hypoxia (Acute) Melena (Acute) CELIA?ATN with shock creatinine baseline 1.02. Patient also received IV contrast o 10/29 Started HD 11/02. No recovery of kidney function. HD today Hyperkalemia. HD on 2K bath. Hyperphosphatemia: monitor for now since he is back on bipap now Respiratory failure due to ARDS, COVID-19 bacterial pneumonia with B/L PE reviewed CXR from this am. mostly right sided consolidation. left side is relatively clear. no peripheral edema. not much fluid overload
--- NOTE | 2020-11-14 13:49 | PN.ID_ITS ---
Patient Problems: Active and Suspected Problems (Last Updated 10/24/20 @ 15:[address] Nish Dee, DO) Pneumonia due to Coronavirus disease 2019 (Acute) Hypoxia (Acute) Melena (Acute) Subjective: Worsened hypoxia while on dialysis, moved to icu. No fever. On bipap. - Physical Exam Vitals/I&O's: Vital Signs Temp Pulse Resp BP Pulse Ox 96.3 F L 105 H 20 H 112/67 96 11/14/20 12:00 11/14/20 13:30 11/14/20 13:30 11/14/20 13:30 11/14/20 13:30 Oxygen Flow Rate (L/min) 40 Oxygen Delivery Method Bi-pap Weight: 119.3 kg Body Mass Index (BMI) 38.5 Intake and Output for Last 24 Hours 11/12/20 11/13/20 11/14/20 23:59 23:59 23:59 Intake Total 460 / 460 660 / 660 440 / 440 Output Total 1780 / 1780 65 / 65 Balance -1320 / -1320 595 / 595 440 / 440 General: No apparent distress, Lethargic Lungs: Diminished Cardiovascular: Regular rate, Regular Rhythm Abdomen: Soft, Non Tender, Non-Distended Skin: No rashes Microbiology Past 72 Hours 11/09/20 13:44 Sputum, Induced/Lukens Gram Stain - Final 11/09/20 13:44 Sputum, Induced/Lukens Respiratory Culture - Final Presumptive C albicans Laboratory Results 11/14/20 08:49: Sodium 134 L, Potassium 5.5 H, Chloride 95 L, Carbon Dioxide 22.0, Anion Gap 17 H, BUN 113 H*, Creatinine 8.43 H*, Estim Creat Clear Calc 8.62, Est GFR (MDRD) Af Amer 8 L, Est GFR (MDRD) Non-Af 7 L, BUN/Creatinine Ratio 13.4, Glucose 99, Calcium 9.6 11/14/20 08:49: Troponin I < 0.015 11/14/20 09:21: Specimen Type ART, Sample Site L Radial, pH 7.47 H, Bicarbonate Actual 20.8 L, Total CO2 22, Base Excess -3 L, O2 Saturation 98, O2 % 100, ABG pCO2 28.6 L, ABG pO2 103 H, O2 Delivery Device BiPAP, Vent Mode BiLevel 11/14/20 11:10: Lactic Acid 0.8 11/14/20 11:57: POC Glucose 90 Current Medications Acetaminophen (Acetaminophen 325 Mg Tablet) 650 mg PO Q6H PRN PRN PRN Reason: Pain Score 1-10/Temp > 100.7 F Last Admin: 11/14/20 04:06 Dose: 650 mg Documented by: Albuterol/Ipratropium (Ipratropium/Albuterol Sulfate 3 Ml Ampul.Neb) 3 ml INHALATION Q6H.RT [facility] Last Admin: 11/14/20 01:18 Dose: 3 ml Documented by: Allopurinol (Allopurinol 300 Mg Tablet) 300 mg PO DAILY [facility] Last Admin: 11/14/20 11:22 Dose: Not Given Documented by: Apixaban (Apixaban 5 Mg Tablet) 5 mg PO BID [facility] Last Admin: 11/14/20 11:21 Dose: Not Given Documented by: Atorvastatin Calcium (Atorvastatin Calcium 20 Mg Tablet) 20 mg PO DAILY [facility] Last Admin: 11/14/20 11:21 Dose: Not Given Documented by: Calamine/Phenol (Menthol/Lanolin/Calamine/Znox 113 Gm Tube) 1 applic TOPICAL BID [facility]; Protocol Last Admin: 11/14/20 11:20 Dose: 1 applicatio Documented by: Melatonin (Melatonin 3 Mg Tablet) 3 mg PO QHS [facility] Metoprolol Tartrate (Metoprolol Tartrate 25 Mg Tablet) 12.5 mg PO BID [facility] Last Admin: 11/14/20 11:22 Dose: Not Given Documented by: Pantoprazole Sodium (Pantoprazole Sodium 40 Mg Tablet) 40 mg PO BID [facility] Last Admin: 11/14/20 11:22 Dose: Not Given Documented by: Polyethylene Glycol (Polyethylene Glycol 3350 17 Gm Packet) 17 gm PO BID PRN PRN PRN Reason: CONSTIPATION Senna/Docusate Sodium (Senna/Docusate Sodium 1 Tablet) 2 tablet PO BID [facility] Last Admin: 11/14/20 11:22 Dose: Not Given Documented by: Sodium Chloride (0.9% Saline Lock 10 Ml Syringe) 10 - 40 ml IV UD PRN PRN Reason: SALINE FLUSH Last Admin: 11/13/20 06:40 Dose: 30 ml Documented by: Sodium Chloride (Sodium Chloride 0.65% 1 [place].Btl) 2 spray NASAL BID PRN PRN PRN Reason: NASAL DRYNESS Last Admin: 10/28/20 22:53 Dose: 2 sprays Documented by: Medical Necessity - Tobacco Use Smoking Status: Never smoker Tobacco Use: Non-smoker Route of nutrition/ use of supplements: [] Nutritional Intake: [] IV Site: [] [place] Catheter: [] - Assessment/Plan Antibiotics: [] Assessment/Plan: [] Active and Suspected Problems (Last Updated 10/24/20 @ 15:[address] Nish Dee, DO) Pneumonia due to Coronavirus disease 2019 (Acute) Hypoxia (Acute) Melena (Acute) covid with hypoxia and PE - sx started about 2 weeks prior to admit 10/24. Completed dex and completed remdesivir. Back in icu for hypoxia, will monitor Will follow as needed, d/w Dr. Salmeron and nursing
--- NOTE | 2020-11-14 13:52 | EKG12_ITS ---
Test Reason : CP Blood Pressure : / mmHG Vent. Rate : 105 BPM Atrial Rate : 105 BPM P-R Int : 148 ms QRS Dur : 128 ms QT Int : 396 ms P-R-T Axes : 061 -36 052 degrees QTc Int : 523 ms Sinus tachycardia with Premature atrial complexes Left axis deviation Right bundle branch block Abnormal ECG No previous ECGs available Confirmed by YUAN MILAN, TAYLOR ([id number]), department editor GADIEL PITTMAN ([id number]) on 11/19/2020 12:28:26 PM Referred By: Confirmed By:TAMANNA BOLDEN MD
[2020-11-14 14:06] LABS: Bedside Glucose 124 mg/dL (70-110)
--- NOTE | 2020-11-14 14:13 | NURSING ---
1350: barrel bander called out to notify that pt is c/o new onset of CP. Pts VS : SPO2- desated down to 75%, hr increased to 120, BP stable at 113/50. Notified RT and increased Fio2 to 90% then to 100% to maintain SPO2 >88. Notified Jaron MILAN. Obtained an EKG which was negative. Jaron MILAN arrived to bedside and made the decision to stop dialysis at this time. Plan is to talk to family about decisions and possible transfer to a facility that can perform CCRT. Pt condition gaurded at this time.
--- NOTE | 2020-11-14 14:44 | DIALYSIS ---
Pt was placed on HD in PCU this morning. Tx was discontinued after 15 minutes d/t pt becoming lethargic, diaphortic (turned savage), and O2 sat dropped into the 80's. Bp was stable. Fluid- positive 423ml. Dr. Thomas was notified. See tx sheet for more details. Pt was moved to ICU. Second HD treatment discontinued 36 minutes early. Pt c/o chest pain and became diaphoretic. O2 sat dropped into the 80's while on bipap. Dr. Thomas is aware. Used right neck temporary dialysis catheter. Catheter is positional. Lumens closed with heparin per fill volume. Caps placed. New dressing was placed. UF of 740ml. See tx sheet for more details. Report was given to SCARLETT Antonio.
[2020-11-14] MEDS: Heparin 10,000 UNITS/10 ML Vial IV (14:51)
--- NOTE | 2020-11-14 17:48 | NURSING ---
After the decision was made to stop dialysis d/t pt not tolerating, Dr Salmeron called the daughter Charla on the phone to come in and speak with the hospitalist regarding the plan. 1515: Daughter Charla arrived at bedside. 1540: Klaudia MILAN spoke with Charla and the pt regarding plan. They made the decision to see if another facility that does CCRT would accept the pt and see if the pt would tolerate that treatment. Per Klaudia MILAN, he spoke with Dr Thomas who was calling other facilities to see if they could accept the pt for treatment before starting the transfer process. 1645: While responding to the pts call light, he said that he spoke with his tank pumper and has decided to stop treatment and wants to go home now to spend the time with his family and his animals. I spoke with the pt in detail regarding what that decision means and the risk factors. I then assessed the pts neurological status and he was a&oX3 and understood. He said that is what he wants, he wants to get things in order. I notified Dr Rudolph of the pts decision and he stated he was not at the hospital at this time but to go ahead and change code status and order hospice/palliative care consult. 1655: Spoke with hospice community liaison and she notified me that they would probably not have the resources/staff to be able to go to the pts house tonight and that it would be better to start the process tonight but wait to transfer/dc him home until the morning. 1715: Pt was very set on going home tonight. I notified the pt that we would not be able to get everything in order tonight d/t it being so late in the day and that we did not have SW/case management to help facilitate the process. Pt was then agreeable to wait until the morning to leave once those things were in order. Lorna Dunham was at the bedside and understood completely. The pt and Charla spoke about once things are in order that they may still want to pursue the CCRT treatment, but at this time the pt wanted to go home. I let them both know that I would pass that along as well as the plan of care. 1735: Charla left with some of the pts bags and the pts cellphone (which was disabled/locked and not useable).
--- NOTE | 2020-11-14 20:14 | NURSING ---
Had conversation with patient in regards to his medication for this evening. I explained what each medication was and why he was to receive it. Patient explained that he didn't want to take them and that he was leaving everything in God's hands now. Patient stated I'm ready to go home and do my thing. I don't want to take anything or do anything except sleep tonight so I can go home in the morning. Plan is for patient to go home on hospice tomorrow. Patient is alert and oriented x3. I explained to the patient that it's his choice and if he were to change his mind to let me know. Will continue to monitor.
--- NOTE | 2020-11-14 21:23 | NURSING ---
Patient's daughter Martina called concerned because her Aunt had called her after the aunt's phone call with patient. The aunt stated that she thought that the patient still wanted to do dialysis. Martina was worried that the patient had changed his mind about going home on hospice. I told Martina that I would be transferring her in to the patient's room phone and that we would all talk together to clarify what the patient wants. Once Martina was transferred in the room I asked the patient about his wishes and expectations of going home on hospice. Patient stated I just want to go home and be comfortable. I had explained that going home on hospice he would be going home to be comfortable and to live the rest of his days. He would still be on oxygen but he would NOT be doing anymore dialysis treatments. He would be going home to only be comfortable for his end of life. Patient stated Yes, that is what I want to do. I want to go home and be comfortable. I don't want to do dialysis and be in the hospital anymore. His daughter Martina on the phone had said that is everything he had said earlier today when she was here visiting and helping him make the decision. Martina stated I just want my dad to do whatever he wants. If he wants to go home on hospice and be comfortable then that is what I want. Martina said she would speak with her aunt to make sure the family is on the same page. She thanked us for clarifying everything between her and the patient. Martina said that she would be calling back in the morning. Patient demonstrates understanding of his wishes. He is alert and oriented x3. Patient is now resting in bed comfortably with call light within reach.
--- NOTE | 2020-11-14 22:15 | NURSING ---
Patient removed tele leads and BP cuff and is refusing to wear them. Patient says that he no longer needs them. He was encouraged to let us place them back on. Patient still refused. Pulse ox was placed on toe to keep track of his SpO2.
[2020-11-15] VITALS (11 sets, daily range): BP systolic 122; BP diastolic 72; PULSE 95–100; RESP 20; O2SAT 84–95
--- NOTE | 2020-11-15 05:46 | PN_ITS ---
Subjective: The patient was seen and examined at the bedside this morning. Events from the last 24 hours have been reviewed. The patient is currently afebrile, hemodynamically stable and maintaining appropriate oxygen saturations on Airvo heated high flow oxygen with an FiO2 requirement of 45% and flow rate of 40 L/min. Last evening, the patient and family elected to pursue hospice care services. Objective: The patient's most recent lab work, culture data and imaging studies have all been personally reviewed. Rapid coronavirus antigen testing was positive on October 24. Stool for occult blood was positive on October 25. Sputum culture was positive for group B streptococcus. General: Alert, Cooperative, - - More interactive than yesterday. HEENT: Atraumatic, Normocephalic Oral: No Gingival or Mucosal Lesions/ Ulcerations Neck: Supple, No Nodes, Trachea Midline Lungs: No rhonchi, No wheeze, No rales, Diminished Cardiovascular: Regular rate, Regular Rhythm Abdomen: Bowel Sounds Present, Soft, Non Tender, Obese Extremities: No clubbing, No cyanosis, Edema Skin: No breakdown Musculoskeletal: No Muscle Wasting Lymphatic: No Cervical, Supraclavicular, or Inguinal Adenopathy Neurological: Cranial nerves II-XII grossly intact, Neuro grossly intact Psych/Mental Status: Flat Affect Vital Signs Temp Pulse Resp BP Pulse Ox 97.6 F L 101 H 18 94/62 95 11/14/20 20:00 11/14/20 22:50 11/14/20 22:50 11/14/20 22:00 11/15/20 05:00 Oxygen Flow Rate (L/min) 40 Oxygen Delivery Method Airvo Weight: 259 lb 14.8 oz Body Mass Index (BMI) 38.5 Intake and Output for Last 24 Hours 11/13/20 11/14/20 11/15/20 23:59 23:59 23:59 Intake Total 660 / 660 860 / 860 100 / 100 Output Total 65 / 65 0 / 0 0 / 0 Balance 595 / 595 860 / 860 100 / 100 Labs (Last 48 Hours) 11/12/20 11/13/20 11/14/20 05:00 07:00 08:49 Diff Path Review Reviewed Specimen Type Sample Site pH Bicarbonate Actual Total CO2 Base Excess O2 Saturation O2 % ABG pCO2 ABG pO2 O2 Delivery Device Vent Mode Sodium 136 134 L Potassium 4.7 5.5 H Chloride 98 95 L Carbon Dioxide 25.0 22.0 Anion Gap 13 17 H BUN 75 H 113 H* Creatinine 6.25 H 8.43 H* Estim Creat Clear Calc 11.63 8.62 Est GFR (MDRD) Af Amer 12 L 8 L Est GFR (MDRD) Non-Af 10 L 7 L BUN/Creatinine Ratio 12.0 13.4 Glucose 89 99 Lactic Acid Calcium 9.4 9.6 Troponin I POC Glucose 11/14/20 11/14/20 11/14/20 08:49 09:21 11:10 Diff Path Review Specimen Type ART Sample Site L Radial pH 7.47 H Bicarbonate Actual 20.8 L Total CO2 22 Base Excess -3 L O2 Saturation 98 O2 % 100 ABG pCO2 28.6 L ABG pO2 103 H O2 Delivery Device BiPAP Vent Mode BiLevel Sodium Potassium Chloride Carbon Dioxide Anion Gap BUN Creatinine Estim Creat Clear Calc Est GFR (MDRD) Af Amer Est GFR (MDRD) Non-Af BUN/Creatinine Ratio Glucose Lactic Acid 0.8 Calcium Troponin I < 0.015 POC Glucose 11/14/20 11/14/20 11:57 14:02 Diff Path Review Specimen Type Sample Site pH Bicarbonate Actual Total CO2 Base Excess O2 Saturation O2 % ABG pCO2 ABG pO2 O2 Delivery Device Vent Mode Sodium Potassium Chloride Carbon Dioxide Anion Gap BUN Creatinine Estim Creat Clear Calc Est GFR (MDRD) Af Amer Est GFR (MDRD) Non-Af BUN/Creatinine Ratio Glucose Lactic Acid Calcium Troponin I POC Glucose 90 124 H Clinical Impression(s) from Imaging Studies Chest X-Ray 10/24/20 14:10 IMPRESSION: Bilateral pulmonary infiltrates worse in the right hemithorax. Electronically Signed: Jr Moya, at 14:27 EST , Service support , Chest CTA 10/25/20 10:45 IMPRESSION: Limited evaluation of the pulmonary arteries due to poor contrast-enhancement although I suspect multiple small pulmonary emboli in the upper lobe pulmonary arterial branches. Multiple areas of bilateral groundglass appearance was in the right hemithorax suggestive of a pneumonitis associated with Covid 19. Electronically Signed: Jr Moya, at 11:20 EST , Service support , Chest X-Ray 10/30/20 12:54 IMPRESSION: Worsening interstitial and airspace opacifications in both lung vann compared to the previous study. Follow-up recommended to ensure resolution Electronically Signed: Marcus Vides MD at 14:43 EST , Service support , Chest X-Ray 11/01/20 10:43 IMPRESSION: Progressive bilateral pulmonary infiltrates more prominent in the right hemithorax. The tip of the endotracheal tube is at 4.7 cm proximal to the javier. Electronically Signed: Jr Moya, at 11:21 EST , Service support , Chest X-Ray 11/02/20 10:50 IMPRESSION: The tip of the right sided hemodialysis catheter is in the right atrium. The tip of the endotracheal tube is at 9 cm proximal to the javier. Persistent bilateral pulmonary infiltrates although there has been improved aeration as compared to prior study. Electronically Signed: Jr Moya, at 11:07 EST , Service support , Chest X-Ray 11/02/20 13:50 IMPRESSION: Interval placement of a left subclavian catheter with the tip at the junction of superior vena cava and right atrium. The tip of the endotracheal tube is at 6.3 cm proximal to the javier. Stable bilateral pulmonary infiltrates. Electronically Signed: Jr Moya, at 14:17 EST , Service support , Chest X-Ray 11/08/20 06:49 IMPRESSION: Dense consolidation in the right midlung and focal infiltrate in the left lower lobe. Electronically Signed: Jr Moya MD at 9:06 EST , Service support , Chest X-Ray 11/14/20 09:20 IMPRESSION: Improved aeration of both lungs. Dense infiltrate persists in the right lung. Electronically Signed: Jr Moya MD at 12:48 EST , Service support , Brain CT 11/14/20 09:45 IMPRESSION: 1. Chronic involutional changes of the brain. 2. No CT evidence of acute intracranial hemorrhage. Electronically Signed: Catrina Norton MD at 11:43 EST , Service support , Medical Necessity - Tobacco Use Smoking Status: Never smoker Tobacco Use: Non-smoker Assessment/Plan All Active Problems (Last Updated 10/24/20 @ 15:[address] Nish Dee, DO) Pneumonia due to Coronavirus disease 2019 (Acute) Hypoxia (Acute) Melena (Acute) RECOMMENDATIONS: 1. Disposition planning underway for home with hospice care services today. 2. CODE STATUS to be updated to DNR comfort care. IMPRESSIONS: 1. Acute hypoxemic respiratory failure Multifactorial in etiology with COVID-19 pneumonia and bilateral pulmonary emboli contributing. Although attempts were made to utilize heated high flow oxygen and later BiPAP, the patient continued to decompensate from a respiratory perspective, requiring intubation on November 01, only to later be successfully extubated on November 11. The patient was doing quite well this morning from a respiratory perspective only to become more hypoxemic once being started on dialysis. Following additional work-up and after discussing goals of care with the patient's family, the plan at this time is to pursue home hospice care services. 2. Acute kidney injury Likely prerenal in etiology with component of ischemic ATN. Nephrology is currently following to assist with hemodialysis needs. 3. Possible GI bleed No overt signs of GI blood loss at this time. Continue twice daily PPI therapy as ordered. Monitor H&H and transfuse if hemoglobin drops below 7 g/dL. 4. History of coronary artery disease/hypertension/hyperlipidemia/obesity Complicates care, management, recovery and prognosis. Continue home medications as indicated. This note was generated with [employer] software. It may contain incorrect words, spelling, and punctuation that were not noted in checking the note before signing. Inpatient E&M: 95532 Subs Hosp L2
--- NOTE | 2020-11-15 07:32 | PN_ITS ---
Patient Problems: Active and Suspected Problems (Last Updated 10/24/20 @ 15:[address] Nish Dee, DO) Pneumonia due to Coronavirus disease 2019 (Acute) Hypoxia (Acute) Melena (Acute) Reason for Visit: Acute COVID-19 pneumonitis Subjective: Patient is a 65-year-old gentleman with multiple comorbidities who presented with progressive shortness of breath. Patient was diagnosed with acute COVID-19 pneumonitis. Patient has had complicated stay resulting in patient developing acute respiratory failure for which patient was on the vent. His hospital stay also characterized by bilateral pulmonary emboli as well as superimposed bacterial pneumonia and acute kidney injury 11/13/2020; patient was taken out of isolation the day prior. Plan is to increase activity as tolerated and patient transferred from ICU to PCU 11/14/2020; patient had sudden deterioration in her clinical status prior to initiation of dialysis. Patient only became hypoxic. Placed on noninvasive ventilation. Stat head CT ordered in addition to ABGs. Case was discussed with Dr. Salmeron with pulmonary medicine plans for patient to be transferred back to the ICU. Dr. Salmeron also had further discussion with patient's family and they still insisted on keeping patient full code. 11/15/2020;. Plan was for patient to have been transferred to a tertiary care center for CCR T therapy in view of instability during hemodialysis. Patient however rescinded his decision to be transferred after becoming more awake. Patient family also opted to change CODE STATUS to DNR CCA. Plans to discharge patient subsequently discontinued. Objective: GENERAL: Lethargic HEENT: Atraumatic; EYES; Anicteric, Normal Conjunctiva NECK; supple, normal thyroid, RESPIRATORY: Diminished to auscultation CARDIOVASCULAR: Regular S1 S2, GI: soft, normoactive bowel sounds, : No Renal angle tenderness; EXTREMITIES: No edema, no clubbing, MUSCULOSKELETAL: no muscle waisting NEURO: no lateralizing signs. SKIN: No Rash PSYCH; Flat affect Vitals/I&O's: Vital Signs Temp Pulse Resp BP Pulse Ox 97.6 F L 101 H 18 94/62 84 11/14/20 20:00 11/14/20 22:50 11/14/20 22:50 11/14/20 22:00 11/15/20 07:00 Oxygen Flow Rate (L/min) 40 Oxygen Delivery Method Airvo Weight: 117.9 kg Body Mass Index (BMI) 38.5 Intake and Output for Last 24 Hours 11/13/20 11/14/20 11/15/20 23:59 23:59 23:59 Intake Total 660 / 660 860 / 860 100 / 100 Output Total 65 / 65 0 / 0 0 / 0 Balance 595 / 595 860 / 860 100 / 100 Laboratory Results 11/14/20 08:49: Sodium 134 L, Potassium 5.5 H, Chloride 95 L, Carbon Dioxide 22.0, Anion Gap 17 H, BUN 113 H*, Creatinine 8.43 H*, Estim Creat Clear Calc 8.62, Est GFR (MDRD) Af Amer 8 L, Est GFR (MDRD) Non-Af 7 L, BUN/Creatinine Ratio 13.4, Glucose 99, Calcium 9.6 11/14/20 08:49: Troponin I < 0.015 11/14/20 09:21: Specimen Type ART, Sample Site L Radial, pH 7.47 H, Bicarbonate Actual 20.8 L, Total CO2 22, Base Excess -3 L, O2 Saturation 98, O2 % 100, ABG pCO2 28.6 L, ABG pO2 103 H, O2 Delivery Device BiPAP, Vent Mode BiLevel 11/14/20 11:10: Lactic Acid 0.8 11/14/20 11:57: POC Glucose 90 11/14/20 14:02: POC Glucose 124 H Current Medications Acetaminophen (Acetaminophen 325 Mg Tablet) 650 mg PO Q6H PRN PRN PRN Reason: Pain Score 1-10/Temp > 100.7 F Last Admin: 11/14/20 23:03 Dose: 650 mg Documented by: Albuterol/Ipratropium (Ipratropium/Albuterol Sulfate 3 Ml Ampul.Neb) 3 ml INHALATION Q6H.RT [facility] Last Admin: 11/14/20 13:35 Dose: 3 ml Documented by: Allopurinol (Allopurinol 300 Mg Tablet) 300 mg PO DAILY [facility] Last Admin: 11/14/20 11:22 Dose: Not Given Documented by: Apixaban (Apixaban 5 Mg Tablet) 5 mg PO BID [facility] Last Admin: 11/14/20 20:12 Dose: Not Given Documented by: Atorvastatin Calcium (Atorvastatin Calcium 20 Mg Tablet) 20 mg PO DAILY [facility] Last Admin: 11/14/20 11:21 Dose: Not Given Documented by: Calamine/Phenol (Menthol/Lanolin/Calamine/Znox 113 Gm Tube) 1 applic TOPICAL BID [facility]; Protocol Last Admin: 11/14/20 20:12 Dose: Not Given Documented by: Melatonin (Melatonin 3 Mg Tablet) 3 mg PO QHS [facility] Last Admin: 11/14/20 20:13 Dose: Not Given Documented by: Metoprolol Tartrate (Metoprolol Tartrate 25 Mg Tablet) 12.5 mg PO BID [facility] Last Admin: 11/14/20 20:12 Dose: Not Given Documented by: Pantoprazole Sodium (Pantoprazole Sodium 40 Mg Tablet) 40 mg PO BID [facility] Last Admin: 11/14/20 20:13 Dose: Not Given Documented by: Polyethylene Glycol (Polyethylene Glycol 3350 17 Gm Packet) 17 gm PO BID PRN PRN PRN Reason: CONSTIPATION Senna/Docusate Sodium (Senna/Docusate Sodium 1 Tablet) 2 tablet PO BID [facility] Last Admin: 11/14/20 20:13 Dose: Not Given Documented by: Sodium Chloride (0.9% Saline Lock 10 Ml Syringe) 10 - 40 ml IV UD PRN PRN Reason: SALINE FLUSH Last Admin: 11/13/20 06:40 Dose: 30 ml Documented by: Sodium Chloride (Sodium Chloride 0.65% 1 [place].Btl) 2 spray NASAL BID PRN PRN PRN Reason: NASAL DRYNESS Last Admin: 10/28/20 22:53 Dose: 2 sprays Documented by: STROKE Vital Signs/Narrative: Vital Signs Pulse Ox 11/15/20 07:00 84 11/15/20 06:00 95 11/15/20 05:00 95 11/15/20 04:00 92 Medical Necessity - Tobacco Use Smoking Status: Never smoker Tobacco Use: Non-smoker Assessment/Plan All Active Problems (Last Updated 10/24/20 @ 15:[address] Nish Dee, DO) Pneumonia due to Coronavirus disease 2019 (Acute) Hypoxia (Acute) Melena (Acute) Patient is a 65-year-old gentleman with multiple comorbidities who presented with progressive shortness of breath. Patient was diagnosed with acute COVID-19 pneumonitis. Patient has had complicated stay resulting in patient developing acute respiratory failure for which patient was on the vent. His hospital stay also characterized by bilateral pulmonary emboli as well as superimposed bacterial pneumonia and acute kidney injury 1. Acute hypoxic respiratory failure ?Due to combination of acute COVID-19 pneumonia, pneumococcal pneumonia, bilateral PE and ARDS. Patient was intubated on 11/01/2020 weaned off the vent on 11/11/2020. Currently on Airvo - 11/13/2020; patient was taken out of isolation the day prior. Plan is to increase activity as tolerated and patient transferred from ICU to PCU - 11/14/2020; patient had sudden deterioration in her clinical status prior to initiation of dialysis. Patient only became hypoxic. Placed on noninvasive ventilation. Stat head CT ordered in addition to ABGs. Case was discussed with Dr. Salmeron with pulmonary medicine plans for patient to be transferred back to the ICU. Dr. Salmeron also had further discussion with patient's family and they still insisted on keeping patient full code. -11/15/2020;. Plan was for patient to have been transferred to a tertiary care center for CCR T therapy in view of instability during hemodialysis. Patient however rescinded his decision to be transferred after becoming more awake. Patient family also opted to change CODE STATUS to DNR CCA. Plans to discharge patient subsequently discontinued. 2. Acute COVID-19 pneumonitis ?Patient completed a course of dexamethasone which had to be repeated. Also did receive remdesivir 3. Acute kidney injury secondary to acute tubular necrosis from sepsis and possibly contrast induced nephropathy. Patient currently on hemodialysis 4. Septic shock ?Secondary to patient underlying infection. Patient was weaned off pressors as of 11/11/2020 5. Pneumococcal pneumonia ?Noted on 11/01/2020. Completed a course of antibiotic therapy 5. Bilateral pulmonary embolism ?Secondary to Covid induced coagulopathy. Patient is on Eliquis 7. Essential hypertension ?Patient is on metoprolol 8. Gout ?Patient is on allopurinol continue 9. Dyslipidemia -Patient is on statin therapy, continued at home dose 10. Melenic stools ?Patient was placed on PPI 11. Coronary artery disease ?Patient has history of previous PCI with stent placement 12. Physical deconditioning - Requested for PT OT eval and licensed master social worker to assist with discharge planning Advance planning; did discuss with the patient and family regarding advanced directives as well as following sudden deterioration in patient's condition. Patient initially requested to remain full code with possible transfer to tertiary care center for CCR T. Patient however changed his mind. He insisted on being discharged home. Held discussion with patient and daughter CODE STATUS was changed to DNR CCA with consultation placed to hospice. Total time spent on discussion 35 minutes. Inpatient E&M: 05857 Subs Hosp L3 Procedures: 60592 Advncd Care Plan 30 Min
[2020-11-15] MEDS: 0.9% Saline Lock 10 ML Syringe IV (09:24)
--- NOTE | 2020-11-15 09:28 | CASEMGMT ---
Social Work Nursing notified PRESTON that pt is requesting to return home with hospice services. Phone call to Noble at [facility]. Referral has already been made to Hospice and all needed paperwork faxed. Ailin Antonio is meeting with pt dgt this morning at 1000 to complete paperwork. Hospice is aware that pt will need hospital bed, over the bed table, BSC and oxygen concentrator and is currently working to get this set up. Noble states this usually takes around 4 hours to get equipment delivered. Phone call placed to pt daughter Charla. Charla confirmed pt is to be discharged to his home with hospice services and Charla confirms appointment with hospice at 1000 and that she is aware that medical equipment will be delivered. SW inquired if family is understanding that hospice will not provide 24 hour care and dgt was not aware of this. PRESTON explained hospice program to Charla and detailed the amount and kind of care they would provide and that family would be responsible for providing 24 hour care. Charla stating that she cannot do this but would need to talk with her sisters about providing care. PRESTON discussed private duty aids and explained this service and that pt would be responsible for paying. PRESTON offered to read over list of [facility], send information home with pt or email list to dgt. Charla requesting private duty list be sent home with pt. PRESTON met with pt in room and reviewed discharge plans with pt. Pt does not feel he needs DME in home and stating he wants to make all of his own decisions and does not want Charla to make decisions for him. PRESTON reassured pt that he will be in charge of his health care. PRESTON also explained that DME including oxygen is very important to have at home prior to his arrival. Pt requesting to speak with his dgt Charla. PRESTON assisted pt in placing call to Charla and once connected SW left the room to allow pt time to speak with his daughter. SW to continue to follow to arrange for hospice services and discharge home. SHREE Fink
--- NOTE | 2020-11-15 09:53 | DCINST_ITS ---
- Discharge Diagnoses Current Active Problems: Current Active and Chronic Problems (Last Updated 10/24/20 @ 15:[address] Nish Dee, DO) Pneumonia due to Coronavirus disease 2019 (Acute) Hypoxia (Acute) Melena (Acute) You will use the following diet at home:: No restrictions Allergies/Adverse Reactions: Allergies Penicillins Allergy (Verified 10/24/20 11:19) Angioedema Medications to take at Discharge Allopurinol 300 mg PO DAILY 10/24/20 Metoprolol Tartrate 12.5 mg PO BID 10/24/20 Simvastatin 40 mg PO DAILY 10/24/20 Sodium Bicarbonate 650 mg PO 4X/DAY 10/24/20 Acetaminophen [Tylenol Tablet] 650 mg PO Q6H PRN PRN tablet 11/15/20 Albuterol Sulfate [Albuterol Sulfate HFA] 2 puff IH Q4H PRN PRN #1 inhaler 11/15/20 Apixaban [Eliquis] 5 mg PO BID #60 tab 11/15/20 Pantoprazole Sodium [Protonix] 40 mg PO DAILY #30 tab 11/15/20 Sodium Chloride 0.65% [[place] Nasal D Lo] 2 spray NASAL BID PRN PRN #1 spray.btl 11/15/20 The following prescriptions were given: Albuterol Sulfate [Albuterol Sulfate HFA] 2 puff IH Q4H PRN PRN #1 inhaler PRN Reason: Dyspnea/Wheezing/Sob Transmission Status: Pending to [facility] Apixaban [Eliquis] 5 mg PO BID #60 tab Transmission Status: Pending to [facility] Sodium Chloride 0.65% [[place] Nasal D Lo] 2 spray NASAL BID PRN PRN #1 spray.btl PRN Reason: NASAL DRYNESS Transmission Status: Pending to [facility] Pantoprazole Sodium [Protonix] 40 mg PO DAILY #30 tab Transmission Status: Pending to [facility] Primary Care Physician: Arnoldo Menjivar MD [Primary Care Provider] - Please follow up with your Primary Care Physician in: in 2 weeks Test Results: Test results from this visit will be discussed in further detail at your follow- up appointment, if applicable. Proposed Discharge Date: 11/15/20
--- NOTE | 2020-11-15 09:56 | PCM.DC.SUM ---
Discharge Date and Diagnosis - Problem List Patient Problems: Active and Suspected Problems (Last Updated 10/24/20 @ 15:[address] Nish Dee DO) Pneumonia due to Coronavirus disease 2019 (Acute) Hypoxia (Acute) Melena (Acute) Date of Admission: 10/24/20 Date of Discharge: 11/15/20 - Primary Discharge Diagnosis Acute Problems: Active Problems (Last Updated 10/24/20 @ 15:[address] Nish Dee DO) Pneumonia due to Coronavirus disease 2019 (Acute) Hypoxia (Acute) Melena (Acute) - Secondary Discharge Diagnosis Chronic Problems: Chronic Problems (Last Updated 10/24/20 @ 15:[address] Nish Dee DO) CAD (coronary artery disease) (Chronic) Status post stents Hyperlipidemia (Chronic) Hypertension (Chronic) Hospital Course and Treatment Imaging Results: Clinical Impression(s) from Imaging Studies Chest X-Ray 10/24/20 14:10 IMPRESSION: Bilateral pulmonary infiltrates worse in the right hemithorax. Electronically Signed: Jr Moya, at 14:27 EST , Service support , Chest CTA 10/25/20 10:45 IMPRESSION: Limited evaluation of the pulmonary arteries due to poor contrast-enhancement although I suspect multiple small pulmonary emboli in the upper lobe pulmonary arterial branches. Multiple areas of bilateral groundglass appearance was in the right hemithorax suggestive of a pneumonitis associated with Covid 19. Electronically Signed: Jr Moya, at 11:20 EST , Service support , Chest X-Ray 10/30/20 12:54 IMPRESSION: Worsening interstitial and airspace opacifications in both lung vann compared to the previous study. Follow-up recommended to ensure resolution Electronically Signed: Marcus Vides MD at 14:43 EST , Service support , Chest X-Ray 11/01/20 10:43 IMPRESSION: Progressive bilateral pulmonary infiltrates more prominent in the right hemithorax. The tip of the endotracheal tube is at 4.7 cm proximal to the javier. Electronically Signed: Jr Moya, at 11:21 EST , Service support , Chest X-Ray 11/02/20 10:50 IMPRESSION: The tip of the right sided hemodialysis catheter is in the right atrium. The tip of the endotracheal tube is at 9 cm proximal to the javier. Persistent bilateral pulmonary infiltrates although there has been improved aeration as compared to prior study. Electronically Signed: Jr Moya, at 11:07 EST , Service support , Chest X-Ray 11/02/20 13:50 IMPRESSION: Interval placement of a left subclavian catheter with the tip at the junction of superior vena cava and right atrium. The tip of the endotracheal tube is at 6.3 cm proximal to the javier. Stable bilateral pulmonary infiltrates. Electronically Signed: Jr Moya, at 14:17 EST , Service support , Chest X-Ray 11/08/20 06:49 IMPRESSION: Dense consolidation in the right midlung and focal infiltrate in the left lower lobe. Electronically Signed: Jr Moya MD at 9:06 EST , Service support , Chest X-Ray 11/14/20 09:20 IMPRESSION: Improved aeration of both lungs. Dense infiltrate persists in the right lung. Electronically Signed: Jr Moya MD at 12:48 EST , Service support , Brain CT 11/14/20 09:45 IMPRESSION: 1. Chronic involutional changes of the brain. 2. No CT evidence of acute intracranial hemorrhage. Electronically Signed: Catrina Norton MD at 11:43 EST , Service support , Consultations 11/01/20 17:55 Consult: Onc/Wound/merchant tailor Routine Comment: Reason for Consult:: Coccyx pressure injury Stage III Summary of Care Provided: Patient is a 65-year-old gentleman with multiple comorbidities who presented with progressive shortness of breath. Patient was diagnosed with acute COVID-19 pneumonitis. Patient has had complicated stay resulting in patient developing acute respiratory failure for which patient was on the vent. His hospital stay also characterized by bilateral pulmonary emboli as well as superimposed bacterial pneumonia and acute kidney injury 1. Acute hypoxic respiratory failure ?Due to combination of acute COVID-19 pneumonia, pneumococcal pneumonia, bilateral PE and ARDS. Patient was intubated on 11/01/2020 weaned off the vent on 11/11/2020. Currently on Airvo - 11/13/2020; patient was taken out of isolation the day prior. Plan is to increase activity as tolerated and patient transferred from ICU to PCU - 11/14/2020; patient had sudden deterioration in her clinical status prior to initiation of dialysis. Patient only became hypoxic. Placed on noninvasive ventilation. Stat head CT ordered in addition to ABGs. Case was discussed with Dr. Salmeron with pulmonary medicine plans for patient to be transferred back to the ICU. Dr. Salmeron also had further discussion with patient's family and they still insisted on keeping patient full code. -11/15/2020;. Plan was for patient to have been transferred to a tertiary care center for CCR T therapy in view of instability during hemodialysis. Patient however rescinded his decision to be transferred after becoming more awake. Patient family also opted to change CODE STATUS to DNR CCA. Plans to discharge patient subsequently discontinued. -Decision was made to discharge patient home with hospice 2. Acute COVID-19 pneumonitis ?Patient completed a course of dexamethasone which had to be repeated. Also did receive remdesivir 3. Acute kidney injury secondary to acute tubular necrosis from sepsis and possibly contrast induced nephropathy. Patient currently on hemodialysis 11/15/2020 patient did experience several episodes of instability at the initiation of dialysis with patient coming hypoxic. Plan was for patient to have been discharged to a tertiary care center for CRRT however patient CODE STATUS was changed to DNR CCA and discharged home with hospice 4. Septic shock ?Secondary to patient underlying infection. Patient was weaned off pressors as of 11/11/2020 5. Pneumococcal pneumonia ?Noted on 11/01/2020. Completed a course of antibiotic therapy 5. Bilateral pulmonary embolism ?Secondary to Covid induced coagulopathy. Patient is on Eliquis 7. Essential hypertension ?Patient is on metoprolol 8. Gout ?Patient is on allopurinol continue 9. Dyslipidemia -Patient is on statin therapy, continued at home dose 10. Melenic stools ?Patient was placed on PPI 11. Coronary artery disease ?Patient has history of previous PCI with stent placement 12. Physical deconditioning - Requested for PT OT eval and oncology social work to assist with discharge planning Patient Problems: Active and Suspected Problems (Last Updated 10/24/20 @ 15:[address] Nish Dee, DO) Pneumonia due to Coronavirus disease 2019 (Acute) Hypoxia (Acute) Melena (Acute) Objective: GENERAL: Significantly flat affect HEENT: Atraumatic; EYES; Anicteric, Normal Conjunctiva NECK; supple, normal thyroid, RESPIRATORY: Diminished to auscultation CARDIOVASCULAR: Regular S1 S2, GI: soft, normoactive bowel sounds, : No Renal angle tenderness; EXTREMITIES: No edema, no clubbing, MUSCULOSKELETAL: no muscle waisting NEURO: no lateralizing signs. SKIN: No Rash PSYCH; Flat affect - Physical Exam Vitals/I&O's: Vital Signs Temp Pulse Resp BP Pulse Ox 97.6 F L 95 20 H 122/72 H 94 11/14/20 20:00 11/15/20 08:00 11/15/20 08:00 11/15/20 08:00 11/15/20 08:00 Oxygen Flow Rate (L/min) 6 Oxygen Delivery Method Nasal Cannula Weight: 117.9 kg Body Mass Index (BMI) 38.5 Intake and Output for Last 24 Hours 11/13/20 11/14/20 11/15/20 23:59 23:59 23:59 Intake Total 660 / 660 860 / 860 100 / 100 Output Total 65 / 65 0 / 0 0 / 0 Balance 595 / 595 860 / 860 100 / 100 Laboratory Results 11/14/20 08:49: Sodium 134 L, Potassium 5.5 H, Chloride 95 L, Carbon Dioxide 22.0, Anion Gap 17 H, BUN 113 H*, Creatinine 8.43 H*, Estim Creat Clear Calc 8.62, Est GFR (MDRD) Af Amer 8 L, Est GFR (MDRD) Non-Af 7 L, BUN/Creatinine Ratio 13.4, Glucose 99, Calcium 9.6 11/14/20 08:49: Troponin I < 0.015 11/14/20 11:10: Lactic Acid 0.8 11/14/20 11:57: POC Glucose 90 11/14/20 14:02: POC Glucose 124 H Current Medications Acetaminophen (Acetaminophen 325 Mg Tablet) 650 mg PO Q6H PRN PRN PRN Reason: Pain Score 1-10/Temp > 100.7 F Last Admin: 11/14/20 23:03 Dose: 650 mg Documented by: Albuterol/Ipratropium (Ipratropium/Albuterol Sulfate 3 Ml Ampul.Neb) 3 ml INHALATION Q6H.RT REPLACED BY [facility] Last Admin: 11/14/20 13:35 Dose: 3 ml Documented by: Allopurinol (Allopurinol 300 Mg Tablet) 300 mg PO DAILY REPLACED BY [facility] Last Admin: 11/15/20 09:41 Dose: Not Given Documented by: Apixaban (Apixaban 5 Mg Tablet) 5 mg PO BID REPLACED BY [facility] Last Admin: 11/15/20 09:40 Dose: Not Given Documented by: Atorvastatin Calcium (Atorvastatin Calcium 20 Mg Tablet) 20 mg PO DAILY REPLACED BY [facility] Last Admin: 11/15/20 09:40 Dose: Not Given Documented by: Calamine/Phenol (Menthol/Lanolin/Calamine/Znox 113 Gm Tube) 1 applic TOPICAL BID REPLACED BY [facility]; Protocol Last Admin: 11/15/20 09:40 Dose: Not Given Documented by: Melatonin (Melatonin 3 Mg Tablet) 3 mg PO QHS REPLACED BY [facility] Last Admin: 11/14/20 20:13 Dose: Not Given Documented by: Metoprolol Tartrate (Metoprolol Tartrate 25 Mg Tablet) 12.5 mg PO BID REPLACED BY [facility] Last Admin: 11/15/20 09:40 Dose: Not Given Documented by: Pantoprazole Sodium (Pantoprazole Sodium 40 Mg Tablet) 40 mg PO BID REPLACED BY [facility] Last Admin: 11/15/20 09:41 Dose: Not Given Documented by: Polyethylene Glycol (Polyethylene Glycol 3350 17 Gm Packet) 17 gm PO BID PRN PRN PRN Reason: CONSTIPATION Senna/Docusate Sodium (Senna/Docusate Sodium 1 Tablet) 2 tablet PO BID VERONICA Last Admin: 11/15/20 09:41 Dose: Not Given Documented by: Sodium Chloride (0.9% Saline Lock 10 Ml Syringe) 10 - 40 ml IV UD PRN PRN Reason: SALINE FLUSH Last Admin: 11/15/20 09:24 Dose: 30 ml Documented by: Sodium Chloride (Sodium Chloride 0.65% 1 [place].Btl) 2 spray NASAL BID PRN PRN PRN Reason: NASAL DRYNESS Last Admin: 10/28/20 22:53 Dose: 2 sprays Documented by: Discharge Diet: No Restrictions Discharge Activity: Return to Normal Activity Home Medications: Medications to take at Discharge Allopurinol 300 mg PO DAILY 10/24/20 Metoprolol Tartrate 12.5 mg PO BID 10/24/20 Simvastatin 40 mg PO DAILY 10/24/20 Sodium Bicarbonate 650 mg PO 4X/DAY 10/24/20 Acetaminophen [Tylenol Tablet] 650 mg PO Q6H PRN PRN tablet 11/15/20 Albuterol Sulfate [Albuterol Sulfate HFA] 2 puff IH Q4H PRN PRN #1 inhaler 11/15/20 Apixaban [Eliquis] 5 mg PO BID #60 tab 11/15/20 Pantoprazole Sodium [Protonix] 40 mg PO DAILY #30 tab 11/15/20 Sodium Chloride 0.65% [[place] Nasal [place]] 2 spray NASAL BID PRN PRN #1 spray.btl 11/15/20 Following Prescriptions Were Given to Patient: Albuterol Sulfate [Albuterol Sulfate HFA] 2 puff IH Q4H PRN PRN #1 inhaler PRN Reason: Dyspnea/Wheezing/Sob Transmission Status: Pending to [facility] Apixaban [Eliquis] 5 mg PO BID #60 tab Transmission Status: Pending to [facility] Sodium Chloride 0.65% [[place] Nasal [place]] 2 spray NASAL BID PRN PRN #1 spray.btl PRN Reason: NASAL DRYNESS Transmission Status: Pending to [facility] Pantoprazole Sodium [Protonix] 40 mg PO DAILY #30 tab Transmission Status: Pending to [facility] Primary Care Physician: Arnoldo Menjivar MD [Primary Care Provider] - Please follow up with your Primary Care Physician in: in 2 weeks Disposition: Home with Hospice Minutes spent on discharge:: 45 Patient Condition:: Guarded Medical Necessity - Tobacco Use Smoking Status: Never smoker Tobacco Use: Non-smoker Meaningful Use Info Meaningful Use Diagnoses (Choose all that apply): None applicable Inpatient E&M: 31865 Disch Hosp
[2020-11-15] MEDS: Acetaminophen 325 MG Tablet 650 MG PO (11:40)
--- NOTE | 2020-11-15 11:55 | CASEMGMT ---
Social Work SW received call from pt daughter Charla stating she is meeting with the [employer] at this time and are requesting pt file for Medicaid to assist with private duty care in the home. SW met with pt and explained daughters request. Pt expresses understanding and is agreeable to provide information to SW to complete Medicaid application. Application faxed to [facility] and document placed in a manilla envelop and given to patient and SW explained application has been faxed. Phone call to pt daughter Charla and updated on the Medicaid application. Return call from [facility] stating DME is to be delivered at 1:30. SW arranged for transportation through [facility] for a 2:00 sampler pickup time via [facility] and pt daughter updated. Hospice nurse to arrive at pt home between 3:00-4:00. SW met with pt and discussed discharge plan and time. Pt is agreeable. Again pt requested to call mary jo Mack and SW assisted. Pt appreciative of SW assistance with discharge. Nursing updated on d/c time. SHREE Fink
--- NOTE | 2020-11-15 14:25 | CHAPLAIN ---
Type of Pastoral Visit _x__ Initial Visit ___ Follow-up Visit ___ On-call Visit ___ General Patient Visit ___ Spiritual Assessment ___ Family Conference ___ Bereavement ___ Rapid Response ___ Code Blue ___ Other (describe below) Pastoral Care Referral From ___ Patient ___ Family _x__ Nurse ___ Physician ___ Director Of Respiratory Therapy ___ Laundry Aid ___ Other (describe below) Sacrament/Intervention _x__ Active listening ___ Anointing ___ Temple ___ Bereavement ___ Communion _x__ Hanny exploration ___ _x__ Life review _x__ Prayer ___ Reconciliation ___ Sacrament of Sick _x__ Supportive presence ___ Wedding ___ Other (describe below) Pastoral Comments RN referred this patient to this baker apprentice due to patient choice of hospice and going home today; met with patient who was agreeable to meet; pt declares his desire to go home and let God decide when he wants me adding that God can do miracles and He will if he wants to or He can just take me home; pt gives some life review indicating places where God intervened in his life to prevent ; pt says he has four daughters and sons-in-law along with grandchildren; pt is member 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
== END 2020-11-15 15:48 | disposition hospice, home (50) | DRG 207 ==
LOC: ED 15:33 → MS2 15:40 → ICU 11-01 13:09 → PCU 11-13 13:08 → ICU 11-14 10:04
PROVIDERS: Hospitalist; Internal Medicine; Internal Medicine Critical Care Medicine; Internal Medicine Infectious Disease; Internal Medicine Nephrology; Emergency Provider Emergency Medicine; PCP Family Medicine; Visit Provider Internal Medicine
DX: U07.1 COVID-19 (principal); J12.82 Pneumonia due to coronavirus disease 2019; N17.0 Acute kidney failure with tubular necrosis; I26.99 Other pulmonary embolism without acute cor pulmonale; R57.8 Other shock; R65.21 Severe sepsis with septic shock; A41.9 Sepsis, unspecified organism; J13 Pneumonia due to Streptococcus pneumoniae; J80 Acute respiratory distress syndrome; K92.1 Melena; Z68.41 Body mass index [BMI] 40.0-44.9, adult; D68.9 Coagulation defect, unspecified; G93.40 Encephalopathy, unspecified; I25.10 Atherosclerotic heart disease of native coronary artery without angina pectoris; E78.5 Hyperlipidemia, unspecified; I12.9 Hypertensive chronic kidney disease with stage 1 through stage 4 chronic kidney disease, or unspecified chronic kidney disease; N18.30 Chronic kidney disease, stage 3 unspecified; M10.9 Gout, unspecified; E66.9 Obesity, unspecified; Z87.09 Personal history of other diseases of the respiratory system; Z95.5 Presence of coronary angioplasty implant and graft; E87.5 Hyperkalemia; E83.39 Other disorders of phosphorus metabolism; Z66 Do not resuscitate
CPT/HCPCS: 31500; 31720; 36415; 36600; 70450; 71045; 71275; 80048; 80053; 80069; 80076; 81001; 82274; 82570; 82803; 82962; 83605; 83615; 83690; 83735; 83880; 84075; 84100; 84145; 84300; 84484; 85014; 85018; 85025; 85027; 85379; 85384; 85610; 86140; 86850; 86900; 86901; 87070; 87077; 87186; 87205; 87340; 87426; 87641; 90937; 93005; 93306; 94002; 94003; 94640; 94660; 94667; 94668; 97110; 97161; 97162; 97166; 97530; 97803; 99251; 99282; J2185; J2997; J7030; J7050; Q9957; Q9967; A4216; C1752; C8929; G0257; G0463; J0330; J0696; J1940; J3010; J3490